=== PATIENT | male | born 1960 | race Caucasian/White ===

== ENCOUNTER 2016-06-20 13:00 | Emergency (ER) | payer MEDICARE, OTHER ==
[2016-06-20 13:21] VITALS: RESP 18; TEMP 97.9
[2016-06-20] MEDS ORDERED: IBUPROFEN 800 MG TAB PO STA (13:22)
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
--- NOTE | 2016-06-20 14:23 | XR ---
Left knee HISTORY: Pain 3 views of the left knee correlate to left leg same date Bone mineralization, joint spaces and alignment are maintained. Some minimal spurring is present lonnie inally. There is a knee joint effusion. IMPRESSION: Osteoarthritis. Joint effusion.
--- NOTE | 2016-06-20 14:24 | XR ---
Left leg HISTORY: Pain 2 views of the left leg correlated to left knee same date Bone mineralization, joint spaces and alignment are maintained. IMPRESSION: No significant osseous abnormality evident within the left leg. Osteoarthritis in the kne e.
[2016-06-20 14:31] VITALS: BP 171/100; PULSE 120
== END 2016-06-20 14:41 | disposition home or self-care (01) ==
LOC: EC 13:00
DX: M17.12 Unilateral primary osteoarthritis, left knee (principal); M25.462 Effusion, left knee; E11.9 Type 2 diabetes mellitus without complications; I10 Essential (primary) hypertension; Z79.899 Other long term (current) drug therapy; V13.4XXA Pedal cycle driver injured in collision with car, pick-up truck or van in traffic accident, initial encounter; Y93.55 Activity, bike riding; Z79.84 Long term (current) use of oral hypoglycemic drugs
CPT/HCPCS: 99284

== ENCOUNTER 2016-06-21 08:16 | Emergency (ER) | payer MEDICARE, OTHER ==
[2016-06-21] MEDS ORDERED: SODIUM CHLORIDE 0.9% 1,000 ML IV STA (09:18)
[2016-06-21] MEDS ORDERED: LABETALOL SYRINGE 5 MG/ML IVP STA ×2 (09:19→14:43)
--- NOTE | 2016-06-21 09:26 | ED ---
General Adult HPI <Sebastián Christie - Last Filed: 06/21/16 14:41> - General Source: patient, RN notes reviewed Mode of arrival: EMS Limitations: no limitations <Lisa Spencer - Last Filed: 06/21/16 20:30> - General Chief complaint: Extremity Injury, Lower Stated complaint: leg pain Time Seen by Provider: 06/21/16 08:40 - History of Present Illness Initial comments: Patient is a 56-year-old male presents to the emergency room for evaluation of multiple complaints. Patient states he was here yesterday because he had a left leg injury. Patient states that he received x-rays of his left leg with no findings noted. Patient states he was sent home and advised to take Tylenol and Motrin. Patient states having worsening pain today. Patient is having worsening pain on the anterior and posterior portion of his left knee that radiates down his calf. Patient states pain is worse when he walks. Patient states the pain is so bad that he falls because of the pain. Patient states he is having some numbness and tingling in his left lower leg and above his knee. Patient denies any history of blood clots. Patient denies smoking. Patient also states that his blood pressure is very high. Patient states he takes blood pressure medications but does not know the name. Patient states he takes 1 pill once a day. Patient states Dr. Padron prescribes for him. Patient also states that his sugars are running high. Patient states that he takes a medication for it once a day but again does not know the name of it. Patient denies chest pain or shortness of breath. Patient denies headache or dizziness. Patient denies nausea or vomiting. Patient denies fevers or chills. (Lisa Spencer) - Related Data Home Medications Medication Instructions Recorded Confirmed Lisinopril-Hctz 20-12.5 mg 1 tab PO DAILY 06/11/14 06/21/16 [Zestoretic 20-12.5] Linaclotide [Linzess] 290 mcg PO DAILY PRN 03/07/16 06/21/16 sitaGLIPtin [Januvia] 100 mg PO DAILY 03/07/16 06/21/16 Previous Rx's Medication Instructions Recorded HYDROcodone/APAP 5-325MG [[place] 1 tab PO Q6HR PRN #12 tab 06/21/16 5-325] Allergies Allergy/AdvReac Type Severity Reaction Status Date / Time No Known Allergies Allergy Verified 06/21/16 09:07 Review of Systems ROS Other: All systems not noted in ROS Statement are negative. <Sebastián Christie - Last Filed: 06/21/16 14:41> ROS Other: All systems not noted in ROS Statement are negative. <Lisa Spencer - Last Filed: 06/21/16 20:30> ROS Statement: Those systems with pertinent positive or pertinent negative responses have been documented in the HPI. Past Medical History Past Medical History: Diabetes Mellitus, Hypertension Additional Past Medical History / Comment(s): diverticulitis History of Any Multi-Drug Resistant Organisms: None Reported Past Surgical History: Hernia Repair Past Psychological History: No Psychological Hx Reported Smoking Status: Never smoker Past Alcohol Use History: None Reported Past Drug Use History: None Reported <Lisa Spencer - Last Filed: 06/21/16 20:30> General Exam <Sebastián Christie - Last Filed: 06/21/16 14:41> Limitations: no limitations General appearance: alert, in no apparent distress Head exam: Present: atraumatic, normocephalic, normal inspection Eye exam: Present: normal appearance ENT exam: Present: normal exam Neck exam: Present: normal inspection Respiratory exam: Present: normal lung sounds bilaterally. Absent: respiratory distress Cardiovascular Exam: Present: normal rhythm, tachycardia, normal heart sounds GI/Abdominal exam: Present: soft, normal bowel sounds. Absent: distended, tenderness, guarding, rebound, rigid Left Lower Leg exam: Present: full ROM, tenderness (Palpating over her posterior knee joint and calf), swelling Ankle exam: Present: normal inspection, full ROM. Absent: tenderness Foot/Toe exam: Present: normal inspection, full ROM. Absent: tenderness Neurovascular tendon exam: Absent: pulse deficit (2+ dorsal pedal and posterior tibial pulses), abnormal cap refill (capillary refill less than 2 seconds) Back exam: Present: normal inspection Neurological exam: Present: alert, oriented X3, CN II-XII intact Psychiatric exam: Present: normal affect, normal mood Skin exam: Present: warm, dry, intact, normal color. Absent: rash <Lisa Spencer - Last Filed: 06/21/16 20:30> - General Exam Comments Initial Comments: Pain exam room, no acute distress. (Lisa Spencer) EKG Findings - EKG Comments: EKG Findings:: Sinus tachycardia, ventricular rate 123 bpm, MT interval 140 ms, QRS duration 88 ms, QT/QTc 326/446 ms <Lisa Spencer - Last Filed: 06/21/16 20:30> Medical Decision Making - Lab Data Result diagrams: 06/21/16 08:55 06/21/16 08:55 <Sebastián Christie - Last Filed: 06/21/16 14:41> - Lab Data Result diagrams: 06/21/16 08:55 06/21/16 08:55 - Radiology Data Radiology results: report reviewed, image reviewed <Lisa Spencer - Last Filed: 06/21/16 20:30> - Medical Decision Making The patient was seen and examined. All diagnostics were reviewed. The case is discussed with orthopedics and consult is obtained for their opinion regarding the possibility of a compartment syndrome. I have discussed the case with the PA and agree with the findings as documented. (Sebastián Christie) Patient is a 56-year-old male presents emergency room for evaluation of left leg pain and swelling. Patient also noted to be tachycardic on examination, d- dimer was elevated. CT chest shows no signs of PE. Case discussed with Dr. Christie. Dr. Christie also evaluated patient. Patient was then evaluated by orthopedic PAAiden and Dr. Truong. MRI was ordered. Hematoma noted of the lower leg along with a right sided meniscal tear. Patient will be sent home with pain medications and crutches. Advised patient to not put any weight on his leg until reevaluated by Dr. Truong in the next 1-2 days. Also advised patient to follow-up with his primary care provider regarding blood pressure. Patient states he understands everything that was discussed with him. Return parameters discussed. (Lisa Spencer) - Lab Data Lab Results 06/21/16 06/21/16 06/21/16 Range/Units 08:55 08:55 08:55 WBC 12.0 H (3.8-10.6) k/uL RBC 5.87 (4.30-5.90) m/uL Hgb 17.1 (13.0-17.5) gm/dL Hct 50.3 (39.0-53.0) % MCV 85.7 (80.0-100.0) fL MCH 29.1 (25.0-35.0) pg MCHC 34.0 (31.0-37.0) g/dL RDW 12.6 (11.5-15.5) % Plt Count 259 (150-450) k/uL Neutrophils % 81 % Lymphocytes % 11 % Monocytes % 6 % Eosinophils % 0 % Basophils % 1 % Neutrophils # 9.6 H (1.3-7.7) k/uL Lymphocytes # 1.4 (1.0-4.8) k/uL Monocytes # 0.8 (0-1.0) k/uL Eosinophils # 0.0 (0-0.7) k/uL Basophils # 0.1 (0-0.2) k/uL PT (9.0-12.0) sec INR (<1.1) APTT (22.0-30.0) sec D-Dimer (<0.60) mg/L FEU Sodium 138 (137-145) mmol/L Potassium 5.2 H (3.5-5.1) mmol/L Chloride 101 (98-107) mmol/L Carbon Dioxide 22 (22-30) mmol/L Anion Gap 15 mmol/L BUN 16 (9-20) mg/dL Creatinine 0.83 (0.66-1.25) mg/dL Est GFR (MDRD) Af Amer >60 (>60 ml/min/1.73 sqM) Est GFR (MDRD) Non-Af >60 (>60 ml/min/1.73 sqM) Glucose 352 H (74-99) mg/dL POC Glucose (mg/dL) (75-99) mg/dL POC Glu Veterinary Technician ID Calcium 10.1 (8.4-10.2) mg/dL Magnesium 1.5 L (1.6-2.3) mg/dL Total Bilirubin 2.2 H (0.2-1.3) mg/dL AST 28 (17-59) U/L ALT 42 (21-72) U/L Alkaline Phosphatase 87 (38-126) U/L Total Creatine Kinase 376 H (55-170) U/L CK-MB (CK-2) 1.1 (0.0-2.4) ng/mL CK-MB (CK-2) Rel Index 0.3 Troponin I <0.012 (0.000-0.034) ng/mL Total Protein 7.4 (6.3-8.2) g/dL Albumin 4.4 (3.5-5.0) g/dL 06/21/16 06/21/16 Range/Units 08:55 12:29 WBC (3.8-10.6) k/uL RBC (4.30-5.90) m/uL Hgb (13.0-17.5) gm/dL Hct (39.0-53.0) % MCV (80.0-100.0) fL MCH (25.0-35.0) pg MCHC (31.0-37.0) g/dL RDW (11.5-15.5) % Plt Count (150-450) k/uL Neutrophils % % Lymphocytes % % Monocytes % % Eosinophils % % Basophils % % Neutrophils # (1.3-7.7) k/uL Lymphocytes # (1.0-4.8) k/uL Monocytes # (0-1.0) k/uL Eosinophils # (0-0.7) k/uL Basophils # (0-0.2) k/uL PT 10.2 (9.0-12.0) sec INR 1.0 (<1.1) APTT 22.8 (22.0-30.0) sec D-Dimer 1.01 H (<0.60) mg/L FEU Sodium (137-145) mmol/L Potassium (3.5-5.1) mmol/L Chloride (98-107) mmol/L Carbon Dioxide (22-30) mmol/L Anion Gap mmol/L BUN (9-20) mg/dL Creatinine (0.66-1.25) mg/dL Est GFR (MDRD) Af Amer (>60 ml/min/1.73 sqM) Est GFR (MDRD) Non-Af (>60 ml/min/1.73 sqM) Glucose (74-99) mg/dL POC Glucose (mg/dL) 280 H (75-99) mg/dL POC Glu Veterinary Technician ID Adin Saldivar Calcium (8.4-10.2) mg/dL Magnesium (1.6-2.3) mg/dL Total Bilirubin (0.2-1.3) mg/dL AST (17-59) U/L ALT (21-72) U/L Alkaline Phosphatase (38-126) U/L Total Creatine Kinase (55-170) U/L CK-MB (CK-2) (0.0-2.4) ng/mL CK-MB (CK-2) Rel Index Troponin I (0.000-0.034) ng/mL Total Protein (6.3-8.2) g/dL Albumin (3.5-5.0) g/dL Disposition <JonahSebastián mayfield - Last Filed: 06/21/16 14:41> Time of Disposition: 17:41 <Lisa Spencer - Last Filed: 06/21/16 20:30> Clinical Impression: Acute meniscal tear of left knee, Hematoma of muscle, Hypertension Disposition: HOME SELF-CARE Condition: Good Instructions: Swollen Joint (ED), Hematoma (ED) Additional Instructions: Rest, elevate and ice on and off for 10-15 minutes for the next 24-48 hours. Please use crutches, do not put any weight on left leg until reevaluated by Dr. Truong. Take Tylenol or Motrin as needed for pain. Take [place] for severe pain. Please follow-up with Dr. Truong in 1-2 days. If new symptoms develop or symptoms worsen, please return to the ER. Please follow up with primary care provider regarding blood pressure recheck. Prescriptions: HYDROcodone/APAP 5-325MG [[place] 5-325] 1 tab PO Q6HR PRN #12 tab PRN Reason: Pain Referrals: Carlos Padron MD [Primary Care Provider] - 1-2 days Jasvir Truong MD [STAFF PHYSICIAN] - 1-2 days
[2016-06-21 09:34] LABS: Basophils # (A) 0.1 k/uL (0-0.2); Basophils % (A) 1 %; CH 30.3; CHCM 35.5; Eosinophils % (A) 0 %; HCT 50.3 % (39.0-53.0); HDW 2.68; HGB 17.1 gm/dL (13.0-17.5); Luc # (Auto) 0.12; Luc % (Auto) 1; Lymphocytes # (A) 1.4 k/uL (1.0-4.8); Lymphocytes % (A) 11 %; MCH 29.1 pg (25.0-35.0); MCV 85.7 fL (80.0-100.0); Mean Platelet Volume 9.2; Monocytes # (A) 0.8 k/uL (0-1.0); Monocytes % (A) 6 %; Neutrophils # (A) 9.6 k/uL (1.3-7.7); Neutrophils % (A) 81 %; RBC 5.87 m/uL (4.30-5.90); RDW 12.6 % (11.5-15.5); WBC (Perox) 11.67
[2016-06-21 09:42] LABS: ALT 42 U/L (21-72); AST 28 U/L (17-59); Alkaline Phosphatase 87 U/L (38-126); Anion Gap 15 mmol/L; Blood Urea Nitrogen 16 mg/dL (9-20); Calcium 10.1 mg/dL (8.4-10.2); Carbon Dioxide 22 mmol/L (22-30); Chloride 101 mmol/L (98-107); Glucose 352 mg/dL (74-99); Magnesium 1.5 mg/dL (1.6-2.3); Non-African American GFR(MDRD) >60 (>60 ml/min/1.73 sqM); Potassium 5.2 mmol/L (3.5-5.1); Sodium 138 mmol/L (137-145); Total Bilirubin 2.2 mg/dL (0.2-1.3); Total Protein 7.4 g/dL (6.3-8.2)
[2016-06-21 09:52] LABS: Partial Thromboplastin Time 22.8 sec (22.0-30.0); Prothrombin Time 10.2 sec (9.0-12.0)
[2016-06-21 10:07] LABS: Creatine Kinase 376 U/L (55-170)
[2016-06-21 10:19] LABS: Creatine Kinase MB 1.1 ng/mL (0.0-2.4); Troponin I <0.012 ng/mL (0.000-0.034)
--- NOTE | 2016-06-21 10:37 | XR ---
EXAMINATION TYPE: XR chest 2V DATE OF EXAM: 06/21/2016 10:28 AM COMPARISON: 07/21/2015 HISTORY: Chest pain FINDINGS: The lungs are clear and there is no pneumothorax, pleural effusion, or focal pneumonia. Mediastinum is somewhat prominent. IMPRESSION: 1. No acute process. Upper mediastinum is somewhat prominent. May be vascular.
[2016-06-21] MEDS ORDERED: RX INFO: IV CONTRAST WAS GIVEN 1 EACH MISC MISCELLANE PRN (11:39)
--- NOTE | 2016-06-21 12:06 | CT ---
EXAMINATION TYPE: CT angio chest DATE OF EXAM: 06/21/2016 12:01 PM COMPARISON: NONE HISTORY: Patient complains of left knee pain post injury, high blood pressure, and high blood sugar. Patient has a history of diabetes. Patient denies chest pain or difficulty breathing. CT DLP: 306.2 mGycm CONTRAST: CT chest with contrast and 3D reconstruction with MIP imaging is performed with IV Contrast, patient injected with 100 mL of Omnipaque 350. Contrast-enhanced CT of the chest was performed through the course of the pulmonary arteries with emily g and mediastinal window settings submitted. 3D reconstruction with MIP imaging was also performed. PULMONARY ARTERIES: The pulmonary arteries and their major tributaries are patent. I do not see mauro dence for sizable filling defect to suggest pulmonary embolic process. LUNGS: The lungs are clear and free of infiltrate. No evidence for atelectasis. No pulmonary nodule or mass is detected. No pleural effusion. MEDIASTINUM: Thoracic aorta is of normal caliber . The heart is not enlarged. No evidence for media stinal mass. No mediastinal lymph nodes greater than 1cm. HILAR STRUCTURES: No evidence for mass. No hilar lymph nodes greater than 1 cm. UPPER ABDOMEN: No significant abnormality is seen. IMPRESSION: 1. No evidence for Pulmonary embolism at this time.
--- NOTE | 2016-06-21 12:17 | US ---
EXAMINATION TYPE: US venous doppler duplex LE LT DATE OF EXAM: 06/21/2016 11:12 AM COMPARISON: NONE CLINICAL HISTORY: Pain. Left knee pain and swelling x 2 days SIDE PERFORMED: Left VESSELS IMAGED: ) Common Femoral Vein Deep Femoral Vein Greater Saphenous Vein * Femoral Vein Popliteal Vein Small Saphenous Vein * Proximal Calf Veins (* superficial vessels) Findings: Anterior Fluid Collection noted at medial, mid, and lateral left knee at swelling and pain. Complex fluid collection = 6.1 x 4.8 x 1.8cm Left Leg: Negative for DVT IMPRESSION: 1. No evidence of DVT 2. Large fluid collection which is somewhat complex measuring 6.1 cm within the anterior soft tissues . Correlate clinically if necessary with MRI. Differential would include seroma, hematoma or simple f luid. Abscess not entirely excluded correlate clinically.
[2016-06-21 12:32] LABS: Glucose,Whole Blood 280 mg/dL (75-99)
[2016-06-21] MEDS ORDERED: MORPHINE SULFATE 4 MG/ML SYRINGE IVP STA (13:43)
[2016-06-21] MEDS ORDERED: SODIUM CHLORIDE 0.9% 1,000 ML IV ONE (14:43)
[2016-06-21 17:12] VITALS: BP 164/99; PULSE 100; RESP 16; TEMP 97.8
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
== END 2016-06-21 18:04 | disposition home or self-care (01) ==
LOC: EC 08:16
DX: S83.242A Other tear of medial meniscus, current injury, left knee, initial encounter (principal); S80.02XA Contusion of left knee, initial encounter; X58.XXXA Exposure to other specified factors, initial encounter; E11.9 Type 2 diabetes mellitus without complications; I10 Essential (primary) hypertension; Z79.84 Long term (current) use of oral hypoglycemic drugs; Z79.899 Other long term (current) drug therapy
CPT/HCPCS: 36415; 93005; 85379; 80053; 82550; 82553; 83735; 84484; 85025; 85610; 85730; 71020; 93971; 71275; 73718; 99284; 96374; 96375; 96376; 96361 ×3; J2270; Q9967

== ENCOUNTER 2016-12-13 19:52 | Emergency (ER) | payer MEDICARE, OTHER ==
[2016-12-13] MEDS ORDERED: RX INFO: IV CONTRAST WAS GIVEN 1 EACH MISC MISCELLANE PRN (20:24)
[2016-12-13 21:05] LABS: Basophils # (A) 0.1 k/uL (0-0.2); Basophils % (A) 1 %; CHCM 35.5; Eosinophils # (A) 0.3 k/uL (0-0.7); Eosinophils % (A) 3 %; HCT 45.5 % (39.0-53.0); HDW 2.76; HGB 16.2 gm/dL (13.0-17.5); Luc # (Auto) 0.22; Luc % (Auto) 2; Lymphocytes # (A) 2.5 k/uL (1.0-4.8); Lymphocytes % (A) 25 %; MCH 30.2 pg (25.0-35.0); MCHC 35.5 g/dL (31.0-37.0); Mean Platelet Volume 8.5; Monocytes # (A) 0.6 k/uL (0-1.0); Monocytes % (A) 6 %; Neutrophils # (A) 6.2 k/uL (1.3-7.7); Neutrophils % (A) 63 %; RBC 5.35 m/uL (4.30-5.90); WBC 9.8 k/uL (3.8-10.6); WBC (Perox) 9.64
[2016-12-13 21:11] LABS: Appearance,Urine Clear (Clear); Bilirubin,Urine Negative (Negative); Glucose,Urine (UA) 4+ (Negative); Ketones,Urine Trace (Negative); Leukocyte Esterase,Urine Negative (Negative); Mucus,Urine Rare /hpf; Nitrite,Urine Negative (Negative); Particle Count 308; Protein,Urine 1+ (Negative); Specific Gravity,Urine 1.017 (1.001-1.035); UA Billing (MACRO vs. MICRO) MICRO; Urobilinogen,Urine <2.0 mg/dL (<2.0); WBC,Urine <1 /hpf (0-5)
[2016-12-13 21:13] LABS: ALT 52 U/L (21-72); AST 32 U/L (17-59); Alkaline Phosphatase 94 U/L (38-126); Amylase <30 U/L (30-110); Anion Gap 9 mmol/L; Blood Urea Nitrogen 16 mg/dL (9-20); Calcium 10.6 mg/dL (8.4-10.2); Carbon Dioxide 22 mmol/L (22-30); Chloride 104 mmol/L (98-107); Glucose 275 mg/dL (74-99); Non-African American GFR(MDRD) >60 (>60 ml/min/1.73 sqM); Potassium 4.7 mmol/L (3.5-5.1); Sodium 135 mmol/L (137-145); Total Bilirubin 0.6 mg/dL (0.2-1.3); Total Protein 6.2 g/dL (6.3-8.2)
--- NOTE | 2016-12-13 21:51 | CT ---
EXAMINATION TYPE: CT abdomen pelvis w con DATE OF EXAM: 12/13/2016 COMPARISON: 03/30/2015 HISTORY: Patient complains of llq pain. CT DLP: 1701 mGycm Automated exposure control for dose reduction was used. TECHNIQUE: Helical acquisition of images was performed from the lung bases through the pelvis. CONTRAST: Performed without Oral Contrast and with IV Contrast, patient injected with 100 mL of Omnipaque 300. FINDINGS: Lung bases are clear. There is no pleural effusion. There is fatty infiltration of the liver. Pancreas and gallbladder appear normal. Spleen appears norm al. Bile ducts are not dilated. There is no adrenal mass. Kidneys show satisfactory contrast opacific ation. There is no hydronephrosis. There is no retroperitoneal adenopathy. Appendix appears normal. I see no intestinal wall thickening. There are no dilated loops. There are few sigmoid diverticula. Bl adder distends smoothly. There is no pelvic mass. There are mild spondylotic changes in the lumbar spine. IMPRESSION: FATTY INFILTRATION OF THE LIVER. NORMAL APPENDIX. NO SIGN OF ACUTE ABDOMEN AND PELVIS. MILD SIGMOID D IVERTICULOSIS. NO ADVERSE CHANGE COMPARED TO OLD EXAM.
--- NOTE | 2016-12-13 22:21 | ED ---
General Adult HPI - General Chief complaint: Neuro Symptoms/Deficit Stated complaint: L arm numbness Time Seen by Provider: 12/13/16 20:05 Source: patient, RN notes reviewed Mode of arrival: ambulatory Limitations: no limitations - History of Present Illness Initial comments: 56-year-old male with history of hypertension diabetes presents with chief complaint of abdominal pain. Patient denies nausea vomiting states he's had 2 episodes of diarrhea, no blood in the diarrhea. No history of fever. No chest pain or shortness of breath. Patient states the abdominal pain is sharp and comes and goes to his left lower side. He does have a history of diverticulitis area pains. Positive for 12 days. Patient also reports some tingling in his left hand which she has had on and off for some time. Patient denies any focal weakness. Denies headache. Tingling is resolving. There is no numbness. - Related Data Home Medications Medication Instructions Recorded Confirmed Lisinopril-Hctz 20-12.5 mg 1 tab PO DAILY 06/11/14 12/13/16 [Zestoretic 20-12.5] Linaclotide [Linzess] 290 mcg PO DAILY PRN 03/07/16 12/13/16 Ciprofloxacin HCl [Cipro] 500 mg PO Q12H 12/13/16 12/13/16 Glimepiride [Amaryl] 1 mg PO DAILY 12/13/16 12/13/16 metroNIDAZOLE [Flagyl] 500 mg PO BID 12/13/16 12/13/16 Allergies Allergy/AdvReac Type Severity Reaction Status Date / Time No Known Allergies Allergy Verified 12/13/16 20:07 Review of Systems ROS Statement: Those systems with pertinent positive or pertinent negative responses have been documented in the HPI. ROS Other: All systems not noted in ROS Statement are negative. Past Medical History Past Medical History: Diabetes Mellitus, Hypertension Additional Past Medical History / Comment(s): diverticulitis History of Any Multi-Drug Resistant Organisms: None Reported Past Surgical History: Hernia Repair Past Psychological History: No Psychological Hx Reported Smoking Status: Never smoker Past Alcohol Use History: None Reported Past Drug Use History: None Reported General Exam Limitations: no limitations General appearance: alert, in no apparent distress Head exam: Present: atraumatic, normocephalic Eye exam: Present: normal appearance, PERRL ENT exam: Present: normal exam Neck exam: Present: normal inspection Respiratory exam: Present: normal lung sounds bilaterally. Absent: respiratory distress Cardiovascular Exam: Present: regular rate, normal rhythm GI/Abdominal exam: Present: soft, tenderness. Absent: distended, guarding, rebound (There is mild tenderness to deep palpation in the left lower quadrant) Extremities exam: Present: normal inspection, full ROM. Absent: normal capillary refill Neurological exam: Present: alert, oriented X3, CN II-XII intact, motor sensory deficit Psychiatric exam: Present: normal affect, normal mood Skin exam: Present: warm, dry Course Vital Signs 12/13/16 12/13/16 12/13/16 19:55 20:26 20:38 Temperature 98.4 F 99.7 F H Pulse Rate 99 96 Respiratory 20 Rate Blood Pressure 209/114 159/76 O2 Sat by Pulse 99 97 Oximetry 12/13/16 22:14 Temperature Pulse Rate 94 Respiratory 18 Rate Blood Pressure 193/100 O2 Sat by Pulse 97 Oximetry Medical Decision Making - Medical Decision Making 56-year-old male with history of diverticulitis presenting with four-day history of left lower quadrant abdominal pain. Patient does have some mild tenderness to palpation. No rebound no guarding. Denies fever, states he's had 2 episodes of diarrhea. Denies nausea or vomiting. Patient is initial blood pressure is 200 systolic, repeat 159 systolic with no treatment. Patient states he did take his blood pressure medication today. Laboratory studies reveal normal white count, serum glucose is elevated and serum calcium is mildly elevated at 10.6. Laboratory studies are otherwise unremarkable. CT abdomen is obtained to evaluate for diverticulitis. There is no acute finding, there is diverticulosis on computed tomography scan. Patient is given his results. He will follow-up with his primary care. He is encouraged to take his blood pressure medication as scheduled. He will also take his diabetes medicine at home. - Lab Data Result diagrams: 12/13/16 20:47 12/13/16 20:47 Lab Results 12/13/16 12/13/16 12/13/16 Range/Units 20:47 20:47 20:47 WBC 9.8 (3.8-10.6) k/uL RBC 5.35 (4.30-5.90) m/uL Hgb 16.2 (13.0-17.5) gm/dL Hct 45.5 (39.0-53.0) % MCV 85.0 (80.0-100.0) fL MCH 30.2 (25.0-35.0) pg MCHC 35.5 (31.0-37.0) g/dL RDW 13.0 (11.5-15.5) % Plt Count 260 (150-450) k/uL Neutrophils % 63 % Lymphocytes % 25 % Monocytes % 6 % Eosinophils % 3 % Basophils % 1 % Neutrophils # 6.2 (1.3-7.7) k/uL Lymphocytes # 2.5 (1.0-4.8) k/uL Monocytes # 0.6 (0-1.0) k/uL Eosinophils # 0.3 (0-0.7) k/uL Basophils # 0.1 (0-0.2) k/uL Sodium 135 L (137-145) mmol/L Potassium 4.7 (3.5-5.1) mmol/L Chloride 104 (98-107) mmol/L Carbon Dioxide 22 (22-30) mmol/L Anion Gap 9 mmol/L BUN 16 (9-20) mg/dL Creatinine 0.92 (0.66-1.25) mg/dL Est GFR (MDRD) Af Amer >60 (>60 ml/min/1.73 sqM) Est GFR (MDRD) Non-Af >60 (>60 ml/min/1.73 sqM) Glucose 275 H (74-99) mg/dL Calcium 10.6 H (8.4-10.2) mg/dL Total Bilirubin 0.6 (0.2-1.3) mg/dL AST 32 (17-59) U/L ALT 52 (21-72) U/L Alkaline Phosphatase 94 (38-126) U/L Total Protein 6.2 L (6.3-8.2) g/dL Albumin 3.8 (3.5-5.0) g/dL Amylase <30 L (30-110) U/L Lipase 73 (23-300) U/L Urine Color Light Yellow Urine Appearance Clear (Clear) Urine pH 5.0 (5.0-8.0) Ur Specific [place] 1.017 (1.001-1.035) Urine Protein 1+ H (Negative) Urine Glucose (UA) 4+ H (Negative) Urine Ketones Trace H (Negative) Urine Blood Negative (Negative) Urine Nitrite Negative (Negative) Urine Bilirubin Negative (Negative) Urine Urobilinogen <2.0 (<2.0) mg/dL Ur Leukocyte Esterase Negative (Negative) Urine WBC <1 (0-5) /hpf Urine Mucus Rare H (None) /hpf Disposition Clinical Impression: Abdominal pain Disposition: HOME SELF-CARE Instructions: Abdominal Pain (ED) Referrals: Carlos Padron MD [Primary Care Provider] - 1-2 days Time of Disposition: 22:21
[2016-12-13 22:32] VITALS: BP 196/98; PULSE 88; RESP 16; TEMP 98.9
== END 2016-12-13 22:33 | disposition home or self-care (01) ==
LOC: EC 19:52
DX: K57.30 Diverticulosis of large intestine without perforation or abscess without bleeding (principal); E11.65 Type 2 diabetes mellitus with hyperglycemia; R79.89 Other specified abnormal findings of blood chemistry; R20.2 Paresthesia of skin; R19.7 Diarrhea, unspecified; I10 Essential (primary) hypertension; Z79.84 Long term (current) use of oral hypoglycemic drugs; Z79.899 Other long term (current) drug therapy
CPT/HCPCS: 36415; 80053; 83690; 82150; 85025; 81001; 74177; 99284; Q9967

== ENCOUNTER 2016-12-31 18:37 | Emergency (ER) | payer MEDICARE, OTHER ==
[2016-12-31 18:49] LABS: Glucose,Whole Blood 201 mg/dL (75-99)
[2016-12-31 19:40] LABS: Basophils # (A) 0.1 k/uL (0-0.2); Basophils % (A) 1 %; CH 30.8; CHCM 35.3; Eosinophils # (A) 0.2 k/uL (0-0.7); Eosinophils % (A) 3 %; HCT 49.2 % (39.0-53.0); HDW 2.66; HGB 16.6 gm/dL (13.0-17.5); Luc # (Auto) 0.13; Luc % (Auto) 1; Lymphocytes # (A) 1.5 k/uL (1.0-4.8); Lymphocytes % (A) 17 %; MCH 29.5 pg (25.0-35.0); MCHC 33.7 g/dL (31.0-37.0); MCV 87.6 fL (80.0-100.0); Monocytes # (A) 0.4 k/uL (0-1.0); Monocytes % (A) 4 %; Neutrophils # (A) 6.9 k/uL (1.3-7.7); Neutrophils % (A) 75 %; RBC 5.62 m/uL (4.30-5.90); RDW 14.1 % (11.5-15.5); WBC 9.2 k/uL (3.8-10.6); WBC (Perox) 9.16
[2016-12-31 19:53] LABS: Anion Gap 11 mmol/L; Blood Urea Nitrogen 15 mg/dL (9-20); Carbon Dioxide 21 mmol/L (22-30); Chloride 104 mmol/L (98-107); Glucose 210 mg/dL (74-99); Non-African American GFR(MDRD) >60 (>60 ml/min/1.73 sqM); Potassium 4.3 mmol/L (3.5-5.1); Sodium 136 mmol/L (137-145)
[2016-12-31] MEDS ORDERED: ASPIRIN 325 MG TAB PO STA (20:02)
[2016-12-31] MEDS ORDERED: SODIUM CHLORIDE 0.9% 1,000 ML IV ONE (20:09)
[2016-12-31] MEDS: METOPROLOL TARTRATE 5 MG/5 ML VIAL IVP SCH ×2 (20:22→21:48)
--- NOTE | 2016-12-31 20:45 | XR ---
EXAMINATION TYPE: XR chest 2V DATE OF EXAM: 12/31/2016 COMPARISON: NONE HISTORY: Dizziness TECHNIQUE: Frontal and lateral views of the chest are obtained. FINDINGS: There is no heart failure nor confluent pneumonic infiltrate. Costophrenic angles are manuela r. Bony thorax is intact. Thoracic aorta is atheromatous. There is no pleural effusion. IMPRESSION: No active cardiopulmonary disease. Normal heart.
[2016-12-31 20:49] LABS: Appearance,Urine Clear (Clear); Bilirubin,Urine Negative (Negative); Glucose,Urine (UA) 4+ (Negative); Ketones,Urine Trace (Negative); Leukocyte Esterase,Urine Negative (Negative); Mucus,Urine Rare /hpf; Nitrite,Urine Negative (Negative); PH, Urine 5.5 (5.0-8.0); Particle Count 1963; Protein,Urine 2+ (Negative); RBC,Urine <1 /hpf (0-5); Specific Gravity,Urine 1.021 (1.001-1.035); UA Billing (MACRO vs. MICRO) MICRO; Urobilinogen,Urine <2.0 mg/dL (<2.0); WBC,Urine 1 /hpf (0-5)
[2016-12-31] MEDS ORDERED: METOPROLOL TARTRATE 5 MG/5 ML VIAL IVP SCH (21:45)
[2016-12-31 21:51] VITALS: RESP 16
[2016-12-31 22:13] VITALS: PULSE 84
[2016-12-31] MEDS ORDERED: LISINOPRIL 10 MG TAB PO STA (22:17)
--- NOTE | 2016-12-31 22:17 | ED ---
Recheck HPI - General Chief Complaint: Recheck/Abnormal Lab/Rx Stated Complaint: POSS HYPERGLYCEMIA, HYPERTENSION Source: patient Mode of arrival: wheelchair Limitations: no limitations - History of Present Illness Initial Comments: 56-year-old male presented for evaluation of lightheadedness and dizziness. He states the last time he had these symptoms he was hypertensive and came to the ED for further treatment and evaluation. Upon arrival to this ED today he was found to be markedly hypertensive with systolic blood pressures greater than 200. Although he states he has a history of hypertension he states he has not been prescribed blood pressure medications. He denies any associated chest pain, shortness of breath, fevers, chills, abdominal pain, dysuria or decreased urinary output, cuts patient, diarrhea. There is no change in vision and no ataxia. - Related Data Home Medications Medication Instructions Recorded Confirmed Linaclotide [Linzess] 290 mcg PO DAILY 03/07/16 12/31/16 Glimepiride [Amaryl] 1 mg PO DAILY 12/13/16 12/31/16 sitaGLIPtin [Januvia] 100 mg PO DAILY 12/31/16 12/31/16 Previous Rx's Medication Instructions Recorded Lisinopril [Zestril] 10 mg PO DAILY #10 tab 12/31/16 Allergies Allergy/AdvReac Type Severity Reaction Status Date / Time No Known Allergies Allergy Verified 12/31/16 19:48 Review of Systems ROS Statement: Those systems with pertinent positive or pertinent negative responses have been documented in the HPI. ROS Other: All systems not noted in ROS Statement are negative. Constitutional: Denies: fever, chills Eyes: Denies: eye pain, eye discharge ENT: Denies: ear pain, throat pain Respiratory: Denies: cough, dyspnea Cardiovascular: Denies: chest pain, palpitations, dyspnea on exertion, orthopnea , syncope Endocrine: Denies: fatigue, polydipsia, polyuria Gastrointestinal: Denies: abdominal pain, nausea, vomiting Genitourinary: Denies: urgency, dysuria Musculoskeletal: Denies: back pain, arthralgia, myalgia Skin: Denies: rash, lesions Neurological: Reports: other (lightheaded/dizzy). Denies: headache, weakness, numbness Psychiatric: Denies: anxiety, depression Hematological/Lymphatic: Denies: easy bleeding, easy bruising Past Medical History Past Medical History: Diabetes Mellitus, Hypertension Additional Past Medical History / Comment(s): diverticulitis History of Any Multi-Drug Resistant Organisms: None Reported Past Surgical History: Hernia Repair Past Psychological History: No Psychological Hx Reported Smoking Status: Never smoker Past Alcohol Use History: None Reported Past Drug Use History: None Reported General Exam Limitations: no limitations General appearance: alert, in no apparent distress Head exam: Present: atraumatic, normocephalic, normal inspection Eye exam: Present: normal appearance, PERRL, EOMI. Absent: scleral icterus, conjunctival injection, periorbital swelling ENT exam: Present: normal exam, mucous membranes moist Neck exam: Present: normal inspection. Absent: tenderness, meningismus, lymphadenopathy Respiratory exam: Present: normal lung sounds bilaterally. Absent: respiratory distress, wheezes, rales, rhonchi, stridor Cardiovascular Exam: Present: regular rate, normal rhythm, normal heart sounds. Absent: systolic murmur, diastolic murmur, rubs, gallop, clicks GI/Abdominal exam: Present: soft, normal bowel sounds. Absent: distended, tenderness, guarding, rebound, rigid Rectal exam: Present: deferred Extremities exam: Present: normal inspection, full ROM, normal capillary refill. Absent: tenderness, pedal edema, joint swelling, calf tenderness Back exam: Present: normal inspection Neurological exam: Present: alert, oriented X3, CN II-XII intact Psychiatric exam: Present: normal affect, normal mood Skin exam: Present: warm, dry, intact, normal color. Absent: rash Course Vital Signs 12/31/16 12/31/16 12/31/16 18:40 19:30 20:14 Temperature 97.1 F L Pulse Rate 99 92 96 Respiratory 20 18 18 Rate Blood Pressure 220/118 189/106 211/103 O2 Sat by Pulse 98 96 98 Oximetry 12/31/16 12/31/16 12/31/16 21:29 21:50 22:12 Temperature Pulse Rate 87 89 84 Respiratory 18 16 16 Rate Blood Pressure 196/110 212/114 180/96 O2 Sat by Pulse 96 97 99 Oximetry 12/31/16 22:31 Temperature 98.0 F Pulse Rate 84 Respiratory 16 Rate Blood Pressure 182/98 O2 Sat by Pulse 97 Oximetry Medical Decision Making - Medical Decision Making 56-year-old male with past medical history of diabetes and hypertension presented for evaluation of lightheadedness and dizziness. He states the last time he felt this way his blood pressure was very high which popped at his visit to the ED today. Upon presentation to this ED he was in a hypertension urgency and was brought back for further treatment and evaluation. He showed the medications that he's been taking which did not include an antihypertensive. He was asked about whether he has been prescribed in the past and he is not sure. He is provided with a dose of Lopressor and labs are obtained which showed no significant abnormalities. His PCP Dr. Padron was informed of his presentation and stated that the pt is supposed to be taking Lisinopril and requested that if the patient should have successful decrease in BP and resolution of symptom that he be discharged with instructions to follow up in his office tomorrow morning. The patient was reevaluated and was back at his baseline with a preceding decrease in his BP after lopressor. He was informed of recommendations by his PCP and given a prescription for lisinopril. He was further advised to return to this facility if his symptoms should worsen or persist. The patient acknowledged an understanding of this information and agreed with this plan of care. - Lab Data Result diagrams: 12/31/16 19:25 12/31/16 19:25 Lab Results 12/31/16 12/31/16 12/31/16 Range/Units 18:46 19:25 19:25 WBC 9.2 (3.8-10.6) k/uL RBC 5.62 (4.30-5.90) m/uL Hgb 16.6 (13.0-17.5) gm/dL Hct 49.2 (39.0-53.0) % MCV 87.6 (80.0-100.0) fL MCH 29.5 (25.0-35.0) pg MCHC 33.7 (31.0-37.0) g/dL RDW 14.1 (11.5-15.5) % Plt Count 237 (150-450) k/uL Neutrophils % 75 % Lymphocytes % 17 % Monocytes % 4 % Eosinophils % 3 % Basophils % 1 % Neutrophils # 6.9 (1.3-7.7) k/uL Lymphocytes # 1.5 (1.0-4.8) k/uL Monocytes # 0.4 (0-1.0) k/uL Eosinophils # 0.2 (0-0.7) k/uL Basophils # 0.1 (0-0.2) k/uL Sodium 136 L (137-145) mmol/L Potassium 4.3 (3.5-5.1) mmol/L Chloride 104 (98-107) mmol/L Carbon Dioxide 21 L (22-30) mmol/L Anion Gap 11 mmol/L BUN 15 (9-20) mg/dL Creatinine 0.83 (0.66-1.25) mg/dL Est GFR (MDRD) Af Amer >60 (>60 ml/min/1.73 sqM) Est GFR (MDRD) Non-Af >60 (>60 ml/min/1.73 sqM) Glucose 210 H (74-99) mg/dL POC Glucose (mg/dL) 201 H (75-99) mg/dL POC Glu Progress Worker ID Tete Pérez Calcium 10.0 (8.4-10.2) mg/dL Troponin I (0.000-0.034) ng/mL NT-Pro-B Natriuret Pep pg/mL Urine Color Urine Appearance (Clear) Urine pH (5.0-8.0) Ur Specific [place] (1.001-1.035) Urine Protein (Negative) Urine Glucose (UA) (Negative) Urine Ketones (Negative) Urine Blood (Negative) Urine Nitrite (Negative) Urine Bilirubin (Negative) Urine Urobilinogen (<2.0) mg/dL Ur Leukocyte Esterase (Negative) Urine RBC (0-5) /hpf Urine WBC (0-5) /hpf Urine Mucus (None) /hpf 12/31/16 12/31/16 12/31/16 Range/Units 19:25 19:25 20:25 WBC (3.8-10.6) k/uL RBC (4.30-5.90) m/uL Hgb (13.0-17.5) gm/dL Hct (39.0-53.0) % MCV (80.0-100.0) fL MCH (25.0-35.0) pg MCHC (31.0-37.0) g/dL RDW (11.5-15.5) % Plt Count (150-450) k/uL Neutrophils % % Lymphocytes % % Monocytes % % Eosinophils % % Basophils % % Neutrophils # (1.3-7.7) k/uL Lymphocytes # (1.0-4.8) k/uL Monocytes # (0-1.0) k/uL Eosinophils # (0-0.7) k/uL Basophils # (0-0.2) k/uL Sodium (137-145) mmol/L Potassium (3.5-5.1) mmol/L Chloride (98-107) mmol/L Carbon Dioxide (22-30) mmol/L Anion Gap mmol/L BUN (9-20) mg/dL Creatinine (0.66-1.25) mg/dL Est GFR (MDRD) Af Amer (>60 ml/min/1.73 sqM) Est GFR (MDRD) Non-Af (>60 ml/min/1.73 sqM) Glucose (74-99) mg/dL POC Glucose (mg/dL) (75-99) mg/dL POC Glu Progress Worker ID Calcium (8.4-10.2) mg/dL Troponin I <0.012 (0.000-0.034) ng/mL NT-Pro-B Natriuret Pep 98 pg/mL Urine Color Yellow Urine Appearance Clear (Clear) Urine pH 5.5 (5.0-8.0) Ur Specific [place] 1.021 (1.001-1.035) Urine Protein 2+ H (Negative) Urine Glucose (UA) 4+ H (Negative) Urine Ketones Trace H (Negative) Urine Blood Negative (Negative) Urine Nitrite Negative (Negative) Urine Bilirubin Negative (Negative) Urine Urobilinogen <2.0 (<2.0) mg/dL Ur Leukocyte Esterase Negative (Negative) Urine RBC <1 (0-5) /hpf Urine WBC 1 (0-5) /hpf Urine Mucus Rare H (None) /hpf 12/31/16 22:00 Normal sinus rhythm without ectopy Disposition Clinical Impression: Hypertensive urgency, Lightheadedness Disposition: HOME SELF-CARE Condition: Stable Instructions: Lisinopril (By mouth), Chronic Hypertension (ED), Hypertensive Crisis (ED), Hypertension (ED) Additional Instructions: Please use medication as discussed. Please follow up with family doctor if symptoms have not improved over the next two days. Please return to the emergency room if your symptoms increase or worsen or for any other concerns. Prescriptions: Lisinopril [Zestril] 10 mg PO DAILY #10 tab Referrals: Carlos Padron MD [Primary Care Provider] - 1-2 days Time of Disposition: 22:23
[2016-12-31 22:32] VITALS: BP 182/98; TEMP 98
== END 2016-12-31 22:36 | disposition home or self-care (01) ==
LOC: EC 18:37
DX: I16.0 Hypertensive urgency (principal); R42 Dizziness and giddiness; E11.9 Type 2 diabetes mellitus without complications; Z79.84 Long term (current) use of oral hypoglycemic drugs; Z79.899 Other long term (current) drug therapy
CPT/HCPCS: 36415; 71020; 80048; 81001; 83880; 84484; 85025; 93005; 96361; 96374; 99284

== ENCOUNTER 2017-07-10 11:38 | Emergency (ER) | payer MEDICARE, OTHER ==
[2017-07-10 12:16] VITALS: BP 151/89; PULSE 100; RESP 20; TEMP 98.4
[2017-07-10 12:31] LABS: Glucose,Whole Blood 269 mg/dL (75-99)
== END 2017-07-10 12:37 | disposition left against medical advice (07) ==
LOC: EC 11:38
DX: E11.65 Type 2 diabetes mellitus with hyperglycemia (principal); Z53.21 Procedure and treatment not carried out due to patient leaving prior to being seen by health care provider
CPT/HCPCS: 36415; 99499

== ENCOUNTER 2017-10-17 23:56 | Emergency (ER) | payer MEDICARE, OTHER ==
[2017-10-18 00:01] VITALS: TEMP 97
[2017-10-18] MEDS ORDERED: LABETALOL 5 MG/ML VIAL MDV IVP STA (00:23)
[2017-10-18] MEDS ORDERED: SODIUM CHLORIDE 0.9% 500 ML IV STA (00:23)
[2017-10-18 00:56] LABS: Basophils % (A) 0 %; Eosinophils # (A) 0.3 k/uL (0-0.7); Eosinophils % (A) 3 %; HCT 44.2 % (39.0-53.0); HGB 15.3 gm/dL (13.0-17.5); Lymphocytes # (A) 2.5 k/uL (1.0-4.8); Lymphocytes % (A) 27 %; MCH 29.3 pg (25.0-35.0); MCHC 34.7 g/dL (31.0-37.0); MCV 84.3 fL (80.0-100.0); Mean Platelet Volume 8.4; Monocytes # (A) 0.6 k/uL (0-1.0); Monocytes % (A) 6 %; Neutrophils # (A) 5.4 k/uL (1.3-7.7); Neutrophils % (A) 61 %; Platelet Count 250 k/uL (150-450); RBC 5.24 m/uL (4.30-5.90); RDW 12.7 % (11.5-15.5)
[2017-10-18 01:04] LABS: ALT 36 U/L (21-72); AST 19 U/L (17-59); Albumin 3.7 g/dL (3.5-5.0); Alkaline Phosphatase 118 U/L (38-126); Anion Gap 11 mmol/L; Blood Urea Nitrogen 15 mg/dL (9-20); Calcium 10.9 mg/dL (8.4-10.2); Carbon Dioxide 23 mmol/L (22-30); Chloride 101 mmol/L (98-107); Glucose 258 mg/dL (74-99); Potassium 4.7 mmol/L (3.5-5.1); Sodium 135 mmol/L (137-145); Total Bilirubin 0.5 mg/dL (0.2-1.3)
--- NOTE | 2017-10-18 01:07 | CT ---
EXAMINATION TYPE: CT brain wo con DATE OF EXAM: 10/18/2017 COMPARISON: NONE HISTORY: Prior on 2011. dizziness and giddiness, off-balance, anxiety CT DLP: 1047.10 mGycm Automated exposure control for dose reduction was used. FINDINGS: There is mild cerebral cortical atrophy. There is no mass effect nor midline shift. There is no sign of intracranial hemorrhage. There is mild mucosal thickening in the ethmoid air cells. IMPRESSION: CEREBRAL ATROPHY. NO ACUTE INTRACRANIAL ABNORMALITY.
[2017-10-18 01:29] LABS: Prothrombin Time 9.7 sec (9.0-12.0)
[2017-10-18 01:41] LABS: Appearance,Urine Clear (Clear); Bacteria,Urine Rare /hpf; Bilirubin,Urine Negative (Negative); Blood,Urine Negative (Negative); Color,Urine Light Yellow; Glucose,Urine (UA) 4+ (Negative); Hyaline Casts,Urine 4 /lpf (0-2); Ketones,Urine Negative (Negative); Leukocyte Esterase,Urine Negative (Negative); Mucus,Urine Rare /hpf; Nitrite,Urine Negative (Negative); PH, Urine 5.5 (5.0-8.0); Protein,Urine 2+ (Negative); Specific Gravity,Urine 1.018 (1.001-1.035); Urobilinogen,Urine <2.0 mg/dL (<2.0); WBC,Urine <1 /hpf (0-5)
[2017-10-18 01:43] LABS: Creatine Kinase 61 U/L (55-170)
[2017-10-18 01:50] LABS: Creatine Kinase MB 0.6 ng/mL (0.0-2.4); Troponin I <0.012 ng/mL (0.000-0.034)
[2017-10-18] MEDS ORDERED: cloNIDine HCL 0.1 MG TAB PO STA (02:12)
[2017-10-18 02:46] VITALS: PULSE 77
--- NOTE | 2017-10-18 02:58 | ED ---
Dizziness HPI - General Chief Complaint: Dizziness Stated Complaint: anxiety Time Seen by Provider: 10/18/17 00:04 Source: patient Mode of arrival: ambulatory Limitations: no limitations - History of Present Illness Initial Comments: 57-year-old male patient presents to the emergency department today for evaluation of dizziness. Patient states this is been going on for approximately one week. He states that the room is not spinning he just feels unsteady when he stands up. States he has had this in the past. Patient states that he did see his primary care physician today and was found to have elevated blood pressure. Patient states his doctor added and a blood pressure medication but he did not take it yet. Patient denies any headache, blurred vision, double vision, weakness, numbness, or tingling. He denies any chest pain, shortness of breath, nausea, or vomiting. Patient denies any recent rash , fever, chills, diarrhea, constipation, back pain, numbness, tingling, dizziness, weakness, hematuria, dysuria, urinary urgency, urinary frequency, or any other complaints. - Related Data Home Medications Medication Instructions Recorded Confirmed Linaclotide [Linzess] 290 mcg PO DAILY 03/07/16 05/05/17 Linagliptin [Tradjenta] 5 mg PO DAILY 05/05/17 05/05/17 Previous Rx's Medication Instructions Recorded Glimepiride [Amaryl] 4 mg PO AC-BRKFST #30 05/05/17 Lisinopril [Zestril] 20 mg PO DAILY #30 tab 05/05/17 Allergies Allergy/AdvReac Type Severity Reaction Status Date / Time No Known Allergies Allergy Verified 10/18/17 00:01 Review of Systems ROS Statement: Those systems with pertinent positive or pertinent negative responses have been documented in the HPI. ROS Other: All systems not noted in ROS Statement are negative. Past Medical History Past Medical History: Diabetes Mellitus Additional Past Medical History / Comment(s): NIDDM type II, hemorrhoids, diverticulitis, chronic sinus problems, L knee "gives out" on occasion. History of Any Multi-Drug Resistant Organisms: None Reported Past Surgical History: Hernia Repair Additional Past Surgical History / Comment(s): R inguinal hernia repair, multiple myringotomies/tubes, colonoscopy, circumcism. Past Anesthesia/Blood Transfusion Reactions: No Reported Reaction Past Psychological History: No Psychological Hx Reported Smoking Status: Never smoker Past Alcohol Use History: None Reported Past Drug Use History: None Reported - Past Family History Mother Family Medical History: Cancer Additional Family Medical History / Comment(s): colon cancer. Father Family Medical History: Cancer Additional Family Medical History / Comment(s): colon cancer. General Exam Limitations: no limitations General appearance: alert, in no apparent distress, other (This is a well- developed, well-nourished adult male patient in no acute distress. Vital signs upon presentation are temperature 97.0F, pulse 93, respirations 20, blood pressure 213/113, pulse ox 98% on room air.) Eye exam: Present: normal appearance, PERRL, EOMI. Absent: scleral icterus, conjunctival injection, nystagmus, periorbital swelling ENT exam: Present: normal exam, normal oropharynx, mucous membranes moist Respiratory exam: Present: normal lung sounds bilaterally. Absent: respiratory distress, wheezes, rales, rhonchi, stridor Cardiovascular Exam: Present: regular rate, normal rhythm, normal heart sounds. Absent: systolic murmur, diastolic murmur, rubs, gallop, clicks GI/Abdominal exam: Present: soft, normal bowel sounds. Absent: distended, tenderness, guarding, rebound, rigid Neurological exam: Present: alert, oriented X3, CN II-XII intact, other ( strength in all 4 extremities is 5/5.) Psychiatric exam: Present: normal affect, normal mood Skin exam: Present: warm, dry, intact, normal color. Absent: rash Course Vital Signs 10/17/17 10/18/17 10/18/17 23:58 00:39 02:00 Temperature 97 F L Pulse Rate 93 83 74 Respiratory 20 18 16 Rate Blood Pressure 213/113 205/105 198/97 O2 Sat by Pulse 98 97 96 Oximetry 10/18/17 10/18/17 02:44 03:07 Temperature Pulse Rate 77 77 Respiratory 16 19 Rate Blood Pressure 189/95 182/99 O2 Sat by Pulse 97 97 Oximetry EKG Findings - EKG Comments: EKG Findings:: EKG obtained at 06 27 shows normal sinus rhythm triggered a 78, GA interval 154, QR orthodox 94, QTC 390, QTC 444. No evidence of ST elevation or depression. Medical Decision Making - Medical Decision Making 57-year-old male patient presented to the emergency department today for evaluation of dizziness. Physical examination is unremarkable. Patient is neurologically intact. Labs reviewed and are unremarkable. EKG showed normal sinus rhythm. CT of the brain was unremarkable. Patient did have elevated blood pressure upon arrival. This did improve with the IV dose of labetalol and a by mouth dose of Catapres. Patient was started on a new medication for blood pressure by his physician today he had not taken it. Did discuss findings and results with the patient. He is instructed to take his medications as directed. He is instructed to follow-up with his primary care physician for recheck as soon as possible. Return parameters discussed in detail. He verbalizes understanding and agrees with this plan. - Lab Data Result diagrams: 10/18/17 00:44 10/18/17 00:44 Lab Results 10/18/17 10/18/17 10/18/17 Range/Units 00:44 00:44 00:44 WBC 9.0 (3.8-10.6) k/uL RBC 5.24 (4.30-5.90) m/uL Hgb 15.3 (13.0-17.5) gm/dL Hct 44.2 (39.0-53.0) % MCV 84.3 (80.0-100.0) fL MCH 29.3 (25.0-35.0) pg MCHC 34.7 (31.0-37.0) g/dL RDW 12.7 (11.5-15.5) % Plt Count 250 (150-450) k/uL Neutrophils % 61 % Lymphocytes % 27 % Monocytes % 6 % Eosinophils % 3 % Basophils % 0 % Neutrophils # 5.4 (1.3-7.7) k/uL Lymphocytes # 2.5 (1.0-4.8) k/uL Monocytes # 0.6 (0-1.0) k/uL Eosinophils # 0.3 (0-0.7) k/uL Basophils # 0.0 (0-0.2) k/uL PT (9.0-12.0) sec INR (<1.2) Sodium 135 L (137-145) mmol/L Potassium 4.7 (3.5-5.1) mmol/L Chloride 101 (98-107) mmol/L Carbon Dioxide 23 (22-30) mmol/L Anion Gap 11 mmol/L BUN 15 (9-20) mg/dL Creatinine 0.80 (0.66-1.25) mg/dL Est GFR (CKD-EPI)AfAm >90 (>60 ml/min/1.73 sqM) Est GFR (CKD-EPI)NonAf >90 (>60 ml/min/1.73 sqM) Glucose 258 H (74-99) mg/dL Calcium 10.9 H (8.4-10.2) mg/dL Total Bilirubin 0.5 (0.2-1.3) mg/dL AST 19 (17-59) U/L ALT 36 (21-72) U/L Alkaline Phosphatase 118 (38-126) U/L Total Creatine Kinase 61 (55-170) U/L CK-MB (CK-2) 0.6 (0.0-2.4) ng/mL CK-MB (CK-2) Rel Index 1.0 Troponin I <0.012 (0.000-0.034) ng/mL Total Protein 6.0 L (6.3-8.2) g/dL Albumin 3.7 (3.5-5.0) g/dL Urine Color Urine Appearance (Clear) Urine pH (5.0-8.0) Ur Specific [place] (1.001-1.035) Urine Protein (Negative) Urine Glucose (UA) (Negative) Urine Ketones (Negative) Urine Blood (Negative) Urine Nitrite (Negative) Urine Bilirubin (Negative) Urine Urobilinogen (<2.0) mg/dL Ur Leukocyte Esterase (Negative) Urine WBC (0-5) /hpf Urine Bacteria (None) /hpf Hyaline Casts (0-2) /lpf Urine Mucus (None) /hpf 10/18/17 10/18/17 Range/Units 00:44 01:18 WBC (3.8-10.6) k/uL RBC (4.30-5.90) m/uL Hgb (13.0-17.5) gm/dL Hct (39.0-53.0) % MCV (80.0-100.0) fL MCH (25.0-35.0) pg MCHC (31.0-37.0) g/dL RDW (11.5-15.5) % Plt Count (150-450) k/uL Neutrophils % % Lymphocytes % % Monocytes % % Eosinophils % % Basophils % % Neutrophils # (1.3-7.7) k/uL Lymphocytes # (1.0-4.8) k/uL Monocytes # (0-1.0) k/uL Eosinophils # (0-0.7) k/uL Basophils # (0-0.2) k/uL PT 9.7 (9.0-12.0) sec INR 1.0 (<1.2) Sodium (137-145) mmol/L Potassium (3.5-5.1) mmol/L Chloride (98-107) mmol/L Carbon Dioxide (22-30) mmol/L Anion Gap mmol/L BUN (9-20) mg/dL Creatinine (0.66-1.25) mg/dL Est GFR (CKD-EPI)AfAm (>60 ml/min/1.73 sqM) Est GFR (CKD-EPI)NonAf (>60 ml/min/1.73 sqM) Glucose (74-99) mg/dL Calcium (8.4-10.2) mg/dL Total Bilirubin (0.2-1.3) mg/dL AST (17-59) U/L ALT (21-72) U/L Alkaline Phosphatase (38-126) U/L Total Creatine Kinase (55-170) U/L CK-MB (CK-2) (0.0-2.4) ng/mL CK-MB (CK-2) Rel Index Troponin I (0.000-0.034) ng/mL Total Protein (6.3-8.2) g/dL Albumin (3.5-5.0) g/dL Urine Color Light Yellow Urine Appearance Clear (Clear) Urine pH 5.5 (5.0-8.0) Ur Specific [place] 1.018 (1.001-1.035) Urine Protein 2+ H (Negative) Urine Glucose (UA) 4+ H (Negative) Urine Ketones Negative (Negative) Urine Blood Negative (Negative) Urine Nitrite Negative (Negative) Urine Bilirubin Negative (Negative) Urine Urobilinogen <2.0 (<2.0) mg/dL Ur Leukocyte Esterase Negative (Negative) Urine WBC <1 (0-5) /hpf Urine Bacteria Rare H (None) /hpf Hyaline Casts 4 H (0-2) /lpf Urine Mucus Rare H (None) /hpf - Radiology Data Radiology results: report reviewed, image reviewed CT of the brain without contrast was performed. There is mild cervical cortical atrophy. There is no mass effect or midline shift. There is no sign of intracranial hemorrhage. There is mild mucosal thickening of the ethmoid air cells. Impression by Dr. Fernandez shows cerebral atrophy. No acute intracranial abnormality. Disposition Clinical Impression: Dizziness, Hypertension Disposition: HOME SELF-CARE Condition: Good Instructions: Hypertension (ED), Dizziness (ED) Additional Instructions: Obtain blood pressure cuff and monitor blood pressures. Follow up with your primary care physician for a recheck as soon as possible. Return here immediately for any new, worsening, or concerning symptoms. Is patient prescribed a controlled substance at d/c from ED?: No Referrals: Carlos Padron MD [Primary Care Provider] - 1-2 days Time of Disposition: 02:58
[2017-10-18 03:09] VITALS: BP 182/99; RESP 19
== END 2017-10-18 03:26 | disposition home or self-care (01) ==
LOC: EC 23:56
DX: R42 Dizziness and giddiness (principal); I10 Essential (primary) hypertension; E11.9 Type 2 diabetes mellitus without complications; Z79.84 Long term (current) use of oral hypoglycemic drugs; Z79.899 Other long term (current) drug therapy
CPT/HCPCS: 36415; 70450; 80053; 81001; 82550; 82553; 84484; 85025; 85610; 93005; 96361; 96374; 99284

== ENCOUNTER 2018-05-01 07:15 | Emergency (ER) | payer MEDICARE, OTHER ==
[2018-05-01 07:30] VITALS: RESP 18
[2018-05-01 07:35] LABS: Glucose,Whole Blood 262 mg/dL (75-99)
[2018-05-01] MEDS ORDERED: SODIUM CHLORIDE 0.9% 1,000 ML IV STA (07:35)
[2018-05-01] MEDS ORDERED: ONDANSETRON 4 MG/2 ML VIAL IVP STA (07:35)
[2018-05-01] MEDS ORDERED: LABETALOL 5 MG/ML VIAL MDV IVP STA ×2 (07:41→08:55)
--- NOTE | 2018-05-01 07:49 | ED ---
General Adult HPI - General Chief complaint: Recheck/Abnormal Lab/Rx Stated complaint: vomiting, dizzy Time Seen by Provider: 05/01/18 07:34 Source: patient, RN notes reviewed Mode of arrival: ambulatory Limitations: no limitations - History of Present Illness Initial comments: 58-year-old male presents emergency Department with multiple complaints. Patient states that his blood pressure is elevated secondary to losing his medication. He is unsure when he normally takes. Patient also states that he believes his blood sugar is elevated. Patient states that he has not checked her recently he states that he is borderline diabetic but has had blood sugars in between 2 and 400 in the past. Patient denies any polyuria or polydipsia. Patient does admit to nausea and vomiting with no abdominal pain no diarrhea no constipation. Patient denies any dizziness at this time but does complain of mild headache. Patient denies neck pain neck stiffness - Related Data Home Medications Medication Instructions Recorded Confirmed Linaclotide [Linzess] 290 mcg PO DAILY 03/07/16 05/01/18 Linagliptin [Tradjenta] 5 mg PO DAILY 05/05/17 05/01/18 Labetalol HCl 100 mg PO BID 05/01/18 05/01/18 amLODIPine [Norvasc] 5 mg PO BID 05/01/18 05/01/18 Previous Rx's Medication Instructions Recorded Lisinopril [Zestril] 20 mg PO DAILY #30 tab 05/05/17 Glimepiride [Amaryl] 4 mg PO AC-BRKFST #30 tab 05/01/18 Lisinopril-Hctz 10-12.5 mg 1 tab PO DAILY #30 tab 05/01/18 [Zestoretic 10-12.5] Allergies Allergy/AdvReac Type Severity Reaction Status Date / Time No Known Allergies Allergy Verified 05/01/18 07:30 Review of Systems ROS Statement: Those systems with pertinent positive or pertinent negative responses have been documented in the HPI. ROS Other: All systems not noted in ROS Statement are negative. Past Medical History Past Medical History: Diabetes Mellitus, Hypertension Additional Past Medical History / Comment(s): NIDDM type II, hemorrhoids, diverticulitis, chronic sinus problems, L knee "gives out" on occasion. History of Any Multi-Drug Resistant Organisms: None Reported Past Surgical History: Hernia Repair Additional Past Surgical History / Comment(s): R inguinal hernia repair, multiple myringotomies/tubes, colonoscopy, circumcism. Past Anesthesia/Blood Transfusion Reactions: No Reported Reaction Past Psychological History: No Psychological Hx Reported Smoking Status: Never smoker Past Alcohol Use History: None Reported Past Drug Use History: None Reported - Past Family History Mother Family Medical History: Cancer Additional Family Medical History / Comment(s): colon cancer. Father Family Medical History: Cancer Additional Family Medical History / Comment(s): colon cancer. General Exam Limitations: no limitations General appearance: alert, in no apparent distress Head exam: Present: atraumatic, normocephalic, normal inspection Eye exam: Present: normal appearance, PERRL, EOMI. Absent: scleral icterus, conjunctival injection, periorbital swelling ENT exam: Present: normal exam, normal oropharynx, mucous membranes moist Neck exam: Present: normal inspection, full ROM. Absent: tenderness, meningismus, lymphadenopathy Respiratory exam: Present: normal lung sounds bilaterally. Absent: respiratory distress, wheezes, rales, rhonchi, stridor Cardiovascular Exam: Present: regular rate, normal rhythm, normal heart sounds. Absent: systolic murmur, diastolic murmur, rubs, gallop, clicks GI/Abdominal exam: Present: soft, normal bowel sounds. Absent: distended, tenderness, guarding, rebound, rigid Neurological exam: Present: alert, oriented X3 Skin exam: Present: warm, dry, intact, normal color. Absent: rash Course Vital Signs 05/01/18 07:28 Temperature 97.5 F L Pulse Rate 96 Respiratory 18 Rate Blood Pressure 171/104 O2 Sat by Pulse 98 Oximetry - Reevaluation(s) Reevaluation #1: 05/01/18 07:48 Vitals review patient is hypertensive will be given medication emergency department. Patient does have a history and will be referred back to his PCP for recheck after being started on his medication. EKG Findings - EKG Comments: EKG Findings:: EKG performed at 17:40 normal sinus rhythm with a rate of 90 MN 166 QRS 96 QT/QTC 364/445 Medical Decision Making - Medical Decision Making 58-year-old male presents emergency Department for multiple complaints. Patient did have hypertension which she was given medications for. Patient is requesting refill on his medications. Patient also has mild hyperglycemia. Patient was given his glipizide. Patient will be discharged with follow-up with his PCP and return for any worsening symptoms. - Lab Data Result diagrams: 05/01/18 07:46 05/01/18 07:46 Lab Results 05/01/18 05/01/18 05/01/18 Range/Units 07:33 07:46 07:46 WBC 13.6 H (3.8-10.6) k/uL RBC 5.46 (4.30-5.90) m/uL Hgb 16.2 (13.0-17.5) gm/dL Hct 46.8 (39.0-53.0) % MCV 85.7 (80.0-100.0) fL MCH 29.7 (25.0-35.0) pg MCHC 34.6 (31.0-37.0) g/dL RDW 12.8 (11.5-15.5) % Plt Count 270 (150-450) k/uL Neutrophils % 85 % Lymphocytes % 10 % Monocytes % 3 % Eosinophils % 1 % Basophils % 0 % Neutrophils # 11.5 H (1.3-7.7) k/uL Lymphocytes # 1.4 (1.0-4.8) k/uL Monocytes # 0.4 (0-1.0) k/uL Eosinophils # 0.2 (0-0.7) k/uL Basophils # 0.0 (0-0.2) k/uL Sodium 137 (137-145) mmol/L Potassium 4.9 (3.5-5.1) mmol/L Chloride 102 (98-107) mmol/L Carbon Dioxide 25 (22-30) mmol/L Anion Gap 10 mmol/L BUN 16 (9-20) mg/dL Creatinine 0.84 (0.66-1.25) mg/dL Est GFR (CKD-EPI)AfAm >90 (>60 ml/min/1.73 sqM) Est GFR (CKD-EPI)NonAf >90 (>60 ml/min/1.73 sqM) Glucose 282 H (74-99) mg/dL POC Glucose (mg/dL) 262 H (75-99) mg/dL POC Glu Pediatric Radiologist ID Patel, Nimisha Calcium 11.4 H (8.4-10.2) mg/dL Magnesium 1.3 L (1.6-2.3) mg/dL Total Bilirubin 1.1 (0.2-1.3) mg/dL AST 19 (17-59) U/L ALT 38 (21-72) U/L Alkaline Phosphatase 94 (38-126) U/L Total Protein 6.8 (6.3-8.2) g/dL Albumin 4.0 (3.5-5.0) g/dL Lipase 69 (23-300) U/L Acetone, Qual Negative (Negative) Disposition Clinical Impression: Hypomagnesemia, Hyperglycemia, Nausea & vomiting, Hypertension, Medication refill Disposition: HOME SELF-CARE Condition: Stable Instructions: Hypertension (ED), Diabetic Hyperglycemia (ED) Additional Instructions: Please return to the Emergency Department if symptoms worsen or any other concerns. Prescriptions: Glimepiride [Amaryl] 4 mg PO AC-BRKFST #30 tab Lisinopril-Hctz 10-12.5 mg [Zestoretic 10-12.5] 1 tab PO DAILY #30 tab Is patient prescribed a controlled substance at d/c from ED?: No Referrals: Carlos Padron MD [Primary Care Provider] - 1-2 days Time of Disposition: 08:38
[2018-05-01 08:01] LABS: Basophils % (A) 0 %; Eosinophils # (A) 0.2 k/uL (0-0.7); Eosinophils % (A) 1 %; HCT 46.8 % (39.0-53.0); HGB 16.2 gm/dL (13.0-17.5); Lymphocytes # (A) 1.4 k/uL (1.0-4.8); Lymphocytes % (A) 10 %; MCH 29.7 pg (25.0-35.0); MCHC 34.6 g/dL (31.0-37.0); MCV 85.7 fL (80.0-100.0); Monocytes # (A) 0.4 k/uL (0-1.0); Monocytes % (A) 3 %; Neutrophils # (A) 11.5 k/uL (1.3-7.7); Neutrophils % (A) 85 %; Platelet Count 270 k/uL (150-450); RBC 5.46 m/uL (4.30-5.90); RDW 12.8 % (11.5-15.5); WBC 13.6 k/uL (3.8-10.6)
[2018-05-01 08:24] LABS: ALT 38 U/L (21-72); AST 19 U/L (17-59); Alkaline Phosphatase 94 U/L (38-126); Anion Gap 10 mmol/L; Blood Urea Nitrogen 16 mg/dL (9-20); Calcium 11.4 mg/dL (8.4-10.2); Carbon Dioxide 25 mmol/L (22-30); Chloride 102 mmol/L (98-107); Glucose 282 mg/dL (74-99); Lipase 69 U/L (23-300); Magnesium 1.3 mg/dL (1.6-2.3); Potassium 4.9 mmol/L (3.5-5.1); Sodium 137 mmol/L (137-145); Total Bilirubin 1.1 mg/dL (0.2-1.3); Total Protein 6.8 g/dL (6.3-8.2)
[2018-05-01] MEDS ORDERED: glipiZIDE 5 MG TAB PO STA (08:29)
[2018-05-01] MEDS ORDERED: MAGNESIUM OXIDE 400 MG TAB PO STA (08:30)
[2018-05-01 08:40] LABS: Appearance,Urine Clear (Clear); Bilirubin,Urine Negative (Negative); Blood,Urine Negative (Negative); Color,Urine Light Yellow; Glucose,Urine (UA) 4+ (Negative); Ketones,Urine Trace (Negative); Leukocyte Esterase,Urine Negative (Negative); Mucus,Urine Rare /hpf; Nitrite,Urine Negative (Negative); PH, Urine 5.5 (5.0-8.0); Protein,Urine 1+ (Negative); RBC,Urine <1 /hpf (0-5); Specific Gravity,Urine 1.014 (1.001-1.035); Urobilinogen,Urine <2.0 mg/dL (<2.0); WBC,Urine 1 /hpf (0-5)
[2018-05-01 08:55] VITALS: PULSE 91
[2018-05-01 09:07] VITALS: BP 168/97; TEMP 97.3
== END 2018-05-01 09:03 | disposition home or self-care (01) ==
LOC: EC 07:15
DX: E11.65 Type 2 diabetes mellitus with hyperglycemia (principal); E83.42 Hypomagnesemia; R11.2 Nausea with vomiting, unspecified; I10 Essential (primary) hypertension; R51 Headache; Z76.0 Encounter for issue of repeat prescription; Z79.84 Long term (current) use of oral hypoglycemic drugs; Z79.899 Other long term (current) drug therapy; Z53.8 Procedure and treatment not carried out for other reasons
CPT/HCPCS: 36415; 93005; 80053; 82009; 83690; 83735; 84484; 85025; 81001; 99284; 96374; 96375; 96361; J2405

== ENCOUNTER 2018-07-03 07:10 | Emergency (ER) | payer MEDICARE, OTHER ==
[2018-07-03 07:18] VITALS: RESP 18; TEMP 98
[2018-07-03] MEDS ORDERED: SODIUM CHLORIDE 0.9% 1,000 ML IV STA (07:36)
--- NOTE | 2018-07-03 07:36 | ED ---
General Adult HPI - General Chief complaint: Dizziness Stated complaint: Headache, dizzy Source: patient Mode of arrival: ambulatory Limitations: no limitations - History of Present Illness Initial comments: Dictation was produced using [employer] dictation software. please excuse any grammatical, word or spelling errors. Chief Complaint: 58-year-old male with past medical history of diabetes, hypertension presents with elevated blood pressure and elevated blood sugar. History of Present Illness: 58-year-old male presents with elevated blood pressure and elevated blood sugar. Patient has a past medical history of diabetes of hypertension. Patient states he was not able to be seen by his primary care physician. Patient states he felt dizzy this morning prompting him to come to the emergency department. Patient states he can feel his blood pressure and his blood sugar is higher than usual. Patient states he's been complying with his nonmedication diabetic regimen. Patient also complaining of mild nasal congestion and productive cough. Patient has no other complaints at this time. No nausea vomiting. No constitutional symptoms. The ROS documented in this emergency department record has been reviewed and confirmed by me. Those systems with pertinent positive or negative responses have been documented in the HPI. All other systems are other negative and/or noncontributory. PHYSICAL EXAM: General Impression: Alert and oriented x3, not in acute distress HEENT: Normocephalic atraumatic, extra-ocular movements intact, pupils equal and reactive to light bilaterally, mucous membranes moist. Cardiovascular: Heart regular rate and rhythm, S1&S2 audible, no murmurs, rubs or gallops Chest: Lungs clear to auscultation bilaterally, no rhonchi, no wheeze, no rales Abdomen: Bowel sounds present, abdomen soft, non-tender, non-distended, no organomegaly Musculoskeletal: Pulses present and equal in all extremities, no peripheral edema Motor: Power 5/5 bilaterally, no focal deficits noted Neurological: CN II-XII grossly intact, no focal motor or sensory deficits noted Skin: Intact with no visualized rashes Psych: Normal affect and mood ED course: 58-year-old male with elevated blood pressure and elevated blood sugar. Vital signs upon arrival shows heart rate of 112, blood pressure 196 100 cumbersome vital signs within acceptable limits. Physical examination is benign. Laboratory evaluation obtained. CBC, metabolic panel, influenza tests are negative. Chest x-ray is unremarkable. Patient given intravenous fluids. He is reevaluated with improvement of symptoms. Patient blood pressure still high. Patient told to increase his Norvasc to 10 mg daily from 5 mg daily. Patient told to follow up with primary care physician regarding outpatient management of diabetes and hypertension. Patient ambulatory without complications. Tolerated by mouth. Patient agreeable to plan. EKG interpretation: Ventricular rate 107, sinus tachycardia, [place] interval 154, care is 94, QTc 448. No [place] prolongation, no QTC prolongation, no ST or T-wave changes noted. . Overall, this EKG is unremarkable - Related Data Home Medications Medication Instructions Recorded Confirmed Lisinopril-Hctz 10-12.5 mg 1 tab PO DAILY 05/01/18 07/03/18 [Zestoretic 10-12.5] amLODIPine [Norvasc] 5 mg PO DAILY 05/01/18 07/03/18 Glimepiride [Amaryl] 4 mg PO AC-BRKFST 07/03/18 07/03/18 Labetalol [Trandate] 100 mg PO BID 07/03/18 07/03/18 Previous Rx's Medication Instructions Recorded amLODIPine [Norvasc] 10 mg PO DAILY #12 tablet 07/03/18 Allergies Allergy/AdvReac Type Severity Reaction Status Date / Time No Known Allergies Allergy Verified 07/03/18 07:25 Review of Systems ROS Statement: Those systems with pertinent positive or pertinent negative responses have been documented in the HPI. ROS Other: All systems not noted in ROS Statement are negative. Past Medical History Past Medical History: Diabetes Mellitus, Hypertension Additional Past Medical History / Comment(s): NIDDM type II, hemorrhoids, diverticulitis, chronic sinus problems, L knee "gives out" on occasion. History of Any Multi-Drug Resistant Organisms: None Reported Past Surgical History: Hernia Repair Additional Past Surgical History / Comment(s): R inguinal hernia repair, multiple myringotomies/tubes, colonoscopy, circumcism. Past Anesthesia/Blood Transfusion Reactions: No Reported Reaction Past Psychological History: No Psychological Hx Reported Smoking Status: Never smoker Past Alcohol Use History: None Reported Past Drug Use History: None Reported - Past Family History Mother Family Medical History: Cancer Additional Family Medical History / Comment(s): colon cancer. Father Family Medical History: Cancer Additional Family Medical History / Comment(s): colon cancer. General Exam Limitations: no limitations Course Vital Signs 07/03/18 07/03/18 07:12 09:28 Temperature 98.0 F Pulse Rate 112 H 98 Respiratory 18 18 Rate Blood Pressure 196/100 187/110 O2 Sat by Pulse 96 100 Oximetry Medical Decision Making - Lab Data Result diagrams: 07/03/18 07:46 07/03/18 07:46 Lab Results 07/03/18 07/03/18 07/03/18 Range/Units 07:46 07:46 07:46 WBC 10.5 (3.8-10.6) k/uL RBC 5.32 (4.30-5.90) m/uL Hgb 15.2 (13.0-17.5) gm/dL Hct 45.4 (39.0-53.0) % MCV 85.4 (80.0-100.0) fL MCH 28.6 (25.0-35.0) pg MCHC 33.5 (31.0-37.0) g/dL RDW 13.1 (11.5-15.5) % Plt Count 265 (150-450) k/uL Neutrophils % 82 % Lymphocytes % 8 % Monocytes % 6 % Eosinophils % 3 % Basophils % 1 % Neutrophils # 8.6 H (1.3-7.7) k/uL Lymphocytes # 0.8 L (1.0-4.8) k/uL Monocytes # 0.6 (0-1.0) k/uL Eosinophils # 0.3 (0-0.7) k/uL Basophils # 0.1 (0-0.2) k/uL Sodium 136 L (137-145) mmol/L Potassium 4.6 (3.5-5.1) mmol/L Chloride 107 (98-107) mmol/L Carbon Dioxide 22 (22-30) mmol/L Anion Gap 7 mmol/L BUN 15 (9-20) mg/dL Creatinine 0.76 (0.66-1.25) mg/dL Est GFR (CKD-EPI)AfAm >90 (>60 ml/min/1.73 sqM) Est GFR (CKD-EPI)NonAf >90 (>60 ml/min/1.73 sqM) Glucose 223 H (74-99) mg/dL Calcium 11.5 H (8.4-10.2) mg/dL Influenza Type A RNA Not Detected (Not Detectd) Influenza Type B (PCR) Not Detected (Not Detectd) Disposition Clinical Impression: Hypertension Disposition: HOME SELF-CARE Condition: Good Instructions (If sedation given, give patient instructions): Dizziness (ED) Prescriptions: amLODIPine [Norvasc] 10 mg PO DAILY #12 tablet Is patient prescribed a controlled substance at d/c from ED?: No Referrals: None,Stated [Primary Care Provider] - 1-2 days Time of Disposition: 10:05
[2018-07-03 08:05] LABS: Basophils # (A) 0.1 k/uL (0-0.2); Basophils % (A) 1 %; Eosinophils # (A) 0.3 k/uL (0-0.7); Eosinophils % (A) 3 %; HCT 45.4 % (39.0-53.0); HGB 15.2 gm/dL (13.0-17.5); Lymphocytes # (A) 0.8 k/uL (1.0-4.8); Lymphocytes % (A) 8 %; MCH 28.6 pg (25.0-35.0); MCHC 33.5 g/dL (31.0-37.0); MCV 85.4 fL (80.0-100.0); Mean Platelet Volume 8.1; Monocytes # (A) 0.6 k/uL (0-1.0); Monocytes % (A) 6 %; Neutrophils # (A) 8.6 k/uL (1.3-7.7); Neutrophils % (A) 82 %; Platelet Count 265 k/uL (150-450); RBC 5.32 m/uL (4.30-5.90); RDW 13.1 % (11.5-15.5); WBC 10.5 k/uL (3.8-10.6)
[2018-07-03 08:15] LABS: Anion Gap 7 mmol/L; Blood Urea Nitrogen 15 mg/dL (9-20); Calcium 11.5 mg/dL (8.4-10.2); Carbon Dioxide 22 mmol/L (22-30); Chloride 107 mmol/L (98-107); Glucose 223 mg/dL (74-99); Potassium 4.6 mmol/L (3.5-5.1); Sodium 136 mmol/L (137-145)
--- NOTE | 2018-07-03 09:03 | XR ---
EXAMINATION TYPE: XR chest 2V DATE OF EXAM: 07/03/2018 COMPARISON: Chest x-ray May 05, 2017. HISTORY: History of hypertension and hyperglycemia with dizziness and chest pain today. TECHNIQUE: Frontal and lateral views of the chest are obtained. FINDINGS: Somewhat low lung volumes are redemonstrated. There is no focal air space opacity, pleural effusion, or pneumothorax seen. The cardiac silhouette size is within normal limits. The osseous structures are intact. IMPRESSION: No acute cardiopulmonary process.
[2018-07-03 09:29] VITALS: BP 187/110; PULSE 98
== END 2018-07-03 10:52 | disposition home or self-care (01) ==
LOC: EC 07:10
DX: I10 Essential (primary) hypertension (principal); R09.81 Nasal congestion; R05 Cough; E11.9 Type 2 diabetes mellitus without complications; Z79.84 Long term (current) use of oral hypoglycemic drugs; Z79.899 Other long term (current) drug therapy
CPT/HCPCS: 36415; 71046; 80048; 85025; 87502; 93005; 96360; 96361; 99284

== ENCOUNTER 2018-11-03 12:36 | Emergency (ER) | payer MEDICARE, OTHER ==
[2018-11-03] MEDS ORDERED: SODIUM CHLORIDE 0.9% 500 ML 500 ML IV STA (12:55)
[2018-11-03] MEDS ORDERED: SODIUM CHLORIDE 0.9% 1,000 ML IV STA (12:55)
--- NOTE | 2018-11-03 13:17 | ED ---
Abdominal Pain HPI - General Chief Complaint: Abdominal Pain Stated Complaint: diverticulitis Time Seen by Provider: 11/03/18 12:55 Source: patient, RN notes reviewed Mode of arrival: ambulatory Limitations: no limitations - History of Present Illness Initial Comments: 58-year-old male presents emergency Department with chief complaint of left lower quadrant abdominal pain. Patient is started on Tuesday did see his PCP to be week who placed on Cipro Flagyl. Patient has a history of diverticulitis. Patient states symptoms seem to be getting worse. He states he has loose watery diarrhea denies any melena or hematochezia. No fevers chills at this time. Patient states pain rates across his abdomen. He's had prior hernia repair no other abdominal surgeries. Denies chest pain, shortness breath, flank pain, dysuria or noted hematuria - Related Data Home Medications Medication Instructions Recorded Confirmed amLODIPine [Norvasc] 5 mg PO DAILY 05/01/18 11/03/18 Glimepiride [Amaryl] 4 mg PO AC-BID 07/03/18 11/03/18 Labetalol [Trandate] 100 mg PO BID 07/03/18 11/03/18 Ciprofloxacin HCl [Cipro] 500 mg PO BID 11/03/18 11/03/18 Linaclotide [Linzess] 290 mcg PO DAILY 11/03/18 11/03/18 Linagliptin [Tradjenta] 5 mg PO DAILY 11/03/18 11/03/18 metroNIDAZOLE [Flagyl] 500 mg PO BID 11/03/18 11/03/18 Previous Rx's Medication Instructions Recorded Dicyclomine [Bentyl] 20 mg PO TID #30 tablet 11/03/18 Allergies Allergy/AdvReac Type Severity Reaction Status Date / Time No Known Allergies Allergy Verified 11/03/18 13:26 Review of Systems ROS Statement: Those systems with pertinent positive or pertinent negative responses have been documented in the HPI. ROS Other: All systems not noted in ROS Statement are negative. Past Medical History Past Medical History: Diabetes Mellitus, Hypertension Additional Past Medical History / Comment(s): NIDDM type II, hemorrhoids, diverticulitis, chronic sinus problems, L knee "gives out" on occasion. History of Any Multi-Drug Resistant Organisms: None Reported Past Surgical History: Hernia Repair Additional Past Surgical History / Comment(s): R inguinal hernia repair, multip le myringotomies/tubes, colonoscopy, circumcism. Past Anesthesia/Blood Transfusion Reactions: No Reported Reaction Past Psychological History: No Psychological Hx Reported Smoking Status: Never smoker Past Alcohol Use History: None Reported Past Drug Use History: None Reported - Past Family History Mother Family Medical History: Cancer Additional Family Medical History / Comment(s): colon cancer. Father Family Medical History: Cancer Additional Family Medical History / Comment(s): colon cancer. General Exam Limitations: no limitations General appearance: alert, in no apparent distress Head exam: Present: atraumatic, normocephalic, normal inspection Neck exam: Present: normal inspection. Absent: tenderness, meningismus, lymphadenopathy Respiratory exam: Present: normal lung sounds bilaterally. Absent: respiratory distress, wheezes, rales, rhonchi, stridor Cardiovascular Exam: Present: normal rhythm, tachycardia, normal heart sounds. Absent: systolic murmur, diastolic murmur, rubs, gallop, clicks GI/Abdominal exam: Present: soft, tenderness (Mild left lower quadrant tenderness), normal bowel sounds. Absent: distended, guarding, rebound, rigid Back exam: Absent: CVA tenderness (R), CVA tenderness (L) Skin exam: Present: warm, dry, intact, normal color. Absent: rash Course Vital Signs 11/03/18 12:38 Temperature 98.7 F Pulse Rate 124 H Respiratory 18 Rate Blood Pressure 167/69 O2 Sat by Pulse 98 Oximetry Medical Decision Making - Medical Decision Making 58-year-old male presented for lower abdominal pain. Patient was told by PCP that he had diverticulitis. CT does not show any evidence of diverticulitis, does show evidence of enteritis. Patient will be discharged return parameters were discussed. - Lab Data Result diagrams: 11/03/18 13:00 11/03/18 13:00 Lab Results 11/03/18 11/03/18 11/03/18 Range/Units 13:00 13:00 13:00 WBC 10.7 H (3.8-10.6) k/uL RBC 5.63 (4.30-5.90) m/uL Hgb 16.3 (13.0-17.5) gm/dL Hct 48.4 (39.0-53.0) % MCV 86.0 (80.0-100.0) fL MCH 29.0 (25.0-35.0) pg MCHC 33.7 (31.0-37.0) g/dL RDW 12.9 (11.5-15.5) % Plt Count 268 (150-450) k/uL Neutrophils % 72 % Lymphocytes % 19 % Monocytes % 4 % Eosinophils % 3 % Basophils % 1 % Neutrophils # 7.7 (1.3-7.7) k/uL Lymphocytes # 2.0 (1.0-4.8) k/uL Monocytes # 0.5 (0-1.0) k/uL Eosinophils # 0.3 (0-0.7) k/uL Basophils # 0.1 (0-0.2) k/uL Sodium 139 (137-145) mmol/L Potassium 4.6 (3.5-5.1) mmol/L Chloride 106 (98-107) mmol/L Carbon Dioxide 22 (22-30) mmol/L Anion Gap 11 mmol/L BUN 17 (9-20) mg/dL Creatinine 1.27 H (0.66-1.25) mg/dL Est GFR (CKD-EPI)AfAm 73 (>60 ml/min/1.73 sqM) Est GFR (CKD-EPI)NonAf 63 (>60 ml/min/1.73 sqM) Glucose 273 H (74-99) mg/dL Plasma Lactic Acid Wes 1.8 (0.7-2.0) mmol/L Calcium 11.8 H (8.4-10.2) mg/dL Total Bilirubin 1.0 (0.2-1.3) mg/dL AST 43 (17-59) U/L ALT 47 (21-72) U/L Alkaline Phosphatase 90 (38-126) U/L Total Protein 7.1 (6.3-8.2) g/dL Albumin 4.4 (3.5-5.0) g/dL Amylase 36 (30-110) U/L Lipase 64 (23-300) U/L Urine Color Urine Appearance (Clear) Urine pH (5.0-8.0) Ur Specific [place] (1.001-1.035) Urine Protein (Negative) Urine Glucose (UA) (Negative) Urine Ketones (Negative) Urine Blood (Negative) Urine Nitrite (Negative) Urine Bilirubin (Negative) Urine Urobilinogen (<2.0) mg/dL Ur Leukocyte Esterase (Negative) Urine RBC (0-5) /hpf Urine WBC (0-5) /hpf Ur Squamous Epith Cells (0-4) /hpf Hyaline Casts (0-2) /lpf Urine Mucus (None) /hpf 11/03/18 Range/Units 13:00 WBC (3.8-10.6) k/uL RBC (4.30-5.90) m/uL Hgb (13.0-17.5) gm/dL Hct (39.0-53.0) % MCV (80.0-100.0) fL MCH (25.0-35.0) pg MCHC (31.0-37.0) g/dL RDW (11.5-15.5) % Plt Count (150-450) k/uL Neutrophils % % Lymphocytes % % Monocytes % % Eosinophils % % Basophils % % Neutrophils # (1.3-7.7) k/uL Lymphocytes # (1.0-4.8) k/uL Monocytes # (0-1.0) k/uL Eosinophils # (0-0.7) k/uL Basophils # (0-0.2) k/uL Sodium (137-145) mmol/L Potassium (3.5-5.1) mmol/L Chloride (98-107) mmol/L Carbon Dioxide (22-30) mmol/L Anion Gap mmol/L BUN (9-20) mg/dL Creatinine (0.66-1.25) mg/dL Est GFR (CKD-EPI)AfAm (>60 ml/min/1.73 sqM) Est GFR (CKD-EPI)NonAf (>60 ml/min/1.73 sqM) Glucose (74-99) mg/dL Plasma Lactic Acid Wes (0.7-2.0) mmol/L Calcium (8.4-10.2) mg/dL Total Bilirubin (0.2-1.3) mg/dL AST (17-59) U/L ALT (21-72) U/L Alkaline Phosphatase (38-126) U/L Total Protein (6.3-8.2) g/dL Albumin (3.5-5.0) g/dL Amylase (30-110) U/L Lipase (23-300) U/L Urine Color Yellow Urine Appearance Clear (Clear) Urine pH 5.5 (5.0-8.0) Ur Specific [place] 1.029 (1.001-1.035) Urine Protein 3+ H (Negative) Urine Glucose (UA) 4+ H (Negative) Urine Ketones Trace H (Negative) Urine Blood Trace H (Negative) Urine Nitrite Negative (Negative) Urine Bilirubin Negative (Negative) Urine Urobilinogen <2.0 (<2.0) mg/dL Ur Leukocyte Esterase Negative (Negative) Urine RBC <1 (0-5) /hpf Urine WBC 2 (0-5) /hpf Ur Squamous Epith Cells 1 (0-4) /hpf Hyaline Casts 17 H (0-2) /lpf Urine Mucus Occasional H (None) /hpf Disposition Clinical Impression: Abdominal pain, Enteritis Disposition: HOME SELF-CARE Condition: Stable Instructions (If sedation given, give patient instructions): Abdominal Pain (ED) Additional Instructions: Please return to the Emergency Department if symptoms worsen or any other concerns. Prescriptions: Dicyclomine [Bentyl] 20 mg PO TID #30 tablet Is patient prescribed a controlled substance at d/c from ED?: No Referrals: Carlos Padron MD [Primary Care Provider] - 1-2 days Time of Disposition: 14:36
[2018-11-03 13:25] LABS: Appearance,Urine Clear (Clear); Basophils # (A) 0.1 k/uL (0-0.2); Basophils % (A) 1 %; Bilirubin,Urine Negative (Negative); Blood,Urine Trace (Negative); Color,Urine Yellow; Eosinophils # (A) 0.3 k/uL (0-0.7); Eosinophils % (A) 3 %; Glucose,Urine (UA) 4+ (Negative); HCT 48.4 % (39.0-53.0); HGB 16.3 gm/dL (13.0-17.5); Hyaline Casts,Urine 17 /lpf (0-2); Ketones,Urine Trace (Negative); Leukocyte Esterase,Urine Negative (Negative); Lymphocytes % (A) 19 %; MCHC 33.7 g/dL (31.0-37.0); Mean Platelet Volume 8.2; Monocytes # (A) 0.5 k/uL (0-1.0); Monocytes % (A) 4 %; Mucus,Urine Occasional /hpf; Neutrophils # (A) 7.7 k/uL (1.3-7.7); Neutrophils % (A) 72 %; Nitrite,Urine Negative (Negative); PH, Urine 5.5 (5.0-8.0); Platelet Count 268 k/uL (150-450); Protein,Urine 3+ (Negative); RBC 5.63 m/uL (4.30-5.90); RBC,Urine <1 /hpf (0-5); RDW 12.9 % (11.5-15.5); Specific Gravity,Urine 1.029 (1.001-1.035); Squamous Epithelial Cell,Urine 1 /hpf (0-4); Urobilinogen,Urine <2.0 mg/dL (<2.0); WBC 10.7 k/uL (3.8-10.6); WBC,Urine 2 /hpf (0-5)
[2018-11-03 13:28] LABS: Albumin 4.4 g/dL (3.5-5.0); Calcium 11.8 mg/dL (8.4-10.2); Potassium 4.6 mmol/L (3.5-5.1); Total Protein 7.1 g/dL (6.3-8.2)
--- NOTE | 2018-11-03 14:13 | CT ---
EXAMINATION TYPE: CT abdomen pelvis w con DATE OF EXAM: 11/03/2018 COMPARISON: Prior CT 12/13/2016 HISTORY: "stomach pain" CT DLP: 1070.2 mGycm Automated exposure control for dose reduction was used. TECHNIQUE: Helical acquisition of images from the lung bases through the pelvis have been completed. CONTRAST: Performed without Oral Contrast and with IV Contrast, patient injected with 80 mL of Isovue 300. FINDINGS: LUNG BASES: No significant abnormality is appreciated. AORTA: No significant abnormality is appreciated. LIVER/GB: Liver shows low attenuation and is enlarged compatible with hepatic steatosis. Gallbladder is normal. PANCREAS: No significant abnormality is seen. SPLEEN: No significant abnormality is seen. ADRENALS: No significant abnormality is seen. KIDNEYS: No significant abnormality is seen. REPRODUCTIVE ORGANS: No significant abnormality is seen BOWEL: Small bowel loops in the left upper quadrant shows some questionable wall thickening. Fluid-f illed loops of sigmoid colon extending to the rectum. The appendix is normal. FREE AIR: No Free Air visible. ASCITES: None visible. PELVIC ADENOPATHY: None visualized. RETROPERITONEAL ADENOPATHY: No Retroperitoneal Adenopathy visible. URINARY BLADDER: No significant abnormality is seen. OSSEOUS STRUCTURES: No significant abnormality is seen. IMPRESSION: CORRELATE FOR ENTERITIS. HEPATIC STEATOSIS, HEPATOMEGALY.
[2018-11-03 14:34] VITALS: BP 174/106; PULSE 96; RESP 20; TEMP 98.2
== END 2018-11-03 15:02 | disposition home or self-care (01) ==
LOC: EC 12:36
DX: K52.9 Noninfective gastroenteritis and colitis, unspecified (principal); R00.0 Tachycardia, unspecified; E11.9 Type 2 diabetes mellitus without complications; I10 Essential (primary) hypertension; Z80.0 Family history of malignant neoplasm of digestive organs; Z79.84 Long term (current) use of oral hypoglycemic drugs; Z79.899 Other long term (current) drug therapy; Z87.19 Personal history of other diseases of the digestive system; Z98.890 Other specified postprocedural states
CPT/HCPCS: 36415; 80053; 82150; 83605; 83690; 85025; 81001; 87040; 74177; 99284; 96360; Q9967

== ENCOUNTER 2019-02-06 20:03 | Inpatient (IN) | payer MEDICARE, OTHER ==
[2019-02-06] MEDS ORDERED: ONDANSETRON 4 MG/2 ML VIAL IVP STA (20:48)
[2019-02-06] MEDS ORDERED: MORPHINE SULFATE 4 MG/ML SYRINGE IV STA (20:48)
[2019-02-06 21:12] LABS: ALT 39 U/L (21-72); AST 26 U/L (17-59); African American GFR (CKD) >90 (>60 ml/min/1.73 sqM); Albumin 4.3 g/dL (3.5-5.0); Alkaline Phosphatase 88 U/L (38-126); Anion Gap 11 mmol/L; Blood Urea Nitrogen 19 mg/dL (9-20); Calcium 10.8 mg/dL (8.4-10.2); Carbon Dioxide 25 mmol/L (22-30); Chloride 101 mmol/L (98-107); Glucose 248 mg/dL (74-99); Potassium 4.7 mmol/L (3.5-5.1); Sodium 137 mmol/L (137-145); Total Bilirubin 1.1 mg/dL (0.2-1.3)
[2019-02-06 21:12] LABS: INR 0.9 (<1.2); Partial Thromboplastin Time 23.5 sec (22.0-30.0); Prothrombin Time 9.7 sec (9.0-12.0)
[2019-02-06 21:15] LABS: Basophils # (A) 0.1 k/uL (0-0.2); Basophils % (A) 1 %; Eosinophils # (A) 0.1 k/uL (0-0.7); Eosinophils % (A) 1 %; HCT 46.5 % (39.0-53.0); Lymphocytes % (A) 9 %; MCH 29.9 pg (25.0-35.0); MCHC 34.3 g/dL (31.0-37.0); MCV 87.2 fL (80.0-100.0); Mean Platelet Volume 8.8; Monocytes # (A) 0.3 k/uL (0-1.0); Monocytes % (A) 2 %; Neutrophils # (A) 10.5 k/uL (1.3-7.7); Neutrophils % (A) 87 %; Platelet Count 259 k/uL (150-450); RBC 5.34 m/uL (4.30-5.90); RDW 15.5 % (11.5-15.5)
[2019-02-06 21:22] LABS: Appearance,Urine Clear (Clear); Bilirubin,Urine Negative (Negative); Blood,Urine Trace (Negative); Color,Urine Yellow; Glucose,Urine (UA) 4+ (Negative); Leukocyte Esterase,Urine Negative (Negative); Mucus,Urine Occasional /hpf; Nitrite,Urine Negative (Negative); PH, Urine 6.5 (5.0-8.0); Protein,Urine 3+ (Negative); RBC,Urine <1 /hpf (0-5); Specific Gravity,Urine 1.022 (1.001-1.035); Urobilinogen,Urine <2.0 mg/dL (<2.0); WBC,Urine 1 /hpf (0-5)
[2019-02-06 21:32] LABS: Ketones,Urine 2+ (Negative)
--- NOTE | 2019-02-06 22:18 | CT ---
EXAMINATION: CT brain wo con DATE AND TIME: 02/06/2019 9:56 PM CLINICAL INDICATION: [facility]; fall TECHNIQUE: Standard departmental protocol.; 1099.4; COMPARISON: 218 FINDINGS: The calvarium is intact. There is no intracranial hemorrhage. There is no intracranial mass or mass effect. No definite new intra-axial or extra-axial attenuation defect. The orbits are unremarkable. The paranasal sinuses and middle ear cavities are clear. The right mastoid sinus air cells are clear. 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 T hese CT changes were seen on the prior study IMPRESSION: NO ACUTE PROCESS.
--- NOTE | 2019-02-06 22:21 | ED ---
Abdominal Pain HPI - General Chief Complaint: Abdominal Pain Stated Complaint: Vomiting, headaches, constipation Source: patient Mode of arrival: ambulatory Limitations: no limitations - History of Present Illness Initial Comments: Patient is a 58 her old male presents to the emergency room with reported nausea, vomiting and abdominal pain. The patient states the pain has been present for the past days. It is located in his left lower quadrant. It is tender upon palpation. He admits to associated nausea with nonbilious, nonbloody vomiting. States that today he has not been able to hold down any food because of the vomiting. He does admit to a history of diverticulitis. Denies any fevers or chills. He denies any melanotic stools or hematochezia. Does report to constipation. States that he hasn't had a good bowel movement in the past 4 days. He normally goes daily. He has had some small passage of stool. He continues to have flatus. He admits to decrease in urination. Denies any dysuria or hematuria. Denies ripping or tearing sensation to his back. Denies any chest pain or shortness of breath. There are no other alleviating, precipitating or modifying factors - Related Data Home Medications Medication Instructions Recorded Confirmed amLODIPine [Norvasc] 5 mg PO DAILY 05/01/18 02/06/19 Glimepiride [Amaryl] 4 mg PO AC-BID 07/03/18 02/06/19 Labetalol [Trandate] 100 mg PO BID 07/03/18 02/06/19 Linaclotide [Linzess] 290 mcg PO DAILY 11/03/18 02/06/19 Linagliptin [Tradjenta] 5 mg PO DAILY 11/03/18 02/06/19 Allergies Allergy/AdvReac Type Severity Reaction Status Date / Time No Known Allergies Allergy Verified 02/06/19 20:29 Review of Systems ROS Statement: Those systems with pertinent positive or pertinent negative responses have been documented in the HPI. ROS Other: All systems not noted in ROS Statement are negative. Past Medical History Past Medical History: Diabetes Mellitus, Hypertension Additional Past Medical History / Comment(s): NIDDM type II, hemorrhoids, diverticulitis, chronic sinus problems, L knee "gives out" on occasion. History of Any Multi-Drug Resistant Organisms: None Reported Past Surgical History: Hernia Repair Additional Past Surgical History / Comment(s): R inguinal hernia repair, multiple myringotomies/tubes, colonoscopy, circumcism. Past Anesthesia/Blood Transfusion Reactions: No Reported Reaction Past Psychological History: No Psychological Hx Reported Smoking Status: Never smoker Past Alcohol Use History: None Reported Past Drug Use History: None Reported - Past Family History Mother Family Medical History: Cancer Additional Family Medical History / Comment(s): colon cancer. Father Family Medical History: Cancer Additional Family Medical History / Comment(s): colon cancer. General Exam Limitations: no limitations Course Vital Signs 02/06/19 02/06/19 02/06/19 20:12 20:45 21:00 Temperature 98.9 F Pulse Rate 108 H 82 78 Respiratory 18 Rate Blood Pressure 217/122 205/118 205/118 O2 Sat by Pulse 98 97 98 Oximetry 02/06/19 02/06/19 02/06/19 21:30 22:00 22:30 Temperature Pulse Rate 80 77 Respiratory Rate Blood Pressure 195/121 184/106 187/107 O2 Sat by Pulse 97 98 95 Oximetry 02/06/19 02/06/19 02/07/19 23:00 23:30 00:25 Temperature 98.8 F Pulse Rate 83 Respiratory 18 Rate Blood Pressure 183/110 178/101 162/101 O2 Sat by Pulse 95 98 98 Oximetry Medical Decision Making - Medical Decision Making Upon arrival the patient is placed into room 22. He is hooked up to continuous pulse ox and cardiac monitoring. A 12-lead EKG was performed on the patient's. Peripheral IV is established. The patient is given normal saline at 100 mL per hour. Vitals are obtained. The patient is markedly hypertensive. He states he has been unable to hold down his blood pressure medications. I did provide him with 4 mg of morphine and 4 mg of Zofran. Laboratory studies were conducted. The patient was sent for a CT of his abdomen and pelvis. Upon return results I did discuss with the patient. He does have an elevated white blood cell count of 12. His glucose levels to 48 and his lactic acid is 2.4. The patient's abdomen and pelvis demonstrates a dilated segment of jejunum with associated twisting of the mesentery. Because of this I did call discuss case with Dr. Mast. Dr. Mast did accept the admission. He recommended NG tube placement, antibiotics, pain medications and antiemetics. I did inform the patient of this. He did accept the treatment plan. When the nurse attempted to pass the NG tube the patient refused. We did discuss with the patient the necessity of the NG tube placement and the patient continued to refuse. I did place bridging orders. I started the patient on Zosyn. He was then transported to the floor in stable condition - Lab Data Result diagrams: 02/06/19 21:00 02/06/19 20:51 Lab Results 02/06/19 02/06/19 02/06/19 Range/Units 20:51 20:51 21:00 WBC 12.0 H (3.8-10.6) k/uL RBC 5.34 (4.30-5.90) m/uL Hgb 16.0 (13.0-17.5) gm/dL Hct 46.5 (39.0-53.0) % MCV 87.2 (80.0-100.0) fL MCH 29.9 (25.0-35.0) pg MCHC 34.3 (31.0-37.0) g/dL RDW 15.5 (11.5-15.5) % Plt Count 259 (150-450) k/uL Neutrophils % 87 % Lymphocytes % 9 % Monocytes % 2 % Eosinophils % 1 % Basophils % 1 % Neutrophils # 10.5 H (1.3-7.7) k/uL Lymphocytes # 1.0 (1.0-4.8) k/uL Monocytes # 0.3 (0-1.0) k/uL Eosinophils # 0.1 (0-0.7) k/uL Basophils # 0.1 (0-0.2) k/uL PT (9.0-12.0) sec INR (<1.2) APTT (22.0-30.0) sec Sodium 137 (137-145) mmol/L Potassium 4.7 (3.5-5.1) mmol/L Chloride 101 (98-107) mmol/L Carbon Dioxide 25 (22-30) mmol/L Anion Gap 11 mmol/L BUN 19 (9-20) mg/dL Creatinine 0.89 (0.66-1.25) mg/dL Est GFR (CKD-EPI)AfAm >90 (>60 ml/min/1.73 sqM) Est GFR (CKD-EPI)NonAf >90 (>60 ml/min/1.73 sqM) Glucose 248 H (74-99) mg/dL Lactic Ac Sepsis Rflx Plasma Lactic Acid Wes 2.4 H* (0.7-2.0) mmol/L Calcium 10.8 H (8.4-10.2) mg/dL Total Bilirubin 1.1 (0.2-1.3) mg/dL AST 26 (17-59) U/L ALT 39 (21-72) U/L Alkaline Phosphatase 88 (38-126) U/L Total Protein 7.0 (6.3-8.2) g/dL Albumin 4.3 (3.5-5.0) g/dL Lipase 51 (23-300) U/L Urine Color Urine Appearance (Clear) Urine pH (5.0-8.0) Ur Specific [place] (1.001-1.035) Urine Protein (Negative) Urine Glucose (UA) (Negative) Urine Ketones (Negative) Urine Blood (Negative) Urine Nitrite (Negative) Urine Bilirubin (Negative) Urine Urobilinogen (<2.0) mg/dL Ur Leukocyte Esterase (Negative) Urine RBC (0-5) /hpf Urine WBC (0-5) /hpf Urine Mucus (None) /hpf 02/06/19 02/06/19 02/06/19 Range/Units 21:00 21:00 21:14 WBC (3.8-10.6) k/uL RBC (4.30-5.90) m/uL Hgb (13.0-17.5) gm/dL Hct (39.0-53.0) % MCV (80.0-100.0) fL MCH (25.0-35.0) pg MCHC (31.0-37.0) g/dL RDW (11.5-15.5) % Plt Count (150-450) k/uL Neutrophils % % Lymphocytes % % Monocytes % % Eosinophils % % Basophils % % Neutrophils # (1.3-7.7) k/uL Lymphocytes # (1.0-4.8) k/uL Monocytes # (0-1.0) k/uL Eosinophils # (0-0.7) k/uL Basophils # (0-0.2) k/uL PT 9.7 (9.0-12.0) sec INR 0.9 (<1.2) APTT 23.5 (22.0-30.0) sec Sodium (137-145) mmol/L Potassium (3.5-5.1) mmol/L Chloride (98-107) mmol/L Carbon Dioxide (22-30) mmol/L Anion Gap mmol/L BUN (9-20) mg/dL Creatinine (0.66-1.25) mg/dL Est GFR (CKD-EPI)AfAm (>60 ml/min/1.73 sqM) Est GFR (CKD-EPI)NonAf (>60 ml/min/1.73 sqM) Glucose (74-99) mg/dL Lactic Ac Sepsis Rflx Y Plasma Lactic Acid Wes (0.7-2.0) mmol/L Calcium (8.4-10.2) mg/dL Total Bilirubin (0.2-1.3) mg/dL AST (17-59) U/L ALT (21-72) U/L Alkaline Phosphatase (38-126) U/L Total Protein (6.3-8.2) g/dL Albumin (3.5-5.0) g/dL Lipase (23-300) U/L Urine Color Yellow Urine Appearance Clear (Clear) Urine pH 6.5 (5.0-8.0) Ur Specific [place] 1.022 (1.001-1.035) Urine Protein 3+ H (Negative) Urine Glucose (UA) 4+ H (Negative) Urine Ketones 2+ H (Negative) Urine Blood Trace H (Negative) Urine Nitrite Negative (Negative) Urine Bilirubin Negative (Negative) Urine Urobilinogen <2.0 (<2.0) mg/dL Ur Leukocyte Esterase Negative (Negative) Urine RBC <1 (0-5) /hpf Urine WBC 1 (0-5) /hpf Urine Mucus Occasional H (None) /hpf - EKG Data EKG Comments: EKG demonstrates a normal sinus rhythm with a ventricular rate of 98. LA interval 166. QRS 94. QTC of 454. There are no acute ST segment elevations or depressions concerning for ischemia or infarction Disposition Clinical Impression: Nausea and vomiting, Partial small bowel obstruction, Lactic acidosis, Hyperglycemia, Dehydration Disposition: ADMITTED IP TO THIS HOSP Condition: Stable Is patient prescribed a controlled substance at d/c from ED?: No Decision to Admit Reason: Admit from EC Decision Date: 02/06/19 Decision Time: 23:25
--- NOTE | 2019-02-06 22:42 | CT ---
EXAMINATION TYPE: CT abdomen pelvis w con DATE OF EXAM: 02/06/2019 COMPARISON: 11/03/2018 HISTORY: Abdominal pain and vomiting CT DLP: 1340.1 mGycm Automated exposure control for dose reduction was used. TECHNIQUE: Helical acquisition of images was performed from the lung bases through the pelvis. CONTRAST: Performed without Oral Contrast and with IV Contrast, patient injected with 100 mL of Isovu e 300. FINDINGS: LUNG BASES: No acute findings. LIVER/GB: No significant abnormality is appreciated. PANCREAS: No significant abnormality is seen. SPLEEN: No significant abnormality is seen. ADRENALS: No significant abnormality is seen. KIDNEYS: No significant abnormality is seen. FREE AIR: No pneumatosis. No peritoneal fluid. RETROPERITONEAL ADENOPATHY: None visualized REPRODUCTIVE ORGANS: No significant abnormality is seen URINARY BLADDER: No significant abnormality is seen. PELVIC ADENOPATHY: None visualized. OSSEOUS STRUCTURES: No significant abnormality is seen. OTHER: No acute vascular findings. BOWEL: The stomach is unremarkable, as is the duodenum. However, the proximal jejunum demonstrates a mildly dilated loop, located anterior to the left kidney , reaching 4.3 cm caliber. This mildly dilated loop is associated with turning of the supporting mese ntery in the left upper quadrant. This mesenteric vasculature returning is most conspicuous on the sa gittal sequence, but can be seen on the axial and coronal sequences. In and of itself, this mesenteri c finding is relatively nonspecific - particularly since there is no edematous change within the mese ntery and there is no associated small bowel wall thickening. However, in the correct clinical settin g this dilated loop and mesentery could correlate with symptoms. Distally, there is no dilation of the remainder of the jejunum or the ileum. The appendix has normal appearance. The colon shows descending and sigmoid diverticula, but no definite diverticulitis. IMPRESSION: MILDLY DILATED LOOP OF JEJUNUM, DISCUSSED.
[2019-02-06] MEDS ORDERED: NALOXONE 0.4 MG/ML 1 ML VIAL IV PRN (23:25)
[2019-02-06] MEDS ORDERED: SODIUM CHLORIDE 0.9% 1,000 ML IV STA (23:25)
[2019-02-07] MEDS: LABETALOL 100 MG TAB PO SCH ×3 (00:04→20:08)
[2019-02-07] MEDS: MORPHINE SULFATE 4 MG/ML SYRINGE IVP SCH ×3 (00:17→08:00)
[2019-02-07] MEDS: PIPERACILLIN-TAZOBACTAM 3.375 GM in SODIUM CHLORIDE 0.9% 100 ML IVPB SCH ×2 (00:18→07:59)
[2019-02-07 00:58] VITALS: BMI 31.3
[2019-02-07] MEDS: ONDANSETRON 4 MG/2 ML VIAL IVP SCH ×5 (01:03→23:27)
[2019-02-07 05:38] LABS: Basophils # (A) 0.1 k/uL (0-0.2); Basophils % (A) 1 %; Eosinophils # (A) 0.3 k/uL (0-0.7); Eosinophils % (A) 2 %; HCT 43.3 % (39.0-53.0); HGB 14.8 gm/dL (13.0-17.5); Lymphocytes # (A) 2.7 k/uL (1.0-4.8); Lymphocytes % (A) 23 %; MCH 29.9 pg (25.0-35.0); MCHC 34.1 g/dL (31.0-37.0); MCV 87.7 fL (80.0-100.0); Mean Platelet Volume 8.7; Monocytes # (A) 0.6 k/uL (0-1.0); Monocytes % (A) 5 %; Neutrophils # (A) 7.8 k/uL (1.3-7.7); Neutrophils % (A) 67 %; Platelet Count 274 k/uL (150-450); RBC 4.93 m/uL (4.30-5.90); RDW 14.4 % (11.5-15.5); WBC 11.7 k/uL (3.8-10.6)
[2019-02-07 05:46] LABS: African American GFR (CKD) >90 (>60 ml/min/1.73 sqM); Anion Gap 8 mmol/L; Blood Urea Nitrogen 16 mg/dL (9-20); Calcium 10.3 mg/dL (8.4-10.2); Carbon Dioxide 26 mmol/L (22-30); Chloride 104 mmol/L (98-107); Glucose 117 mg/dL (74-99); Potassium 4.2 mmol/L (3.5-5.1); Sodium 138 mmol/L (137-145)
[2019-02-07 07:06] LABS: Glucose,Whole Blood 119 mg/dL (75-99)
[2019-02-07] MEDS: INSULIN ASPART (NovoLOG) 100 UNIT/ML VIAL SQ SCH ×3 (07:34→17:08)
[2019-02-07] MEDS: amLODIPine 5 MG TAB PO SCH (07:59)
[2019-02-07] MEDS: SODIUM CHLORIDE 0.9% 1,000 ML IV SCH ×2 (10:29→10:30)
[2019-02-07] MEDS ORDERED: IOPAMIDOL-300 CONTRAST 30 ML VIAL (ORAL USE) PO PRN (11:10)
--- NOTE | 2019-02-07 11:24 | P.GSHP ---
History of Present Illness H&P Date: 02/07/19 Chief Complaint: abdominal pain CHIEF COMPLAINT: abdominal pain HISTORY OF PRESENT ILLNESS: 58 year old male who presented to emergency room with a chief complaint of abdominal pain. Patient reports he began feeling nauseous with nonbilious nonbloody emesis yesterday. He reports feeling constipated and has not had a bowel movement in 4 days. He usually has a bowel movement daily and is described as soft. He is passing flatus this morning. He is prescribed Linzess outpatient. Patient reports slight nausea this morning but denies further episodes of emesis since coming to the hospital. NG tube was ordered in the emergency room which patient has refused. He is reporting some mild left lower quadrant abdominal pain this morning. He is currently NPO. Lactic acid 2.4 on admission. Repeat 3.0, 2.5, and 2.9. Patient is receiving IV fluids. He is diabetic but blood sugars have been controlled during hospitalization. PAST MEDICAL HISTORY: See list. PAST SURGICAL HISTORY: See list. SOCIAL HISTORY: No illicit drug use. REVIEW OF SYSTEMS: CONSTITUTIONAL: Denies fever or chills. HEENT: Denies blurred vision, vision changes, or eye pain. Denies hemoptysis CARDIOVASCULAR: Denies chest pain or pressure. RESPIRATORY: No shortness of breath. GASTROINTESTINAL: Refer to HPI for pertinent findings HEMATOLOGIC: Denies bleeding disorders. GENITOURINARY: Denies any blood in urine. SKIN: Denies pruitis. Denies rash. PHYSICAL EXAM: VITAL SIGNS: Reviewed. GENERAL: Well-developed in no acute distress. HEENT: No sclera icterus. Extraocular movements grossly intact. Moist buccal mucosa. Head is atraumatic, normocephalic. ABDOMEN: Soft. Nondistended. Mild tenderness with palpation to left lower quadrant. NEUROLOGIC: Alert and oriented. Cranial nerves II through XII grossly intact. LABORATORY DATA: Laboratory data this morning reveals white count 11.7. Hemoglobin 14.8. Potassium 4.2. Lactic acid 2.5. IMAGING: CT abdomen and pelvis: Stomach is unremarkable. As is the duodenum. However the proximal jejunum demonstrates a mildly dilated loop, located anterior to the left kidney reaching 4.3 cm in caliber. This mildly dilated loop is associated with turning of the supporting mesentery in the left upper quadrant. Mesenteric finding is relatively nonspecific particularly since there is no edematous changes within the mesentery and no associated small bowel wall thickening. Distally there is no dilation of the remainder of the jejunum or thallium. The appendix is normal appearance.: Shows descending and sigmoid diverticula but no definite diverticulitis. ASSESSMENT: 1. Left lower quadrant abdominal pain with nausea and vomiting x 1 day, CT scan reveals proximal jejunum dilated to 4.3cm in caliber, otherwise remarkable 2. History of diverticulosis, no evidence of diverticulitis per computed tomography scan 3. Constipation without BM x 4 days 4. History of right inguinal hernia repair 5. Elevated lactic acid and leukocytosis, no clinical evidence for sepsis PLAN: 1. Continue NPO. Patient refusing NG. Reasonable to leave out at this time as patient clinically looks well without active emesis. 2. 2L NS bolus. Continue maintenance IV fluids 3. Repeat CT scan with oral contrast 4. Continue antibiotics 5. Further recommendations pending repeat CT scan results Nurse practitioner note has been reviewed by physician. Signing provider agrees with the documented findings, assessment, and plan of care. Past Medical History Past Medical History: Diabetes Mellitus, Hypertension Additional Past Medical History / Comment(s): NIDDM type II, hemorrhoids, diverticulitis, chronic sinus problems, L knee "gives out" on occasion. History of Any Multi-Drug Resistant Organisms: None Reported Past Surgical History: Hernia Repair Additional Past Surgical History / Comment(s): R inguinal hernia repair, multiple myringotomies/tubes, colonoscopy, circumcism. Past Anesthesia/Blood Transfusion Reactions: No Reported Reaction Past Psychological History: No Psychological Hx Reported Smoking Status: Never smoker Past Alcohol Use History: None Reported Past Drug Use History: None Reported - Past Family History Mother Family Medical History: Cancer Additional Family Medical History / Comment(s): colon cancer. Father Family Medical History: Cancer Additional Family Medical History / Comment(s): colon cancer. Medications and Allergies Home Medications Medication Instructions Recorded Confirmed Type amLODIPine [Norvasc] 5 mg PO DAILY 05/01/18 02/06/19 History Glimepiride [Amaryl] 4 mg PO AC-BID 07/03/18 02/06/19 History Labetalol [Trandate] 100 mg PO BID 07/03/18 02/06/19 History Linaclotide [Linzess] 290 mcg PO DAILY 11/03/18 02/06/19 History Linagliptin [Tradjenta] 5 mg PO DAILY 11/03/18 02/06/19 History Allergies Allergy/AdvReac Type Severity Reaction Status Date / Time No Known Allergies Allergy Verified 02/06/19 20:29 Surgical - Exam Vital Signs Temp Pulse Resp BP Pulse Ox 98.9 F 108 H 18 217/122 98 02/06/19 20:12 02/06/19 20:12 02/06/19 20:12 02/06/19 20:12 02/06/19 20:12 Results - Labs 02/07/19 05:06 02/07/19 05:06 Abnormal Lab Results - Last 24 Hours (Table) 02/06/19 02/06/19 02/06/19 Range/Units 20:51 20:51 21:00 WBC 12.0 H (3.8-10.6) k/uL Neutrophils # 10.5 H (1.3-7.7) k/uL Glucose 248 H (74-99) mg/dL POC Glucose (mg/dL) (75-99) mg/dL Plasma Lactic Acid Wes 2.4 H* (0.7-2.0) mmol/L Calcium 10.8 H (8.4-10.2) mg/dL Urine Protein (Negative) Urine Glucose (UA) (Negative) Urine Ketones (Negative) Urine Blood (Negative) Urine Mucus (None) /hpf 02/06/19 02/07/19 02/07/19 Range/Units 21:00 01:04 05:06 WBC 11.7 H (3.8-10.6) k/uL Neutrophils # 7.8 H (1.3-7.7) k/uL Glucose (74-99) mg/dL POC Glucose (mg/dL) (75-99) mg/dL Plasma Lactic Acid Wes 3.0 H* (0.7-2.0) mmol/L Calcium (8.4-10.2) mg/dL Urine Protein 3+ H (Negative) Urine Glucose (UA) 4+ H (Negative) Urine Ketones 2+ H (Negative) Urine Blood Trace H (Negative) Urine Mucus Occasional H (None) /hpf 02/07/19 02/07/19 02/07/19 Range/Units 05:06 05:06 06:54 WBC (3.8-10.6) k/uL Neutrophils # (1.3-7.7) k/uL Glucose 117 H (74-99) mg/dL POC Glucose (mg/dL) 119 H (75-99) mg/dL Plasma Lactic Acid Wes 2.5 H* (0.7-2.0) mmol/L Calcium 10.3 H (8.4-10.2) mg/dL Urine Protein (Negative) Urine Glucose (UA) (Negative) Urine Ketones (Negative) Urine Blood (Negative) Urine Mucus (None) /hpf 02/07/19 Range/Units 09:02 WBC (3.8-10.6) k/uL Neutrophils # (1.3-7.7) k/uL Glucose (74-99) mg/dL POC Glucose (mg/dL) (75-99) mg/dL Plasma Lactic Acid Wes 2.9 H* (0.7-2.0) mmol/L Calcium (8.4-10.2) mg/dL Urine Protein (Negative) Urine Glucose (UA) (Negative) Urine Ketones (Negative) Urine Blood (Negative) Urine Mucus (None) /hpf Diabetes panel 02/06/19 02/07/19 Range/Units 20:51 05:06 Sodium 137 138 (137-145) mmol/L Potassium 4.7 4.2 (3.5-5.1) mmol/L Chloride 101 104 (98-107) mmol/L Carbon Dioxide 25 26 (22-30) mmol/L BUN 19 16 (9-20) mg/dL Creatinine 0.89 0.90 (0.66-1.25) mg/dL Glucose 248 H 117 H (74-99) mg/dL Calcium 10.8 H 10.3 H (8.4-10.2) mg/dL AST 26 (17-59) U/L ALT 39 (21-72) U/L Alkaline Phosphatase 88 (38-126) U/L Total Protein 7.0 (6.3-8.2) g/dL Albumin 4.3 (3.5-5.0) g/dL Calcium panel 02/06/19 02/07/19 Range/Units 20:51 05:06 Calcium 10.8 H 10.3 H (8.4-10.2) mg/dL Albumin 4.3 (3.5-5.0) g/dL Pituitary panel 02/06/19 02/07/19 Range/Units 20:51 05:06 Sodium 137 138 (137-145) mmol/L Potassium 4.7 4.2 (3.5-5.1) mmol/L Chloride 101 104 (98-107) mmol/L Carbon Dioxide 25 26 (22-30) mmol/L BUN 19 16 (9-20) mg/dL Creatinine 0.89 0.90 (0.66-1.25) mg/dL Glucose 248 H 117 H (74-99) mg/dL Calcium 10.8 H 10.3 H (8.4-10.2) mg/dL Adrenal panel 02/06/19 02/07/19 Range/Units 20:51 05:06 Sodium 137 138 (137-145) mmol/L Potassium 4.7 4.2 (3.5-5.1) mmol/L Chloride 101 104 (98-107) mmol/L Carbon Dioxide 25 26 (22-30) mmol/L BUN 19 16 (9-20) mg/dL Creatinine 0.89 0.90 (0.66-1.25) mg/dL Glucose 248 H 117 H (74-99) mg/dL Calcium 10.8 H 10.3 H (8.4-10.2) mg/dL Total Bilirubin 1.1 (0.2-1.3) mg/dL AST 26 (17-59) U/L ALT 39 (21-72) U/L Alkaline Phosphatase 88 (38-126) U/L Total Protein 7.0 (6.3-8.2) g/dL Albumin 4.3 (3.5-5.0) g/dL
[2019-02-07] MEDS: IOPAMIDOL-300 CONTRAST 30 ML VIAL (ORAL USE) PO PRN ×2 (11:29→12:26)
[2019-02-07] MEDS ORDERED: MORPHINE SULFATE 4 MG/ML SYRINGE IVP PRN (11:46)
[2019-02-07 12:14] LABS: Glucose,Whole Blood 165 mg/dL (75-99)
[2019-02-07] MEDS ORDERED: ACETAMINOPHEN TAB 500 MG TAB PO PRN (12:27)
--- NOTE | 2019-02-07 12:33 | P.HPIM ---
History of Present Illness 58-year-old male came in with complaints of her diffuse dull aching moderate amount of abdominal pain. Patient had a CAT scan of the abdomen because of bowel gas pattern and it was believed patient has bowel obstruction was subseque ntly admitted. Although patient does have good bowel sounds patient had nausea vomiting yesterday nonbloody emesis. Patient is a poor historian was complaining of constipation but appears to have had bowel movements yesterday. Does have good bowel sounds. Patient appears to have while gastroenteritis. Patient although denied any body aches was comparing of chills no fever here. Patient had elevated lactic acid of 2.4 on admission which is being treated with IV fluids. There is no evidence of bacterial infection IV and Plavix will be discussed in patient is on Zosyn here. Patient was prescribed lenses as an outpatient for constipation Review of Systems REVIEW OF SYSTEMS: CONSTITUTIONAL: No fever, no malaise, no fatigue. HEENT: No recent visual problems or hearing problems. Denied any sore throat. CARDIOVASCULAR: No chest pain, orthopnea, PND, no palpitations, no syncope. PULMONARY: No shortness of breath, no cough, no hemoptysis. GASTROINTESTINAL: As mentioned in HPI NEUROLOGICAL: No headaches, no weakness, no numbness. HEMATOLOGICAL: Denies any bleeding or petechiae. GENITOURINARY: Denies any burning micturition, frequency, or urgency. MUSCULOSKELETAL/RHEUMATOLOGICAL: Denies any joint pain, swelling, or any muscle pain. ENDOCRINE: Denies any polyuria or polydipsia. The rest of the 14-point review of systems is negative. Past Medical History Past Medical History: Diabetes Mellitus, Hypertension Additional Past Medical History / Comment(s): NIDDM type II, hemorrhoids, diverticulitis, chronic sinus problems, L knee "gives out" on occasion. History of Any Multi-Drug Resistant Organisms: None Reported Past Surgical History: Hernia Repair Additional Past Surgical History / Comment(s): R inguinal hernia repair, multiple myringotomies/tubes, colonoscopy, circumcism. Past Anesthesia/Blood Transfusion Reactions: No Reported Reaction Past Psychological History: No Psychological Hx Reported Smoking Status: Never smoker Past Alcohol Use History: None Reported Past Drug Use History: None Reported - Past Family History Mother Family Medical History: Cancer Additional Family Medical History / Comment(s): colon cancer. Father Family Medical History: Cancer Additional Family Medical History / Comment(s): colon cancer. Medications and Allergies Home Medications Medication Instructions Recorded Confirmed Type amLODIPine [Norvasc] 5 mg PO DAILY 05/01/18 02/06/19 History Glimepiride [Amaryl] 4 mg PO AC-BID 07/03/18 02/06/19 History Labetalol [Trandate] 100 mg PO BID 07/03/18 02/06/19 History Linaclotide [Linzess] 290 mcg PO DAILY 11/03/18 02/06/19 History Linagliptin [Tradjenta] 5 mg PO DAILY 11/03/18 02/06/19 History Allergies Allergy/AdvReac Type Severity Reaction Status Date / Time No Known Allergies Allergy Verified 02/06/19 20:29 Physical Exam Vitals: Vital Signs Temp Pulse Pulse Resp BP BP Pulse Ox 02/07/19 08:00 91 16 02/07/19 07:00 98.5 F 91 16 162/88 97 02/07/19 01:10 96 179/94 02/07/19 00:48 98.1 F 100 18 209/96 97 02/07/19 00:38 82 18 170/94 98 02/07/19 00:25 98.8 F 83 18 162/101 98 02/06/19 23:30 178/101 98 02/06/19 23:00 183/110 95 02/06/19 22:30 187/107 95 02/06/19 22:00 77 184/106 98 02/06/19 21:30 80 195/121 97 02/06/19 21:00 78 205/118 98 02/06/19 20:45 82 205/118 97 02/06/19 20:12 98.9 F 108 H 18 217/122 98 Intake and Output 02/06/19 02/07/19 02/07/19 22:59 06:59 14:59 Other: Voiding Method Toilet Toilet Weight 90.718 kg PHYSICAL EXAMINATION: GENERAL: The patient is alert and oriented x3, not in any acute distress. Well developed, well nourished. HEENT: Pupils are round and equally reacting to light. EOMI. No scleral icterus. No conjunctival pallor. Normocephalic, atraumatic. No pharyngeal erythema. No thyromegaly. CARDIOVASCULAR: S1 and S2 present. No murmurs, rubs, or gallops. PULMONARY: Chest is clear to auscultation, no wheezing or crackles. ABDOMEN: Soft, nontender, nondistended, normoactive bowel sounds. No palpable organomegaly. MUSCULOSKELETAL: No joint swelling or deformity. EXTREMITIES: No cyanosis, clubbing, or pedal edema. NEUROLOGICAL: Gross neurological examination did not reveal any focal deficits. SKIN: No rashes. Results CBC & Chem 7: 02/07/19 05:06 02/07/19 05:06 Labs: Abnormal Lab Results - Last 24 Hours (Table) 02/06/19 02/06/19 02/06/19 Range/Units 20:51 20:51 21:00 WBC 12.0 H (3.8-10.6) k/uL Neutrophils # 10.5 H (1.3-7.7) k/uL Glucose 248 H (74-99) mg/dL POC Glucose (mg/dL) (75-99) mg/dL Plasma Lactic Acid Wes 2.4 H* (0.7-2.0) mmol/L Calcium 10.8 H (8.4-10.2) mg/dL Urine Protein (Negative) Urine Glucose (UA) (Negative) Urine Ketones (Negative) Urine Blood (Negative) Urine Mucus (None) /hpf 02/06/19 02/07/19 02/07/19 Range/Units 21:00 01:04 05:06 WBC 11.7 H (3.8-10.6) k/uL Neutrophils # 7.8 H (1.3-7.7) k/uL Glucose (74-99) mg/dL POC Glucose (mg/dL) (75-99) mg/dL Plasma Lactic Acid Wes 3.0 H* (0.7-2.0) mmol/L Calcium (8.4-10.2) mg/dL Urine Protein 3+ H (Negative) Urine Glucose (UA) 4+ H (Negative) Urine Ketones 2+ H (Negative) Urine Blood Trace H (Negative) Urine Mucus Occasional H (None) /hpf 02/07/19 02/07/19 02/07/19 Range/Units 05:06 05:06 06:54 WBC (3.8-10.6) k/uL Neutrophils # (1.3-7.7) k/uL Glucose 117 H (74-99) mg/dL POC Glucose (mg/dL) 119 H (75-99) mg/dL Plasma Lactic Acid Wes 2.5 H* (0.7-2.0) mmol/L Calcium 10.3 H (8.4-10.2) mg/dL Urine Protein (Negative) Urine Glucose (UA) (Negative) Urine Ketones (Negative) Urine Blood (Negative) Urine Mucus (None) /hpf 02/07/19 02/07/19 Range/Units 09:02 12:01 WBC (3.8-10.6) k/uL Neutrophils # (1.3-7.7) k/uL Glucose (74-99) mg/dL POC Glucose (mg/dL) 165 H (75-99) mg/dL Plasma Lactic Acid Wes 2.9 H* (0.7-2.0) mmol/L Calcium (8.4-10.2) mg/dL Urine Protein (Negative) Urine Glucose (UA) (Negative) Urine Ketones (Negative) Urine Blood (Negative) Urine Mucus (None) /hpf Thrombosis Risk Factor Assmnt - Choose All That Apply Any of the Below Risk Factors Present?: Yes Each Factor Represents 1 point: Age 41-60 years, Obesity (BMI >25) Other Risk Factors: No Other congenital or acquired thrombophilia - If yes, enter type in comment: No Thrombosis Risk Factor Assessment Total Risk Factor Score: 2 Thrombosis Risk Factor Assessment Level: Low Risk Assessment and Plan Plan: -Nausea vomiting abdominal pain probably due to gastroenteritis continue with the Protonix can you with IV fluids repeat lactic acid. -Lactic acidosis secondary to viral gastroenteritis no evidence of bacterial infection antibiotics will be discontinued, lactic acidosis secondary to intravascular depletion as well -Leukocytosis reactive -Mild hypercalcemia secondary to intravascular depletion Type 2 diabetes mellitus: Oral hypoglycemic agents will be held and patient will be on sliding scale insulin for now -Hypertension resume his home regimen.
--- NOTE | 2019-02-07 13:30 | CT ---
EXAMINATION TYPE: CT abdomen pelvis wo con DATE OF EXAM: 02/07/2019 COMPARISON: Prior CT 02/06/2019 HISTORY: Continued abdominal pain. CT DLP: 781.5 mGycm Automated exposure control for dose reduction was used. TECHNIQUE: Helical acquisition of images from the lung bases through the pelvis. Patient received or al contrast only. FINDINGS: Lack of intravenous contrast could compromise sensitivity. LUNG BASES: No significant abnormality is appreciated. Some minimal basilar atelectatic changes are a gain seen. AORTA: No significant abnormality is appreciated. LIVER/GB: No significant abnormality is appreciated. Increased density within the gallbladder likely due to vicarious excretion of contrast. Liver shows low attenuation and is enlarged, some focal fatty sparing suspected adjacent to the gallbladder. PANCREAS: No significant abnormality is seen. SPLEEN: No significant abnormality is seen. ADRENALS: No significant abnormality is seen. KIDNEYS: No significant abnormality is seen. REPRODUCTIVE ORGANS: There is some calcification associated with the prostate. URINARY BLADDER: Some high density within the bladder likely due to prior intravenous contrast admin istration and excretion. BOWEL: No significant normality is seen. There is no evident bowel obstruction. Distended jejunal lo op is no longer evident. There is no appendicitis. FREE AIR: No Free Air is visible. ASCITES: None visible. PELVIC ADENOPATHY: None visualized. RETROPERITONEAL ADENOPATHY: No Retroperitoneal Adenopathy visible. OSSEOUS STRUCTURES: No significant abnormality is seen. IMPRESSION: CORRELATE FOR POSSIBLE HEPATIC STEATOSIS OR HEPATOCELLULAR DISEASE, THERE IS HEPATOMEGALY. Diverticul osis. Noncontrast exam. No evident bowel obstruction. Additional findings above.
[2019-02-07] MEDS ORDERED: BISACODYL 10 MG SUPP RECTAL STA (14:01)
[2019-02-07 16:34] LABS: Glucose,Whole Blood 162 mg/dL (75-99)
[2019-02-07] MEDS: HEPARIN SODIUM,PORCINE 5,000 UNIT/ML 1 ML VIAL SQ SCH ×2 (17:07→23:25)
[2019-02-07] MEDS: DOCUSATE 100 MG CAP PO SCH (19:56)
[2019-02-07 20:34] LABS: Glucose,Whole Blood 183 mg/dL (75-99)
[2019-02-08] MEDS: ONDANSETRON 4 MG/2 ML VIAL IVP SCH ×2 (05:44→12:19)
[2019-02-08 07:13] LABS: Glucose,Whole Blood 142 mg/dL (75-99)
[2019-02-08] MEDS: INSULIN ASPART (NovoLOG) 100 UNIT/ML VIAL SQ SCH ×2 (08:23→12:50)
[2019-02-08] MEDS: amLODIPine 5 MG TAB PO SCH (08:47)
[2019-02-08] MEDS: DOCUSATE 100 MG CAP PO SCH (08:47)
[2019-02-08] MEDS: LABETALOL 100 MG TAB PO SCH (08:47)
[2019-02-08] MEDS: HEPARIN SODIUM,PORCINE 5,000 UNIT/ML 1 ML VIAL SQ SCH (08:48)
[2019-02-08] MEDS ORDERED: PANTOPRAZOLE 40 MG/10 ML VIAL IVP SCH (09:00)
[2019-02-08 09:17] VITALS: BP 161/91; PULSE 75; RESP 16; TEMP 98.7
--- NOTE | 2019-02-08 11:52 | P.DS ---
Providers Date of admission: 02/06/19 23:28 Expected date of discharge: 02/08/19 Attending physician: Meño Mast Consults: 02/07/19 11:10 Consult Physician Routine Consulting Provider: Morteza Rodriguez Consult Reason/Comments: medical management Do you want consulting provider notified?: Yes Primary care physician: Vito Mcgowan [facility] Course: 58 year old male who presented to emergency room with a chief complaint of abdominal pain. Patient reports he began feeling nauseous with nonbilious nonbloody emesis. He reports feeling constipated and has not had a bowel movement in 4 days. He usually has a bowel movement daily and is described as soft. He is prescribed Linzess outpatient. He reports passing flatus. CT abdomen and pelvis: Stomach is unremarkable. As is the duodenum. However the proximal jejunum demonstrates a mildly dilated loop, located anterior to the left kidney reaching 4.3 cm in caliber. This mildly dilated loop is associated with turning of the supporting mesentery in the left upper quadrant. Mesenteric finding is relatively nonspecific particularly since there is no edematous changes within the mesentery and no associated small bowel wall thickening. Distally there is no dilation of the remainder of the jejunum or thallium. The appendix is normal appearance.: Shows descending and sigmoid diverticula but no definite diverticulitis. NG tube was ordered in the emergency room which patient has refused. Lactic acid 2.4 on admission. Repeat 3.0, 2.5, and 2.9. Patient is receiving IV fluids. He is diabetic but blood sugars have been controlled during hospitalization. Repeat CT was performed with oral contrast which was negative. Patient was started on clear liquid diet and advanced as tolerated. His abdominal pain and nausea has resolved. He is stable for discharge home today. Please see EMR for further hospital course details. Discharge Diagnosis: 1. Left lower quadrant abdominal pain with nausea and vomiting x 1 day, CT scan reveals proximal jejunum dilated to 4.3cm in caliber, otherwise remarkable 2. History of diverticulosis, no evidence of diverticulitis per computed tomography scan 3. Constipation without BM x 4 days 4. History of right inguinal hernia repair 5. Elevated lactic acid and leukocytosis, no clinical evidence for sepsis Nurse practitioner note has been reviewed by physician. Signing provider agrees with the documented findings, assessment, and plan of care. Patient Condition at Discharge: Stable Plan - Discharge Summary Discharge Rx Participant: Yes New Discharge Prescriptions: No Action amLODIPine [Norvasc] 5 mg PO DAILY Labetalol [Trandate] 100 mg PO BID Glimepiride [Amaryl] 4 mg PO AC-BID Linaclotide [Linzess] 290 mcg PO DAILY Linagliptin [Tradjenta] 5 mg PO DAILY Discharge Medication List amLODIPine [Norvasc] 5 mg PO DAILY 05/01/18 [History] Glimepiride [Amaryl] 4 mg PO AC-BID 07/03/18 [History] Labetalol [Trandate] 100 mg PO BID 07/03/18 [History] Linaclotide [Linzess] 290 mcg PO DAILY 11/03/18 [History] Linagliptin [Tradjenta] 5 mg PO DAILY 11/03/18 [History] Follow up Appointment(s)/Referral(s): Carlos Padron MD [Primary Care Provider] - 1-2 days
[2019-02-08 12:34] LABS: Glucose,Whole Blood 154 mg/dL (75-99)
--- NOTE | 2019-02-08 14:49 | P.PN ---
Subjective Progress Note Date: 02/08/19 Principal diagnosis: This is a 58-year-old male who was recently admitted for abdominal pain and was being closely monitored. There was a concern for possible bowel obstruction on the computed tomography scan the patient was having positive bowel sounds and also having bowel movements. Patient was having nausea and vomiting upon admission yesterday and was being closely monitored. Today patient is sitting up in bed in no acute distress and tolerating clear liquid diet. Per surgery the patient will be advanced in diet today and if tolerated may go home. Today patient denies any nausea or vomiting or abdominal discomfort at this time. Patient is afebrile. Patient states that he did have another bowel movement this morning with no difficulties. Patient would like to go home today. Guarded prognosis. Objective - Vital Signs Vital signs: Vital Signs Temp 98.7 F 02/08/19 07:00 Pulse 75 02/08/19 07:00 Resp 16 02/08/19 07:00 BP 161/91 02/08/19 07:00 Pulse Ox 96 02/08/19 07:00 Intake & Output 02/07/19 02/08/19 02/08/19 18:59 06:59 18:59 Intake Total 1480 Balance 1480 Intake: Intake, IV Titration 1000 Amount Sodium Chloride 0.9% 1, 1000 000 ml @ 100 mls/hr IV . Q10H STA Rx#:[id number] Oral 480 Other: Voiding Method Toilet Toilet # Voids 2 - Exam GENERAL: The patient is alert and oriented x3, not in any acute distress. Well developed, well nourished. Vital signs are stable. HEENT: Pupils are round and equally reacting to light. EOMI. No scleral icterus. No conjunctival pallor. Normocephalic, atraumatic. No pharyngeal erythema. No thyromegaly. CARDIOVASCULAR: S1 and S2 present. No murmurs, rubs, or gallops. PULMONARY: Chest is clear to auscultation, no wheezing or crackles. ABDOMEN: Soft, nontender, nondistended, normoactive bowel sounds. No palpable organomegaly. MUSCULOSKELETAL: No joint swelling or deformity. EXTREMITIES: No cyanosis, clubbing, or pedal edema. NEUROLOGICAL: Gross neurological examination did not reveal any focal deficits. SKIN: No rashes. - Labs CBC & Chem 7: 02/07/19 05:06 02/07/19 05:06 Labs: Abnormal Lab Results - Last 24 Hours (Table) 02/07/19 02/07/19 02/07/19 Range/Units 16:17 17:02 20:23 POC Glucose (mg/dL) 162 H 183 H (75-99) mg/dL Plasma Lactic Acid Wes 2.2 H* (0.7-2.0) mmol/L 02/08/19 02/08/19 Range/Units 07:02 12:22 POC Glucose (mg/dL) 142 H 154 H (75-99) mg/dL Plasma Lactic Acid Wes (0.7-2.0) mmol/L Assessment and Plan Assessment: -Nausea and vomiting with abdominal pain probably due to gastroenteritis. continue with the Protonix can you with IV fluids repeat lactic acid. Repeat lactic this morning is 1.5, IV fluids have been discontinued. -Lactic acidosis secondary to viral gastroenteritis no evidence of bacterial infection antibiotics will be discontinued, lactic acidosis secondary to intravascular depletion as well, improved -Leukocytosis reactive -Mild hypercalcemia secondary to intravascular depletion Type 2 diabetes mellitus: Oral hypoglycemic agents will be held and patient will be on sliding scale insulin for now -Hypertension resume his home regimen. Recommendations and discussion: Recommend continue current medications, management, and symptomatic treatment. Patient is tolerating clear liquids and denies any nausea or vomiting. 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 Will continue to monitor. Guarded prognosis. Further instruction to follow. Probable discharge today.
== END 2019-02-08 14:29 | disposition home or self-care (01) | DRG 392 ==
LOC: EC 20:03 → 4SSUR 23:28
PROVIDERS: ADMIT Surgery; ATTEND Surgery
DX: A08.4 Viral intestinal infection, unspecified (principal); E87.2 Acidosis; E11.65 Type 2 diabetes mellitus with hyperglycemia; E83.52 Hypercalcemia; K57.30 Diverticulosis of large intestine without perforation or abscess without bleeding; K59.00 Constipation, unspecified; E86.0 Dehydration; I10 Essential (primary) hypertension; Z79.84 Long term (current) use of oral hypoglycemic drugs; Z79.899 Other long term (current) drug therapy; Z80.0 Family history of malignant neoplasm of digestive organs
CPT/HCPCS: 36415; 70450; 74176; 74177; 80048; 80053; 81001; 83605; 83690; 85025; 85610; 85730; 93005; 96365; 96375; 96376; 99285

== ENCOUNTER 2019-12-15 19:11 | Emergency (ER) | payer MEDICARE, OTHER ==
[2019-12-15 19:34] VITALS: TEMP 98.7
[2019-12-15] MEDS ORDERED: MORPHINE SULFATE 2 MG/ML SYRINGE IVP STA (19:51)
--- NOTE | 2019-12-15 19:57 | ED ---
General Adult HPI - General Chief complaint: Abdominal Pain Stated complaint: possible COVID exposure Time Seen by Provider: 12/15/19 19:39 Source: patient Mode of arrival: ambulatory Limitations: no limitations - History of Present Illness Initial comments: Dictation was produced using [employer] dictation software. please excuse any grammatical, word or spelling errors. This patient was cared for during a federal and state declared state of emerg ency secondary to Covid 19 Chief Complaint: 59-year-old male presents with generalized malaise and right upper quadrant abdominal pain. History of Present Illness: 59-year-old male presents with chief complaint of right upper quadrant abdominal pain. Patient states that he's been having symptoms for the last 24-48 hours. Patient denies any nausea or vomiting. He was exposed recently to an individual questionable coronavirus. She has history of diabetes. He takes antidiabetic oral pills and blood pressure medicines. Patient denies any nausea vomiting. Patient has been diagnosed with diverticulitis in the past. He states he's never had pain in the right upper quadrant with his diverticulitis episodes. The ROS documented in this emergency department record has been reviewed and confirmed by me. Those systems with pertinent positive or negative responses have been documented in the HPI. All other systems are other negative and/or noncontributory. PHYSICAL EXAM: General Impression: Alert and oriented x3, not in acute distress HEENT: Normocephalic atraumatic, extra-ocular movements intact, pupils equal and reactive to light bilaterally, mucous membranes moist. Cardiovascular: Heart regular rate and rhythm Chest: Able to complete full sentences, no retractions, no tachypnea Abdomen: abdomen soft, mild tenderness to the right upper quadrant, negative Truong sign, negative fluid wave, non-distended, no organomegaly Musculoskeletal: Pulses present and equal in all extremities, no peripheral edema Motor: no focal deficits noted Neurological: CN II-XII grossly intact, no focal motor or sensory deficits noted Skin: Intact with no visualized rashes Psych: Normal affect and mood ED course: 58-year-old male presents with chief complaint of generalized malaise and right upper quadrant abdominal pain. Patient appears to be well-appearing at bedside. Signs upon arrival shows heart rate of 113, respiratory rate of 26, blood pressure 197/111, worse vital signs within acceptable limits. Patient does have history of hypertension. Laboratory evaluation obtained. CBC unremarkable. Metabolic panel is mostly unremarkable except for glucose 263, lactic acidosis 3.9, and calcium of 11.2. Rest of labs unremarkable. Urinalysis shows 3+ protein, 4+ glucose and trace ketones. Patient has history of elevated lactic acidosis however is not usually this high. Chest x-ray shows asymmetric hazy airspace opacification of the left lung base. Patient does not have any symptoms in that area. KUB x-ray shows no acute processes. Laboratory results and imaging findings were discussed patient. Given that patient has elevated lactic acid level recommends patient that he be admitted considering he also has some abdominal pain. So that perhaps his symptoms could be secondary to abdominal ischemia. Patient reports that he Does Not Want to Be Admitted to the Hospital. Discussed patient that his symptoms get worse causing significant morbidity and mortality including worsening abdominal pain, bowel ischemia. Patient understands and wants to sign out AGAINST MEDICAL ADVICE. EKG interpretation: Ventricular rate 107, sinus tachycardia,. 154, QRS 90, QTc 443. No AL prolongation, no QTC prolongation, no ST or T-wave changes noted. EKG compared to [id number] showing no changes. Overall, this EKG is unremarkable - Related Data Home Medications Medication Instructions Recorded Confirmed amLODIPine [Norvasc] 5 mg PO DAILY 05/01/18 02/06/19 Glimepiride [Amaryl] 4 mg PO AC-BID 07/03/18 02/06/19 Labetalol [Trandate] 100 mg PO BID 07/03/18 02/06/19 Linaclotide [Linzess] 290 mcg PO DAILY 11/03/18 02/06/19 Linagliptin [Tradjenta] 5 mg PO DAILY 11/03/18 02/06/19 Allergies Allergy/AdvReac Type Severity Reaction Status Date / Time No Known Allergies Allergy Verified 12/15/19 19:34 Review of Systems ROS Statement: Those systems with pertinent positive or pertinent negative responses have been documented in the HPI. ROS Other: All systems not noted in ROS Statement are negative. Past Medical History Past Medical History: Diabetes Mellitus, Hypertension Additional Past Medical History / Comment(s): NIDDM type II, hemorrhoids, diverticulitis, chronic sinus problems, L knee "gives out" on occasion. History of Any Multi-Drug Resistant Organisms: None Reported Past Surgical History: Hernia Repair Additional Past Surgical History / Comment(s): R inguinal hernia repair, multiple myringotomies/tubes, colonoscopy, circumcism. Past Anesthesia/Blood Transfusion Reactions: No Reported Reaction Past Psychological History: No Psychological Hx Reported Smoking Status: Never smoker Past Alcohol Use History: None Reported Past Drug Use History: None Reported - Past Family History Mother Family Medical History: Cancer Additional Family Medical History / Comment(s): colon cancer. Father Family Medical History: Cancer Additional Family Medical History / Comment(s): colon cancer. General Exam Limitations: no limitations Course Vital Signs 12/15/19 19:30 Temperature 98.7 F Pulse Rate 113 H Respiratory 26 H Rate Blood Pressure 197/111 O2 Sat by Pulse 99 Oximetry Medical Decision Making - Lab Data Result diagrams: 12/15/19 20:10 12/15/19 20:10 Lab Results 12/15/19 12/15/19 12/15/19 Range/Units 20:10 20:10 20:10 WBC 10.2 (3.8-10.6) k/uL RBC 5.46 (4.30-5.90) m/uL Hgb 15.8 (13.0-17.5) gm/dL Hct 47.0 (39.0-53.0) % MCV 86.0 (80.0-100.0) fL MCH 29.0 (25.0-35.0) pg MCHC 33.7 (31.0-37.0) g/dL RDW 13.0 (11.5-15.5) % Plt Count 283 (150-450) k/uL Neutrophils % 66 % Lymphocytes % 22 % Monocytes % 5 % Eosinophils % 3 % Basophils % 1 % Neutrophils # 6.8 (1.3-7.7) k/uL Lymphocytes # 2.2 (1.0-4.8) k/uL Monocytes # 0.6 (0-1.0) k/uL Eosinophils # 0.3 (0-0.7) k/uL Basophils # 0.1 (0-0.2) k/uL Sodium 136 L (137-145) mmol/L Potassium 4.5 (3.5-5.1) mmol/L Chloride 102 (98-107) mmol/L Carbon Dioxide 24 (22-30) mmol/L Anion Gap 10 mmol/L BUN 18 (9-20) mg/dL Creatinine 1.10 (0.66-1.25) mg/dL Est GFR (CKD-EPI)AfAm 86 (>60 ml/min/1.73 sqM) Est GFR (CKD-EPI)NonAf 74 (>60 ml/min/1.73 sqM) Glucose 263 H (74-99) mg/dL Plasma Lactic Acid Wes 3.9 H* (0.7-2.0) mmol/L Calcium 11.2 H (8.4-10.2) mg/dL Total Bilirubin 0.5 (0.2-1.3) mg/dL AST 30 (17-59) U/L ALT 34 (4-49) U/L Alkaline Phosphatase 102 (38-126) U/L Troponin I (0.000-0.034) ng/mL Total Protein 6.7 (6.3-8.2) g/dL Albumin 4.2 (3.5-5.0) g/dL Lipase 71 (23-300) U/L Urine Color Urine Appearance (Clear) Urine pH (5.0-8.0) Ur Specific [place] (1.001-1.035) Urine Protein (Negative) Urine Glucose (UA) (Negative) Urine Ketones (Negative) Urine Blood (Negative) Urine Nitrite (Negative) Urine Bilirubin (Negative) Urine Urobilinogen (<2.0) mg/dL Ur Leukocyte Esterase (Negative) Urine RBC (0-5) /hpf Urine WBC (0-5) /hpf Hyaline Casts (0-2) /lpf Urine Mucus (None) /hpf 12/15/19 12/15/19 Range/Units 20:10 20:28 WBC (3.8-10.6) k/uL RBC (4.30-5.90) m/uL Hgb (13.0-17.5) gm/dL Hct (39.0-53.0) % MCV (80.0-100.0) fL MCH (25.0-35.0) pg MCHC (31.0-37.0) g/dL RDW (11.5-15.5) % Plt Count (150-450) k/uL Neutrophils % % Lymphocytes % % Monocytes % % Eosinophils % % Basophils % % Neutrophils # (1.3-7.7) k/uL Lymphocytes # (1.0-4.8) k/uL Monocytes # (0-1.0) k/uL Eosinophils # (0-0.7) k/uL Basophils # (0-0.2) k/uL Sodium (137-145) mmol/L Potassium (3.5-5.1) mmol/L Chloride (98-107) mmol/L Carbon Dioxide (22-30) mmol/L Anion Gap mmol/L BUN (9-20) mg/dL Creatinine (0.66-1.25) mg/dL Est GFR (CKD-EPI)AfAm (>60 ml/min/1.73 sqM) Est GFR (CKD-EPI)NonAf (>60 ml/min/1.73 sqM) Glucose (74-99) mg/dL Plasma Lactic Acid Wes (0.7-2.0) mmol/L Calcium (8.4-10.2) mg/dL Total Bilirubin (0.2-1.3) mg/dL AST (17-59) U/L ALT (4-49) U/L Alkaline Phosphatase (38-126) U/L Troponin I <0.012 (0.000-0.034) ng/mL Total Protein (6.3-8.2) g/dL Albumin (3.5-5.0) g/dL Lipase (23-300) U/L Urine Color Yellow Urine Appearance Clear (Clear) Urine pH 6.0 (5.0-8.0) Ur Specific [place] 1.027 (1.001-1.035) Urine Protein 3+ H (Negative) Urine Glucose (UA) 4+ H (Negative) Urine Ketones Trace H (Negative) Urine Blood Trace H (Negative) Urine Nitrite Negative (Negative) Urine Bilirubin Negative (Negative) Urine Urobilinogen <2.0 (<2.0) mg/dL Ur Leukocyte Esterase Negative (Negative) Urine RBC 1 (0-5) /hpf Urine WBC 1 (0-5) /hpf Hyaline Casts 3 H (0-2) /lpf Urine Mucus Occasional H (None) /hpf Disposition Clinical Impression: Lactic acid acidosis, Abdominal pain Disposition: Left Against Medical Advice Condition: Fair Instructions (If sedation given, give patient instructions): Abdominal Pain (ED) Referrals: Carlos Padron MD [Primary Care Provider] - 1-2 days Time of Disposition: 22:08
[2019-12-15 20:44] LABS: Basophils # (A) 0.1 k/uL (0-0.2); Basophils % (A) 1 %; Eosinophils # (A) 0.3 k/uL (0-0.7); Eosinophils % (A) 3 %; HGB 15.8 gm/dL (13.0-17.5); Lymphocytes # (A) 2.2 k/uL (1.0-4.8); Lymphocytes % (A) 22 %; MCHC 33.7 g/dL (31.0-37.0); Mean Platelet Volume 9.3; Monocytes # (A) 0.6 k/uL (0-1.0); Monocytes % (A) 5 %; Neutrophils # (A) 6.8 k/uL (1.3-7.7); Neutrophils % (A) 66 %; Platelet Count 283 k/uL (150-450); RBC 5.46 m/uL (4.30-5.90); WBC 10.2 k/uL (3.8-10.6)
[2019-12-15 21:11] LABS: Albumin 4.2 g/dL (3.5-5.0); Calcium 11.2 mg/dL (8.4-10.2); Potassium 4.5 mmol/L (3.5-5.1); Total Bilirubin 0.5 mg/dL (0.2-1.3); Total Protein 6.7 g/dL (6.3-8.2)
[2019-12-15 21:30] LABS: Appearance,Urine Clear (Clear); Bilirubin,Urine Negative (Negative); Blood,Urine Trace (Negative); Color,Urine Yellow; Glucose,Urine (UA) 4+ (Negative); Hyaline Casts,Urine 3 /lpf (0-2); Ketones,Urine Trace (Negative); Leukocyte Esterase,Urine Negative (Negative); Mucus,Urine Occasional /hpf; Nitrite,Urine Negative (Negative); Protein,Urine 3+ (Negative); RBC,Urine 1 /hpf (0-5); Specific Gravity,Urine 1.027 (1.001-1.035); Urobilinogen,Urine <2.0 mg/dL (<2.0); WBC,Urine 1 /hpf (0-5)
--- NOTE | 2019-12-15 21:44 | XR ---
EXAMINATION TYPE: XR chest 1V portable DATE OF EXAM: 12/15/2019 COMPARISON: Chest radiograph 07/03/2018 HISTORY: Abdominal pain. Possible exposure to [place]. TECHNIQUE: Single frontal view of the chest is obtained. FINDINGS: There is asymmetric subtle haziness of the left lung base, not demonstrated on prior andi rison. No pneumothorax or pleural effusion. The cardiac silhouette size is within normal limits. T he osseous structures are intact. IMPRESSION: Asymmetric hazy airspace opacification of the left lung base.
--- NOTE | 2019-12-15 21:46 | XR ---
EXAMINATION TYPE: XR KUB DATE OF EXAM: 12/15/2019 8:13 PM CLINICAL HISTORY: Right upper quadrant pain. History of hernia surgery. TECHNIQUE: Supine images of the abdomen and pelvis were obtained. COMPARISON: Abdominal KUB 03/07/2016.. FINDINGS: There is a paucity of small bowel gas. The limited visualized small bowel loops are nondila aguila. Gas and fecal material is seen in non-distended colon. There is no visceromegaly or abnormal albert cification appreciated. The osseous structures are intact. IMPRESSION: Overall nonobstructive bowel gas pattern.
[2019-12-15] MEDS ORDERED: SODIUM CHLORIDE 0.9% 1,000 ML IV STA (21:48)
[2019-12-15 22:18] VITALS: BP 180/98; PULSE 89; RESP 18
== END 2019-12-15 22:15 | disposition left against medical advice (07) ==
LOC: EC 19:11
DX: E87.2 Acidosis (principal); R10.11 Right upper quadrant pain; E11.9 Type 2 diabetes mellitus without complications; I10 Essential (primary) hypertension; R00.0 Tachycardia, unspecified; R19.8 Other specified symptoms and signs involving the digestive system and abdomen; Z79.84 Long term (current) use of oral hypoglycemic drugs; Z79.899 Other long term (current) drug therapy; Z87.19 Personal history of other diseases of the digestive system; Z98.890 Other specified postprocedural states; Z20.828 Contact with and (suspected) exposure to other viral communicable diseases
CPT/HCPCS: 36415; 93005; 80053; 83605; 83690; 84484; 85025; 81001; 71045; 74018; 99284; 96374; U0003; J2270

== ENCOUNTER → 2020-07-29 | Outpatient (CLI) | payer MEDICARE, OTHER ==
[2020-07-29 13:27] LABS: African American GFR (CKD) 76.8 (60.0-200.0); Albumin 3.8 g/dL (3.80-4.90); Albumin/Globulin Ratio 1.31 (1.60-3.17); Anion Gap 11.7 mmol/L (4.00-12.00); BUN/Creat Ratio 18.33 Ratio (12.00-20.00); Calcium 9.4 mg/dL (8.7-10.3); Carbon Dioxide 23.3 mmol/L (21.6-31.8); Globulin 2.9 g/dL (1.6-3.3); Non-African American GFR(CKD) 66.3 (60.0-200.0); Potassium 4.1 mmol/L (3.5-5.5); Total Bilirubin 0.6 mg/dL (0.3-1.2); Total Protein 6.7 g/dL (6.2-8.2)
== END | disposition home or self-care (01) ==
LOC: LABWHC1 07:32
PROVIDERS: ATTEND Internal Medicine
DX: E11.9 Type 2 diabetes mellitus without complications (principal); I10 Essential (primary) hypertension
CPT/HCPCS: 36415; 80053; 83036

== ENCOUNTER 2020-08-02 17:53 | Emergency (ER) | payer MEDICARE, OTHER ==
[2020-08-02 17:58] VITALS: RESP 18; TEMP 98.3
[2020-08-02] MEDS ORDERED: SODIUM CHLORIDE 0.9% 1,000 ML IV STA (18:02)
--- NOTE | 2020-08-02 18:09 | ED ---
Recheck HPI - General Chief Complaint: Recheck/Abnormal Lab/Rx Stated Complaint: abn labs Time Seen by Provider: 08/02/20 17:59 Source: patient Mode of arrival: ambulatory Limitations: no limitations - History of Present Illness Initial Comments: 60-year-old male with history of type 2 diabetes presents to emergency Department with a chief complaint of high blister. Patient reports his blood glucoses usually controlled well with oral medication. However, states he checked it at home and it was over 300. States this is never the situation. Patient does report occasional polyuria but denies increased urgency or dysuria. Denies hematuria, hematochezia or melena. Denies any nausea vomiting diarrhea. Denies any abdominal pain. - Related Data Home Medications Medication Instructions Recorded Confirmed amLODIPine [Norvasc] 5 mg PO DAILY 05/01/18 02/06/19 Glimepiride [Amaryl] 4 mg PO AC-BID 07/03/18 02/06/19 Labetalol [Trandate] 100 mg PO BID 07/03/18 02/06/19 Linaclotide [Linzess] 290 mcg PO DAILY 11/03/18 02/06/19 Linagliptin [Tradjenta] 5 mg PO DAILY 11/03/18 02/06/19 Allergies Allergy/AdvReac Type Severity Reaction Status Date / Time No Known Allergies Allergy Verified 08/02/20 17:58 Review of Systems ROS Statement: Those systems with pertinent positive or pertinent negative responses have been documented in the HPI. ROS Other: All systems not noted in ROS Statement are negative. Past Medical History Past Medical History: Diabetes Mellitus, Hypertension Additional Past Medical History / Comment(s): NIDDM type II, hemorrhoids, diverticulitis, chronic sinus problems, L knee "gives out" on occasion. History of Any Multi-Drug Resistant Organisms: None Reported Past Surgical History: Hernia Repair Additional Past Surgical History / Comment(s): R inguinal hernia repair, multiple myringotomies/tubes, circumcism, Past Anesthesia/Blood Transfusion Reactions: No Reported Reaction Past Psychological History: No Psychological Hx Reported Smoking Status: Never smoker Past Alcohol Use History: None Reported Past Drug Use History: None Reported - Past Family History Mother Family Medical History: Cancer Additional Family Medical History / Comment(s): colon cancer. Father Family Medical History: Cancer Additional Family Medical History / Comment(s): colon cancer. General Exam Limitations: no limitations General appearance: alert, in no apparent distress Head exam: Present: atraumatic, normocephalic, normal inspection Eye exam: Present: normal appearance, PERRL, EOMI Pupils: Present: normal accommodation ENT exam: Present: normal exam, normal oropharynx, mucous membranes moist, TM's normal bilaterally, normal external ear exam. Absent: mucous membranes dry Neck exam: Present: normal inspection, full ROM. Absent: tenderness Respiratory exam: Present: normal lung sounds bilaterally. Absent: respiratory distress Cardiovascular Exam: Present: regular rate, normal rhythm, normal heart sounds GI/Abdominal exam: Present: soft. Absent: distended, tenderness, guarding, rebound Extremities exam: Present: normal inspection, full ROM, normal capillary refill. Absent: tenderness, pedal edema, joint swelling Back exam: Present: normal inspection, full ROM. Absent: tenderness Neurological exam: Present: alert, oriented X3 Psychiatric exam: Present: normal affect, normal mood Skin exam: Present: warm, dry, intact, normal color Course Vital Signs 08/02/20 17:54 Temperature 98.3 F Pulse Rate 119 H Respiratory 18 Rate Blood Pressure 185/107 O2 Sat by Pulse 96 Oximetry Medical Decision Making - Medical Decision Making 60-year-old male with history of type 2 diabetes presents to emergency Department with chief complaint of high blood sugar. Physical examination is unremarkable. No signs of clinical dehydration. CBC reveals mild leukocytosis. CMP shows a glucose of 356. 8 anion gap. Urine positive for glucose but no ketones. Acetone negative. Patient was given 6 units of regular insulin and 1 L of IV bolus fluids. Patient will be discharged with outpatient follow-up. Return parameters discussed with patient was understanding and agreeable. Case discussed with - Lab Data Result diagrams: 08/02/20 18:20 08/02/20 18:20 Lab Results 08/02/20 08/02/20 08/02/20 Range/Units 18:17 18:20 18:20 WBC 10.8 H (3.8-10.6) k/uL RBC 5.27 (4.30-5.90) m/uL Hgb 15.8 (13.0-17.5) gm/dL Hct 45.6 (39.0-53.0) % MCV 86.5 (80.0-100.0) fL MCH 29.9 (25.0-35.0) pg MCHC 34.6 (31.0-37.0) g/dL RDW 12.8 (11.5-15.5) % Plt Count 248 (150-450) k/uL MPV 8.8 Neutrophils % 68 % Lymphocytes % 21 % Monocytes % 5 % Eosinophils % 4 % Basophils % 1 % Neutrophils # 7.3 (1.3-7.7) k/uL Lymphocytes # 2.3 (1.0-4.8) k/uL Monocytes # 0.6 (0-1.0) k/uL Eosinophils # 0.5 (0-0.7) k/uL Basophils # 0.1 (0-0.2) k/uL Sodium 134 L (137-145) mmol/L Potassium 4.5 (3.5-5.1) mmol/L Chloride 104 (98-107) mmol/L Carbon Dioxide 22 (22-30) mmol/L Anion Gap 8 mmol/L BUN 24 H (9-20) mg/dL Creatinine 1.18 (0.66-1.25) mg/dL Est GFR (CKD-EPI)AfAm 78 (>60 ml/min/1.73 sqM) Est GFR (CKD-EPI)NonAf 68 (>60 ml/min/1.73 sqM) Glucose 357 H (74-99) mg/dL POC Glucose (mg/dL) 422 H (75-99) mg/dL POC Glu Collection Officer ID [place], II, Vaughn Calcium 9.7 (8.4-10.2) mg/dL Total Bilirubin 0.5 (0.2-1.3) mg/dL AST 27 (17-59) U/L ALT 25 (4-49) U/L Alkaline Phosphatase 114 (38-126) U/L Total Protein 6.7 (6.3-8.2) g/dL Albumin 3.9 (3.5-5.0) g/dL Urine Color Urine Appearance (Clear) Urine pH (5.0-8.0) Ur Specific [place] (1.001-1.035) Urine Protein (Negative) Urine Glucose (UA) (Negative) Urine Ketones (Negative) Urine Blood (Negative) Urine Nitrite (Negative) Urine Bilirubin (Negative) Urine Urobilinogen (<2.0) mg/dL Ur Leukocyte Esterase (Negative) Urine RBC (0-5) /hpf Urine WBC (0-5) /hpf Urine Mucus (None) /hpf Acetone, Qual Negative (Negative) 08/02/20 Range/Units 18:29 WBC (3.8-10.6) k/uL RBC (4.30-5.90) m/uL Hgb (13.0-17.5) gm/dL Hct (39.0-53.0) % MCV (80.0-100.0) fL MCH (25.0-35.0) pg MCHC (31.0-37.0) g/dL RDW (11.5-15.5) % Plt Count (150-450) k/uL MPV Neutrophils % % Lymphocytes % % Monocytes % % Eosinophils % % Basophils % % Neutrophils # (1.3-7.7) k/uL Lymphocytes # (1.0-4.8) k/uL Monocytes # (0-1.0) k/uL Eosinophils # (0-0.7) k/uL Basophils # (0-0.2) k/uL Sodium (137-145) mmol/L Potassium (3.5-5.1) mmol/L Chloride (98-107) mmol/L Carbon Dioxide (22-30) mmol/L Anion Gap mmol/L BUN (9-20) mg/dL Creatinine (0.66-1.25) mg/dL Est GFR (CKD-EPI)AfAm (>60 ml/min/1.73 sqM) Est GFR (CKD-EPI)NonAf (>60 ml/min/1.73 sqM) Glucose (74-99) mg/dL POC Glucose (mg/dL) (75-99) mg/dL POC Glu Collection Officer ID Calcium (8.4-10.2) mg/dL Total Bilirubin (0.2-1.3) mg/dL AST (17-59) U/L ALT (4-49) U/L Alkaline Phosphatase (38-126) U/L Total Protein (6.3-8.2) g/dL Albumin (3.5-5.0) g/dL Urine Color Light Yellow Urine Appearance Clear (Clear) Urine pH 5.5 (5.0-8.0) Ur Specific [place] 1.023 (1.001-1.035) Urine Protein 2+ H (Negative) Urine Glucose (UA) 4+ H (Negative) Urine Ketones Negative (Negative) Urine Blood Trace H (Negative) Urine Nitrite Negative (Negative) Urine Bilirubin Negative (Negative) Urine Urobilinogen <2.0 (<2.0) mg/dL Ur Leukocyte Esterase Negative (Negative) Urine RBC <1 (0-5) /hpf Urine WBC <1 (0-5) /hpf Urine Mucus Rare H (None) /hpf Acetone, Qual (Negative) Disposition Clinical Impression: Hyperglycemia Disposition: HOME SELF-CARE Condition: Stable Instructions (If sedation given, give patient instructions): Diabetes and Exercise (ED) Additional Instructions: Please return to the Emergency Department if symptoms worsen or any other concerns. Is patient prescribed a controlled substance at d/c from ED?: No Referrals: Carlos Padron MD [Primary Care Provider] - 1-2 days Time of Disposition: 19:07
[2020-08-02 18:22] LABS: Glucose,Whole Blood 422 mg/dL (75-99)
[2020-08-02 18:24] LABS: Basophils # (A) 0.1 k/uL (0-0.2); Basophils % (A) 1 %; Eosinophils # (A) 0.5 k/uL (0-0.7); Eosinophils % (A) 4 %; HCT 45.6 % (39.0-53.0); HGB 15.8 gm/dL (13.0-17.5); Lymphocytes # (A) 2.3 k/uL (1.0-4.8); Lymphocytes % (A) 21 %; MCH 29.9 pg (25.0-35.0); MCHC 34.6 g/dL (31.0-37.0); MCV 86.5 fL (80.0-100.0); Mean Platelet Volume 8.8; Monocytes # (A) 0.6 k/uL (0-1.0); Monocytes % (A) 5 %; Neutrophils # (A) 7.3 k/uL (1.3-7.7); Neutrophils % (A) 68 %; Platelet Count 248 k/uL (150-450); RBC 5.27 m/uL (4.30-5.90); RDW 12.8 % (11.5-15.5); WBC 10.8 k/uL (3.8-10.6)
[2020-08-02 18:39] LABS: ALT 25 U/L (4-49); AST 27 U/L (17-59); African American GFR (CKD) 78 (>60 ml/min/1.73 sqM); Albumin 3.9 g/dL (3.5-5.0); Alkaline Phosphatase 114 U/L (38-126); Anion Gap 8 mmol/L; Blood Urea Nitrogen 24 mg/dL (9-20); Calcium 9.7 mg/dL (8.4-10.2); Carbon Dioxide 22 mmol/L (22-30); Chloride 104 mmol/L (98-107); Glucose 357 mg/dL (74-99); Non-African American GFR(CKD) 68 (>60 ml/min/1.73 sqM); Potassium 4.5 mmol/L (3.5-5.1); Sodium 134 mmol/L (137-145); Total Bilirubin 0.5 mg/dL (0.2-1.3); Total Protein 6.7 g/dL (6.3-8.2)
[2020-08-02] MEDS ORDERED: INSULIN REGULAR 100 UNIT/ML VIAL (IV) IV ONE (18:53)
[2020-08-02 18:57] LABS: Appearance,Urine Clear (Clear); Bilirubin,Urine Negative (Negative); Blood,Urine Trace (Negative); Color,Urine Light Yellow; Glucose,Urine (UA) 4+ (Negative); Ketones,Urine Negative (Negative); Leukocyte Esterase,Urine Negative (Negative); Mucus,Urine Rare /hpf; Nitrite,Urine Negative (Negative); PH, Urine 5.5 (5.0-8.0); Protein,Urine 2+ (Negative); RBC,Urine <1 /hpf (0-5); Specific Gravity,Urine 1.023 (1.001-1.035); Urobilinogen,Urine <2.0 mg/dL (<2.0); WBC,Urine <1 /hpf (0-5)
[2020-08-02 19:19] VITALS: BP 186/98; PULSE 98
== END 2020-08-02 19:19 | disposition home or self-care (01) ==
LOC: EC 17:53
DX: E11.65 Type 2 diabetes mellitus with hyperglycemia (principal); D72.829 Elevated white blood cell count, unspecified; I10 Essential (primary) hypertension; Z79.899 Other long term (current) drug therapy; Z79.84 Long term (current) use of oral hypoglycemic drugs
CPT/HCPCS: 36415; 80053; 81001; 82009; 85025; 96361; 96374; 99284

== ENCOUNTER 2021-09-30 03:44 | Inpatient (IN) | payer MEDICARE, OTHER ==
--- NOTE | 2021-09-30 04:59 | XR ---
EXAMINATION TYPE: XR chest 1V portable DATE OF EXAM: 09/30/2021 COMPARISON: 12/15/2019 HISTORY: Chest pain TECHNIQUE: Single view FINDINGS: There is no heart failure nor confluent pneumonic infiltrate. Costophrenic angles are clear . Heart size is normal. There are chest leads. IMPRESSION: No active cardiopulmonary disease. No significant change.
[2021-09-30 05:04] LABS: Basophils # (A) 0.1 k/uL (0-0.2); Basophils % (A) 1 %; Eosinophils % (A) 0 %; HCT 47.4 % (39.0-53.0); HGB 16.1 gm/dL (13.0-17.5); Lymphocytes # (A) 0.4 k/uL (1.0-4.8); Lymphocytes % (A) 3 %; MCH 30.1 pg (25.0-35.0); MCV 88.6 fL (80.0-100.0); Mean Platelet Volume 11.9; Monocytes # (A) 0.4 k/uL (0-1.0); Monocytes % (A) 3 %; Neutrophils # (A) 11.9 k/uL (1.3-7.7); Neutrophils % (A) 93 %; Platelet Count 222 k/uL (150-450); RBC 5.35 m/uL (4.30-5.90); RDW 13.8 % (11.5-15.5); WBC 12.9 k/uL (3.8-10.6)
[2021-09-30 06:21] LABS: INR 0.9 (<1.2); Partial Thromboplastin Time 21.8 sec (22.0-30.0); Prothrombin Time 9.9 sec (9.0-12.0)
[2021-09-30 06:25] LABS: Albumin 3.5 g/dL (3.5-5.0); Calcium 9.5 mg/dL (8.4-10.2); Magnesium 1.3 mg/dL (1.6-2.3); Potassium 4.7 mmol/L (3.5-5.1); Total Bilirubin 1.6 mg/dL (0.2-1.3); Total Protein 6.7 g/dL (6.3-8.2)
[2021-09-30] MEDS ORDERED: SODIUM CHLORIDE 0.9% 1,000 ML IV ONE (06:32)
[2021-09-30] MEDS ORDERED: SODIUM CHLORIDE 0.9% 500 ML 500 ML IV STA (06:32)
[2021-09-30] MEDS ORDERED: SODIUM CHLORIDE 0.9% 1,000 ML IV STA (06:32)
[2021-09-30] MEDS ORDERED: INSULIN REGULAR 100 UNIT/ML VIAL (IV) SQ STA (06:33)
[2021-09-30] MEDS ORDERED: LABETALOL 100 MG TAB PO STA (06:35)
[2021-09-30] MEDS ORDERED: MAGNESIUM SULFATE-D5W PMX 1 GM in DEXTROSE/WATER 1 100ML.BAG IVPB ONE (06:36)
[2021-09-30 07:00] LABS: Troponin I 0.057 ng/mL (0.000-0.034)
--- NOTE | 2021-09-30 07:25 | ED ---
Fall HPI - General Chief Complaint: Fall Stated Complaint: Fall Time Seen by Provider: 09/30/21 03:51 Source: patient, EMS Mode of arrival: EMS - History of Present Illness Initial Comments: This patient is 61-year-old man brought by ambulance to have evaluation after he had reportedly fallen. Patient states he was trying to get to the bathroom and then fell. He may have been on the ground for a couple of hours he states before he was able to crawl to the phone. Patient is denying any specific injury. Denies head and neck pain. No chest, back, abdomen or extremity pain. 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: no Place Fall Occurred: home Loss of Consciousness: unsure Prolonged Down Time?: hour(s) (3) Symptoms Prior to Fall: none Associated Symptoms: denies - Related Data Home Medications Medication Instructions Recorded Confirmed Loratadine 10 mg PO DAILY 09/30/21 09/30/21 amLODIPine [Norvasc] 10 mg PO DAILY 09/30/21 09/30/21 hydroCHLOROthiazide [Hydrodiuril] 12.5 mg PO DAILY 09/30/21 09/30/21 Allergies Allergy/AdvReac Type Severity Reaction Status Date / Time No Known Allergies Allergy Verified 09/30/21 08:30 Review of Systems ROS Statement: Those systems with pertinent positive or pertinent negative responses have been documented in the HPI. ROS Other: All systems not noted in ROS Statement are negative. Constitutional: Reports: weakness. Denies: fever Respiratory: Denies: cough, dyspnea Cardiovascular: Denies: chest pain, palpitations, edema, syncope Gastrointestinal: Denies: abdominal pain, vomiting, diarrhea Genitourinary: Denies: dysuria, hematuria Musculoskeletal: Denies: back pain Skin: Denies: rash Neurological: Denies: headache, weakness, numbness Past Medical History Past Medical History: Diabetes Mellitus, Hypertension Additional Past Medical History / Comment(s): NIDDM type II, hemorrhoids, diverticulitis, chronic sinus problems, L knee "gives out" on occasion. History of Any Multi-Drug Resistant Organisms: None Reported Past Surgical History: Hernia Repair Additional Past Surgical History / Comment(s): R inguinal hernia repair, multiple myringotomies/tubes, circumcism, Past Anesthesia/Blood Transfusion Reactions: No Reported Reaction Past Psychological History: No Psychological Hx Reported Smoking Status: Never smoker Past Alcohol Use History: None Reported Past Drug Use History: None Reported - Past Family History Mother Family Medical History: Cancer Additional Family Medical History / Comment(s): colon cancer. Father Family Medical History: Cancer Additional Family Medical History / Comment(s): colon cancer. General Exam Limitations: no limitations General appearance: alert, in no apparent distress Head exam: Present: atraumatic, normocephalic Eye exam: Present: normal appearance, PERRL, EOMI. Absent: scleral icterus, conjunctival injection ENT exam: Present: mucous membranes dry Neck exam: Present: normal inspection, full ROM. Absent: tenderness, meningismus Respiratory exam: Present: normal lung sounds bilaterally. Absent: respiratory distress, wheezes, rales, rhonchi, stridor Cardiovascular Exam: Present: tachycardia, normal heart sounds. Absent: systolic murmur, diastolic murmur, rubs, gallop GI/Abdominal exam: Present: soft. Absent: distended, tenderness, guarding, rebound, rigid, mass, pulsatile mass, hernia Extremities exam: Present: normal inspection, normal capillary refill. Absent: pedal edema, calf tenderness Back exam: Present: normal inspection. Absent: CVA tenderness (R), CVA tenderness (L) Neurological exam: Present: alert, CN II-XII intact. Absent: oriented X3, motor sensory deficit Skin exam: Present: warm, dry, intact, normal color. Absent: rash Course Vital Signs 09/30/21 09/30/21 09/30/21 04:05 04:30 05:00 Temperature 99.3 F Pulse Rate 133 H 130 H 125 H Respiratory 18 18 16 Rate Blood Pressure 223/126 224/124 208/131 O2 Sat by Pulse 95 96 Oximetry 09/30/21 09/30/21 09/30/21 05:46 06:30 07:00 Temperature 100.0 F H Pulse Rate 122 H 129 H 121 H Respiratory 16 16 Rate Blood Pressure 219/131 225/130 224/130 O2 Sat by Pulse 95 94 L Oximetry 09/30/21 09/30/21 09/30/21 08:00 08:42 09:41 Temperature 99.4 F Pulse Rate 120 H 109 H 111 H Respiratory 20 20 18 Rate Blood Pressure 232/125 200/118 193/112 O2 Sat by Pulse 95 95 97 Oximetry 09/30/21 09/30/21 09/30/21 11:41 12:48 12:55 Temperature 98.7 F Pulse Rate 106 H 108 H 108 H Respiratory 16 16 16 Rate Blood Pressure 178/98 155/100 155/100 O2 Sat by Pulse 97 95 95 Oximetry 09/30/21 09/30/21 14:00 18:02 Temperature Pulse Rate 109 H 116 H Respiratory 18 14 Rate Blood Pressure 169/96 153/83 O2 Sat by Pulse 99 Oximetry Procedures - Sepsis Sepsis Focused Exam #1 Sepsis Focused Exam Date: 09/30/21 Sepsis Focused Exam Time: 07:00 Sepsis Focused Exam Complete: Yes Vital Signs & RN Notes Reviewed: Yes Capillary Refill: < 2 Seconds: Fingers Peripheral Pulses: Strong: Radial (R) Skin Color: Normal for Patient Respiratory Exam: normal lung sounds Cardiovascular Exam: normal rhythm, tachycardia Medical Decision Making - Medical Decision Making This 61-year-old man brought by ambulance to ER after he had low level fall then was not able to get up. Exam shows generalized weakness with no focal finding. Patient found to have poorly controlled diabetes. Concern for possible sepsis, though no definite infection at this point. Patient be admitted. Cultures are pending. Has received empiric biotics. - Lab Data Result diagrams: 09/30/21 04:45 09/30/21 06:00 Lab Results 09/30/21 09/30/21 09/30/21 Range/Units 04:45 04:45 05:24 WBC 12.9 H (3.8-10.6) k/uL RBC 5.35 (4.30-5.90) m/uL Hgb 16.1 (13.0-17.5) gm/dL Hct 47.4 (39.0-53.0) % MCV 88.6 (80.0-100.0) fL MCH 30.1 (25.0-35.0) pg MCHC 34.0 (31.0-37.0) g/dL RDW 13.8 (11.5-15.5) % Plt Count 222 (150-450) k/uL MPV 11.9 Neutrophils % 93 % Lymphocytes % 3 % Monocytes % 3 % Eosinophils % 0 % Basophils % 1 % Neutrophils # 11.9 H (1.3-7.7) k/uL Lymphocytes # 0.4 L (1.0-4.8) k/uL Monocytes # 0.4 (0-1.0) k/uL Eosinophils # 0.0 (0-0.7) k/uL Basophils # 0.1 (0-0.2) k/uL Manual Slide Review Performed PT (9.0-12.0) sec INR (<1.2) APTT (22.0-30.0) sec Sodium (137-145) mmol/L Potassium (3.5-5.1) mmol/L Chloride (98-107) mmol/L Carbon Dioxide (22-30) mmol/L Anion Gap mmol/L BUN (9-20) mg/dL Creatinine (0.66-1.25) mg/dL Est GFR (CKD-EPI)AfAm (>60 ml/min/1.73 sqM) Est GFR (CKD-EPI)NonAf (>60 ml/min/1.73 sqM) Glucose (74-99) mg/dL Lactic Ac Sepsis Rflx Y Plasma Lactic Acid Wes 4.1 H* (0.7-2.0) mmol/L Calcium (8.4-10.2) mg/dL Magnesium (1.6-2.3) mg/dL Total Bilirubin (0.2-1.3) mg/dL AST (17-59) U/L ALT (4-49) U/L Alkaline Phosphatase (38-126) U/L Total Creatine Kinase (55-170) U/L CK-MB (CK-2) (0.0-2.4) ng/mL CK-MB (CK-2) Rel Index Troponin I (0.000-0.034) ng/mL Total Protein (6.3-8.2) g/dL Albumin (3.5-5.0) g/dL Acetone, Qual (Negative) 09/30/21 09/30/21 09/30/21 Range/Units 06:00 06:00 06:00 WBC (3.8-10.6) k/uL RBC (4.30-5.90) m/uL Hgb (13.0-17.5) gm/dL Hct (39.0-53.0) % MCV (80.0-100.0) fL MCH (25.0-35.0) pg MCHC (31.0-37.0) g/dL RDW (11.5-15.5) % Plt Count (150-450) k/uL MPV Neutrophils % % Lymphocytes % % Monocytes % % Eosinophils % % Basophils % % Neutrophils # (1.3-7.7) k/uL Lymphocytes # (1.0-4.8) k/uL Monocytes # (0-1.0) k/uL Eosinophils # (0-0.7) k/uL Basophils # (0-0.2) k/uL Manual Slide Review PT 9.9 (9.0-12.0) sec INR 0.9 (<1.2) APTT 21.8 L (22.0-30.0) sec Sodium 133 L (137-145) mmol/L Potassium 4.7 (3.5-5.1) mmol/L Chloride 103 (98-107) mmol/L Carbon Dioxide 20 L (22-30) mmol/L Anion Gap 10 mmol/L BUN 22 H (9-20) mg/dL Creatinine 1.25 (0.66-1.25) mg/dL Est GFR (CKD-EPI)AfAm 73 (>60 ml/min/1.73 sqM) Est GFR (CKD-EPI)NonAf 63 (>60 ml/min/1.73 sqM) Glucose 409 H (74-99) mg/dL Lactic Ac Sepsis Rflx Plasma Lactic Acid Wes (0.7-2.0) mmol/L Calcium 9.5 (8.4-10.2) mg/dL Magnesium 1.3 L (1.6-2.3) mg/dL Total Bilirubin 1.6 H (0.2-1.3) mg/dL AST 30 (17-59) U/L ALT 24 (4-49) U/L Alkaline Phosphatase 81 (38-126) U/L Total Creatine Kinase 209 H (55-170) U/L CK-MB (CK-2) 1.0 (0.0-2.4) ng/mL CK-MB (CK-2) Rel Index 0.5 Troponin I 0.057 H* (0.000-0.034) ng/mL Total Protein 6.7 (6.3-8.2) g/dL Albumin 3.5 (3.5-5.0) g/dL Acetone, Qual (Negative) 09/30/21 09/30/21 Range/Units 06:00 07:45 WBC (3.8-10.6) k/uL RBC (4.30-5.90) m/uL Hgb (13.0-17.5) gm/dL Hct (39.0-53.0) % MCV (80.0-100.0) fL MCH (25.0-35.0) pg MCHC (31.0-37.0) g/dL RDW (11.5-15.5) % Plt Count (150-450) k/uL MPV Neutrophils % % Lymphocytes % % Monocytes % % Eosinophils % % Basophils % % Neutrophils # (1.3-7.7) k/uL Lymphocytes # (1.0-4.8) k/uL Monocytes # (0-1.0) k/uL Eosinophils # (0-0.7) k/uL Basophils # (0-0.2) k/uL Manual Slide Review PT (9.0-12.0) sec INR (<1.2) APTT (22.0-30.0) sec Sodium (137-145) mmol/L Potassium (3.5-5.1) mmol/L Chloride (98-107) mmol/L Carbon Dioxide (22-30) mmol/L Anion Gap mmol/L BUN (9-20) mg/dL Creatinine (0.66-1.25) mg/dL Est GFR (CKD-EPI)AfAm (>60 ml/min/1.73 sqM) Est GFR (CKD-EPI)NonAf (>60 ml/min/1.73 sqM) Glucose (74-99) mg/dL Lactic Ac Sepsis Rflx Plasma Lactic Acid Wes 2.8 H* (0.7-2.0) mmol/L Calcium (8.4-10.2) mg/dL Magnesium (1.6-2.3) mg/dL Total Bilirubin (0.2-1.3) mg/dL AST (17-59) U/L ALT (4-49) U/L Alkaline Phosphatase (38-126) U/L Total Creatine Kinase (55-170) U/L CK-MB (CK-2) (0.0-2.4) ng/mL CK-MB (CK-2) Rel Index Troponin I (0.000-0.034) ng/mL Total Protein (6.3-8.2) g/dL Albumin (3.5-5.0) g/dL Acetone, Qual Negative (Negative) - EKG Data -: EKG Interpreted by Me EKG shows normal: sinus rhythm, axis (Left axis), intervals (Normal), QRS comp lexes (Pulmonary disease pattern) Rate: tachycardia (Rate 129 bpm) Disposition Clinical Impression: Fall, Hyperglycemia, Dehydration, Lactic acidosis Disposition: ADMITTED IP TO THIS HOSP Condition: Poor Is patient prescribed a controlled substance at d/c from ED?: No
[2021-09-30] MEDS ORDERED: lisinopriL 10 MG TAB PO STA (08:50)
[2021-09-30] MEDS ORDERED: NALOXONE 0.4 MG/ML 1 ML VIAL IV PRN (09:21)
[2021-09-30 10:20] LABS: Alcohol <10 mg/dL; Creatine Kinase 222 U/L (55-170)
[2021-09-30 11:38] LABS: Glucose,Whole Blood 426 mg/dL (75-99)
[2021-09-30] MEDS: amLODIPine 10 MG TAB PO SCH (11:56)
--- NOTE | 2021-09-30 12:03 | CT ---
EXAMINATION TYPE: CT brain wo con DATE OF EXAM: 09/30/2021 COMPARISON: 02/06/2019 HISTORY: Shakiness and hypertension. CT DLP: 1170.[address] of the brain was performed. The ventricles, basal cisterns and sulci overlying the cerebral convexities demonstrate mild enlargem ent. There is no evidence for intracranial hemorrhage or sulcal effacement. There is decreased attenuation about the periventricular white matter and deep white matter of both c erebral hemispheres, compatible with chronic small vessel ischemia. Differential diagnosis does inclu de demyelination. No mass effects are seen.No midline shift. Osseous calvarium is intact. If symptoms persist consider MRI. IMPRESSION: 1. Age related atrophic and chronic small vessel ischemic change without acute intracranial process s een at this time.
--- NOTE | 2021-09-30 12:42 | HP ---
HISTORY AND PHYSICAL DATE OF SERVICE: 09/30/2021 CHIEF COMPLAINT: Fall. HISTORY OF PRESENT ILLNESS: This 61-year-old gentleman with a past medical history of diabetes mellitus, hypertension, hernia repair, being followed by Dr. Padron in the outpatient setting, apparently had a fall. The patient has some hypertension and tachycardia as well. The patient was apparently able to crawl towards the phone to seek some help. There is no history of any fever, rigor or chills at this time. The white count is elevated and lactic acid is also elevated. Creatine kinase is 222. Troponin is also elevated mildly. PAST MEDICAL HISTORY: Hypertension, diabetes mellitus. HOME MEDICATIONS: HydroDIURIL, Norvasc, loratadine. Doses are reviewed. ALLERGIES: NONE. FAMILY HISTORY: History of cancer, colon cancer. SOCIAL HISTORY: No history of smoking or alcohol. REVIEW OF SYSTEMS: Fourteen-point review of systems negative except as mentioned earlier. PHYSICAL EXAMINATION: Pulse is 120 blood pressure 230/124, respiration 20. HEENT: Conjunctivae normal. Oral mucosa moist. Conjunctivae: Mild injection present. NECK: No jugular venous distention. CARDIOVASCULAR: S1, S2 muffled. RESPIRATION: A few scattered rhonchi. ABDOMEN: Soft, nontender. NERVOUS SYSTEM: Mild diffuse weakness. No signs of cerebellar dysfunction. SKIN: No ulcer, rash, bleeding. JOINTS: No active deforming arthropathy. LABS: WBC 12.9, sodium 133. ASSESSMENT: 1. Fall for evaluation. 2. Accelerated hypertension and hypertensive urgency. 3. Rule out stroke. 4. Hyponatremia. 5. Elevated lactic acid. 6. Acute rhabdomyolysis, mild. 7. Elevated troponin. 8. Hypertension. 9. Diabetes mellitus, type 2. RECOMMENDATIONS AND DISCUSSION: I recommend to continue current medications, continue with the monitoring, symptomatic treatment. Full stroke workup, including CT scan, carotid Doppler, neurology evaluation. Other than that, PT/OT evaluation. Resume the home medication. Monitor blood pressure closely. MMODL / IJN: [id number] /
[2021-09-30] MEDS: INSULIN DETEMIR (LEVEMIR) 100 UNIT/ML SYR SQ SCH (13:02)
[2021-09-30 13:03] LABS: Glucose,Whole Blood 314 mg/dL (75-99)
[2021-09-30 13:03] LABS: Appearance,Urine Clear (Clear); Bacteria,Urine Occasional /hpf; Bilirubin,Urine Negative (Negative); Blood,Urine Moderate (Negative); Color,Urine Yellow; Glucose,Urine (UA) 4+ (Negative); Hyaline Casts,Urine 1 /lpf (0-2); Ketones,Urine Negative (Negative); Leukocyte Esterase,Urine Negative (Negative); Mucus,Urine Rare /hpf; Nitrite,Urine Negative (Negative); Protein,Urine 3+ (Negative); RBC,Urine 1 /hpf (0-5); Specific Gravity,Urine 1.026 (1.001-1.035); Urobilinogen,Urine <2.0 mg/dL (<2.0); WBC,Urine <1 /hpf (0-5)
[2021-09-30] MEDS: INSULIN ASPART (NovoLOG) 100 UNIT/ML VIAL SQ SCH ×3 (13:20→20:57)
[2021-09-30] MEDS ORDERED: ASPIRIN 81 MG PO STA (15:08)
--- NOTE | 2021-09-30 15:08 | P.CNNES ---
History of Present Illness Consult date: 09/30/21 Requesting physician: Morteza Rodriguez Reason for Consult: FALL ? TIA?? History of Present Illness: Patient is a 61-year-old male came to the hospital by ambulance early this morning at 3:44 AM. As per EMS flow sheet, when they arrived, found patient sitting in a chair with [facility] present. Patient was alert, but unable to answer some questions appropriately. Patient mentioned that he was getting up to use bathroom when he became weak and sat on the floor. Patient states he sat on the floor approximately 3-4 hours. Patient denied any injuries. He had no complaints at that point. Patient was surrounded with urine and feces. Patient's home is poorly kept. Patient mentioned that he lives by himself and is unable to take care of himself appropriately. Patient's blood pressure at the scene was 227/137 pulse rate 138 respiration 18 saturation 96% and blood sugar 445. Repeat blood pressure was 251/119. Blood pressure on arrival was 223/126 pulse rate 133 and temperature 99.3. Blood test shows WBC 12.9 hemoglobin 16.1 platelets 222. PT/PTT was normal. Sodium 133 potassium 4.7, normal creatinine 1.25 BUN borderline 22. Lactate was 4.1. Hepatic panel normal. Troponin borderline 0.057. Blood alcohol level negative. Acetone negative. CK mildly elevated to 22. UA shows no signs of infection. CT head showed age-related atrophic and chronic small vessel ischemic change without acute intracranial process. I personally reviewed computed tomography scan of the head and agree with the findings. Chest x-ray showed no acute cardiopulmonary disease. EKG shows sinus tachycardia, left axis deviation. Patient's home medications include loratadine, HCTZ and amlodipine 10 mg. He does not take any antiplatelet medication at home. Patient at present tells me that last night at 10:30 PM he fell on his buttocks, could not get up. He could not go to the bathroom, could not make it to the front room. He just said they're thinking it will pass. As he could not get up for 2-3 hours, he called the ambulance. He denies any loss of consciousness. He denies any focal weakness, complained of just generalized weakness. No focal symptoms. No slurred speech droopy face or problem with the vision. No chest pain or shortness of breath or abdominal pain. At present he feels slightly "sluggish", but better, is slightly more stronger. Patient states he has history of hypertension for 10+ years, which is "somewhat controlled". He has borderline diabetes for 10-15 years. Never smoked. Does not drink alcohol. Lives by himself. He has no children. No previous history of strokes or TIA. He is not on any blood thinners. Review of Systems Or 14 points of review of systems reviewed and remarkable except as mentioned in HPI. He states he has history of diverticulitis in the past. Patient says that his left knee sometimes gives out. He has arthritis. He was involved in an accident in the past affected his left knee. Past Medical History Past Medical History: Diabetes Mellitus, Hypertension Additional Past Medical History / Comment(s): NIDDM type II, hemorrhoids, d iverticulitis, chronic sinus problems, L knee "gives out" on occasion. History of Any Multi-Drug Resistant Organisms: None Reported Past Surgical History: Hernia Repair Additional Past Surgical History / Comment(s): R inguinal hernia repair, multiple myringotomies/tubes, circumcism, Past Anesthesia/Blood Transfusion Reactions: No Reported Reaction Past Psychological History: No Psychological Hx Reported Smoking Status: Never smoker Past Alcohol Use History: None Reported Past Drug Use History: None Reported - Past Family History Mother Family Medical History: Cancer Additional Family Medical History / Comment(s): colon cancer. Father Family Medical History: Cancer Additional Family Medical History / Comment(s): colon cancer. Medications and Allergies Home Medications Medication Instructions Recorded Confirmed Type Loratadine 10 mg PO DAILY 09/30/21 09/30/21 History amLODIPine [Norvasc] 10 mg PO DAILY 09/30/21 09/30/21 History hydroCHLOROthiazide [Hydrodiuril] 12.5 mg PO DAILY 09/30/21 09/30/21 History Allergies Allergy/AdvReac Type Severity Reaction Status Date / Time No Known Allergies Allergy Verified 09/30/21 08:30 Physical Examination - Vital Signs Vital Signs: Vital Signs Temp Pulse Resp BP Pulse Ox 09/30/21 12:55 108 H 16 155/100 95 09/30/21 12:48 108 H 16 155/100 95 09/30/21 11:41 98.7 F 106 H 16 178/98 97 05/04/22 09:41 111 H 18 193/112 97 09/30/21 08:42 109 H 20 200/118 95 09/30/21 08:00 99.4 F 120 H 20 232/125 95 09/30/21 07:00 100.0 F H 121 H 224/130 09/30/21 06:30 129 H 16 225/130 94 L 09/30/21 05:46 122 H 16 219/131 95 09/30/21 05:00 125 H 16 208/131 09/30/21 04:30 130 H 18 224/124 96 09/30/21 04:05 99.3 F 133 H 18 223/126 95 Intake and Output 09/29/21 09/30/21 09/30/21 22:59 06:59 14:59 Other: Weight 90.718 kg Patient is a middle aged male, in no acute distress. Patient is alert awake, slightly inattentive, easily distractible, oriented to time place and person. He states the year is 2001, 2002 and the month is September. He knows that he is in [facility] in [facility] [place] [facility] and name of the current president. He can name and repeat. Patient states "ear laps" for "earlobe". Speech and language functions are normal. Attention, concentration is slightly impaired and fund of knowledge is limited. Uncertain if patient has underlying developmental delays. On cranial nerve examination, pupils are equal, round and reacting to light, visual oseguera are full on confrontation, extraocular muscles are intact with no nystagmus. Face is symmetric, tongue protrudes to the midline. Palatal elevation and sensation normal, hearing and shoulder shrug normal, facial sensation normal. Shoulder shrug normal. On muscle strength testing, there is no pronator drift and the strength is no rmal in arms and legs distally and proximally. Deep tendon reflexes are trace in the upper limbs, 1 at the knees, 1+ ankles and plantars downgoing bilaterally. Sensory to touch is equal with no neglect on double simultaneous stimulation. Cerebellar function showed no ataxia for [id number] testing. Tone and bulk of muscles normal. Gait not checked. On general examination, there is no carotid bruit or murmur, S1-S2 audible. Abdomen is soft nontender. No organomegaly, bowel sounds present. Chest is clear. Peripheral pulses are present. No edema. Results - Laboratory Findings CBC and BMP: 09/30/21 04:45 09/30/21 06:00 Abnormal Lab Findings: Abnormal Labs 09/30/21 09/30/21 09/30/21 04:45 04:45 06:00 WBC 12.9 H Neutrophils # 11.9 H Lymphocytes # 0.4 L APTT Sodium 133 L Carbon Dioxide 20 L BUN 22 H Glucose 409 H POC Glucose (mg/dL) Plasma Lactic Acid Wes 4.1 H* Magnesium 1.3 L Total Bilirubin 1.6 H Creatine Kinase Total Creatine Kinase Troponin I Urine Protein Urine Glucose (UA) Urine Blood Urine Bacteria Urine Mucus 09/30/21 09/30/21 09/30/21 06:00 06:00 07:45 WBC Neutrophils # Lymphocytes # APTT 21.8 L Sodium Carbon Dioxide BUN Glucose POC Glucose (mg/dL) Plasma Lactic Acid Wes 2.8 H* Magnesium Total Bilirubin Creatine Kinase Total Creatine Kinase 209 H Troponin I 0.057 H* Urine Protein Urine Glucose (UA) Urine Blood Urine Bacteria Urine Mucus 09/30/21 09/30/21 09/30/21 09:39 11:37 12:39 WBC Neutrophils # Lymphocytes # APTT Sodium Carbon Dioxide BUN Glucose POC Glucose (mg/dL) 426 H Plasma Lactic Acid Wes 4.0 H* Magnesium Total Bilirubin Creatine Kinase 222 H Total Creatine Kinase Troponin I Urine Protein Urine Glucose (UA) Urine Blood Urine Bacteria Urine Mucus 09/30/21 09/30/21 12:50 13:01 WBC Neutrophils # Lymphocytes # APTT Sodium Carbon Dioxide BUN Glucose POC Glucose (mg/dL) 314 H Plasma Lactic Acid Wes Magnesium Total Bilirubin Creatine Kinase Total Creatine Kinase Troponin I Urine Protein 3+ H Urine Glucose (UA) 4+ H Urine Blood Moderate H Urine Bacteria Occasional H Urine Mucus Rare H Assessment and Plan Assessment: * Probable hypertensive encephalopathy. Patient has no focal symptoms reported, and his examination is nonfocal therefore TIA appears less likely. * Accelerated hypertension * Diabetes Plan: * Optimize control of blood pressure to target blood pressure <130/80 * Start aspirin 81 mg daily for stroke prevention. Patient will be loaded with aspirin 324 mg now. * Patient will be worked for possible TIA. * Patient's last hemoglobin A1c was 11.0 on 07/29/2020. We will recheck hemoglobin A1c. * Fasting a.m. lipid panel * Carotid Doppler * 2-D echo. * PT OT evaluate gait. * Telemetry monitoring. * Neurology will follow. Thank you for the consult.
[2021-09-30 17:20] LABS: Glucose,Whole Blood 263 mg/dL (75-99)
--- NOTE | 2021-09-30 18:25 | US ---
EXAMINATION TYPE: US carotid duplex BILAT DATE OF EXAM: 09/30/2021 COMPARISON: NONE CLINICAL HISTORY: stroke. EXAM MEASUREMENTS: RIGHT: Peak Systolic Velocity (PSV) cm/sec ----- Right CCA: 97.4 ----- Right ICA: 76.7 ----- Right ECA: 170 ICA/CCA ratio: 0.78 RIGHT: End Diastole cm/sec ----- Right CCA: 13.0 ----- Right ICA: 15.6 ----- Right ECA: 34.4 LEFT: Peak Systolic Velocity (PSV) cm/sec ----- Left CCA: 97.7 ----- Left ICA: 97.0 ----- Left ECA: 142.0 ICA/CCA ratio: 1.0 LEFT: End Diastole cm/sec ----- Left CCA: 10.3 ----- Left ICA: 24.7 ----- Left ECA: 13.2 VERTEBRALS (direction of flow): Right Vertebral: Antegrade Left Vertebral: Antegrade Rhythm: Normal Mild atherosclerotic changes with no significant velocity elevations in bilateral ICA's. IMPRESSION: 1. Atheromatous plaquing without significant flow-limiting stenosis within the internal carotid arter ies. 2. Note is made of some mild elevation of the left external carotid artery velocity. Criteria for Assigning % of Stenosis / Diameter reduction (Estimation based on the indirect measurements of the internal carotid artery velocities (ICA PSV). 1. Normal (no stenosis)=ICA PSV < 125 cm/s: ratio < 2.0: ICA EDV<40 cm/s. 2. Less than 50% stenosis=ICA PSV < 125 cm/s: ratio < 2.0: ICA EDV<40 cm/s. 3. 50 to 69% stenosis=ICA PSV of 125 to 230 cm/s: ration 2.0 ? 4.0: ICA EDV 40-100 cm/s. 4. Greater than 70% stenosis to near occlusion= ICA PSV > 230 cm/s: ratio > 4.0: ICA EDV > 100 cm/s. 5. Near occlusion= ICA PSV velocities may be low or undetectable: variable ratio and ICA EDV. 6. Total occlusion=unable to detect flow.
[2021-09-30 20:35] LABS: Glucose,Whole Blood 368 mg/dL (75-99)
[2021-10-01 04:07] LABS: Basophils % (A) 1 %; Eosinophils # (A) 0.1 k/uL (0-0.7); Eosinophils % (A) 1 %; HCT 42.9 % (39.0-53.0); HGB 14.1 gm/dL (13.0-17.5); Lymphocytes # (A) 0.6 k/uL (1.0-4.8); Lymphocytes % (A) 8 %; MCHC 32.8 g/dL (31.0-37.0); MCV 88.2 fL (80.0-100.0); Mean Platelet Volume 9.1; Monocytes # (A) 0.5 k/uL (0-1.0); Monocytes % (A) 6 %; Neutrophils # (A) 6.9 k/uL (1.3-7.7); Neutrophils % (A) 84 %; Platelet Count 173 k/uL (150-450); RBC 4.87 m/uL (4.30-5.90); RDW 12.9 % (11.5-15.5); WBC 8.2 k/uL (3.8-10.6)
[2021-10-01 04:26] LABS: Calcium 8.2 mg/dL (8.4-10.2)
[2021-10-01 06:08] LABS: Glucose,Whole Blood 268 mg/dL (75-99)
[2021-10-01] MEDS: INSULIN DETEMIR (LEVEMIR) 100 UNIT/ML SYR SQ SCH (06:46)
[2021-10-01] MEDS: INSULIN ASPART (NovoLOG) 100 UNIT/ML VIAL SQ SCH ×4 (06:47→21:08)
[2021-10-01] MEDS: ASPIRIN 81 MG PO SCH (09:48)
[2021-10-01] MEDS: amLODIPine 10 MG TAB PO SCH (09:48)
--- NOTE | 2021-10-01 10:16 | CA ---
Transthoracic Echo Report Name: Kyle Tirado Age: 61 Gender: M : 1960 Exam Date: 09/30/2021 13:57 Exam Location: [facility] Ht (in): 67 Wt (lb): 200 Ordering Physician: Morteza Rodriguez MD Attending/Referring Phys: [employer] HARINI Procedure CPT: Indications: stroke Cardiac Hx: Technical Quality: Technically difficult study Contrast 1: Lumason Total Dose (mL): 4 Contrast 2: Total Dose (mL): MEASUREMENTS (Male / Female) Normal Values 2D ECHO LV Diastolic Diameter PLAX 3.8 cm 4.2 - 5.9 / 3.9 - 5.3 cm LV Systolic Diameter PLAX 2.8 cm IVS Diastolic Thickness 1.4 cm 0.6 - 1.0 / 0.6 - 0.9 cm LVPW Diastolic Thickness 1.7 cm 0.6 - 1.0 / 0.6 - 0.9 cm LV Relative Wall Thickness 0.8 RV Internal Dim ED PLAX 3.6 cm LA Volume 37.0 cm??? 18 - 58 / 22 - 52 cm??? M-MODE Aortic Root Diameter MM 3.9 cm LA Systolic Diameter MM 3.6 cm LA Ao Ratio MM 0.9 AV Cusp Separation MM 1.9 cm DOPPLER AV Peak Velocity 122.6 cm/s AV Peak Gradient 6.0 mmHg AI Peak Velocity 397.3 cm/s AI Peak Gradient 63.1 mmHg AI Pressure Half Time 425.8 ms LVOT Peak Velocity 105.7 cm/s LVOT Peak Gradient 4.5 mmHg MV Area PHT 4.5 cm??? Mitral E Point Velocity 76.5 cm/s Mitral A Point Velocity 107.1 cm/s Mitral E to A Ratio 0.7 MV Deceleration Time 169.9 ms FINDINGS Left Ventricle No obvious regional wall motion abnormalities. Moderately increased left ventricular wall thickness. Normal left ventricular diastolic filling pattern. Normal systolic function. Left ventricular ejection fraction is estimated at 55- 60%. Right Ventricle Mild right ventricular dilatation. Right ventricular systolic pressure within normal limits. Right Atrium Normal right atrial size. Left Atrium Normal left atrial size. No evidence for an atrial septal defect. Mitral Valve Trace mitral regurgitation. Aortic Valve Trileaflet aortic valve. No aortic stenosis. No aortic regurgitation. Trace to mild aortic regurgitation. Tricuspid Valve Trace tricuspid regurgitation. Pulmonic Valve Trace pulmonic regurgitation. Pericardium No pericardial effusion. Aorta Normal size aortic root and proximal ascending aorta. CONCLUSIONS Preserved LV systolic function without segmental wall motion abnormalities Mildly dilated RV Previewed by: Dr. Jesus Puente MD (Electronically Signed) Final Date: 01 Oct 2021 10:16
[2021-10-01 11:47] VITALS: BMI 31.3
[2021-10-01 12:10] LABS: Glucose,Whole Blood 322 mg/dL (75-99)
[2021-10-01] MEDS: hydrALAZINE HCL 20 MG/ML 1 ML VIAL IVP PRN (12:46)
--- NOTE | 2021-10-01 13:36 | PN ---
PROGRESS NOTE DATE OF SERVICE: 10/01/2021 This 61-year-old gentleman who was admitted with accelerated hypertension is being closely monitored at this time. The patient is undergoing a full neurological workup. The blood pressure is still elevated. No chest pain. No palpitations. No fever. PHYSICAL EXAMINATION: Alert and oriented x3. Pulse 107, blood pressure 188/92, respiration 17. HEENT: Conjunctivae normal. CARDIOVASCULAR: S1, S2 muffled. RESPIRATION: Breath sounds diminished at the bases. A few scattered rhonchi. ABDOMEN: Soft. NERVOUS SYSTEM: No focal deficit. LABS: Accu-Cheks noted. ASSESSMENT: 1. Accelerated hypertension and hypertensive urgency. 2. Fall. 3. Hyponatremia. 4. Elevated lactic acid. 5. Acute rhabdomyolysis, mild. RECOMMENDATIONS AND DISCUSSION: I recommend to continue current medications, continue with the monitoring, symptomatic treatment. Closely follow with Neurology and Cardiology. Guarded prognosis. Further recommendations to follow. MMLOLITAL / KRISTINN: [id number] /
[2021-10-01] MEDS: METOPROLOL TARTRATE 50 MG TAB PO SCH ×2 (14:32→21:11)
[2021-10-01] MEDS: lisinopriL 10 MG TAB PO SCH ×2 (14:32→21:11)
[2021-10-01 15:29] LABS: HDL Cholesterol 36.7 mg/dL (40.00-60.00)
[2021-10-01 15:41] LABS: Chol/HDL Ratio 4.9 Ratio; LDL Cholesterol,Direct Reflex 74.6 mg/dL (0.00-129.00)
[2021-10-01 16:51] LABS: Glucose,Whole Blood 242 mg/dL (75-99)
[2021-10-01 20:53] LABS: Glucose,Whole Blood 247 mg/dL (75-99)
[2021-10-02 06:18] LABS: Glucose,Whole Blood 223 mg/dL (75-99)
[2021-10-02] MEDS: INSULIN ASPART (NovoLOG) 100 UNIT/ML VIAL SQ SCH ×4 (06:40→20:57)
[2021-10-02] MEDS: INSULIN DETEMIR (LEVEMIR) 100 UNIT/ML SYR SQ SCH (06:40)
--- NOTE | 2021-10-02 09:40 | P.PN ---
Subjective Progress Note Date: 10/01/21 Patient was seen for a follow-up. Patient is doing much better. No new focal symptoms. Telemetry monitoring showing sinus tachycardia when maximally 120s. Objective - Vital Signs Vital signs: Vital Signs Temp 98.6 F 10/01/21 08:00 Pulse 107 H 10/01/21 08:00 Resp 17 10/01/21 08:00 BP 184/92 10/01/21 08:00 Pulse Ox 95 10/01/21 08:00 Intake & Output 09/30/21 10/01/21 10/01/21 18:59 06:59 18:59 Intake Total 120 720 Balance 120 720 Weight 90.718 kg 90.718 kg Intake: Oral 120 720 Other: Voiding Method Diaper Diaper # Voids 1 4 # Bowel Movements 2 - Exam Patient is more alert and awake, less delirious, less hyperalert especially for visual oseguera. Speech and language functions appears normal. Pupils are equal round and reacting, visual oseguera are full, face is symmetric and tongue protrudes the midline. Muscle strength is normal. No pronator drift. Sensory to touch is equal. No ataxia. - Labs CBC & Chem 7: 10/01/21 03:35 10/01/21 03:35 Labs: Abnormal Lab Results - Last 24 Hours (Table) 09/30/21 09/30/21 09/30/21 Range/Units 12:39 17:17 18:17 Lymphocytes # (1.0-4.8) k/uL Sodium (137-145) mmol/L Glucose (74-99) mg/dL POC Glucose (mg/dL) 263 H (75-99) mg/dL Hemoglobin A1c 11.2 H (0.0-6.0) % Plasma Lactic Acid Wes 4.9 H* (0.7-2.0) mmol/L Calcium (8.4-10.2) mg/dL Troponin I (0.000-0.034) ng/mL Triglycerides (0.00-149.00) mg/dL HDL Cholesterol (40.00-60.00) mg/dL 09/30/21 09/30/21 09/30/21 Range/Units 19:38 20:34 21:06 Lymphocytes # (1.0-4.8) k/uL Sodium (137-145) mmol/L Glucose (74-99) mg/dL POC Glucose (mg/dL) 368 H (75-99) mg/dL Hemoglobin A1c (0.0-6.0) % Plasma Lactic Acid Wes 4.2 H* (0.7-2.0) mmol/L Calcium (8.4-10.2) mg/dL Troponin I 0.073 H* (0.000-0.034) ng/mL Triglycerides (0.00-149.00) mg/dL HDL Cholesterol (40.00-60.00) mg/dL 10/01/21 10/01/21 10/01/21 Range/Units 00:37 03:35 03:35 Lymphocytes # 0.6 L (1.0-4.8) k/uL Sodium 131 L (137-145) mmol/L Glucose 255 H (74-99) mg/dL POC Glucose (mg/dL) (75-99) mg/dL Hemoglobin A1c (0.0-6.0) % Plasma Lactic Acid Wes 2.4 H* (0.7-2.0) mmol/L Calcium 8.2 L (8.4-10.2) mg/dL Troponin I (0.000-0.034) ng/mL Triglycerides 458.00 H (0.00-149.00) mg/dL HDL Cholesterol 36.70 L (40.00-60.00) mg/dL 10/01/21 10/01/21 10/01/21 Range/Units 06:06 12:06 16:49 Lymphocytes # (1.0-4.8) k/uL Sodium (137-145) mmol/L Glucose (74-99) mg/dL POC Glucose (mg/dL) 268 H 322 H 242 H (75-99) mg/dL Hemoglobin A1c (0.0-6.0) % Plasma Lactic Acid Wes (0.7-2.0) mmol/L Calcium (8.4-10.2) mg/dL Troponin I (0.000-0.034) ng/mL Triglycerides (0.00-149.00) mg/dL HDL Cholesterol (40.00-60.00) mg/dL Microbiology - Last 24 Hours (Table) 09/30/21 07:00 Blood Culture - Preliminary Blood No Growth after 24 hours 09/30/21 06:55 Blood Culture - Preliminary Blood No Growth after 24 hours Assessment and Plan Assessment: * Probable hypertensive encephalopathy. Patient has no focal symptoms reported, and his examination is nonfocal therefore TIA appears less likely. * Accelerated hypertension * Diabetes Plan: * Optimize control of blood pressure to target blood pressure <130/80. Current blood pressure 156/81. * Patient was loaded with aspirin 324 mg, now maintained on aspirin 81 mg daily. * Patient's current hemoglobin A1c 11.2 (last hemoglobin A1c was 11.0 on 07/29/2020). This is indicative of poorly controlled diabetes. Recommend optimize control of diabetes to target A1c < 7.0. * Fasting a.m. lipid panel with cholesterol 180, LDL 74, HDL 36 and triglycerides 458. Patient may need treatment for hypertriglyceridemia. Continue Lipitor 40 mg. * Carotid Doppler revealed atheromatous plaquing without significant flow- limiting stenosis within the internal carotid arteries. Antegrade flow in both vertebral arteries. * 2-D echo revealed preserved LV systolic function 55-60%, without segmental wal l motion abnormalities. Mildly dilated right ventricle. Left atrium is normal.. * PT OT evaluate gait. * Telemetry monitoring showing sinus tachycardia, with no other arrhythmia. * Neurologically clear for discharge with the above recommendations.
[2021-10-02] MEDS: CHLORTHALIDONE 25 MG TAB PO SCH (10:01)
[2021-10-02] MEDS: METOPROLOL TARTRATE 50 MG TAB PO SCH ×2 (10:01→20:57)
[2021-10-02] MEDS: FENOFIBRATE 54 MG TAB PO SCH (10:01)
[2021-10-02] MEDS: amLODIPine 10 MG TAB PO SCH (10:01)
[2021-10-02] MEDS: ATORVASTATIN 40 MG TAB PO SCH (10:01)
[2021-10-02] MEDS: ASPIRIN 81 MG PO SCH (10:01)
[2021-10-02] MEDS: lisinopriL 10 MG TAB PO SCH ×2 (10:01→20:57)
--- NOTE | 2021-10-02 10:03 | P.EN ---
Patient was seen and evaluated for unsteady gait I physical therapy recommending a 4 wheeled rolling walker on discharge to be able to complete ADLs. Patient also found to have an hemoglobin A1c of 11.2 with poorly controlled diabetes mellitus type 2 and will need to test Accu-Cheks before meals and at bedtime and will need a glucometer along with testing supplies. Patient may likely require insulin on discharge for his poorly controlled diabetes and will also refer to endocrine in the outpatient setting.
--- NOTE | 2021-10-02 10:29 | P.CRDCN ---
History of Present Illness History of present illness: HISTORY OF PRESENTING ILLNESS This is a pleasant 61-year-old male past medical history significant for hypertension, type 2 diabetes, dyslpidemia. 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 Follows with Dr. Padron. We have been asked to see in consultation for elevated troponin. Patient is seen and examined at bedside. Patient presented emergency department with generalized weakness. He states at home he had multiple episodes of feeling weak, he he states he walked for 1015 ft and would fall, he could not get up off the floor. EMS was called and he was transported to the ER. He denies any chest pain, lightheadedness, dizziness, palpitations, shortness of breath, syncope, loss of consciousness. He denies any history of CAD, LA, stroke. He denies tobacco use. He does endorse he was told 3-5 years ago his "heart stopped". Does not recall any workup for this. On admission to ER, patient extremely hypertensive with BP 200s/100s, HR 130s. DIAGNOSTICS EKG reveals sinus tachycardia, left axis deviation, HR 129, LVH, poor R wave progression, No acute ST-T wave abnormalities Echocardiogram revealed EF 5560 percent, mild right ventricular dilatation, trace tricuspid regurgitation, Telemetry tracings indicate sinus mechanism with heart rate [id number] Chest xray no acute cardiopulmonary process. Brain CT revealed age-related atrophic and chronic small vessel ischemic change. No acute intracranial abnormality Carotid Doppler revealed no significant stenosis within the internal carotid arteries Laboratory reviewed, WBC 8.2, hemoglobin 14.1, platelets 173, sodium 131, potass ium 4.0, BUN 18, serum creatinine 1.24, K4.2, repeat 1.5, magnesium 1.3, CK 222, troponin 0.05, 0.07 Lipid panel revealed triglycerides 450, cholesterol 180, LDL 74, HDL 36 Current home medications include hydrochlorothiazide 12.5 mg daily, amlodipine 10 mg daily, loratadine 10 mg daily REVIEW OF SYSTEMS At the time of my exam: CONSTITUTIONAL: Denies fever or chills. CARDIOVASCULAR: Denies chest pain, shortness of breath, orthopnea, PND or palpitations. RESPIRATORY: Denies cough. GASTROINTESTINAL: Denies abdominal pain, diarrhea, constipation, nausea or vomiting. MUSCULOSKELETAL: Denies myalgias. NEUROLOGIC: Denies numbness, tingling, headacbe or weakness. ENDOCRINE: Denies fatigue, weight change, polydipsia or polyurina. GENITOURINARY: Denies burning, hematuria or urgency with micturation. HEMATOLOGIC: Denies history of anemia or bleeding. PHYSICAL EXAMINATION Blood pressure 158/87, heart rate 85, afebrile, oxygen saturation 98% on room air CONSTITUTIONAL: No apparent distress. HEENT: Head is normocephalic. Pupils are equal, round. Sclerae anicteric. Mucous membranes of the mouth are moist. No JVD. No carotid bruit. CHEST EXAMINATION: Lungs are clear to auscultation. No chest wall tenderness is noted on palpation or with deep breathing. HEART EXAMINATION: Regular rate and rhythm. S1, S2 heard. No murmurs, gallops or rub. ABDOMEN: Soft, nontender. Positive bowel sounds. EXTREMITIES: 2+ peripheral pulses, no lower extremity edema and no calf tenderness. NEUROLOGIC EXAMINATION: Patient is awake, alert and oriented x3. ASSESSMENT Hypertensive emergency Fall at home, endorses generalized lower extremity weakness, likely mechanical fall Elevated troponin, likely due to hypertension Tachycardia, sinus Hyperglycemia Lactic acidosis Hyperlipidemia History of hypertension Type 2 Diabetes, Hgb A1C 11.2 Hypomagnesemia PLAN Echocardiogram reviewed Rule out PE, obtain D-dimer Start statin, Chlorthalidone, Lofibra Continue Lisinopril, amlodipine, metoprolol Further recommendations based on clinical course Nurse practitioner note has been reviewed by physician. Signing provider agrees with the documented findings, assessment, and plan of care. Past Medical History Past Medical History: Diabetes Mellitus, Hypertension Additional Past Medical History / Comment(s): NIDDM type II, hemorrhoids, diverticulitis, chronic sinus problems, L knee "gives out" on occasion. History of Any Multi-Drug Resistant Organisms: None Reported Past Surgical History: Hernia Repair Additional Past Surgical History / Comment(s): R inguinal hernia repair, multiple myringotomies/tubes, circumcism, Past Anesthesia/Blood Transfusion Reactions: No Reported Reaction Past Psychological History: No Psychological Hx Reported Smoking Status: Never smoker Past Alcohol Use History: None Reported Past Drug Use History: None Reported - Past Family History Mother Family Medical History: Cancer Additional Family Medical History / Comment(s): colon cancer. Father Family Medical History: Cancer Additional Family Medical History / Comment(s): colon cancer. Medications and Allergies Home Medications Medication Instructions Recorded Confirmed Type Loratadine 10 mg PO DAILY 09/30/21 09/30/21 History amLODIPine [Norvasc] 10 mg PO DAILY 09/30/21 09/30/21 History hydroCHLOROthiazide [Hydrodiuril] 12.5 mg PO DAILY 09/30/21 09/30/21 History Allergies Allergy/AdvReac Type Severity Reaction Status Date / Time No Known Allergies Allergy Verified 09/30/21 08:30 Physical Exam Vitals: Vital Signs Temp Pulse Resp BP Pulse Ox 10/02/21 04:00 98.4 F 85 18 158/87 98 10/02/21 00:00 98.3 F 83 18 161/88 97 10/01/21 20:00 98.9 F 97 18 158/94 97 10/01/21 16:00 98.8 F 93 17 156/81 97 10/01/21 14:00 102 H 17 10/01/21 12:00 98.7 F 102 H 17 182/97 97 Intake and Output 10/01/21 10/02/21 10/02/21 22:59 06:59 14:59 Intake Total 120 480 Output Total 100 Balance 20 480 Intake: Oral 120 480 Output: Urine 100 Uretheral (Villavicencio) 100 Other: # Voids 2 2 Results 10/01/21 03:35 10/01/21 03:35 Lipids 10/01/21 Range/Units 03:35 Triglycerides 458.00 H (0.00-149.00) mg/dL Cholesterol 180.00 (0.00-200.00) mg/dL HDL Cholesterol 36.70 L (40.00-60.00) mg/dL Cholesterol/HDL Ratio 4.90 Ratio Comprehensive Metabolic Panel 10/01/21 Range/Units 03:35 Sodium 131 L (137-145) mmol/L Potassium 4.0 (3.5-5.1) mmol/L Chloride 103 (98-107) mmol/L Carbon Dioxide 22 (22-30) mmol/L BUN 18 (9-20) mg/dL Creatinine 1.24 (0.66-1.25) mg/dL Glucose 255 H (74-99) mg/dL Calcium 8.2 L (8.4-10.2) mg/dL Current Medications Generic Name Dose Route Start Last Admin Trade Name Freq PRN Reason Stop Dose Admin Amlodipine Besylate 10 mg 09/30/21 11:30 10/01/21 09:48 Amlodipine 10 Mg Tab PO 10 mg DAILY ESMER Administration Aspirin 81 mg 10/01/21 09:00 10/01/21 09:48 Aspirin 81 Mg PO 81 mg DAILY ESMER Administration Hydralazine HCl 10 mg 09/30/21 11:21 10/01/21 12:46 Hydralazine Hcl 20 Mg/Ml 1 Ml Vial IVP 10 mg Q4HR PRN Administration Blood Pressure - High Insulin Aspart 0 unit 09/30/21 12:30 10/02/21 06:40 Insulin Aspart (Novolog) 100 Unit/Ml Vial SQ 3 unit ACHS ESMER Administration Protocol Insulin Detemir 10 unit 09/30/21 12:31 10/02/21 06:40 Insulin Detemir (Levemir) 100 Unit/Ml Syr SQ 10 unit DAILY@0700 ESMER Administration Lisinopril 10 mg 10/01/21 13:30 10/01/21 21:11 Lisinopril 10 Mg Tab PO 10 mg BID ESMER Administration Metoprolol Tartrate 50 mg 10/01/21 13:30 10/01/21 21:11 Metoprolol Tartrate 50 Mg Tab PO 50 mg BID ESMER Administration Naloxone HCl 0.2 mg 09/30/21 09:21 Naloxone 0.4 Mg/Ml 1 Ml Vial IV Q2M PRN Opioid Reversal Intake and Output 10/01/21 10/02/21 10/02/21 22:59 06:59 14:59 Intake Total 120 480 Output Total 100 Balance 20 480 Intake: Oral 120 480 Output: Urine 100 Uretheral (Villavicencio) 100 Other: # Voids 2 2 10/01/21 03:35 10/01/21 03:35
[2021-10-02 11:49] LABS: Glucose,Whole Blood 212 mg/dL (75-99)
--- NOTE | 2021-10-02 13:30 | P.CN ---
Psychiatric Consult - . Consult date: 10/02/21 Consult:: 10/02/21 12:52 IDENTIFYING DATA: This patient is a 61-year-old male currently lives alone in an apartment and is single has no kids. He collects SSD. REASON FOR REFERRAL: Psychiatry was consulted for "noncompliance with medic ations and treatment, assess for capacity" HISTORY OF PRESENT ILLNESS: The patient presented to the hospital on 09/30 after a fall at home. Patient was brought in by EMS. Patient apparently was trying to get into the bathroom however phone floor and had to crawl to the phone. Patient was likely on the floor for several hours. Patient apparently has poorly controlled diabetes with a hemoglobin A1c of 11.2 and blood glucose greater than 400 on admission. Patient's troponins were elevated. Patient was seen in the room today as he was watching television and agreeable. The rfp writer. He claims that he was "founded my apartment". He states that he felt "off all of a sudden" and relates it back to his diabetes. He states that it runs heavily in his family. He claims that he was not taking care of himself and not taking insulin. He states that "they may be putting on insulin now". He agrees that his diabetes management and blood pressure was not very good. He states that he does need the medications including insulin if he is put on it and also states that "I'll be right back in the hospital if I don't take it". He appeared to have somewhat superficial insight however was fairly appropriate. Was denying any depression or anxiety. He denied any manic symptoms. Patient claims that his sleep and appetite are fair.. At this time patient denies any suicidal or homical ideations, intent or plan. Patient denies any auditory, visual hallucinations and denies any paranoia or delusions. Patients admits to using no recreational drugs or cigarettes. PAST PSYCHIATRIC HISTORY: Patient has a no significant psychiatric history. Patient denies being on any psychiatric medications. Patient denies any previous psychiatric hospitalizations. Patient denies any psychiatric outpatient follow- up. Patient denies any history of suicide attempts in the past. Past Medical History: Diabetes Mellitus, Hypertension Additional Past Medical History / Comment(s): NIDDM type II, hemorrhoids, diverticulitis, chronic sinus problems, L knee "gives out" on occasion. ALLERGIES: as per EMR. CHEMICAL DEPENDENCY HISTORY: as per HPI. FAMILY PSYCHIATRIC/SUBSTANCE USE HISTORY: denies SOCIAL HISTORY: Patient was born and raised in [facility]. He states that he completed high school. 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 He states that he has never gone to fci or alf. He is single has no kids, lives in an apartment. MENTAL STATUS EXAM: General Appearance: Patient appears to be overweight, laying in bed, stated age is alert, pleasant, and superficially cooperative. Patient appears to have fair hygiene and grooming wearing hospital gown with fair eye contact. Behavior: Patient is calmly lying in bed without any agitated behavior. Superfi cially cooperative. Speech: Patient's speech is fluent and nonpressured. Mood/Affect: Patient reports their mood is "fine", affect is congruent Suicidality/Homicidality: Patient denies having any suicidal or homicidal ideation intent or plan. Perceptions: Patient denies any visual hallucinations and denies any auditory hallucinations Though content/process: There is no evidence of any delusional thought content and thought process is linear and goal-directed. Memory and concentration: AOX3, grossly intact for the purposes of this session. Can spell "WORLD" backwards Judgment and insight: fair IMPRESSIONS: Nonadherence to medication regimen Adjustment disorder PLAN: -At this time patient DOES NOT meet criteria for inpatient psychiatric admission. -Patient DOES have decision making capacity at this time and is able to reason through and communicate/appreciate the risks, benefits and alternatives to treatment and taking meds. -Would recommend the following medication changes/additions: No recommendations for medications at this time. -continue to encourage medication compliance and follow up -Psychiatry will sign off at this time -Please contact with any questions. 10/02/21 13:25
--- NOTE | 2021-10-02 14:51 | NM ---
EXAMINATION TYPE: NM pul vent and perfuse DATE OF EXAM: 10/02/2021 COMPARISON: Limited chest x-ray 2 days prior, 09/30/2021 HISTORY: Elevated d-dimer, pain TECHNIQUE: Utilizing inhalation of 36.4 mCi Tc 99m DTPA aerosol and intravenous injection of 4.98 mC i of Tc 99m MAA, ventilation and perfusion images are acquired post injection in multiple projections . FINDINGS: Normal radiotracer distribution is noted in the lungs perfusion imaging, perfusion overall is better than ventilation, there is some central clumping of radiopharmaceutical on ventilation images. There is no evidence of mismatched defects. IMPRESSION: Low probability for pulmonary embolus
--- NOTE | 2021-10-02 15:18 | P.PN ---
Subjective Progress Note Date: 10/02/21 This is a pleasant 61-year-old male who was recently admitted with accelerated hypertension and falls with hypertensive urgency and is being closely monitored. Patient was also found to have an elevated lactic acid and acute rhabdomyolysis on admission. Patient undergoing neurological workup with neurology following along with cardiology. Patient is extremely noncompliant with medications and has diabetes which has been poorly controlled and has a hemoglobin A1c of 11.2 and will require insulin on discharge. Cardiology following and has ordered a d-dimer, which was mildly elevated at 0.73 and ordered a VQ scan which is pending. We'll have psychiatry evaluate the patient as patient is noncompliant with medications and high risk for readmissions and currently lives alone. PT/OT following. Patient is tolerating diet with no reports of nausea or vomiting. Patient is afebrile and blood pressure mildly elevated, although better controlled. Multiple medications have been resumed and cardiology, making adjustments to medications. Review of systems: Constitutional: No reports of fatigue, fever, or chills Cardiovascular: No reports of chest pain or palpitations Respiratory: No reports of shortness of breath or cough GI: No reports of nausea, no reports of of vomiting : No reports of dysuria or retention Neurovascular: No reports of generalized weakness All medications have been reviewed Active Medications Amlodipine Besylate (Amlodipine 10 Mg Tab) 10 mg PO DAILY [facility] Last Admin: 10/02/21 10:01 Dose: 10 mg Documented by: Aspirin (Aspirin 81 Mg) 81 mg PO DAILY [facility] Last Admin: 10/02/21 10:01 Dose: 81 mg Documented by: Atorvastatin Calcium (Atorvastatin 40 Mg Tab) 40 mg PO DAILY [facility] Last Admin: 10/02/21 10:01 Dose: 40 mg Documented by: Chlorthalidone (Chlorthalidone 25 Mg Tab) 25 mg PO DAILY [facility] Last Admin: 10/02/21 10:01 Dose: 25 mg Documented by: Fenofibrate (Fenofibrate 54 Mg Tab) 54 mg PO DAILY [facility] Last Admin: 10/02/21 10:01 Dose: 54 mg Documented by: Hydralazine HCl (Hydralazine Hcl 20 Mg/Ml 1 Ml Vial) 10 mg IVP Q4HR PRN PRN Reason: Blood Pressure - High Last Admin: 10/01/21 12:46 Dose: 10 mg Documented by: Insulin Aspart (Insulin Aspart (Novolog) 100 Unit/Ml Vial) 0 unit SQ ACHS [facility]; Protocol Last Admin: 10/02/21 12:30 Dose: 3 unit Documented by: Insulin Detemir (Insulin Detemir (Levemir) 100 Unit/Ml Syr) 10 unit SQ DAILY@0700 [facility] Last Admin: 10/02/21 06:40 Dose: 10 unit Documented by: Lisinopril (Lisinopril 10 Mg Tab) 10 mg PO BID [facility] Last Admin: 10/02/21 10:01 Dose: 10 mg Documented by: Metoprolol Tartrate (Metoprolol Tartrate 50 Mg Tab) 50 mg PO BID [facility] Last Admin: 10/02/21 10:01 Dose: 50 mg Documented by: Naloxone HCl (Naloxone 0.4 Mg/Ml 1 Ml Vial) 0.2 mg IV Q2M PRN PRN Reason: Opioid Reversal PHYSICAL EXAMINATION: GENERAL: The patient is alert and oriented x3, Well developed, well nourished. HEENT: Pupils are round and equally reacting to light. EOMI. no scleral icterus. No conjunctival pallor. Normocephalic, atraumatic. No pharyngeal erythema. No thyromegaly. CARDIOVASCULAR: S1 and S2 muffled PULMONARY: diminished breath sounds bilaterally with no wheezing or rhonchi noted. ABDOMEN: soft. Nontender on exam. non-distended, normoactive bowel sounds. No palpable organomegaly. MUSCULOSKELETAL: No joint swelling or deformity. EXTREMITIES: No cyanosis, clubbing, or pedal edema. NEUROLOGICAL: Gross neurological examination did not reveal any focal deficits. Diffuse weakness SKIN: No rashes. Assessment: Accelerated hypertension and hypertensive urgency. Falls Hyponatremia Elevated lactic acid Acute rhabdomyolysis, mild. Elevated d-dimer and VQ scan was negative for PE. Poorly controlled diabetes mellitus2 with hyperglycemia and hemoglobin A1c is 11.2 currently GI prophylaxis DVT prophylaxis Full code Plan: Recommend to continue with current medications and management. Patient has been seen and evaluated by PT/OT therapy and doing well with a rolling walker and will not qualify for ECF. Patient is extremely noncompliant with medications and treatment plans and also continues to be hyperglycemic and will require insulins on discharge. Recommend continued. Accu-Cheks before meals and at bedtime and consistent carb, heart healthy diet. D-dimer was obtained today which was mildly elevated at VQ scan was ordered which showed a low probability for PE. Discussed with social work along with nursing staff as they feel patie nt is unsafe to return home alone and psychiatric consult placed. Patient is requesting when he can go home. Patient will need testing supplies lung with a glucometer and insulin and also is receiving a rolling walker. Patient continues to be somewhat hypertensive and medications are being adjusted. Patient is being started on a statin along with chlorthalidone and low fibra and will continue on lisinopril, amlodipine and metoprolol. Neurology following as well and workup is in progress. Patient is requesting to go home. Patient refusing Homecare as well. Due to multiple complex medical issues and high risk for readmission, prognosis is guarded. Further recommendations to follow based on the clinical course of the patient. The impression and plan of care has been dictated by Sara Fleming, nurse practitioner as directed. MD Miranda I have performed a history and examination and MDM of this patient, discussed the same with the dictator, and agree with the dictator's assessment and plan as written ,documented as a scribe. Based on total visit time, I have performed more than 50% of the visit. Any additional findings or plans will be noted. Objective - Vital Signs Vital signs: Vital Signs Temp 97.6 F 10/02/21 08:00 Pulse 82 10/02/21 12:00 Resp 18 10/02/21 08:00 BP 160/87 10/02/21 12:00 Pulse Ox 96 10/02/21 12:00 Intake & Output 10/01/21 10/02/21 10/02/21 18:59 06:59 18:59 Intake Total 840 480 Output Total 100 Balance 840 380 Weight 90.718 kg Intake: Oral 840 480 Output: Urine 100 Uretheral (Villavicencio) 100 Other: Voiding Method Diaper Diaper # Voids 4 2 # Bowel Movements 2 - Labs CBC & Chem 7: 10/01/21 03:35 10/01/21 03:35 Labs: Abnormal Lab Results - Last 24 Hours (Table) 10/01/21 10/01/21 10/01/21 Range/Units 03:35 16:49 20:41 D-Dimer (<0.60) mg/L FEU Sodium 131 L (137-145) mmol/L Glucose 255 H (74-99) mg/dL POC Glucose (mg/dL) 242 H 247 H (75-99) mg/dL Calcium 8.2 L (8.4-10.2) mg/dL Triglycerides 458.00 H (0.00-149.00) mg/dL HDL Cholesterol 36.70 L (40.00-60.00) mg/dL 10/02/21 10/02/21 10/02/21 Range/Units 06:09 08:11 11:44 D-Dimer 0.73 H (<0.60) mg/L FEU Sodium (137-145) mmol/L Glucose (74-99) mg/dL POC Glucose (mg/dL) 223 H 212 H (75-99) mg/dL Calcium (8.4-10.2) mg/dL Triglycerides (0.00-149.00) mg/dL HDL Cholesterol (40.00-60.00) mg/dL Microbiology - Last 24 Hours (Table) 09/30/21 07:00 Blood Culture - Preliminary Blood No Growth after 48 hours 09/30/21 06:55 Blood Culture - Preliminary Blood No Growth after 48 hours
[2021-10-02 16:41] LABS: Glucose,Whole Blood 312 mg/dL (75-99)
[2021-10-02 20:55] LABS: Glucose,Whole Blood 270 mg/dL (75-99)
[2021-10-03] MEDS: hydrALAZINE HCL 20 MG/ML 1 ML VIAL IVP PRN ×2 (04:23→20:56)
[2021-10-03 06:24] LABS: Glucose,Whole Blood 223 mg/dL (75-99)
[2021-10-03] MEDS: INSULIN DETEMIR (LEVEMIR) 100 UNIT/ML SYR SQ SCH (07:05)
[2021-10-03] MEDS: INSULIN ASPART (NovoLOG) 100 UNIT/ML VIAL SQ SCH ×4 (07:05→20:56)
--- NOTE | 2021-10-03 08:21 | P.PN ---
Subjective Progress Note Date: 10/02/21 Patient was seen for a follow-up. Patient is doing much better. No new focal symptoms. Telemetry monitoring showing sinus tachycardia when maximally 120s. Objective - Vital Signs Vital signs: Vital Signs Temp 97.6 F 10/02/21 08:00 Pulse 82 10/02/21 14:00 Resp 18 10/02/21 14:00 BP 160/87 10/02/21 12:00 Pulse Ox 96 10/02/21 12:00 Intake & Output 10/01/21 10/02/21 10/02/21 18:59 06:59 18:59 Intake Total 840 480 240 Output Total 100 Balance 840 380 240 Weight 90.718 kg Intake: Oral 840 480 240 Output: Urine 100 Uretheral (Villavicencio) 100 Other: Voiding Method Diaper Diaper # Voids 4 2 # Bowel Movements 2 - Exam Patient is more alert and awake. Speech and language functions appears normal. Pupils are equal round and reacting, visual oseguera are full, face is symmetric and tongue protrudes the midline. Muscle strength is normal. No pronator drift. Sensory to touch is equal. No ataxia. - Labs CBC & Chem 7: 10/01/21 03:35 10/01/21 03:35 Labs: Abnormal Lab Results - Last 24 Hours (Table) 10/01/21 10/02/21 10/02/21 Range/Units 20:41 06:09 08:11 D-Dimer 0.73 H (<0.60) mg/L FEU POC Glucose (mg/dL) 247 H 223 H (75-99) mg/dL 10/02/21 10/02/21 Range/Units 11:44 16:39 D-Dimer (<0.60) mg/L FEU POC Glucose (mg/dL) 212 H 312 H (75-99) mg/dL Microbiology - Last 24 Hours (Table) 09/30/21 07:00 Blood Culture - Preliminary Blood No Growth after 48 hours 09/30/21 06:55 Blood Culture - Preliminary Blood No Growth after 48 hours Assessment and Plan Assessment: * Probable hypertensive encephalopathy. Patient has no focal symptoms reported, and his examination is nonfocal therefore TIA appears less likely. * Accelerated hypertension * Diabetes Plan: * Optimize control of blood pressure to target blood pressure <130/80. Current blood pressure 139/76. * Patient was loaded with aspirin 324 mg, now maintained on aspirin 81 mg daily. * Patient's current hemoglobin A1c 11.2 (last hemoglobin A1c was 11.0 on 07/29/2020). This is indicative of poorly controlled diabetes. Recommend optimize control of diabetes to target A1c < 7.0. * Fasting a.m. lipid panel with cholesterol 180, LDL 74, HDL 36 and triglycerides 458. Patient may need treatment for hypertriglyceridemia. Continue Lipitor 40 mg. * Carotid Doppler revealed atheromatous plaquing without significant flow- limiting stenosis within the internal carotid arteries. Antegrade flow in both vertebral arteries. * 2-D echo revealed preserved LV systolic function 55-60%, without segmental wall motion abnormalities. Mildly dilated right ventricle. Left atrium is normal.. * PT OT evaluate gait. * Telemetry monitoring showing sinus tachycardia, with no other arrhythmia. * Psychiatry note reviewed. Patient does have mental capacity. We will check B12, folate. * Patient recommended to follow up with an security incident handler as an outpatient because of his uncontrolled diabetes and hypertension. * Neurologically clear for discharge with the above recommendations.
--- NOTE | 2021-10-03 08:31 | P.PN ---
Subjective Progress Note Date: 10/03/21 Principal diagnosis: Hypertension emergency The patient is a pleasant 61-year-old gentleman with a past medical history significant for hypertension and hyperlipidemia as well as diabetes who was admitted to the hospital with hypertension emergency. He was seen this morning if he remains asymptomatic from a cardiac standpoint overview. His pressure has definitely improved but continues to be elevated. I'm going to increase the dose of lisinopril to 40 mg by mouth daily. He reports no pain in the chest and no shortness of breath and no dizziness or lightheadedness or presyncope or syncope. He underwent an echo which revealed normal LV function with no wall motion abdominal disc stomach for ischemia. From the cardiac vascular standpoint of view, the patient can potentially be discharged in the next 12-24 hours. He was advised to stick with his medication and being compliant with the medications as well as the diet. Objective - Vital Signs Vital signs: Vital Signs Temp 98.6 F 10/03/21 04:00 Pulse 83 10/03/21 04:00 Resp 18 10/03/21 04:00 BP 173/91 10/03/21 04:00 Pulse Ox 98 10/03/21 04:00 Intake & Output 10/02/21 10/03/21 10/03/21 18:59 06:59 18:59 Intake Total 240 720 480 Balance 240 720 480 Intake: Oral 240 720 480 Other: Voiding Method Diaper # Voids 2 - Constitutional General appearance: Present: no acute distress - Respiratory Respiratory: bilateral: diminished - Cardiovascular Rhythm: regular Heart sounds: normal: S1, S2 - Labs CBC & Chem 7: 10/01/21 03:35 10/01/21 03:35 Labs: Abnormal Lab Results - Last 24 Hours (Table) 10/02/21 10/02/21 10/02/21 Range/Units 08:11 11:44 16:39 D-Dimer 0.73 H (<0.60) mg/L FEU POC Glucose (mg/dL) 212 H 312 H (75-99) mg/dL 10/02/21 10/03/21 Range/Units 20:51 06:18 D-Dimer (<0.60) mg/L FEU POC Glucose (mg/dL) 270 H 223 H (75-99) mg/dL Microbiology - Last 24 Hours (Table) 09/30/21 07:00 Blood Culture - Preliminary Blood No Growth after 48 hours 09/30/21 06:55 Blood Culture - Preliminary Blood No Growth after 48 hours Assessment and Plan Assessment: Assessment #1 hypertension emergency which has improved #2 history of noncompliance Plan #1 increase the dose of lisinopril #2 the patient can be discharged in the next 12-24 hours
[2021-10-03] MEDS: ATORVASTATIN 40 MG TAB PO SCH (10:50)
[2021-10-03] MEDS: ASPIRIN 81 MG PO SCH (10:50)
[2021-10-03] MEDS: lisinopriL 20 MG TAB PO SCH ×2 (10:50→20:56)
[2021-10-03] MEDS: CHLORTHALIDONE 25 MG TAB PO SCH (10:51)
[2021-10-03] MEDS: FENOFIBRATE 54 MG TAB PO SCH (10:51)
[2021-10-03] MEDS: amLODIPine 10 MG TAB PO SCH (10:51)
[2021-10-03] MEDS: METOPROLOL TARTRATE 50 MG TAB PO SCH ×2 (10:51→20:56)
[2021-10-03 11:54] LABS: Glucose,Whole Blood 307 mg/dL (75-99)
[2021-10-03 13:08] VITALS: RESP 18
[2021-10-03 16:49] LABS: Glucose,Whole Blood 268 mg/dL (75-99)
--- NOTE | 2021-10-03 18:57 | PN ---
PROGRESS NOTE DATE OF SERVICE: 10/03/2021 This 61-year-old gentleman with multiple medical problems has got a history of noncompliance also. The patient is tachycardic today. No chest pain. No palpitations. No fever. 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 PHYSICAL EXAMINATION: Pulse is 113, blood pressure 167/83, respiration 28. HEENT: Conjunctivae normal. NECK: No jugular venous distention. CARDIOVASCULAR: S1, S2 muffled. RESPIRATION: Breath sounds diminished at the bases. A few scattered rhonchi. ABDOMEN: Soft. NERVOUS SYSTEM: No focal deficit. LABS: Accu-Cheks 227 and 307. Sodium is 131. Other labs are noted. Platelets are 458. ASSESSMENT: 1. Accelerated hypertension, hypertensive urgency. 2. Tachycardia. 3. Falls. 4. Hyponatremia. 5. Elevated lactic acid. 6. Acute rhabdomyolysis. 7. Poorly controlled diabetes mellitus, type 2. 8. History of noncompliance. 9. Poor social support. RECOMMENDATIONS AND DISCUSSION: I recommend to continue current medications, continue with the monitoring, symptomatic treatment. I recommend monitoring the blood pressure and blood sugar closely. Repeat labs will be ordered for tomorrow. Guarded prognosis. Further recommendations to follow. Evaluate the patient for possible PT/OT and possible ECF rehab. MMODL / IJN: [id number] /
[2021-10-03 20:40] LABS: Glucose,Whole Blood 249 mg/dL (75-99)
[2021-10-04 06:07] LABS: Glucose,Whole Blood 234 mg/dL (75-99)
[2021-10-04] MEDS: INSULIN DETEMIR (LEVEMIR) 100 UNIT/ML SYR SQ SCH (06:59)
[2021-10-04] MEDS: INSULIN ASPART (NovoLOG) 100 UNIT/ML VIAL SQ SCH ×4 (06:59→20:38)
[2021-10-04 07:59] LABS: Calcium 8.5 mg/dL (8.4-10.2); Potassium 4.4 mmol/L (3.5-5.1)
[2021-10-04 08:32] LABS: HCT 43.7 % (39.0-53.0); HGB 14.8 gm/dL (13.0-17.5); MCH 29.6 pg (25.0-35.0); MCHC 33.8 g/dL (31.0-37.0); MCV 87.5 fL (80.0-100.0); Mean Platelet Volume 9.1; Platelet Count 247 k/uL (150-450); RBC 4.99 m/uL (4.30-5.90); RDW 13.3 % (11.5-15.5)
[2021-10-04] MEDS: ATORVASTATIN 40 MG TAB PO SCH (09:21)
[2021-10-04] MEDS: METOPROLOL TARTRATE 50 MG TAB PO SCH ×2 (09:21→20:39)
[2021-10-04] MEDS: lisinopriL 20 MG TAB PO SCH ×2 (09:21→20:39)
[2021-10-04] MEDS: ASPIRIN 81 MG PO SCH (09:21)
[2021-10-04] MEDS: FENOFIBRATE 54 MG TAB PO SCH (09:21)
[2021-10-04] MEDS: amLODIPine 10 MG TAB PO SCH (09:21)
[2021-10-04] MEDS: CHLORTHALIDONE 25 MG TAB PO SCH (09:21)
[2021-10-04 10:13] LABS: Band Neutrophils % 1 %; Neutrophils % (M) 74 %; Nucleated Red Blood Cells 0 /100 WBC (0-0); Total Cells Counted 200
[2021-10-04 10:16] LABS: RBC Morphology Normal
[2021-10-04 11:33] LABS: Glucose,Whole Blood 284 mg/dL (75-99)
[2021-10-04] MEDS: FOLIC ACID 1 MG TAB PO SCH (11:34)
[2021-10-04] MEDS ORDERED: CYANOCOBALAMIN 1,000 MCG/ML 1 ML VIAL IM ONE (12:00)
[2021-10-04 16:14] LABS: Glucose,Whole Blood 263 mg/dL (75-99)
--- NOTE | 2021-10-04 18:02 | PN ---
PROGRESS NOTE DATE OF SERVICE: 10/04/2021 This 61-year-old gentleman admitted with multiple symptoms had hypertension and also tachycardia. Heart rate is fluctuating. Patient also has a significant history of diabetes mellitus with noncompliance. PHYSICAL EXAMINATION: Pulse is 68, blood pressure 116/69, respiration 18. CHEST: Clear to auscultation. CARDIOVASCULAR: S1, S2 muffled. ABDOMEN: Soft. NERVOUS SYSTEM: No focal deficit. LABS: Accu-Cheks are noted. ASSESSMENT: 1. Accelerated hypertension and hypertensive urgency, present on admission. 2. Tachycardia. 3. Falls. 4. Hyponatremia. 5. Elevated lactic acid, present on admission. 6. Acute rhabdomyolysis. 7. Poorly controlled diabetes mellitus, type 2. 8. History of noncompliance. RECOMMENDATIONS AND DISCUSSION: I recommend to continue current medications, continue with the monitoring, symptomatic treatment. Social Work and Case Management to work with the patient. The patient has some social support. Apparently the patient is willing to go home at this time; however, possibly evaluate for ECF rehab also. Prognosis is guarded. Further recommendations to follow. MMODL / IJN: [id number] /
[2021-10-04 19:23] LABS: Glucose,Whole Blood 279 mg/dL (75-99)
--- NOTE | 2021-10-04 19:39 | P.PN ---
Subjective Progress Note Date: 10/04/21 Patient was seen for a follow-up. Patient is doing much better. No new focal symptoms. Objective - Vital Signs Vital signs: Vital Signs Temp 97.6 F 10/04/21 10:53 Pulse 81 10/04/21 10:53 Resp 18 10/04/21 09:14 BP 128/76 10/04/21 10:53 Pulse Ox 98 10/04/21 10:53 Intake & Output 10/03/21 10/04/21 10/04/21 18:59 06:59 18:59 Intake Total 1440 480 128 Balance 1440 480 128 Intake: IV 10 Invasive Line 2 10 Oral 1440 480 118 Other: Voiding Method Diaper Diaper # Voids 2 - Exam Patient is more alert and awake. Speech and language functions appears normal. Pupils are equal round and reacting, visual oseguera are full, face is symmetric and tongue protrudes the midline. Muscle strength is normal. No pronator drift. Sensory to touch is equal. No ataxia. - Labs CBC & Chem 7: 10/04/21 07:03 10/04/21 07:03 Labs: Abnormal Lab Results - Last 24 Hours (Table) 10/03/21 10/03/21 10/03/21 Range/Units 11:46 16:48 20:27 Sodium (137-145) mmol/L BUN (9-20) mg/dL Creatinine (0.66-1.25) mg/dL Glucose (74-99) mg/dL POC Glucose (mg/dL) 307 H 268 H 249 H (75-99) mg/dL 10/04/21 10/04/21 Range/Units 05:34 07:03 Sodium 131 L (137-145) mmol/L BUN 28 H (9-20) mg/dL Creatinine 1.39 H (0.66-1.25) mg/dL Glucose 232 H (74-99) mg/dL POC Glucose (mg/dL) 234 H (75-99) mg/dL Microbiology - Last 24 Hours (Table) 09/30/21 07:00 Blood Culture - Preliminary Blood No Growth after 96 hours 09/30/21 06:55 Blood Culture - Preliminary Blood No Growth after 96 hours Assessment and Plan Assessment: * Probable hypertensive encephalopathy. Patient has no focal symptoms reported, and his examination is nonfocal therefore TIA appears less likely. * Accelerated hypertension * Diabetes Plan: * Optimize control of blood pressure to target blood pressure <130/80. Current blood pressure 128/76. * Patient was loaded with aspirin 324 mg, now maintained on aspirin 81 mg daily. * Patient's current hemoglobin A1c 11.2 (last hemoglobin A1c was 11.0 on 07/29/2020). This is indicative of poorly controlled diabetes. Recommend optimize control of diabetes to target A1c < 7.0. * Fasting a.m. lipid panel with cholesterol 180, LDL 74, HDL 36 and triglycerides 458. Patient may need treatment for hypertriglyceridemia. Continue Lipitor 40 mg. * Carotid Doppler revealed atheromatous plaquing without significant flow- limiting stenosis within the internal carotid arteries. Antegrade flow in both vertebral arteries. * 2-D echo revealed preserved LV systolic function 55-60%, without segmental wall motion abnormalities. Mildly dilated right ventricle. Left atrium is normal.. * PT OT evaluate gait. * Telemetry monitoring showing sinus tachycardia, with no other arrhythmia. * Psychiatry note reviewed. Patient does have mental capacity. * B12 430, folate 7.9. Patient will be started on B12, folate replacement. * Patient recommended to follow up with an foil wrapper as an outpatient because of his uncontrolled diabetes and hypertension. * Neurologically clear for discharge with the above recommendations. Neurology will sign off. Please reconsult if any other concerns. Dr. Todd Casanova will be available from the morning, for any neurological concerns.
[2021-10-05 05:48] LABS: Glucose,Whole Blood 277 mg/dL (75-99)
[2021-10-05] MEDS: INSULIN ASPART (NovoLOG) 100 UNIT/ML VIAL SQ SCH ×2 (06:22→11:56)
[2021-10-05] MEDS: INSULIN DETEMIR (LEVEMIR) 100 UNIT/ML SYR SQ SCH (06:22)
[2021-10-05] MEDS: ATORVASTATIN 40 MG TAB PO SCH (07:30)
[2021-10-05] MEDS: ASPIRIN 81 MG PO SCH (07:30)
[2021-10-05] MEDS: lisinopriL 20 MG TAB PO SCH (07:30)
[2021-10-05] MEDS: METOPROLOL TARTRATE 50 MG TAB PO SCH (07:30)
[2021-10-05] MEDS: amLODIPine 10 MG TAB PO SCH (07:30)
[2021-10-05] MEDS: FOLIC ACID 1 MG TAB PO SCH (07:30)
[2021-10-05] MEDS: FENOFIBRATE 54 MG TAB PO SCH (07:32)
[2021-10-05] MEDS: CHLORTHALIDONE 25 MG TAB PO SCH (07:32)
[2021-10-05] MEDS ORDERED: CYANOCOBALAMIN 500 MCG TAB PO SCH (09:00)
[2021-10-05 11:40] LABS: Glucose,Whole Blood 275 mg/dL (75-99)
--- NOTE | 2021-10-05 11:47 | CDI ---
Documentation Clarification Form Date: 10/05/2021 11:33:04 AM From: Maritza Gutierrez CCS, CCDS Admit Date: 09/30/2021 09:21:00 AM Patient Name: Kyle Tirado Visit Number: [id number] Discharge Date: ATTENTION: The Clinical Documentation Specialists (CDI) and [facility] Coding Staff appreciate your assistance in clarifying documentation. Please respond to the clarification below the line at the bottom and electronically sign. The CDI & [facility] Coding staff will review the response and follow-up if needed. Please note: Queries are made part of the Legal Health Record. If you have any questions, please contact the author of this message via ITS. Dr. Morteza Rodriguez: Conflicting documentation has been found in the medical record. Per the 10/02 Cardiology Consult and subsequent Progress Note on 10/03: Hypertensive Emergency is documented. Per the 09/30 History & Physical and subsequent Attending Physician Progress Notes: Hypertensive Urgency is documented. As the Attending Physician, please provide clarification. History/Risk Factors per the 09/30 H/P: Hypertension, NIDDM II, Chronic Sinus Problems. Clinical Indicators: Presented to the ED on 09/30 via EMS after a fall and home. May have been on the ground for several hours. Concern for possible Sepsis though no definite infection. Admit with Fall, Hyperglycemia, Dehydration and Lactic Acidosis 09/30 History & Physical Assessment: Fall for evaluation. Accelerated Hypertension and Hypertensive Urgency, Rule out Stroke, Hyponatremia, Elevated Lactic Acid and Mild Acute Rhabdomyolysis. 09/30 VS: T 99.3, P 133, R 18, BP 223/126, PO 95 RA, BMI: 31.3 09/30 LAB: WBC 12.9, Neutrophils 11.9, Lymphocytes 0.4; APTT 21.8; Na 133, CO2 20, BUN 22, Glucose 409, Lactic Acid 2.8, Magnesium 1.3, Total Bilirubin 1.6, Creatine Kinase 222, Troponin 0.057, 0.073. 09/30 UA: clear, 3+ protein, 4+ glucose, Moderate blood. Treatment 09/30: Telemetry, Insulin sliding scale, Blood cultures x1, IV Rocephin 50 mls @ 100 mls/hr x1, IV Na Cl 500 mls @ 1000 mls/hr q30M, IV Na Cl 1,000 mls @ 999 mls/hr q1H, IV Na 1,000 mls @ 130 mls/hr q7H, Insulin sq x1, po Trandate 100 mg x1, IV Magnesium Sulfate/Dextrose 1 gm 100 mls @ 100 mls/hr x1, IV Apresoline 10 mg q4H, po Norvasc 10 mg Daily. Please clarify which diagnosis is most appropriate: [ ] Hypertensive Urgency [ ] Hypertensive Emergency [ ] Other (please specify) [ ] Unable to determine (Template Last Revised: July 2020) Hypertensive Urgency MTDD
--- NOTE | 2021-10-05 11:51 | CDI ---
Documentation Clarification Form Date: 10/05/2021 11:48:00 AM From: Maritza Gutierrez CCS, CCDS Admit Date: 09/30/2021 09:21:00 AM Patient Name: Kyle Tirado Visit Number: [id number] Discharge Date: ATTENTION: The Clinical Documentation Specialists (CDI) and [facility] Coding Staff appreciate your assistance in clarifying documentation. Please respond to the clarification below the line at the bottom and electronically sign. The CDI & [facility] Coding staff will review the response and follow-up if needed. Please note: Queries are made part of the Legal Health Record. If you have any questions, please contact the author of this message via ITS. Dr. Morteza Rodriguez: The patient presented with the following clinical indicators: Per the 09/30 ED Note Medical Decision Making: Concern for possible Sepsis, though no definite infection at this point. Additional clarification regarding the etiology/cause of the clinical indicators is requested. History/Risk Factors per the 09/30 H/P: Hypertension, NIDDM II, Chronic Sinus Problems. Clinical Indicators: Presented to the ED on 09/30 via EMS after a fall and home. May have been on the ground for several hours. Concern for possible Sepsis though no definite infection. Admit with Fall, Hyperglycemia, Dehydration and Lactic Acidosis 09/30 History & Physical Assessment: Fall for evaluation. Accelerated Hypertension and Hypertensive Urgency, Rule out Stroke, Hyponatremia, Elevated Lactic Acid and Mild Acute Rhabdomyolysis. 09/30 VS: T 99.3, P 133, R 18, BP 223/126, PO 95 RA, BMI: 31.3 09/30 LAB: WBC 12.9, Neutrophils 11.9, Lymphocytes 0.4; APTT 21.8; Na 133, CO2 20, BUN 22, Glucose 409, Lactic Acid 2.8, Magnesium 1.3, Total Bilirubin 1.6, Creatine Kinase 222, Total Creatine Kinase 209, Troponin 0.057, 0.073. 09/30 UA: clear, 3+ protein, 4+ glucose, Moderate blood. Treatment 09/30: Telemetry, Insulin sliding scale, Blood cultures x1, IV Rocephin 50 mls @ 100 mls/hr x1, IV Na Cl 500 mls @ 1000 mls/hr q30M, IV Na Cl 1,000 mls @ 999 mls/hr q1H, IV Na 1,000 mls @ 130 mls/hr q7H, Insulin sq x1, po Trandate 100 mg x1, IV Magnesium Sulfate/Dextrose 1 gm 100 mls @ 100 mls/hr x1, IV Apresoline 10 mg q4H, po Norvasc 10 mg Daily. In your professional opinion, please clarify if these findings signify one of the following conditions: [ ] Sepsis POA, please specify cause if known: [ ] Sepsis, Not POA, please specify cause if known: [ ] Sepsis ruled out [ ] SIRS, without underlying infectious process [ ] Other, please specify [ ] Unable to determine (Template Last Reviewed: June 2020) Sepsis ruled out MTDD
[2021-10-05 12:12] VITALS: BP 154/77; PULSE 76; TEMP 98
--- NOTE | 2021-10-06 10:33 | P.DS ---
Providers Date of admission: 09/30/21 09:21 Expected date of discharge: 10/05/21 Attending physician: Morteza Rodriguez Consults: 09/30/21 11:29 Consult Physician Routine Consulting Provider: Chris Queen Consult Reason/Comments: FALL ? TIA?? Do you want consulting provider notified?: Yes 10/01/21 13:08 Consult Physician Routine Consulting Provider: Keagan Ramirez Consult Reason/Comments: high trops Do you want consulting provider notified?: Yes 10/02/21 11:48 Consult Physician Urgent Consulting Provider: Rolly Walters Consult Reason/Comments: noncompliance with medications and txs, assess medical decision lucy Do you want consulting provider notified?: Yes Primary care physician: Vito Gonzalez Hospital Course: Final diagnosis Hypertensive urgency, present on admission Sepsis ruled out Falls Hyponatremia Elevated lactic acid Acute rhabdomyolysis, mild. Elevated d-dimer and VQ scan was negative for PE. Poorly controlled diabetes mellitus2 with hyperglycemia and hemoglobin A1c is 11.2 currently GI prophylaxis DVT prophylaxis Full code Discharge disposition Patient is being discharged in a stable condition with guarded prognosis to home. Patient will follow-up with Dr. Padron in the outpatient setting upon discharge. Patient is to follow-up with cardiology as well as endocrine in the outpatient setting in 1 week patient will also have home care arranged. Patient is being sent home on insulins and recommend close monitoring and diabetes education. Commend outpatient follow-up with Dr. De Paz. Recommend repeat labs in 2-3 days. Total time taken is greater than 35 minutes. Hospital course This is a 61-year-old male who was recently admitted with hypertensive urgency with falls and accelerated hypertension and was being closely monitored. Patient also found to have an elevated lactic acid and acute rhabdo on admission which improved after IV hydration. Patient also underwent neurological workup which was negative. Hemoglobin A1c was found to be 11.2 with poorly controlled diabetes and will be started on insulins and recommend close outpatient follow up with endocrine along with primary care provider and Homecare in the outpatient setting. Patient was evaluated by physical therapy and significantly improved and would not qualify for subacute rehab. Patient will need close d iabetes management and recommend outpatient referral to dietitian and software educator. Blood pressures elevated and adjustments have been made and patient will follow-up closely with cardiology in the outpatient setting. Patient continues to request to go home. Currently no reports of chest pain, shortness of breath, or palpitations. Patient is afebrile. No reports of nausea or vomiting and patient is tolerating diet. Patient will be discharged home today. Guarded prognosis as patient is high risk for readmissions due to noncompliance with medications. On exam vital signs are stable. Cardio S1, S2 are muffled. Respiratory system shows diminished breath sounds at the bases with no wheezing or rhonchi noted. Abdomen is soft and nontender. Nervous system shows no focal deficits. Please refer to medication reconciliation sheet for a list of medications. The impression and plan of care has been dictated by Sara Fleming, Nurse Practitioner as directed. Dr. Michael MD I have performed a history and examination and MDM of this patient, discussed the same with the dictator, and agree with the dictator's assessment and plan as written ,documented as a scribe. Based on total visit time, I have performed more than 50% of the visit. Patient Condition at Discharge: Fair Plan - Discharge Summary Discharge Rx Participant: No New Discharge Prescriptions: New Aspirin 81 mg PO DAILY 30 Days #30 tab Chlorthalidone [Hygroton] 25 mg PO DAILY #30 tab Insulin Detemir (Levemir) [Levemir] 10 unit SQ DAILY@0700 30 Days #3 each Fenofibrate [Lofibra] 54 mg PO DAILY #30 tab Cyanocobalamin [Vitamin B-12] 1,000 mcg PO DAILY #60 tab Folic Acid 1 mg PO DAILY #30 tab Atorvastatin [Lipitor] 40 mg PO DAILY #30 tab Metoprolol Tartrate [Lopressor] 50 mg PO BID #60 tab INSULIN ASPART (NovoLOG) [NovoLOG (formulary)] 5 unit SQ ACHS 30 Days #5 each lisinopriL [Zestril] 20 mg PO BID #60 tab Continue amLODIPine [Norvasc] 10 mg PO DAILY Loratadine 10 mg PO DAILY Discontinued hydroCHLOROthiazide [Hydrodiuril] 12.5 mg PO DAILY Discharge Medication List Loratadine 10 mg PO DAILY 09/30/21 [History] amLODIPine [Norvasc] 10 mg PO DAILY 09/30/21 [History] Aspirin 81 mg PO DAILY 30 Days #30 tab 10/05/21 [Rx] Atorvastatin [Lipitor] 40 mg PO DAILY #30 tab 10/05/21 [Rx] Chlorthalidone [Hygroton] 25 mg PO DAILY #30 tab 10/05/21 [Rx] Cyanocobalamin [Vitamin B-12] 1,000 mcg PO DAILY #60 tab 10/05/21 [Rx] Fenofibrate [Lofibra] 54 mg PO DAILY #30 tab 10/05/21 [Rx] Folic Acid 1 mg PO DAILY #30 tab 10/05/21 [Rx] INSULIN ASPART (NovoLOG) [NovoLOG (formulary)] 5 unit SQ ACHS 30 Days #5 each 10/05/21 [Rx] Insulin Detemir (Levemir) [Levemir] 10 unit SQ DAILY@0700 30 Days #3 each 10/05/21 [Rx] Metoprolol Tartrate [Lopressor] 50 mg PO BID #60 tab 10/05/21 [Rx] lisinopriL [Zestril] 20 mg PO BID #60 tab 10/05/21 [Rx] Follow up Appointment(s)/Referral(s): Carlos Padron MD [Primary Care Provider] - 10/08/21 1:30 pm (TUESDAY) Dioni Flores MD [STAFF PHYSICIAN] - 2 Weeks (Offices will call with an appointment date and time.) Billy De Paz MD [REFERRING] - 1 Week (Get a referral from your Primary Care Provider) Ambulatory/Diagnostic Orders: Basic Metabolic Panel [LAB.AMB] Time Frame: 3 Days, Location: None Selected Patient Instructions/Handouts: Hypertensive Crisis (DC), Hypertension and D iabetes (DC) Activity/Diet/Wound Care/Special Instructions: [place] [address] [facility] [place] [address] Activity Limited until follow-up Follow-up with cardiology outpatient Follow-up with endocrine Follow-up with primary care provider on discharge Follow heart healthy consistent carb diet Continue closely monitoring Accu-Cheks before meals and at bedtime and keep a diary for primary care follow-up NovoLog sliding scale 0-150 equals 0 units 151-200 equals 2 units 201-250 equals 4 units 251-300 equals 6 units 301-350 equals 8 units 351-400 equals 10 units Please notify provider if blood sugar is 400 or above Repeat labs in 2-3 days Continue with home care Discharge Disposition: HOME WITH HOME HEALTH SERVICES
== END 2021-10-05 15:44 | disposition home health service (06) | DRG 305 ==
LOC: EC 03:44 → 3SCARD 09:21
PROVIDERS: ADMIT Hospitalist; ATTEND Hospitalist
DX: I16.0 Hypertensive urgency (principal); E87.1 Hypo-osmolality and hyponatremia; E87.2 Acidosis; I67.4 Hypertensive encephalopathy; M62.82 Rhabdomyolysis; R77.8 Other specified abnormalities of plasma proteins; R79.1 Abnormal coagulation profile; E11.65 Type 2 diabetes mellitus with hyperglycemia; R00.0 Tachycardia, unspecified; E78.5 Hyperlipidemia, unspecified; F43.20 Adjustment disorder, unspecified; R50.9 Fever, unspecified; E83.42 Hypomagnesemia; E86.0 Dehydration; I11.9 Hypertensive heart disease without heart failure; W18.30XA Fall on same level, unspecified, initial encounter; Y92.009 Unspecified place in unspecified non-institutional (private) residence as the place of occurrence of the external cause; Z63.8 Other specified problems related to primary support group; Z79.899 Other long term (current) drug therapy; Z80.0 Family history of malignant neoplasm of digestive organs; Z91.14 Patient's other noncompliance with medication regimen; Z91.19 Patient's noncompliance with other medical treatment and regimen; Z28.311 Partially vaccinated for COVID-19; Z98.890 Other specified postprocedural states; Z60.2 Problems related to living alone
CPT/HCPCS: 36415; 70450; 71045; 78582; 80048; 80053; 80061; 80320; 81001; 82009; 82140; 82550; 82553; 82607; 82746; 83036; 83605; 83721; 83735; 84484; 85025; 85379; 85610; 85730; 87040; 93005; 93306; 93880; 96361; 96365; 96367; 99285

== ENCOUNTER 2022-02-14 14:11 | Emergency (ER) | payer MEDICARE, OTHER ==
[2022-02-14 14:39] VITALS: TEMP 97.6
[2022-02-14 14:52] LABS: Glucose,Whole Blood 180 mg/dL (70-110)
[2022-02-14 15:21] LABS: Basophils # (A) 0.1 k/uL (0-0.2); Basophils % (A) 1 %; Eosinophils # (A) 0.3 k/uL (0-0.7); Eosinophils % (A) 2 %; HCT 45.5 % (39.0-53.0); HGB 15.4 gm/dL (13.0-17.5); Lymphocytes # (A) 2.3 k/uL (1.0-4.8); Lymphocytes % (A) 17 %; MCH 29.5 pg (25.0-35.0); MCHC 33.8 g/dL (31.0-37.0); MCV 87.2 fL (80.0-100.0); Mean Platelet Volume 9.4; Monocytes # (A) 0.7 k/uL (0-1.0); Monocytes % (A) 5 %; Neutrophils # (A) 9.8 k/uL (1.3-7.7); Neutrophils % (A) 74 %; Platelet Count 294 k/uL (150-450); RBC 5.21 m/uL (4.30-5.90); RDW 13.1 % (11.5-15.5); WBC 13.3 k/uL (3.8-10.6)
[2022-02-14 15:38] LABS: INR 0.9 (<1.2); Prothrombin Time 9.8 sec (9.0-12.0)
[2022-02-14 15:44] LABS: Appearance,Urine Clear (Clear); Bilirubin,Urine Negative (Negative); Blood,Urine Small (Negative); Color,Urine Light Yellow; Glucose,Urine (UA) 3+ (Negative); Ketones,Urine Negative (Negative); Leukocyte Esterase,Urine Negative (Negative); Mucus,Urine Rare /hpf; Nitrite,Urine Negative (Negative); Protein,Urine 3+ (Negative); RBC,Urine 1 /hpf (0-5); Specific Gravity,Urine 1.012 (1.001-1.035); Urobilinogen,Urine <2.0 mg/dL (<2.0); WBC,Urine 1 /hpf (0-5)
[2022-02-14 15:48] LABS: Albumin 3.8 g/dL (3.5-5.0); Calcium 9.1 mg/dL (8.4-10.2); Potassium 4.7 mmol/L (3.5-5.1); Total Bilirubin 0.8 mg/dL (0.2-1.3); Total Protein 6.4 g/dL (6.3-8.2)
--- NOTE | 2022-02-14 15:49 | CT ---
EXAMINATION TYPE: CT brain wo con DATE OF EXAM: 02/14/2022 COMPARISON: 09/30/2021 HISTORY: weakness CT DLP: 1127.6 mGycm Automated exposure control for dose reduction was used. Images obtained of the brain with no contrast. There is cerebral cortical atrophy. There is no mass effect or midline shift. No sign of intracranial hemorrhage. Calvarium is intact. Skull base is intact. IMPRESSION: Mild atrophy. No acute intracranial abnormality. No change.
--- NOTE | 2022-02-14 15:54 | CT ---
EXAMINATION TYPE: CT lumbar spine wo con DATE OF EXAM: 02/14/2022 COMPARISON: 02/07/2019 HISTORY: weakness, leg numbness CT DLP: 1064.4 mGycm Automated exposure control for dose reduction was used. Images obtained from the level of T12-S2 vertebra with no contrast. The lumbar vertebra have normal alignment. There is no lumbar paraspinal mass. The posterior elements are intact. Facet joints are intact. There is no compression fracture. Disc spaces are fairly normal . There is some ligament thickening and lateral recess stenosis which is mild at L4-5. There is a mil d posterior disc bulging at L4-5 and L5-S1. The sacroiliac joints appear intact. IMPRESSION: Mild posterior disc bulging at L4-5 and L5-S1. No significant spinal stenosis. There is some mild lat eral recess stenosis at L4-5. There is some narrowing of the left side L4-5 neural foramen due to torie e mild facet arthropathy and ligament thickening.
[2022-02-14] MEDS ORDERED: methocarbamoL 750 MG TAB PO STA (17:06)
[2022-02-14] MEDS ORDERED: methylPREDNISolone SOD SUCCI 125 MG/2 ML VIAL IV STA (17:06)
[2022-02-14] MEDS ORDERED: LABETALOL 5 MG/ML VIAL MDV IVP STA (17:06)
--- NOTE | 2022-02-14 17:19 | ED ---
General Adult HPI - General Chief complaint: Neuro Symptoms/Deficit Stated complaint: left leg numb, possible stroke Time Seen by Provider: 02/14/22 14:35 Source: patient Mode of arrival: ambulatory Limitations: no limitations - History of Present Illness Initial comments: 61-year-old male with past medical history of hypertension and diabetes presents the emergency department with reported left leg pain. States her the past 2 days he has had left leg pain and numbness with ambulation. States the pain starts in his low back and radiates into the left leg. Pain is better with rest. Denies any trauma. No numbness, tingling or weakness in his upper extremity. No speech difficulties. Denies headaches. No history of CVA. He denies any chest pain or shortness of breath. Patient does arrive extremely hypertensive. States he has not taken his blood pressure medications today. He is not taking any pain medications for his leg pain. Denies any saddle anesthesia. No bowel or bladder incontinence. No other alleviating, precipitating or modifying factors - Related Data Home Medications Medication Instructions Recorded Confirmed Aspirin 81 mg PO HS 02/14/22 02/18/22 Atorvastatin [Lipitor] 40 mg PO HS 02/14/22 02/18/22 Dapagliflozin Propanediol [Farxiga] 10 mg PO DAILY 02/14/22 02/18/22 INSULIN ASPART (NovoLOG) [NovoLOG 10 unit SQ BID 02/14/22 02/18/22 (formulary)] lisinopriL [Zestril] 20 mg PO DAILY 02/14/22 02/18/22 Previous Rx's Medication Instructions Recorded Metoprolol Tartrate [Lopressor] 50 mg PO BID #60 tab 10/05/21 methocarbamoL [Robaxin-750] 750 mg PO QID #30 tab 02/14/22 predniSONE [Deltasone] 20 mg PO BID #10 tab 02/14/22 Allergies Allergy/AdvReac Type Severity Reaction Status Date / Time No Known Allergies Allergy Verified 02/18/22 07:21 Review of Systems ROS Statement: Those systems with pertinent positive or pertinent negative responses have been documented in the HPI. ROS Other: All systems not noted in ROS Statement are negative. Past Medical History Past Medical History: Diabetes Mellitus, Hypertension Additional Past Medical History / Comment(s): NIDDM type II, hemorrhoids, diverticulitis, chronic sinus problems, L knee "gives out" on occasion. History of Any Multi-Drug Resistant Organisms: None Reported Past Surgical History: Hernia Repair Additional Past Surgical History / Comment(s): R inguinal hernia repair, multiple myringotomies/tubes, circumcism, Past Anesthesia/Blood Transfusion Reactions: No Reported Reaction Past Psychological History: No Psychological Hx Reported Smoking Status: Never smoker Past Alcohol Use History: None Reported Past Drug Use History: None Reported - Past Family History Mother Family Medical History: Cancer Additional Family Medical History / Comment(s): colon cancer. Father Family Medical History: Cancer Additional Family Medical History / Comment(s): colon cancer. General Exam Limitations: no limitations General appearance: alert, in no apparent distress Head exam: Present: atraumatic, normocephalic, normal inspection Eye exam: Present: normal appearance, PERRL, EOMI. Absent: scleral icterus, conjunctival injection, periorbital swelling ENT exam: Present: normal exam, mucous membranes moist Neck exam: Present: normal inspection. Absent: tenderness, meningismus, lymphadenopathy Respiratory exam: Present: normal lung sounds bilaterally. Absent: respiratory distress, wheezes, rales, rhonchi, stridor Cardiovascular Exam: Present: regular rate, normal rhythm, normal heart sounds. Absent: systolic murmur, diastolic murmur, rubs, gallop, clicks GI/Abdominal exam: Present: soft, normal bowel sounds. Absent: distended, tenderness, guarding, rebound, rigid Extremities exam: Present: normal inspection, full ROM, normal capillary refill, other (5 out of 5 muscle strength bilateral lower extremities). Absent: tenderness, pedal edema, joint swelling, calf tenderness Back exam: Present: normal inspection, other (Tenderness left SI joint) Neurological exam: Present: alert, oriented X3, CN II-XII intact Psychiatric exam: Present: normal affect, normal mood Skin exam: Present: warm, dry, intact, normal color. Absent: rash Course Vital Signs 02/14/22 02/14/22 02/14/22 14:37 15:01 15:04 Temperature 97.6 F Pulse Rate 102 H 99 99 Respiratory 16 24 24 Rate Blood Pressure 216/106 205/102 O2 Sat by Pulse 97 98 98 Oximetry 02/14/22 02/14/22 02/14/22 15:30 16:00 16:30 Temperature Pulse Rate 90 89 Respiratory 15 24 Rate Blood Pressure 205/102 210/107 O2 Sat by Pulse 98 97 Oximetry 02/14/22 02/14/22 02/14/22 17:00 17:05 17:30 Temperature Pulse Rate 87 90 Respiratory 23 18 23 Rate Blood Pressure 211/104 232/118 232/118 O2 Sat by Pulse 97 99 Oximetry 02/14/22 02/14/22 18:00 18:30 Temperature Pulse Rate 98 94 Respiratory 21 23 Rate Blood Pressure 206/97 189/115 O2 Sat by Pulse Oximetry EKG Findings - EKG Comments: EKG Findings:: EKG demonstrates a sinus tachycardia with a rate of 104. CT interval 128. QRS 104. QTC of 401. No acute ST segment elevations or depressions Medical Decision Making - Medical Decision Making Upon arrival patient was placed in a trauma 4. Thorough history and physical exam is performed. IV access established laboratory studies were conducted and reviewed. Patient is taken for a CT of his head due to hypertension with left leg numbness. CT is also performed and lumbar spine. Brain CT demonstrates mild atrophy with no acute abnormality. Lumbar CT demonstrates mild posterior disc bulge at L4-5 and L5-L1. Some narrowing on the left side at L4-L5. Patient has no signs of cauda equina. He was given 125 of Solu-Medrol and 750 mg of Robaxin. Blood pressures treated with 20 mg of labetalol. Patient does have improvement in his blood pressure. At this time he will be discharged home and instructed to take his blood pressure medications as directed. Keep a bp log and follow up with his primary care doctor for further medication adjustments. He'll be discharged home on muscle relaxers and steroids. He is given follow-up information for the orthopedic spine surgeon. If he has any new or worsening symptoms he needs return to the emergency department. Patient was agreeable to treatment plan and was discharged home ambulatory in stable condition - Lab Data Result diagrams: 02/14/22 15:11 02/14/22 15:11 Lab Results 02/14/22 02/14/22 02/14/22 Range/Units 14:50 15:11 15:11 WBC 13.3 H (3.8-10.6) k/uL RBC 5.21 (4.30-5.90) m/uL Hgb 15.4 (13.0-17.5) gm/dL Hct 45.5 (39.0-53.0) % MCV 87.2 (80.0-100.0) fL MCH 29.5 (25.0-35.0) pg MCHC 33.8 (31.0-37.0) g/dL RDW 13.1 (11.5-15.5) % Plt Count 294 (150-450) k/uL MPV 9.4 Neutrophils % 74 % Lymphocytes % 17 % Monocytes % 5 % Eosinophils % 2 % Basophils % 1 % Neutrophils # 9.8 H (1.3-7.7) k/uL Lymphocytes # 2.3 (1.0-4.8) k/uL Monocytes # 0.7 (0-1.0) k/uL Eosinophils # 0.3 (0-0.7) k/uL Basophils # 0.1 (0-0.2) k/uL PT 9.8 (9.0-12.0) sec INR 0.9 (<1.2) APTT 24.0 (22.0-30.0) sec Sodium (137-145) mmol/L Potassium (3.5-5.1) mmol/L Chloride (98-107) mmol/L Carbon Dioxide (22-30) mmol/L Anion Gap mmol/L BUN (9-20) mg/dL Creatinine (0.66-1.25) mg/dL Est GFR (CKD-EPI)AfAm (>60 ml/min/1.73 sqM) Est GFR (CKD-EPI)NonAf (>60 ml/min/1.73 sqM) Glucose (74-99) mg/dL POC Glucose (mg/dL) 180 H (70-110) mg/dL POC Glu Concessions Manager ID [place] Calcium (8.4-10.2) mg/dL Total Bilirubin (0.2-1.3) mg/dL AST (17-59) U/L ALT (4-49) U/L Alkaline Phosphatase (38-126) U/L Troponin I (0.000-0.034) ng/mL Total Protein (6.3-8.2) g/dL Albumin (3.5-5.0) g/dL Urine Color Urine Appearance (Clear) Urine pH (5.0-8.0) Ur Specific [place] (1.001-1.035) Urine Protein (Negative) Urine Glucose (UA) (Negative) Urine Ketones (Negative) Urine Blood (Negative) Urine Nitrite (Negative) Urine Bilirubin (Negative) Urine Urobilinogen (<2.0) mg/dL Ur Leukocyte Esterase (Negative) Urine RBC (0-5) /hpf Urine WBC (0-5) /hpf Urine Mucus (None) /hpf 02/14/22 02/14/22 02/14/22 Range/Units 15:11 15:11 15:11 WBC (3.8-10.6) k/uL RBC (4.30-5.90) m/uL Hgb (13.0-17.5) gm/dL Hct (39.0-53.0) % MCV (80.0-100.0) fL MCH (25.0-35.0) pg MCHC (31.0-37.0) g/dL RDW (11.5-15.5) % Plt Count (150-450) k/uL MPV Neutrophils % % Lymphocytes % % Monocytes % % Eosinophils % % Basophils % % Neutrophils # (1.3-7.7) k/uL Lymphocytes # (1.0-4.8) k/uL Monocytes # (0-1.0) k/uL Eosinophils # (0-0.7) k/uL Basophils # (0-0.2) k/uL PT (9.0-12.0) sec INR (<1.2) APTT (22.0-30.0) sec Sodium 133 L (137-145) mmol/L Potassium 4.7 (3.5-5.1) mmol/L Chloride 101 (98-107) mmol/L Carbon Dioxide 19 L (22-30) mmol/L Anion Gap 13 mmol/L BUN 23 H (9-20) mg/dL Creatinine 1.32 H (0.66-1.25) mg/dL Est GFR (CKD-EPI)AfAm 68 (>60 ml/min/1.73 sqM) Est GFR (CKD-EPI)NonAf 59 (>60 ml/min/1.73 sqM) Glucose 198 H (74-99) mg/dL POC Glucose (mg/dL) (70-110) mg/dL POC Glu Concessions Manager ID Calcium 9.1 (8.4-10.2) mg/dL Total Bilirubin 0.8 (0.2-1.3) mg/dL AST 25 (17-59) U/L ALT 26 (4-49) U/L Alkaline Phosphatase 86 (38-126) U/L Troponin I <0.012 (0.000-0.034) ng/mL Total Protein 6.4 (6.3-8.2) g/dL Albumin 3.8 (3.5-5.0) g/dL Urine Color Light Yellow Urine Appearance Clear (Clear) Urine pH 6.0 (5.0-8.0) Ur Specific [place] 1.012 (1.001-1.035) Urine Protein 3+ H (Negative) Urine Glucose (UA) 3+ H (Negative) Urine Ketones Negative (Negative) Urine Blood Small H (Negative) Urine Nitrite Negative (Negative) Urine Bilirubin Negative (Negative) Urine Urobilinogen <2.0 (<2.0) mg/dL Ur Leukocyte Esterase Negative (Negative) Urine RBC 1 (0-5) /hpf Urine WBC 1 (0-5) /hpf Urine Mucus Rare H (None) /hpf Disposition Clinical Impression: Lumbar radiculopathy, Hypertension Disposition: HOME SELF-CARE Condition: Stable Instructions (If sedation given, give patient instructions): Lumbar Radiculopathy (ED) Additional Instructions: Please continue taking your blood pressure medications as directed. Follow up with your primary care doctor to ensure that your blood pressure is been adequately controlled on the medications that you are taking. Take the steroids and muscle relaxers for your back pain and follow up with the orthopedic doctor for further treatment. Return for any new or worsening symptoms Prescriptions: predniSONE [Deltasone] 20 mg PO BID #10 tab methocarbamoL [Robaxin-750] 750 mg PO QID #30 tab Is patient prescribed a controlled substance at d/c from ED?: No Referrals: Carlos Padron MD [Primary Care Provider] - 1-2 days Obi Tam DO [Doctor of Osteopathic Medicine] - 1-2 days Time of Disposition: 18:16
[2022-02-14 18:40] VITALS: BP 189/115; PULSE 94; RESP 23
== END 2022-02-14 18:42 | disposition home or self-care (01) ==
LOC: EC 14:11
DX: M54.16 Radiculopathy, lumbar region (principal); E11.9 Type 2 diabetes mellitus without complications; I10 Essential (primary) hypertension; Z79.4 Long term (current) use of insulin
CPT/HCPCS: 36415; 93005; 80053; 84484; 85025; 85610; 85730; 81001; 72131; 70450; 99284; 96374; 96375; J2930

== ENCOUNTER 2022-02-17 19:59 | Inpatient (IN) | payer MEDICARE, OTHER ==
[2022-02-17] MEDS ORDERED: hydrALAZINE HCL 20 MG/ML 1 ML VIAL IVP STA (20:16)
--- NOTE | 2022-02-17 20:36 | ED ---
General Adult HPI - General Chief complaint: Back Pain/Injury Stated complaint: lower back pain Time Seen by Provider: 02/17/22 20:00 Source: patient, EMS, RN notes reviewed Mode of arrival: EMS Limitations: no limitations - History of Present Illness Initial comments: This is a pleasant 61-year-old male with a history of diabetes mellitus which is insulin controlled and hypertension. Patient states that he is having problems with recurrent low back pain only walk about 50 feet. Patient states after about 25 feet is getting pain in the left leg which makes him stop. He states that then goes away. patient states it started about one month ago when he fell. Patient was seen here on Tuesday and had a computed tomography scan of his brain and of his lower back. additionally, patient is also complaining of urinary incontinence which starts at night. Some mild constipation. He denies any numbness or tingling in the saddle region. There is been no subsequent trauma since the initial fall over one month ago. Patient noted be hypertensive on arrival. He states he's been taking his blood pressure medication. Patient admits to not taking his insulin because he "I didn't think I needed it. " No headache, no fever or chills, no changes in vision or hearing, no sore throat or difficulty with speech, no neck pain, no chest pain or shortness of breath, no abdominal pain, no nausea or vomiting,no skin rashes or lesions. Past medical, surgical, social, and family history reviewed. Interestingly, patient is complaining of some intermittent pain to the left arm which has been going on for many days as well. - Related Data Home Medications Medication Instructions Recorded Confirmed Aspirin 81 mg PO HS 02/14/22 02/14/22 Atorvastatin [Lipitor] 40 mg PO HS 02/14/22 02/14/22 Dapagliflozin Propanediol [Farxiga] 10 mg PO DAILY 02/14/22 02/14/22 INSULIN ASPART (NovoLOG) [NovoLOG 10 unit SQ BID 02/14/22 02/14/22 (formulary)] lisinopriL [Zestril] 20 mg PO DAILY 02/14/22 02/14/22 Previous Rx's Medication Instructions Recorded Metoprolol Tartrate [Lopressor] 50 mg PO BID #60 tab 10/05/21 methocarbamoL [Robaxin-750] 750 mg PO QID #30 tab 02/14/22 predniSONE [Deltasone] 20 mg PO BID #10 tab 02/14/22 Allergies Allergy/AdvReac Type Severity Reaction Status Date / Time No Known Allergies Allergy Verified 02/14/22 18:23 Review of Systems ROS Statement: Those systems with pertinent positive or pertinent negative responses have been documented in the HPI. ROS Other: All systems not noted in ROS Statement are negative. Past Medical History Past Medical History: Diabetes Mellitus, Hypertension Additional Past Medical History / Comment(s): NIDDM type II, hemorrhoids, div erticulitis, chronic sinus problems, L knee "gives out" on occasion. History of Any Multi-Drug Resistant Organisms: None Reported Past Surgical History: Hernia Repair Additional Past Surgical History / Comment(s): R inguinal hernia repair, multiple myringotomies/tubes, circumcism, Past Anesthesia/Blood Transfusion Reactions: No Reported Reaction Past Psychological History: No Psychological Hx Reported Smoking Status: Never smoker Past Alcohol Use History: None Reported Past Drug Use History: None Reported - Past Family History Mother Family Medical History: Cancer Additional Family Medical History / Comment(s): colon cancer. Father Family Medical History: Cancer Additional Family Medical History / Comment(s): colon cancer. General Exam - General Exam Comments Initial Comments: Patient presents by EMS. Does not appear to be in any significant distress. Does not appear to be ill or toxic. Vital signs noted. Patient very hypertensive on arrival with blood pressures in excess of 220/110. Limitations: no limitations General appearance: alert, in no apparent distress Head exam: Present: atraumatic, normocephalic, normal inspection Eye exam: Present: normal appearance, PERRL, EOMI. Absent: scleral icterus, conjunctival injection, periorbital swelling ENT exam: Present: normal exam, mucous membranes moist Neck exam: Present: normal inspection, full ROM. Absent: tenderness, meningismus, lymphadenopathy Respiratory exam: Present: normal lung sounds bilaterally, chest wall tenderness. Absent: respiratory distress, wheezes, rales, rhonchi, stridor, accessory muscle use, decreased breath sounds, prolonged expiratory Cardiovascular Exam: Present: regular rate, normal rhythm, normal heart sounds. Absent: systolic murmur, diastolic murmur, rubs, gallop, clicks GI/Abdominal exam: Present: soft, normal bowel sounds. Absent: distended, tenderness, guarding, rebound, rigid Rectal exam: Present: normal inspection (Saddle region was assessed with light touch and pinprick. Sensation intact.), normal rectal tone, other (Note the patient has some overlying erythema with no break in skin integrity on the sacral area.). Absent: decreased rectal tone exam: Present: normal inspection. Absent: testicular tenderness, urethral discharge, scrotal swelling Extremities exam: Present: normal inspection, full ROM, normal capillary refill, other (Patient has good dorsalis pedis pulses and palpable posterior tibial pulses bilaterally. There is no evidence of infectious process. No erythema. No calf tenderness. No palpable cord.). Absent: tenderness, pedal edema, joint swelling, calf tenderness Back exam: Present: normal inspection. Absent: tenderness, CVA tenderness (R), CVA tenderness (L), paraspinal tenderness, vertebral tenderness, rash noted Neurological exam: Present: alert, oriented X3, CN II-XII intact, other (Straight leg raise is negative bilaterally.). Absent: motor sensory deficit Psychiatric exam: Present: normal affect, normal mood Skin exam: Present: warm, dry, intact, normal color. Absent: rash Course Vital Signs 02/17/22 02/17/22 02/17/22 20:03 22:50 23:27 Temperature 98.2 F Pulse Rate 98 91 Respiratory 18 18 18 Rate Blood Pressure 228/133 202/123 176/88 O2 Sat by Pulse 98 98 98 Oximetry - Reevaluation(s) Reevaluation #1: 02/17/22 22:15 Medical record is reviewed Symptoms are unchanged, patient has 269 mL of urine postvoid residual bladder scan. We will do a definitive Villavicencio catheter to check for retention as the patient is incontinent of urine. Patient in no distress Reevaluation #2: 02/17/22 22:53 Medical record is reviewed Symptoms are improved here in the emergency department Patient still hypertensive. In excess of 220/120. Labetalol ordered. - Consultations Consultation #1: Case discussed with Dr. Peacock from [facility]. Patient was given labetalol. Subsequent blood pressures were 176/88 and currently 196/102 at 11:30 PM. We'll monitor and intervene. Consultation #2: Case discussed with the on-call orthopedic physician and back specialist, Dr. Rodrigues who recommends an MRI in the morning plus an additional dose of corticosteroids even though the patient has been on and is on 40 per day. Under 125 mg of Solu-Medrol at his request. MRI of the lumbar spine in the morning. EKG Findings - EKG Comments: EKG Findings:: EKG done at 2050 and read by the ED attending physician reveals sinus rhythm with a rate of 87. Left axis deviation. Normal intervals. No acute ST or T-wave changes. Normal QRS morphology. Assessment pulmonary disease. Compared to previous study from 14 February there is no significant change. Medical Decision Making - Medical Decision Making patient presents again with low back pain radiating into the left leg. He states it is not really a problematic unless he gets up and walks for quite some time. Patient states he fell over one month ago. Was seen here on Tuesday and had a CT of the brain which did not show any acute findings. He also had a computed tomography scan of the lumbar spine which showed degenerative changes and disc bulging patient states they wanted to keep him in the hospital on Tuesday but he insisted on going home. Patient also very hypertensive on presentation today. Patient has had a blood sugar in excess of 400 per EMS. No chest pain or shortness of breath. Presentation does raise suspicion about multiple etiologies, to include vascular etiology. Will order an aortogram. Rostral bladder scan has patient has had urinary incontinence. However the patient had good rectal tone and no evidence of saddle anesthesia. The. Patient also states he felt like he had a fever yesterday. Infectious etiology possible. Case was discussed with Dr. shaikh from [facility] group. Awaiting call from the back specialist, Dr. Rodrigues. the patient is already on prednisone 40 mg daily from Tuesday. - Lab Data Result diagrams: 02/17/22 20:52 02/17/22 20:52 Lab Results 02/17/22 02/17/22 02/17/22 Range/Units 20:47 20:52 20:52 WBC 12.8 H (3.8-10.6) k/uL RBC 5.66 (4.30-5.90) m/uL Hgb 16.0 (13.0-17.5) gm/dL Hct 49.7 (39.0-53.0) % MCV 87.8 (80.0-100.0) fL MCH 28.3 (25.0-35.0) pg MCHC 32.2 (31.0-37.0) g/dL RDW 12.9 (11.5-15.5) % Plt Count 283 (150-450) k/uL MPV 9.2 Neutrophils % 86 % Lymphocytes % 8 % Monocytes % 4 % Eosinophils % 1 % Basophils % 0 % Neutrophils # 11.1 H (1.3-7.7) k/uL Lymphocytes # 1.1 (1.0-4.8) k/uL Monocytes # 0.5 (0-1.0) k/uL Eosinophils # 0.1 (0-0.7) k/uL Basophils # 0.0 (0-0.2) k/uL ESR 4 (0-15) mm/hr PT 10.5 (9.0-12.0) sec INR 1.0 (<1.2) VBG pH (7.31-7.41) VBG pCO2 (37-51) mmHg VBG HCO3 (24-28) mmol/L Sodium (137-145) mmol/L Potassium (3.5-5.1) mmol/L Chloride (98-107) mmol/L Carbon Dioxide (22-30) mmol/L Anion Gap mmol/L BUN (9-20) mg/dL Creatinine (0.66-1.25) mg/dL Est GFR (CKD-EPI)AfAm (>60 ml/min/1.73 sqM) Est GFR (CKD-EPI)NonAf (>60 ml/min/1.73 sqM) Glucose (74-99) mg/dL Plasma Lactic Acid Wes (0.7-2.0) mmol/L Calcium (8.4-10.2) mg/dL Magnesium (1.6-2.3) mg/dL Total Bilirubin (0.2-1.3) mg/dL AST (17-59) U/L ALT (4-49) U/L Alkaline Phosphatase (38-126) U/L Troponin I (0.000-0.034) ng/mL C-Reactive Protein (<1.0) mg/dL Total Protein (6.3-8.2) g/dL Albumin (3.5-5.0) g/dL Lipase (23-300) U/L Urine Color Urine Appearance (Clear) Urine pH (5.0-8.0) Ur Specific Bee (1.001-1.035) Urine Protein (Negative) Urine Glucose (UA) (Negative) Urine Ketones (Negative) Urine Blood (Negative) Urine Nitrite (Negative) Urine Bilirubin (Negative) Urine Urobilinogen (<2.0) mg/dL Ur Leukocyte Esterase (Negative) Urine RBC (0-5) /hpf Stool Occult Blood Negative (Negative) Acetone, Qual (Negative) 02/17/22 02/17/22 02/17/22 Range/Units 20:52 20:52 20:52 WBC (3.8-10.6) k/uL RBC (4.30-5.90) m/uL Hgb (13.0-17.5) gm/dL Hct (39.0-53.0) % MCV (80.0-100.0) fL MCH (25.0-35.0) pg MCHC (31.0-37.0) g/dL RDW (11.5-15.5) % Plt Count (150-450) k/uL MPV Neutrophils % % Lymphocytes % % Monocytes % % Eosinophils % % Basophils % % Neutrophils # (1.3-7.7) k/uL Lymphocytes # (1.0-4.8) k/uL Monocytes # (0-1.0) k/uL Eosinophils # (0-0.7) k/uL Basophils # (0-0.2) k/uL ESR (0-15) mm/hr PT (9.0-12.0) sec INR (<1.2) VBG pH 7.41 (7.31-7.41) VBG pCO2 32 L (37-51) mmHg VBG HCO3 20 L (24-28) mmol/L Sodium 132 L (137-145) mmol/L Potassium 5.0 (3.5-5.1) mmol/L Chloride 100 (98-107) mmol/L Carbon Dioxide 19 L (22-30) mmol/L Anion Gap 13 mmol/L BUN 54 H (9-20) mg/dL Creatinine 1.52 H (0.66-1.25) mg/dL Est GFR (CKD-EPI)AfAm 58 (>60 ml/min/1.73 sqM) Est GFR (CKD-EPI)NonAf 50 (>60 ml/min/1.73 sqM) Glucose 347 H (74-99) mg/dL Plasma Lactic Acid Wes 1.9 (0.7-2.0) mmol/L Calcium 9.5 (8.4-10.2) mg/dL Magnesium 2.0 (1.6-2.3) mg/dL Total Bilirubin 1.0 (0.2-1.3) mg/dL AST 25 (17-59) U/L ALT 25 (4-49) U/L Alkaline Phosphatase 116 (38-126) U/L Troponin I (0.000-0.034) ng/mL C-Reactive Protein <0.5 (<1.0) mg/dL Total Protein 6.4 (6.3-8.2) g/dL Albumin 3.9 (3.5-5.0) g/dL Lipase 99 (23-300) U/L Urine Color Urine Appearance (Clear) Urine pH (5.0-8.0) Ur Specific Bee (1.001-1.035) Urine Protein (Negative) Urine Glucose (UA) (Negative) Urine Ketones (Negative) Urine Blood (Negative) Urine Nitrite (Negative) Urine Bilirubin (Negative) Urine Urobilinogen (<2.0) mg/dL Ur Leukocyte Esterase (Negative) Urine RBC (0-5) /hpf Stool Occult Blood (Negative) Acetone, Qual Negative (Negative) 02/17/22 02/17/22 Range/Units 20:52 21:04 WBC (3.8-10.6) k/uL RBC (4.30-5.90) m/uL Hgb (13.0-17.5) gm/dL Hct (39.0-53.0) % MCV (80.0-100.0) fL MCH (25.0-35.0) pg MCHC (31.0-37.0) g/dL RDW (11.5-15.5) % Plt Count (150-450) k/uL MPV Neutrophils % % Lymphocytes % % Monocytes % % Eosinophils % % Basophils % % Neutrophils # (1.3-7.7) k/uL Lymphocytes # (1.0-4.8) k/uL Monocytes # (0-1.0) k/uL Eosinophils # (0-0.7) k/uL Basophils # (0-0.2) k/uL ESR (0-15) mm/hr PT (9.0-12.0) sec INR (<1.2) VBG pH (7.31-7.41) VBG pCO2 (37-51) mmHg VBG HCO3 (24-28) mmol/L Sodium (137-145) mmol/L Potassium (3.5-5.1) mmol/L Chloride (98-107) mmol/L Carbon Dioxide (22-30) mmol/L Anion Gap mmol/L BUN (9-20) mg/dL Creatinine (0.66-1.25) mg/dL Est GFR (CKD-EPI)AfAm (>60 ml/min/1.73 sqM) Est GFR (CKD-EPI)NonAf (>60 ml/min/1.73 sqM) Glucose (74-99) mg/dL Plasma Lactic Acid Wes (0.7-2.0) mmol/L Calcium (8.4-10.2) mg/dL Magnesium (1.6-2.3) mg/dL Total Bilirubin (0.2-1.3) mg/dL AST (17-59) U/L ALT (4-49) U/L Alkaline Phosphatase (38-126) U/L Troponin I <0.012 (0.000-0.034) ng/mL C-Reactive Protein (<1.0) mg/dL Total Protein (6.3-8.2) g/dL Albumin (3.5-5.0) g/dL Lipase (23-300) U/L Urine Color Colorless Urine Appearance Clear (Clear) Urine pH 5.5 (5.0-8.0) Ur Specific Bee 1.022 (1.001-1.035) Urine Protein 2+ H (Negative) Urine Glucose (UA) 4+ H (Negative) Urine Ketones Negative (Negative) Urine Blood Small H (Negative) Urine Nitrite Negative (Negative) Urine Bilirubin Negative (Negative) Urine Urobilinogen <2.0 (<2.0) mg/dL Ur Leukocyte Esterase Negative (Negative) Urine RBC 1 (0-5) /hpf Stool Occult Blood (Negative) Acetone, Qual (Negative) Disposition Clinical Impression: Hypertensive urgency, Low back pain, Acute urinary retention, Lumbar radiculopathy, acute, Uncontrolled type 2 diabetes mellitus Disposition: ADMITTED IP TO THIS HOSP Is patient prescribed a controlled substance at d/c from ED?: No Referrals: Carlos Padron MD [Primary Care Provider] - 1-2 days Decision to Admit Reason: Admit from EC Decision Time: 22:55
[2022-02-17] MEDS: SODIUM CHLORIDE 0.9% 1,000 ML IV SCH (20:59)
[2022-02-17 21:01] LABS: Basophils % (A) 0 %; Eosinophils # (A) 0.1 k/uL (0-0.7); Eosinophils % (A) 1 %; HCT 49.7 % (39.0-53.0); Lymphocytes # (A) 1.1 k/uL (1.0-4.8); Lymphocytes % (A) 8 %; MCH 28.3 pg (25.0-35.0); MCHC 32.2 g/dL (31.0-37.0); MCV 87.8 fL (80.0-100.0); Mean Platelet Volume 9.2; Monocytes # (A) 0.5 k/uL (0-1.0); Monocytes % (A) 4 %; Neutrophils # (A) 11.1 k/uL (1.3-7.7); Neutrophils % (A) 86 %; Platelet Count 283 k/uL (150-450); RBC 5.66 m/uL (4.30-5.90); RDW 12.9 % (11.5-15.5); WBC 12.8 k/uL (3.8-10.6)
[2022-02-17 21:06] LABS: VBG PH 7.41 (7.31-7.41)
[2022-02-17 21:12] LABS: ALT 25 U/L (4-49); AST 25 U/L (17-59); African American GFR (CKD) 58 (>60 ml/min/1.73 sqM); Albumin 3.9 g/dL (3.5-5.0); Alkaline Phosphatase 116 U/L (38-126); Anion Gap 13 mmol/L; Blood Urea Nitrogen 54 mg/dL (9-20); C Reactive Protein <0.5 mg/dL (<1.0); Calcium 9.5 mg/dL (8.4-10.2); Carbon Dioxide 19 mmol/L (22-30); Chloride 100 mmol/L (98-107); Glucose 347 mg/dL (74-99); Lipase 99 U/L (23-300); Non-African American GFR(CKD) 50 (>60 ml/min/1.73 sqM); Sodium 132 mmol/L (137-145); Total Protein 6.4 g/dL (6.3-8.2)
[2022-02-17 21:13] LABS: Prothrombin Time 10.5 sec (9.0-12.0)
[2022-02-17 21:15] LABS: Appearance,Urine Clear (Clear); Bilirubin,Urine Negative (Negative); Blood,Urine Small (Negative); Color,Urine Colorless; Glucose,Urine (UA) 4+ (Negative); Ketones,Urine Negative (Negative); Leukocyte Esterase,Urine Negative (Negative); Nitrite,Urine Negative (Negative); PH, Urine 5.5 (5.0-8.0); Protein,Urine 2+ (Negative); RBC,Urine 1 /hpf (0-5); Specific Gravity,Urine 1.022 (1.001-1.035); Urobilinogen,Urine <2.0 mg/dL (<2.0)
[2022-02-17] MEDS ORDERED: INSULIN ASPART (NovoLOG) 100 UNIT/ML VIAL SQ ONE (22:06)
--- NOTE | 2022-02-17 22:24 | CT ---
EXAMINATION TYPE: CT angio thor/abd pel aorta DATE OF EXAM: 02/17/2022 COMPARISON: HISTORY: Back pain and hypertension CT DLP: 1570.6 mGycm Automated exposure control for dose reduction was used. CONTRAST: Performed with IV Contrast, patient injected with 80 mL of Isovue 370. Images obtained without and subsequently with IV contrast from the thoracic inlet to the floor the pe lvis. The lungs are clear of infiltrate. No pleural effusion or pneumothorax. No mediastinal adenopathy. Th ere are no hilar masses. Heart size is fairly normal. No pericardial effusion. There is no evidence o f filling defect in the pulmonary arteries. Thoracic aorta is intact. No aneurysm or dissection. The ascending aorta measures 3.7 cm. Liver spleen gallbladder appear intact. No pancreatic mass. Stomach is intact. There is no adrenal mass. Kidneys show satisfactory contrast opacification. No hydronephrosis. Ureter s are not dilated. No retroperitoneal adenopathy. Appendix is posterior and appears normal. The bladd er distends smoothly. No inguinal hernia. There are some sigmoid diverticula. No diverticulitis. There is no mesenteric edema. No ascites or free air. No signs of bowel obstruction. There are some d istended small bowel loops that could be small bowel ileus that measure up to 3 cm. There is normal contrast opacification of the abdominal aorta. There is arterial flow in the celiac a rtery and superior mesenteric artery. No stenosis. There is arterial flow in the renal and iliac and femoral arteries. No evidence of arterial aneurysm or dissection. No evidence of hemodynamic stenosis . No significant plaque formation. The thoracic and lumbar spine are intact. No compression fracture. Sternum is intact. The bony pelvis is intact. Hip joints are intact. IMPRESSION: No significant angiographic abnormality. No evidence of pulmonary embolism. There is evidence for some mild small bowel ileus which is a change compared to 02/07/2019 CT scan. Mild sigmoid diverticulosis without diverticulitis.
[2022-02-17 22:31] LABS: Erythrocyte Sedimentation Rate 4 mm/hr (0-15)
--- NOTE | 2022-02-17 22:32 | XR ---
EXAMINATION TYPE: XR abdomen acute w cxr DATE OF EXAM: 02/17/2022 COMPARISON: 03/18/2015 HISTORY: Pain TECHNIQUE: 4 views FINDINGS: Heart and mediastinum are normal. Lungs are clear. Diaphragm is normal. Bony thorax is inta ct. Bowel gas pattern is normal. No sign of intestinal obstruction or pneumoperitoneum. Fecal pattern is normal. No pathologic calcifications. IMPRESSION: Nonacute abdomen. Normal chest.
[2022-02-17] MEDS ORDERED: LABETALOL 5 MG/ML VIAL MDV IVP STA ×2 (22:52→23:34)
[2022-02-17] MEDS ORDERED: ONDANSETRON 4 MG/2 ML VIAL IVP PRN (23:09)
[2022-02-17] MEDS ORDERED: NALOXONE 0.4 MG/ML 1 ML VIAL IV PRN (23:09)
[2022-02-17] MEDS ORDERED: MORPHINE SULFATE 4 MG/ML SYRINGE IV PRN (23:09)
[2022-02-17] MEDS ORDERED: DEXTROSE 50% SYRINGE 50 ML IVP PRN ×2 (23:14)
[2022-02-17] MEDS ORDERED: methylPREDNISolone SOD SUCCI 125 MG/2 ML VIAL IV STA (23:37)
[2022-02-17] MEDS: HEPARIN SODIUM,PORCINE/PF 5,000 UNIT/0.5 ML SYRINGE SQ SCH (23:54)
[2022-02-18 00:53] LABS: Glucose,Whole Blood 290 mg/dL (70-110)
[2022-02-18] MEDS: hydrALAZINE HCL 20 MG/ML 1 ML VIAL IVP PRN (01:37)
[2022-02-18] MEDS: SODIUM CHLORIDE 0.9% 1,000 ML IV SCH ×2 (05:30→21:26)
[2022-02-18] MEDS ORDERED: amLODIPine 5 MG TAB PO SCH (07:00)
[2022-02-18 07:10] LABS: Glucose,Whole Blood 287 mg/dL (70-110)
[2022-02-18 07:41] LABS: Basophils % (A) 0 %; Eosinophils % (A) 0 %; HCT 50.6 % (39.0-53.0); HGB 16.2 gm/dL (13.0-17.5); Lymphocytes # (A) 0.7 k/uL (1.0-4.8); Lymphocytes % (A) 4 %; MCH 28.2 pg (25.0-35.0); MCHC 32.1 g/dL (31.0-37.0); Mean Platelet Volume 9.2; Monocytes # (A) 0.3 k/uL (0-1.0); Monocytes % (A) 2 %; Neutrophils # (A) 15.1 k/uL (1.3-7.7); Neutrophils % (A) 94 %; Platelet Count 277 k/uL (150-450); RBC 5.76 m/uL (4.30-5.90); WBC 16.1 k/uL (3.8-10.6)
[2022-02-18 07:58] LABS: Albumin 3.7 g/dL (3.5-5.0); Calcium 9.3 mg/dL (8.4-10.2); Magnesium 1.9 mg/dL (1.6-2.3); Potassium 4.7 mmol/L (3.5-5.1); Total Bilirubin 1.1 mg/dL (0.2-1.3); Total Protein 6.1 g/dL (6.3-8.2)
[2022-02-18] MEDS: INSULIN ASPART (NovoLOG) 100 UNIT/ML VIAL SQ SCH ×4 (08:21→21:11)
[2022-02-18] MEDS: METOPROLOL TARTRATE 50 MG TAB PO SCH ×2 (08:21→21:11)
[2022-02-18] MEDS: hydrALAZINE HCL 50 MG TAB PO SCH ×2 (08:21→21:10)
[2022-02-18] MEDS: HEPARIN SODIUM,PORCINE/PF 5,000 UNIT/0.5 ML SYRINGE SQ SCH ×2 (08:21→16:30)
[2022-02-18] MEDS ORDERED: FAMOTIDINE 20 MG/2 ML VIAL IV SCH (09:00)
--- NOTE | 2022-02-18 10:09 | P.HPIM ---
History of Present Illness This is a pleasant 51 years old male with past medical history of hypertension, hyperlipidemia and diabetes mellitus presents of back pain and left arm and leg numbness Patient states that over the last 3-4 days he was having left lower extremity numbness on walking about 25-30 feet. Also patient has been complaining of from some dysuria and low stream of urine, on admission he has acute kidney injury with creatinine 1.5, as the bladder scan of about 200-300 mL, Villavicencio catheter was placed Patient however declines back pain, no weakness in his lower extremity and no numbness while he is lying in bed. He denies chest pain or dyspnea or coughing. His been having constipation for about a year. No abdominal pain or vomiting. No headache or dizziness, no numbness or slurred speech, no weakness or blurred vision He denies smoking, alcohol or illicit drugs. His been placed on a prednisone 20 mg twice daily for the last 3-[address] Moreno, unknown reason suspected because of his back pain. Also on admission patient was hypertensive and hypoglycemic. On admission her blood pressure 231/98, currently 189/93. Afebrile, rest of vitals are stable. He has mild leukocytosis of 12.8 but is on steroids. Creatinine elevated 1.5, it was 1.3 earlier this year and before that 0.9-1.2. Rest of liver enzymes and troponin are unremarkable. Lipase is normal. Urine analysis is no suspicious of infection Occult blood stool is negative acetone is negative. EKG showi thoracic aorta angiogram ng normal sinus rhythm at [address]-T changes Thoracic aorta angiogram: No significant angiographic abnormality. No evidence of pulmonary embolism. There is evidence of some mild small bowel ileus which is a change compared to computed tomography scan. Mild diverticulosis Acute abdominal series showed nonobstructive bowel pattern Pertinent ED team Jerome he contacted Dr. lam last night recommended clemente roids and MRI of the lumbar spine which is ordered stat and pending. As discussed with orthopedic team Review of Systems Review of systems CONSTITUTIONAL: No fever, no malaise, no fatigue. HEENT: No recent visual problems or hearing problems. Denied any sore throat. CARDIOVASCULAR: No orthopnea, PND, no palpitations, no syncope. PULMONARY: No shortness of breath, no cough, no hemoptysis. GASTROINTESTINAL: No diarrhea, no nausea, no vomiting, no abdominal pain. Normoactive bowel sounds. NEUROLOGICAL: No headaches, no weakness, no numbness. HEMATOLOGICAL: Denies any bleeding or petechiae. GENITOURINARY: Denies any burning micturition, frequency, or urgency. MUSCULOSKELETAL/RHEUMATOLOGICAL: Denies any joint pain, swelling, or any muscle pain. Except what is mentioned above ENDOCRINE: Denies any polyuria or polydipsia. Past Medical History Past Medical History: Diabetes Mellitus, Hypertension Additional Past Medical History / Comment(s): NIDDM type II, hemorrhoids, diverticulitis, chronic sinus problems, L knee "gives out" on occasion. History of Any Multi-Drug Resistant Organisms: None Reported Past Surgical History: Hernia Repair Additional Past Surgical History / Comment(s): R inguinal hernia repair, multiple myringotomies/tubes, circumcism, Past Anesthesia/Blood Transfusion Reactions: No Reported Reaction Past Psychological History: No Psychological Hx Reported Additional Psychological History / Comment(s): Pt resides alone. He does not drive. He gets places by bus or rides his bike. He does not have a glucometer but wants one. He is currently diet controlled diabetic. He has a payee, Dana Trujillo. Smoking Status: Never smoker Past Alcohol Use History: None Reported Past Drug Use History: None Reported - Past Family History Mother Family Medical History: Cancer Additional Family Medical History / Comment(s): colon cancer. Father Family Medical History: Cancer Additional Family Medical History / Comment(s): colon cancer. Medications and Allergies Home Medications Medication Instructions Recorded Confirmed Type Metoprolol Tartrate [Lopressor] 50 mg PO BID #60 tab 10/05/21 02/18/22 Rx Aspirin 81 mg PO HS 02/14/22 02/18/22 History Atorvastatin [Lipitor] 40 mg PO HS 02/14/22 02/18/22 History Dapagliflozin Propanediol [Farxiga] 10 mg PO DAILY 02/14/22 02/18/22 History INSULIN ASPART (NovoLOG) [NovoLOG 10 unit SQ BID 02/14/22 02/18/22 History (formulary)] lisinopriL [Zestril] 20 mg PO DAILY 02/14/22 02/18/22 History methocarbamoL [Robaxin-750] 750 mg PO QID #30 tab 02/14/22 02/18/22 Rx predniSONE [Deltasone] 20 mg PO BID #10 tab 02/14/22 02/18/22 Rx Allergies Allergy/AdvReac Type Severity Reaction Status Date / Time No Known Allergies Allergy Verified 02/18/22 07:21 Physical Exam Vitals: Vital Signs Temp Pulse Pulse Resp BP BP Pulse Ox 02/18/22 05:47 189/93 02/18/22 02:00 98.2 F 98 16 169/89 95 02/18/22 00:54 78 16 178/90 98 02/18/22 00:20 166/87 02/18/22 00:10 187/83 02/18/22 00:00 179/112 02/17/22 23:55 179/112 02/17/22 23:27 18 176/88 98 02/17/22 22:50 91 18 202/123 98 02/17/22 20:03 98.2 F 98 18 228/133 98 Intake and Output 02/17/22 02/18/22 02/18/22 22:59 06:59 14:59 Output Total 1250 Balance -1250 Output: Urine 1250 Other: Weight 82.554 kg 82.554 kg GENERAL: The patient is alert and oriented x3, not in any acute distress. Well developed, well nourished. HEENT: Pupils are round and equally reacting to light. EOMI. No scleral icterus. No conjunctival pallor. Normocephalic, atraumatic. No pharyngeal erythema. No thyromegaly. CARDIOVASCULAR: S1 and S2 present. No murmurs, rubs, or gallops. PULMONARY: Chest is clear to auscultation, no wheezing or crackles. ABDOMEN: Soft, nontender, nondistended, normoactive bowel sounds. No palpable organomegaly. MUSCULOSKELETAL: No joint swelling or deformity. EXTREMITIES: No cyanosis, clubbing, or pedal edema. NEUROLOGICAL: Gross neurological examination did not reveal any focal deficits. SKIN: No rashes. no petechiae. Results CBC & Chem 7: 02/18/22 07:04 02/18/22 07:04 Labs: Abnormal Lab Results - Last 24 Hours (Table) 02/17/22 02/17/22 02/17/22 Range/Units 20:52 20:52 20:52 WBC 12.8 H (3.8-10.6) k/uL Neutrophils # 11.1 H (1.3-7.7) k/uL VBG pCO2 32 L (37-51) mmHg VBG HCO3 20 L (24-28) mmol/L Sodium 132 L (137-145) mmol/L Carbon Dioxide 19 L (22-30) mmol/L BUN 54 H (9-20) mg/dL Creatinine 1.52 H (0.66-1.25) mg/dL Glucose 347 H (74-99) mg/dL POC Glucose (mg/dL) (70-110) mg/dL Urine Protein (Negative) Urine Glucose (UA) (Negative) Urine Blood (Negative) 02/17/22 02/18/22 Range/Units 21:04 00:51 WBC (3.8-10.6) k/uL Neutrophils # (1.3-7.7) k/uL VBG pCO2 (37-51) mmHg VBG HCO3 (24-28) mmol/L Sodium (137-145) mmol/L Carbon Dioxide (22-30) mmol/L BUN (9-20) mg/dL Creatinine (0.66-1.25) mg/dL Glucose (74-99) mg/dL POC Glucose (mg/dL) 290 H (70-110) mg/dL Urine Protein 2+ H (Negative) Urine Glucose (UA) 4+ H (Negative) Urine Blood Small H (Negative) Thrombosis Risk Factor Assmnt - Choose All That Apply Any of the Below Risk Factors Present?: Yes Each Factor Represents 1 point: Age 41-60 years Other Risk Factors: No Other congenital or acquired thrombophilia - If yes, enter type in comment: No Thrombosis Risk Factor Assessment Total Risk Factor Score: 1 Thrombosis Risk Factor Assessment Level: Low Risk Assessment and Plan Assessment: Acute left-sided numbness with exertion Acute kidney injury possible mild urinary retention status post Villavicencio catheter, which may contribute to kidney injury Diabetes mellitus Hypertension, with urgency Hyperlipidemia Plan: This is a pleasant 61 years old male with no significant back pain. Possible diabetic neuropathy. Rule out lumbar causes Continue with pain management and gentle hydration Orthopedic consult follow-up MRI of the lumbar spine Continue with steroids monitor creatinine hold lisinopril . ID had a pleasant 50 mg twice a day and close monitoring of blood pressure Continue with his blood pressure medication lisinopril and metoprolol, add hydralazine with close monitoring of blood pressure Labs and medication were reviewed.. Continue same treatment. Continue with symptomatic treatment. Resume home medication. Monitor lytes and vitals. DVT and GI prophylaxis. Further recommendations as per clinical course of the patient DVT prophylaxis: sc heparin GI Prophylaxis: Pepcid PT/OT: Pending Prognosis is guarded
--- NOTE | 2022-02-18 10:11 | P.CNOR ---
History of Present Illness - [facility] Consult date: 02/18/22 Consult reason: low back pain History of present illness: Patient is seen and examined at bedside. Pleasant 61-year-old male with some history of adjustment disorder. He isn't complaining of some low back pain w hich is worsening over the past several months. He says he fell 2 or 3 weeks ago and has some increased pain in his low back virtually down toward his left gluteus and buttocks. He says that over the past few days he has been having great difficulty walking more than 20-30 feet reveals like his leg will give way on the left side. He says the pain is in the front and the back of his leg. He denies problems with his leg like this in the past. He says over the past 2 days has been having worsening and difficulty with his urination. He denies problems with this the past. He denies problems his right lower extremity. He denies any fevers or chills. He admits to being somewhat noncompliant with his medications in terms of his insulin but says that he has been taking his blood pressure medications. When he was in the emergency room he was found have significantly high blood pressure with hypertensive crisis. Review of Systems The patient has been on long-term disability. 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 When he is in bed he is denying any weakness or problems. He says he is not having significant pain in his back. He denies any nausea or vomiting. Denies abdominal pain. He denies any chest pain shortness breath. Past Medical History Past Medical History: Diabetes Mellitus, Hypertension Additional Past Medical History / Comment(s): NIDDM type II, hemorrhoids, diverticulitis, chronic sinus problems, L knee "gives out" on occasion. History of Any Multi-Drug Resistant Organisms: None Reported Past Surgical History: Hernia Repair Additional Past Surgical History / Comment(s): R inguinal hernia repair, multiple myringotomies/tubes, circumcism, Past Anesthesia/Blood Transfusion Reactions: No Reported Reaction Past Psychological History: No Psychological Hx Reported Additional Psychological History / Comment(s): Pt resides alone. He does not drive. He gets places by bus or rides his bike. He does not have a glucometer but wants one. He is currently diet controlled diabetic. He has a payee, Dana Pretty. Smoking Status: Never smoker Past Alcohol Use History: None Reported Past Drug Use History: None Reported - Past Family History Mother Family Medical History: Cancer Additional Family Medical History / Comment(s): colon cancer. Father Family Medical History: Cancer Additional Family Medical History / Comment(s): colon cancer. Medications and Allergies Home Medications Medication Instructions Recorded Confirmed Type Metoprolol Tartrate [Lopressor] 50 mg PO BID #60 tab 10/05/21 02/18/22 Rx Aspirin 81 mg PO HS 02/14/22 02/18/22 History Atorvastatin [Lipitor] 40 mg PO HS 02/14/22 02/18/22 History Dapagliflozin Propanediol [Farxiga] 10 mg PO DAILY 02/14/22 02/18/22 History INSULIN ASPART (NovoLOG) [NovoLOG 10 unit SQ BID 02/14/22 02/18/22 History (formulary)] lisinopriL [Zestril] 20 mg PO DAILY 02/14/22 02/18/22 History methocarbamoL [Robaxin-750] 750 mg PO QID #30 tab 02/14/22 02/18/22 Rx predniSONE [Deltasone] 20 mg PO BID #10 tab 02/14/22 02/18/22 Rx Allergies Allergy/AdvReac Type Severity Reaction Status Date / Time No Known Allergies Allergy Verified 02/18/22 07:21 Physical Examination Osteopathic Statement: *. No significant issues noted on an osteopathic structural exam other than those noted in the History and Physical/Consult. - L Spine: dermatomal strength & reflexes bilateral Strength: hip flexion: 5/5 (His back is no open wounds lacerations or abrasions. He is nontender to palpation of the midline. He has some mild paravertebral spasm. There is no rash or discoloration.) Strength: hip extension: 5/5 (His lower extremity 7 out of 5 muscle strength he is able to lift his legs up off the bed independently with 5 out of 5 strength. His found fibrous flexion plantarflexion and EHL. There is no pain with in ternal extrication of his hips. His thighs and calves soft and nontender) Results - Labs Labs: Abnormal Lab Results - Last 24 Hours (Table) 02/17/22 02/17/22 02/17/22 Range/Units 20:52 20:52 20:52 WBC 12.8 H (3.8-10.6) k/uL Neutrophils # 11.1 H (1.3-7.7) k/uL Lymphocytes # (1.0-4.8) k/uL VBG pCO2 32 L (37-51) mmHg VBG HCO3 20 L (24-28) mmol/L Sodium 132 L (137-145) mmol/L Carbon Dioxide 19 L (22-30) mmol/L BUN 54 H (9-20) mg/dL Creatinine 1.52 H (0.66-1.25) mg/dL Glucose 347 H (74-99) mg/dL POC Glucose (mg/dL) (70-110) mg/dL Total Protein (6.3-8.2) g/dL Urine Protein (Negative) Urine Glucose (UA) (Negative) Urine Blood (Negative) 02/17/22 02/18/22 02/18/22 Range/Units 21:04 00:51 07:04 WBC 16.1 H (3.8-10.6) k/uL Neutrophils # 15.1 H (1.3-7.7) k/uL Lymphocytes # 0.7 L (1.0-4.8) k/uL VBG pCO2 (37-51) mmHg VBG HCO3 (24-28) mmol/L Sodium (137-145) mmol/L Carbon Dioxide (22-30) mmol/L BUN (9-20) mg/dL Creatinine (0.66-1.25) mg/dL Glucose (74-99) mg/dL POC Glucose (mg/dL) 290 H (70-110) mg/dL Total Protein (6.3-8.2) g/dL Urine Protein 2+ H (Negative) Urine Glucose (UA) 4+ H (Negative) Urine Blood Small H (Negative) 02/18/22 02/18/22 Range/Units 07:04 07:09 WBC (3.8-10.6) k/uL Neutrophils # (1.3-7.7) k/uL Lymphocytes # (1.0-4.8) k/uL VBG pCO2 (37-51) mmHg VBG HCO3 (24-28) mmol/L Sodium 135 L (137-145) mmol/L Carbon Dioxide 18 L (22-30) mmol/L BUN 42 H (9-20) mg/dL Creatinine (0.66-1.25) mg/dL Glucose 325 H (74-99) mg/dL POC Glucose (mg/dL) 287 H (70-110) mg/dL Total Protein 6.1 L (6.3-8.2) g/dL Urine Protein (Negative) Urine Glucose (UA) (Negative) Urine Blood (Negative) H & H 02/17/22 02/18/22 Range/Units 20:52 07:04 Hgb 16.0 16.2 (13.0-17.5) gm/dL Hct 49.7 50.6 (39.0-53.0) % Coagulation 02/17/22 Range/Units 20:52 INR 1.0 (<1.2) Result Diagrams: 02/18/22 07:04 02/18/22 07:04 - Diagnostic results CT Scan - lumbar: report reviewed, image reviewed (Computed tomography scan and x-rays of his low back are reviewed. He has good overall alignment to his lumbar spine. The disc heights are well maintained. There is some ligamentum thickening with some mild foraminal stenosis. I do not see any specific he rniation. There is no fractures or instab) Assessment and Plan Assessment: Left lower extremity symptoms with some radiculopathy and instability with ambulation Lumbar canal ligament thickening with mild stenosis on the computed tomography scan Urinary retention, new Diabetic neuropathy Hypertensive crisis Uncontrolled diabetes Poor medication compliance History of adjustment disorder Plan: Is somewhat difficult to determine the nature of his lower extremity issues. His symptoms not follow specific radicular pattern but he has been having his ambulation with his leg giving way. His computed tomography scan shows some ligamentum thickening with some stenosis and he may have some sciatica-type issues and an MRI would help to delineate the severity of possible neural entrapment and stenosis. I think the MRI is appropriate for him and he is scheduled to undergo this this morning. He has not been having any significant response with the steroid and this is also affecting his diabetic management. Nonetheless he could be a candidate for interventional pain management for an epidural steroid injection based on MRI findings and his left lower extremity symptoms. Some of his symptoms space and also from diabetic neuropathy and this could have some benefit with continued medical management. He's having appropriate treatment for his hypertensive issues and this seems to be improving with his treatment here in Hospital and will continue with medical management. He has a Villavicencio intact for his urinary retention. Again the MRI can help to determine if there is some compressive component for this at his lumbar spine and we will follow the results closely. He is also to start Flomax and this will be followed medical management as well. We will continue to follow him along with you.
--- NOTE | 2022-02-18 10:39 | US ---
EXAMINATION TYPE: US renals and bladder DATE OF EXAM: 02/18/2022 COMPARISON: CT CLINICAL HISTORY: [place]. EXAM MEASUREMENTS: Right Kidney: 13.0 x 5.9 x 5.2 cm Left Kidney: 12.1 x 5.0 x 5.3 cm Right Kidney: lobular contour, measures large Left Kidney: lobular contour, measures slightly large Bladder: not seen, Villavicencio IMPRESSION: No obstructive uropathy.
[2022-02-18] MEDS: DOCUSATE 100 MG CAP PO SCH ×2 (11:22→21:11)
[2022-02-18] MEDS: TAMSULOSIN 0.4 MG CAP.ER.24H PO SCH (11:22)
[2022-02-18] MEDS: methocarbamoL 750 MG TAB PO SCH ×4 (11:22→21:11)
--- NOTE | 2022-02-18 11:27 | MR ---
EXAMINATION TYPE: MR lumbar spine wo con DATE OF EXAM: 02/18/2022 COMPARISON: CT 02/14/2022 HISTORY: Low back pain with left lumbar radiculopathy, dysuria TECHNIQUE: Multiplanar, multisequence images of the lumbar spine were acquired without IV contrast. There is motion on the exam. L1-L2: Normal disc appearance without desiccation. No herniation, protrusion or disc bulging. No ca nal stenosis is present. Foramina are patent bilaterally. L2-L3: Normal disc appearance without desiccation. No herniation, protrusion or disc bulging. No ca nal stenosis is present. Foramina are patent bilaterally. L3-L4: Circumferential disc bulge extends to encroach minimally on the inferior aspect of the neural foramen, there is some facet arthropathy change present. L4-L5: Lateral disc herniation present, lateral extension endplate disc complex is noted as on patien t CT on the left, correlate for left L4 radiculopathy. There is circumferential posterior disc bulge present causing mild anterior mass effect on the thecal sac. Suspect some lateral recess stenosis on the left as noted on patient's CT. There is some facet arthropathy with hypertrophy ligamentum flavum causing some posterior lateral mass effect on the thecal sac. L5-S1: Posterior central disc herniation is present causing anterior mass effect on the thecal sac. T here is some facet arthropathy change present. Circumferential extension of endplate disc complex enc roaches minimally on the inferior aspect of the neural foramen Lumbar segments are intact. No paraspinal masses are identified. Conus medullaris has a normal appe arance. There is slight spinal curvature present. Multilevel spondylosis with endplate discogenic mar row signal change is noted. Schmorl's nodes present superior endplate of L4, inferior endplate L3 and L2, L1. Loss of disc height and signal is present at intervertebral levels consistent with disc mckinley ccation and degenerative disc disease. Lumbar vertebral body height, there is mild spinal curvature. IMPRESSION: Degenerative disc disease as described. Correlate for left L4 radiculopathy. Facet arthro durga change.
[2022-02-18 11:59] LABS: Glucose,Whole Blood 261 mg/dL (70-110)
--- NOTE | 2022-02-18 15:54 | P.PAINPG ---
Objective - Vital Signs Vital signs: Vital Signs Temp 98.2 F 02/18/22 08:00 Pulse 91 02/18/22 09:52 Resp 16 02/18/22 08:00 BP 186/98 02/18/22 09:52 Pulse Ox 96 02/18/22 08:00 FiO2 Intake & Output 02/17/22 02/18/22 02/18/22 18:59 06:59 18:59 Output Total 1250 1000 Balance -1250 -1000 Weight 82.554 kg Output: Urine 1250 1000 - Labs CBC & Chem 7: 02/18/22 07:04 02/18/22 07:04 Labs: Abnormal Lab Results - Last 24 Hours (Table) 02/17/22 02/17/22 02/17/22 Range/Units 20:52 20:52 20:52 WBC 12.8 H (3.8-10.6) k/uL Neutrophils # 11.1 H (1.3-7.7) k/uL Lymphocytes # (1.0-4.8) k/uL VBG pCO2 32 L (37-51) mmHg VBG HCO3 20 L (24-28) mmol/L Sodium 132 L (137-145) mmol/L Carbon Dioxide 19 L (22-30) mmol/L BUN 54 H (9-20) mg/dL Creatinine 1.52 H (0.66-1.25) mg/dL Glucose 347 H (74-99) mg/dL POC Glucose (mg/dL) (70-110) mg/dL Hemoglobin A1c (0.0-6.0) % Total Protein (6.3-8.2) g/dL Urine Protein (Negative) Urine Glucose (UA) (Negative) Urine Blood (Negative) 02/17/22 02/18/22 02/18/22 Range/Units 21:04 00:51 07:04 WBC 16.1 H (3.8-10.6) k/uL Neutrophils # 15.1 H (1.3-7.7) k/uL Lymphocytes # 0.7 L (1.0-4.8) k/uL VBG pCO2 (37-51) mmHg VBG HCO3 (24-28) mmol/L Sodium (137-145) mmol/L Carbon Dioxide (22-30) mmol/L BUN (9-20) mg/dL Creatinine (0.66-1.25) mg/dL Glucose (74-99) mg/dL POC Glucose (mg/dL) 290 H (70-110) mg/dL Hemoglobin A1c (0.0-6.0) % Total Protein (6.3-8.2) g/dL Urine Protein 2+ H (Negative) Urine Glucose (UA) 4+ H (Negative) Urine Blood Small H (Negative) 02/18/22 02/18/22 02/18/22 Range/Units 07:04 07:04 07:09 WBC (3.8-10.6) k/uL Neutrophils # (1.3-7.7) k/uL Lymphocytes # (1.0-4.8) k/uL VBG pCO2 (37-51) mmHg VBG HCO3 (24-28) mmol/L Sodium 135 L (137-145) mmol/L Carbon Dioxide 18 L (22-30) mmol/L BUN 42 H (9-20) mg/dL Creatinine (0.66-1.25) mg/dL Glucose 325 H (74-99) mg/dL POC Glucose (mg/dL) 287 H (70-110) mg/dL Hemoglobin A1c 9.3 H (0.0-6.0) % Total Protein 6.1 L (6.3-8.2) g/dL Urine Protein (Negative) Urine Glucose (UA) (Negative) Urine Blood (Negative) 02/18/22 Range/Units 11:57 WBC (3.8-10.6) k/uL Neutrophils # (1.3-7.7) k/uL Lymphocytes # (1.0-4.8) k/uL VBG pCO2 (37-51) mmHg VBG HCO3 (24-28) mmol/L Sodium (137-145) mmol/L Carbon Dioxide (22-30) mmol/L BUN (9-20) mg/dL Creatinine (0.66-1.25) mg/dL Glucose (74-99) mg/dL POC Glucose (mg/dL) 261 H (70-110) mg/dL Hemoglobin A1c (0.0-6.0) % Total Protein (6.3-8.2) g/dL Urine Protein (Negative) Urine Glucose (UA) (Negative) Urine Blood (Negative) PQRS Measure Charge Sheet Comment: HISTORY OF PRESENT ILLNESS: 61 yr old inpatient male as a referral from Dr. Rodrigues presents today w severe an d chronic LBP secondary to DDD, spondylosis and facet arthropathy without myelopathy for evaluation. Patient states he has been experiencing L lower back pain for the last several months, constant, waxing and waning in intensity based upon activity, left lower lumbar spine, 8 out of 10 in intensity currently, dull and achy in character with sharp radiating pain into the left buttock and left gluteal and occasionally down the left lower extremity to the heel. Patient was encountered today reclining on his right side on the bed for pain relief. He states pain is provoked once he starts standing and walking. He has not been bearing weight on his legs due to intractable lower back pain. Pain is relieved slightly with medications, injections in the past, repositioning and rest. PMH: NIDDM II, HTN PSH: R Inguinal Hernia Repair, Multiple Myringotomies/ Tubes, Circumcision SH: Negative x 3. Resides alone and does not drive. FH: Mo- Colon CA. Fa- Colon CA. All: NKDA Meds: See list REVIEW OF ORGAN SYSTEMS: CONSTITUTIONAL: No fevers or chills. No recent weight loss. NEUROLOGICAL: + numbness and tingling along the distal extremities. No seizure disorders or headaches. MUSCULOSKELETAL: + pain PSYCHIATRIC: Denies current depression or suicidal thoughts. Physical Examinations : Constitutional : Cooperative , not in acute distress . Neurologic : Cranial nerve II to XII intact. No focal neurological deficits. Psychiatric : alert & oriented x 3. Matching mood & appropriate affect. Judgment & insight intact. Musculoskeletal : Cervical Spine Motor strength in the deltoid and biceps: Normal right side. Normal Left side Motor strength biceps and the wrist extensors: Normal right side . Normal left side Motor strength in the triceps muscle: Normal right side. Normal left side Deep tendon reflexes: Normal at the biceps. Normal at Brachioradialis. Normal at triceps Vertebral body tenderness to deep palpation over Cervical facet loading test: positive bilaterally Spurling test: positive bilaterally Neck distraction test: positive bilaterally Dann sign: positive bilaterally Lumbar spine Motor strength lower extremities ,thigh and legs 5/5 Right side , 5/5 Left side Deep tendon reflexes : Normal Knee Jerk. Normal Ankle Jerk Vertebral body tenderness over L5 Lumbar facet Loading Test: positive Right / positive Left Range of motion of the lumbar spine Flexion 30 degrees, extension 10 degrees Straight Leg Raise test: Left/ Right positive at degree Cecil test: positive right / positive left. Severe tenderness over the Sacroiliac joint on the Right / Left sides Gaenslen test: positive bilaterally Seated flexion test: positive bilaterally. Sacral spine : Severe tenderness over the Sacroiliac joint: right side / left side Range of motion: Flexion of the lumbar spine <60 degrees Range of motion: Extension of the lumbar spine <20 degrees Gaenslen's Test positive Juan C's Test positive Cecil test: positive right side / left side Thigh Thrust Test Sacral Thrust Test Imaging: CT Scan of the lumbar spine reviewed Assessment/ Plan : Lumbar DDD, Lumbar spondylosis Recommendation of AURY L5-S1. Patient may need a series of injections, up to 3 within a 6 month timeframe, for optimal pain relief. Risks, benefits of procedure discussed and patient verbalized understanding. Admits to aspirin or anti- coagulant use or medical history of diabetes. Protocol for discontinuation/ continuation of medications maritza procedure discussed. NPO after midnight. All questions answered. I have spent greater than 30 minutes on patient care today. Dr Howard was available by phone for the evaluation of this patient. The time was used to review the medical records including relevant urine studies and Prescription history (MAPs), review of the available imaging, evaluation and examination of the patient, coordination of care with the medical staff and if applicable referring physicians, as well as creation of the medical record PQRS Narrative: Smoking Status Never smoker Do You Want the Pneumonia No Vaccine AT THIS TIME? Blood Pressure [Left Arm] 186/98 Blood Pressure 178/90 Scale Used Numeric (1 - 10) Home Medications: Ambulatory Orders Metoprolol Tartrate [Lopressor] 50 mg PO BID #60 tab 10/05/21 Aspirin 81 mg PO HS 02/14/22 Atorvastatin [Lipitor] 40 mg PO HS 02/14/22 Dapagliflozin Propanediol [Farxiga] 10 mg PO DAILY 02/14/22 INSULIN ASPART (NovoLOG) [NovoLOG (formulary)] 10 unit SQ BID 02/14/22 lisinopriL [Zestril] 20 mg PO DAILY 02/14/22 methocarbamoL [Robaxin-750] 750 mg PO QID #30 tab 02/14/22 predniSONE [Deltasone] 20 mg PO BID #10 tab 02/14/22 Controlled Substance Measures - Controlled Substance Measures Is patient prescribed a controlled substance at discharge?: No
[2022-02-18 17:10] LABS: Glucose,Whole Blood 230 mg/dL (70-110)
[2022-02-18 19:11] LABS: Glucose,Whole Blood 318 mg/dL (70-110)
[2022-02-18] MEDS: ATORVASTATIN 40 MG TAB PO SCH (21:11)
[2022-02-18] MEDS: FAMOTIDINE 20 MG TAB PO SCH (21:12)
[2022-02-19] MEDS: HEPARIN SODIUM,PORCINE/PF 5,000 UNIT/0.5 ML SYRINGE SQ SCH ×4 (01:20→23:19)
[2022-02-19] MEDS: hydrALAZINE HCL 20 MG/ML 1 ML VIAL IVP PRN (02:10)
[2022-02-19 06:54] LABS: Glucose,Whole Blood 197 mg/dL (70-110)
--- NOTE | 2022-02-19 09:17 | P.PN ---
Progress Note - Text Progress Note Date: 02/19/22 Orthopedic spine: History of present illness: Patient is very pleasant 61-year-old male who is seen in the bedside for follow up evaluation of his lumbar spine. He states his pain is better controlled today as compared to yesterday. He does continue to have some low back pain with pain radiating into his left gluteus/buttock. His pain is better controlled while lying in bed. He states he has not attempted to ambulate on his left lower extremity today. He has been seen by pain management who is planning for an epidural injection this morning at L5-S1. Paperwork has been signed by the patient and pain management. They're planning to come get him soon for his injection. Patient does state he would like to be discharged home with his pain is better controlled. Currently, he would like to avoid surgical intervention in his lumbosacral spine. He did have lumbar MRI imaging performed yesterday. He denies any right lower extremity radiculopathy or weakness. He is also having some urinary retention. Villavicencio catheter is currently intact. He is on Flomax. Nursing states they're planning to discontinue his Villavicencio catheter following his injection this morning to see if he is able to urinate independently. Patient is continuing to be seen by multiple other medical providers for his other medical diagnoses including adjustment disorder, diabetes mellitus, and hypertension. Patient was experiencing hypertensive crisis during his evaluation in the emergency department. He does continue with elevated blood pressure. Physical exam: Patient is awake, alert, and oriented 3 Vital signs stable Good chest excursion with deep inspiration and expiration Examination of lumbar spine reveals skin is intact with no abrasions, lacerations, or bruises; no erythema, purulence or signs of infection Dorsiflexion, plantarflexion, and extensor hallucis longus positive sustained bilaterally Lower extremity strength 5/5 bilaterally Patient is able to perform active range of motion of his bilateral lower extremities independently while lying in bed without significant difficulty No signs or symptoms of DVT; no calf pain No pain with internal and external rotation of the hips bilaterally Neurovascularly intact Pertinent studies: MRI lumbar spine taken on 02/18/2022: L3-4 disc bulge and facet arthropathy; L4- 5 left lateral disc herniation with disc osteophyte complex, facet arthropathy and ligamentum flavum hypertrophy resulting in left neural foraminal stenosis; L5-S1 posterior central disc herniation and facet arthropathy with some attention to the thecal sac without significant stenosis Assessment: Low back pain Left buttock/gluteal pain Increased left lower extremity leg pain with ambulation L4-5 left paracentral foraminal disc herniation resulting in left neural foraminal stenosis L5-S1 central disc protrusion and facet arthropathy without significant stenosis L3-4 disc bulge and facet arthropathy Diabetes mellitus not well controlled Hypertension with hypertensive crisis at evaluation the emergency department Adjustment disorder Urinary retention Plan: 1. Patient has continued to experience low back pain with pain radiating into his left buttocks class gluteus over the past several months which has been worsening. He is currently scheduled to undergo an L5-S1 epidural injection this morning with pain management. I have reviewed his lumbar MRI imaging. He has an L4-5 left paracentral foraminal disc herniation resulting in left neural foraminal stenosis. I do feel the patient would benefit from an injection at L4-5 rather than L5-S1. Dr. Howard in pain management was contacted this morning and we discussed the patient in detail. He states he will plan to do an epidural injection at L4-5. Patient has had some difficulty with urinary retention over the past couple days. Villavicencio catheter is currently intact. Villavicencio catheter is planning to be discontinued this morning following his injection to see if he is able to void independently. He is been started on Flomax. Reviewing of lumbar imaging does not show evidence of significant herniated nucleus pulposus resulting in cauda equina syndrome. I don't think his urinary retention is specifically in relation to his lumbar spine. He is not expressing any saddle anesthesia. He is not experiencing significant lower extremity weakness. He does have some difficulty ambulating on his left lower extremity due to increased left lower extremity leg pain when standing on his left lower extremity. I do feel his left lower extremity symptoms correlate well with his disc herniation at L4-5. Patient will like to try to control his pain with conservative treatment and try to avoid surgical intervention at this time in regards to his lumbosacral spine. He would be interested in evaluation outpatient setting. Patient may follow-up with Yony Pérez PA-C or Dr. Gonsalo Rodrigues at [facility] in 2-3 weeks following discharge. 2. Patient will continue be seen examined by other medical providers for his other medical diagnoses including diabetes mellitus, hypertension, adjustment disorder, and urinary retention
[2022-02-19] MEDS ORDERED: LACTATED RINGERS 1,000 ML IV ONE (09:18)
[2022-02-19 09:22] LABS: Glucose,Whole Blood 170 mg/dL (70-110)
--- NOTE | 2022-02-19 09:58 | P.PCN ---
Date of Procedure: 02/19/22 Procedure(s) Performed: PREOPERATIVE DIAGNOSIS: 1- Lumbar radiculopathy 2-Lumbar spondylosis with Facet arthropathy without myelopathy. 3-lumbar herniated disc POSTOPERATIVE DIAGNOSIS: Same as preop diagnosis. PROCEDURE 1. Lumbar epidural steroid injection under fluoroscopic guidance at the L4-5 level. (Left paramedian ) (Fluoroscopy imaging was available in radiology department) 2. Lumbar epidurogram. ANESTHESIA: Monitored anesthesia care as per anesthesia department EBL: Minimal PROCEDURE INDICATION: The patient with low back pain and radiculitis symptoms unresponsive to conservative treatment. Fluoroscopy was used to optimize visualization of the needle placement and to maximize safety. PROCEDURE DESCRIPTION / TECHNIQUE: The patient was seen and identified in the preoperative area. Risks, benefits, complications including but not limited to infections ,bleeding ,allergic reaction to the medications ,nerve damage and not complete pain releife , and alternatives were discussed with the patient. The patient agreed to proceed with the procedure and signed the consent. IV was started, and vital signs were stable. Patient was taken to the OR and time out was completed. The patient was placed in the prone position on procedure table and a pillow was placed under the abdomen to reduce lumbar lordosis. The lumbosacral area was prepped and draped in the usual sterile fashion.ere closely monitored during the procedure. Conscious sedation was used during the procedure to decrease patients anxiety. Vital signs was monitered during the entire procedure. Using anterior-posterior fluoroscopy, the L4-5 (left paramedian ) interlaminar space was identified and the skin over this site was marked and then infiltrated with 1% lidocaine subcutaneously. Subsequently, a 20-gauge Tuohy epidural needle was inserted and advanced toward the epidural space using the ``Loss of resistance technique and guided by AP and lateral fluoroscopy. The correct needle position in the epidural space was verified with the injection of 2 mL of the water soluble contrast dye Isovue 200 contrast and observing an excellent epidurogram with the epidural spread of the dye, after negative aspiration for blood and CSF and in the absence of paresthesias. Again after negative aspiration, a 6 ml mixture containing 40 mg of Depo-medrol ( Preservetive Free ), and 2 ml of preservative free Normal Saline, and 2 ml of preservative free lidocaine 1% solution was injected and a washout of epidurogram was seen. Needle was withdrawn intact, skin was cleansed, and bandages were applied. COMPLICATIONS: None DISPOSITION / PLANS: The patient was placed in a supine position and transferred to the recovery area in a stable condition for observation. There was no evidence of lower extremity motor or sensory deficit after the procedure. Patient was discharged from the recovery room after meeting discharge criteria. Home discharge instructions were given to the patient by the staff. The patient was reexamined prior to discharge. The patient will schedule a follow up in the clinic in 2-4 weeks.
[2022-02-19] MEDS ORDERED: IV FLUID CONTINUATION 1,000 ML IV ONE ×2 (10:01)
[2022-02-19] MEDS ORDERED: METOPROLOL TARTRATE 5 MG/5 ML VIAL IVP ONE (10:23)
--- NOTE | 2022-02-19 10:48 | FL ---
Fluoroscopy HISTORY: Pain 1 seconds fluoroscopy time supplied to the referring clinician. 1 intraoperative C-arm images docume nt the procedure. See dictated report from anesthesia.
[2022-02-19 10:50] LABS: Basophils # (A) 0.01 X 10*3/uL (0.00-0.10); Basophils % (A) 0.1 %; Eosinophils # (A) 0.13 X 10*3/uL (0.04-0.35); Eosinophils % (A) 0.9 %; HCT 47.8 % (39.6-50.0); HGB 16.7 g/dL (13.0-17.0); Immature Grans, Automated 0.5 %; Lymphocytes % (A) 24.8 %; MCHC 34.9 g/dL (32.0-37.0); Monocytes # (A) 1.23 X 10*3/uL (0.20-1.00); Monocytes % (A) 8.2 %; NRBC Per 100 WBC 0 /100 WBCS (0.0-0.0); Neutrophils # (A) 9.77 X 10*3/uL (1.80-7.70); Neutrophils % (A) 65.5 %; Platelet Count 304 X 10*3/uL (140-440); RBC 5.76 X 10*6/uL (4.40-5.60); RDW 13.4 % (11.5-14.5); WBC 14.92 X 10*3/uL (4.50-10.00)
[2022-02-19] MEDS: FAMOTIDINE 20 MG TAB PO SCH ×2 (11:02→20:43)
[2022-02-19] MEDS: hydrALAZINE HCL 50 MG TAB PO SCH (11:02)
[2022-02-19] MEDS: DOCUSATE 100 MG CAP PO SCH ×2 (11:02→20:43)
[2022-02-19] MEDS: amLODIPine 5 MG TAB PO SCH (11:02)
[2022-02-19] MEDS: TAMSULOSIN 0.4 MG CAP.ER.24H PO SCH (11:02)
[2022-02-19] MEDS: methocarbamoL 750 MG TAB PO SCH ×4 (11:02→20:43)
[2022-02-19] MEDS: METOPROLOL TARTRATE 50 MG TAB PO SCH ×2 (11:02→20:43)
[2022-02-19] MEDS: SODIUM CHLORIDE 0.9% 1,000 ML IV SCH ×2 (11:03→19:42)
[2022-02-19] MEDS: INSULIN ASPART (NovoLOG) 100 UNIT/ML VIAL SQ SCH ×4 (11:03→22:18)
[2022-02-19 11:18] LABS: African American GFR (CKD) 69.2 (60.0-200.0); Albumin 3.6 g/dL (3.8-4.9); Albumin/Globulin Ratio 1.57 (1.60-3.17); Anion Gap 12.3 mmol/L (10.00-18.00); BUN/Creat Ratio 27.92 Ratio (12.00-20.00); Bilirubin, Conjugated 0.25 mg/dL (0.20-0.40); Bilirubin,Unconjugated 0.85 mg/dL (0.20-1.00); Blood Urea Nitrogen 36.3 mg/dL (9.0-27.0); Calcium 9.3 mg/dL (8.7-10.3); Carbon Dioxide 19.7 mmol/L (20.0-27.5); Globulin 2.3 g/dL (1.6-3.3); Non-African American GFR(CKD) 59.7 (60.0-200.0); Potassium 4.7 mmol/L (3.5-5.5); Total Bilirubin 1.1 mg/dL (0.30-1.20); Total Protein 5.9 g/dL (6.2-8.2)
[2022-02-19 11:27] LABS: Glucose,Whole Blood 228 mg/dL (70-110)
[2022-02-19 14:38] VITALS: BMI 28.5
[2022-02-19 16:31] LABS: Glucose,Whole Blood 303 mg/dL (70-110)
--- NOTE | 2022-02-19 18:43 | P.PN ---
Subjective This is a pleasant 51 years old male with past medical history of hypertension, hyperlipidemia and diabetes mellitus presents of back pain and left arm and leg numbness Patient states that over the last 3-4 days he was having left lower extremity numbness on walking about 25-30 feet. Also patient has been complaining of from some dysuria and low stream of urine, on admission he has acute kidney injury with creatinine 1.5, as the bladder scan of about 200-300 mL, Villavicencio catheter was placed Patient however declines back pain, no weakness in his lower extremity and no numbness while he is lying in bed. He denies chest pain or dyspnea or coughing. His been having constipation for about a year. No abdominal pain or vomiting. No headache or dizziness, no numbness or slurred speech, no weakness or blurred vision He denies smoking, alcohol or illicit drugs. His been placed on a prednisone 20 mg twice daily for the last 3-[address] Moreno, unknown reason suspected because of his back pain. Also on admission patient was hypertensive and hypoglycemic. On admission her blood pressure 231/98, currently 189/93. Afebrile, rest of v itals are stable. He has mild leukocytosis of 12.8 but is on steroids. Creatinine elevated 1.5, it was 1.3 earlier this year and before that 0.9-1.2. Rest of liver enzymes and troponin are unremarkable. Lipase is normal. Urine analysis is no suspicious of infection Occult blood stool is negative acetone is negative. EKG showi thoracic aorta angiogram ng normal sinus rhythm at [address] with no signifi cant ST-T changes Thoracic aorta angiogram: No significant angiographic abnormality. No evidence of pulmonary embolism. There is evidence of some mild small bowel ileus which is a change compared to computed tomography scan. Mild diverticulosis Acute abdominal series showed nonobstructive bowel pattern Pertinent ED team Jerome he contacted Dr. lam last night recommended steroids and MRI of the lumbar spine which is ordered stat and pending. As discussed with orthopedic team 02/19/2022 patient today underwent epidural steroid injection at L4-L5 area, after the procedure patient was sitting in bed eating his medial with good appetite. He looks comfortable and he was very satisfied with the progress he achieved after the procedure, his back pain is significantly less severe. No other complaint of weakness or numbness in the lower extremity Prednisone was used Patient received steroids injection in his back and he does not have any back pain anymore. We'll keep monitoring glucose. Blood pressure improved with systolic ranging 1:30-150, therefore we stopped his scheduled hydralazine and placed him on when necessary hydralazine. We stopped his IV fluid. He was on normal saline 75 mL/h. currently on Norvasc 5 mg metoprolol 50 mg twice a day. We'll keep close monitoring of blood pressure and sugar. Upon patient request also Villavicencio catheter was discontinued and were going to monitor bladder scan. It was checked this afternoon and it was not elevated. Objective - Vital Signs Vital signs: Vital Signs Temp 98.1 F 02/19/22 08:56 Pulse 82 02/19/22 10:31 Resp 16 02/19/22 10:31 BP 152/84 02/19/22 10:31 Pulse Ox 93 L 02/19/22 10:31 FiO2 Intake & Output 02/18/22 02/19/22 02/19/22 18:59 06:59 18:59 Intake Total 1200 200 Output Total 3100 2350 Balance -1900 -2350 200 Intake: IV 200 Oral 1200 Output: Urine 3100 2350 Other: Voiding Method Indwelling Catheter Indwelling Catheter Indwelling Catheter - Exam GENERAL: The patient is alert and oriented x3, not in any acute distress. Well developed, well nourished. HEENT: Pupils are round and equally reacting to light. EOMI. No scleral icterus. No conjunctival pallor. Normocephalic, atraumatic. No pharyngeal erythema. No thyromegaly. CARDIOVASCULAR: S1 and S2 present. No murmurs, rubs, or gallops. PULMONARY: Chest is clear to auscultation, no wheezing or crackles. ABDOMEN: Soft, nontender, nondistended, normoactive bowel sounds. No palpable organomegaly. MUSCULOSKELETAL: No joint swelling or deformity. EXTREMITIES: No cyanosis, clubbing, or pedal edema. NEUROLOGICAL: Gross neurological examination did not reveal any focal deficits. SKIN: No rashes. no petechiae. - Labs CBC & Chem 7: 02/19/22 06:02 02/19/22 06:02 Labs: Abnormal Lab Results - Last 24 Hours (Table) 02/18/22 02/18/22 02/19/22 Range/Units 17:08 19:10 06:02 WBC 14.92 H (4.50-10.00) X 10*3/uL RBC 5.76 H (4.40-5.60) X 10*6/uL Immature Gran # 0.08 H (0.00-0.04) X 10*3/uL Neutrophils # 9.77 H (1.80-7.70) X 10*3/uL Monocytes # 1.23 H (0.20-1.00) X 10*3/uL Carbon Dioxide (20.0-27.5) mmol/L BUN (9.0-27.0) mg/dL Est GFR (CKD-EPI)NonAf (60.0-200.0) BUN/Creatinine Ratio (12.00-20.00) Ratio Glucose (70-110) mg/dL POC Glucose (mg/dL) 230 H 318 H (70-110) mg/dL Total Protein (6.2-8.2) g/dL Albumin (3.8-4.9) g/dL Albumin/Globulin Ratio (1.60-3.17) g/dL 02/19/22 02/19/22 02/19/22 Range/Units 06:02 06:53 09:20 WBC (4.50-10.00) X 10*3/uL RBC (4.40-5.60) X 10*6/uL Immature Gran # (0.00-0.04) X 10*3/uL Neutrophils # (1.80-7.70) X 10*3/uL Monocytes # (0.20-1.00) X 10*3/uL Carbon Dioxide 19.7 L (20.0-27.5) mmol/L BUN 36.3 H (9.0-27.0) mg/dL Est GFR (CKD-EPI)NonAf 59.7 L (60.0-200.0) BUN/Creatinine Ratio 27.92 H (12.00-20.00) Ratio Glucose 193 H (70-110) mg/dL POC Glucose (mg/dL) 197 H 170 H (70-110) mg/dL Total Protein 5.9 L (6.2-8.2) g/dL Albumin 3.6 L (3.8-4.9) g/dL Albumin/Globulin Ratio 1.57 L (1.60-3.17) g/dL 02/19/22 Range/Units 11:25 WBC (4.50-10.00) X 10*3/uL RBC (4.40-5.60) X 10*6/uL Immature Gran # (0.00-0.04) X 10*3/uL Neutrophils # (1.80-7.70) X 10*3/uL Monocytes # (0.20-1.00) X 10*3/uL Carbon Dioxide (20.0-27.5) mmol/L BUN (9.0-27.0) mg/dL Est GFR (CKD-EPI)NonAf (60.0-200.0) BUN/Creatinine Ratio (12.00-20.00) Ratio Glucose (70-110) mg/dL POC Glucose (mg/dL) 228 H (70-110) mg/dL Total Protein (6.2-8.2) g/dL Albumin (3.8-4.9) g/dL Albumin/Globulin Ratio (1.60-3.17) g/dL Microbiology - Last 24 Hours (Table) 02/17/22 20:52 Blood Culture - Preliminary Blood No Growth after 24 hours 02/17/22 20:52 Blood Culture - Preliminary Blood No Growth after 24 hours Assessment and Plan Assessment: Lumbar radiculopathy status post epidural steroid injection at L4-L5. Uncontrolled hypertension, now is currently better controlled. Worsened by steroid effect (home dose of prednisone stopped now) Diabetes mellitus with hyperglycemia,rate controlled. Most likely due to the effect of his steroids (home dose of prednisone stopped now) Acute kidney injury on chronic kidney disease Possible chronic kidney disease stage II possible mild urinary retention status post Villavicencio catheter, urine catheter discontinued and he'll keep monitoring Diabetes mellitus Hypertension, with urgency Hyperlipidemia Plan: This is a pleasant 61 years old male with no significant back pain. Possible diabetic neuropathy. Rule out lumbar causes Continue with pain management Discontinue IV fluids Prednisone already stopped. Deep monitor blood sugar and blood pressure Monitor bladder scan monitor creatinine . Keep lisinopril on hold Continue with his blood pressure medication lisinopril and metoprolol, add hydralazine with close monitoring of blood pressure Labs and medication were reviewed.. Continue same treatment. Continue with symptomatic treatment. Resume home medication. Monitor lytes and vitals. DVT and GI prophylaxis. Further recommendations as per clinical course of the patient DVT prophylaxis: sc heparin GI Prophylaxis: Pepcid
[2022-02-19 20:29] LABS: Glucose,Whole Blood 218 mg/dL (70-110)
[2022-02-19] MEDS: ATORVASTATIN 40 MG TAB PO SCH (20:43)
[2022-02-19] MEDS ORDERED: hydrALAZINE HCL 25 MG TAB PO SCH (21:00)
[2022-02-19] MEDS: ACETAMINOPHEN TAB 325 MG TAB PO PRN (21:13)
[2022-02-20] MEDS: hydrALAZINE HCL 25 MG TAB PO PRN (02:16)
[2022-02-20] MEDS ORDERED: hydrALAZINE HCL 20 MG/ML 1 ML VIAL IVP STA (03:47)
[2022-02-20] MEDS: amLODIPine 5 MG TAB PO SCH (05:27)
[2022-02-20] MEDS: METOPROLOL TARTRATE 50 MG TAB PO SCH ×2 (05:27→20:24)
[2022-02-20 06:48] LABS: Glucose,Whole Blood 315 mg/dL (70-110)
[2022-02-20] MEDS: DOCUSATE 100 MG CAP PO SCH ×2 (07:20→20:24)
[2022-02-20] MEDS: methocarbamoL 750 MG TAB PO SCH ×4 (07:20→21:55)
[2022-02-20] MEDS: TAMSULOSIN 0.4 MG CAP.ER.24H PO SCH (07:20)
[2022-02-20] MEDS: FAMOTIDINE 20 MG TAB PO SCH ×2 (07:20→20:25)
[2022-02-20] MEDS: INSULIN ASPART (NovoLOG) 100 UNIT/ML VIAL SQ SCH ×4 (07:20→20:44)
[2022-02-20] MEDS: HEPARIN SODIUM,PORCINE/PF 5,000 UNIT/0.5 ML SYRINGE SQ SCH ×3 (07:20→23:51)
[2022-02-20 11:40] LABS: Glucose,Whole Blood 213 mg/dL (70-110)
[2022-02-20] MEDS: INSULIN DETEMIR (LEVEMIR) 100 UNIT/ML SYR SQ SCH (12:43)
--- NOTE | 2022-02-20 14:15 | P.PN ---
Subjective This is a pleasant 51 years old male with past medical history of hypertension, hyperlipidemia and diabetes mellitus presents of back pain and left arm and leg numbness Patient states that over the last 3-4 days he was having left lower extremity numbness on walking about 25-30 feet. Also patient has been complaining of from some dysuria and low stream of urine, on admission he has acute kidney injury with creatinine 1.5, as the bladder scan of about 200-300 mL, Villavicencio catheter was placed Patient however declines back pain, no weakness in his lower extremity and no numbness while he is lying in bed. He denies chest pain or dyspnea or coughing. His been having constipation for about a year. No abdominal pain or vomiting. No headache or dizziness, no numbness or slurred speech, no weakness or blurred vision He denies smoking, alcohol or illicit drugs. His been placed on a prednisone 20 mg twice daily for the last 3-[address] Moreno, unknown reason suspected because of his back pain. Also on admission patient was hypertensive and hypoglycemic. On admission her blood pressure 231/98, currently 189/93. Afebrile, rest of v itals are stable. He has mild leukocytosis of 12.8 but is on steroids. Creatinine elevated 1.5, it was 1.3 earlier this year and before that 0.9-1.2. Rest of liver enzymes and troponin are unremarkable. Lipase is normal. Urine analysis is no suspicious of infection Occult blood stool is negative acetone is negative. EKG showi thoracic aorta angiogram ng normal sinus rhythm at 87 with no signifi cant ST-T changes Thoracic aorta angiogram: No significant angiographic abnormality. No evidence of pulmonary embolism. There is evidence of some mild small bowel ileus which is a change compared to computed tomography scan. Mild diverticulosis Acute abdominal series showed nonobstructive bowel pattern Pertinent ED team Jerome he contacted Dr. lam last night recommended steroids and MRI of the lumbar spine which is ordered stat and pending. As discussed with orthopedic team 02/19/2022 patient today underwent epidural steroid injection at L4-L5 area, after the procedure patient was sitting in bed eating his medial with good appetite. He looks comfortable and he was very satisfied with the progress he achieved after the procedure, his back pain is significantly less severe. No other complaint of weakness or numbness in the lower extremity Prednisone was used Patient received steroids injection in his back and he does not have any back pain anymore. We'll keep monitoring glucose. Blood pressure improved with systolic ranging 1:30-150, therefore we stopped his scheduled hydralazine and placed him on when necessary hydralazine. We stopped his IV fluid. He was on normal saline 75 mL/h. currently on Norvasc 5 mg metoprolol 50 mg twice a day. We'll keep close monitoring of blood pressure and sugar. Upon patient request also Villavicencio catheter was discontinued and were going to monitor bladder scan. It was checked this afternoon and it was not elevated. 02/20/2022 Patient back pain is improving and he rated as 3/10 in severity. He has no weakness in his legs 1 no numbness and is moving them freely. Patient looks like to respond to epidural steroid injection, Dr. Howard from pain management recommended outpatient follow-up in 2-4 weeks, see discharge instructions. Blood pressure is not controlled was 201/9930 this morning and he received IV hydralazine as well as oral dose, this morning blood pressure 176/92. Despite stopping IV fluids yesterday and stop the steroids. We going to resume his hydralazine 50 mg twice daily with a close monitoring Glucose is also in 300 therefore we started him on Levemir 10 units daily with close monitoring. Objective - Vital Signs Vital signs: Vital Signs Temp 98.0 F 02/20/22 07:55 Pulse 76 02/20/22 07:55 Resp 18 02/20/22 07:55 BP 176/92 02/20/22 07:55 Pulse Ox 96 02/20/22 07:55 FiO2 Intake & Output 02/19/22 02/20/22 02/20/22 18:59 06:59 18:59 Intake Total 200 Output Total 1200 800 Balance -1000 -800 Weight 82.554 kg Intake: IV 200 Output: Urine 1100 800 Post Void Residual 100 Other: Voiding Method Indwelling Catheter - Exam GENERAL: The patient is alert and oriented x3, not in any acute distress. Well developed, well nourished. HEENT: Pupils are round and equally reacting to light. EOMI. No scleral icterus. No conjunctival pallor. Normocephalic, atraumatic. No pharyngeal erythema. No thyromegaly. CARDIOVASCULAR: S1 and S2 present. No murmurs, rubs, or gallops. PULMONARY: Chest is clear to auscultation, no wheezing or crackles. ABDOMEN: Soft, nontender, nondistended, normoactive bowel sounds. No palpable organomegaly. MUSCULOSKELETAL: No joint swelling or deformity. EXTREMITIES: No cyanosis, clubbing, or pedal edema. NEUROLOGICAL: Gross neurological examination did not reveal any focal deficits. SKIN: No rashes. no petechiae. - Labs CBC & Chem 7: 02/19/22 06:02 02/19/22 06:02 Labs: Abnormal Lab Results - Last 24 Hours (Table) 02/19/22 02/19/22 02/19/22 Range/Units 06:02 06:02 11:25 WBC 14.92 H (4.50-10.00) X 10*3/uL RBC 5.76 H (4.40-5.60) X 10*6/uL Immature Gran # 0.08 H (0.00-0.04) X 10*3/uL Neutrophils # 9.77 H (1.80-7.70) X 10*3/uL Monocytes # 1.23 H (0.20-1.00) X 10*3/uL Carbon Dioxide 19.7 L (20.0-27.5) mmol/L BUN 36.3 H (9.0-27.0) mg/dL Est GFR (CKD-EPI)NonAf 59.7 L (60.0-200.0) BUN/Creatinine Ratio 27.92 H (12.00-20.00) Ratio Glucose 193 H (70-110) mg/dL POC Glucose (mg/dL) 228 H (70-110) mg/dL Total Protein 5.9 L (6.2-8.2) g/dL Albumin 3.6 L (3.8-4.9) g/dL Albumin/Globulin Ratio 1.57 L (1.60-3.17) g/dL 02/19/22 02/19/22 02/20/22 Range/Units 16:29 20:28 06:47 WBC (4.50-10.00) X 10*3/uL RBC (4.40-5.60) X 10*6/uL Immature Gran # (0.00-0.04) X 10*3/uL Neutrophils # (1.80-7.70) X 10*3/uL Monocytes # (0.20-1.00) X 10*3/uL Carbon Dioxide (20.0-27.5) mmol/L BUN (9.0-27.0) mg/dL Est GFR (CKD-EPI)NonAf (60.0-200.0) BUN/Creatinine Ratio (12.00-20.00) Ratio Glucose (70-110) mg/dL POC Glucose (mg/dL) 303 H 218 H 315 H (70-110) mg/dL Total Protein (6.2-8.2) g/dL Albumin (3.8-4.9) g/dL Albumin/Globulin Ratio (1.60-3.17) g/dL Microbiology - Last 24 Hours (Table) 02/17/22 20:52 Blood Culture - Preliminary Blood No Growth after 48 hours 02/17/22 20:52 Blood Culture - Preliminary Blood No Growth after 48 hours Assessment and Plan Assessment: Lumbar radiculopathy status post epidural steroid injection at L4-L5. Uncontrolled hypertension, now is currently better controlled. Worsened by steroid effect (home dose of prednisone stopped now) Diabetes mellitus with hyperglycemia,rate controlled. Most likely due to the effect of his steroids (home dose of prednisone stopped now) Acute kidney injury on chronic kidney disease Possible chronic kidney disease stage II possible mild urinary retention status post Villavicencio catheter, urine catheter discontinued and he'll keep monitoring Diabetes mellitus Hypertension, with urgency Hyperlipidemia Plan: This is a pleasant 61 years old male with no significant back pain. Possible diabetic neuropathy. Rule out lumbar causes Continue with pain management Prednisone already stopped. keep monitor blood sugar and blood pressure Monitor bladder scan Start Levemir 10 units with ISS Start hydralazine 50 twice a day on the top of Norvasc 5 mg and lisinopril and metoprolol. monitor creatinine . Keep lisinopril on hold Continue with his blood pressure medication lisinopril and metoprolol, add hydralazine with close monitoring of blood pressure Labs and medication were reviewed.. Continue same treatment. Continue with symptomatic treatment. Resume home medication. Monitor lytes and vitals. DVT and GI prophylaxis. Further recommendations as per clinical course of the patient DVT prophylaxis: sc heparin GI Prophylaxis: Pepcid
[2022-02-20 16:55] LABS: Glucose,Whole Blood 309 mg/dL (70-110)
[2022-02-20] MEDS: ATORVASTATIN 40 MG TAB PO SCH (20:24)
[2022-02-20] MEDS: hydrALAZINE HCL 50 MG TAB PO SCH (20:25)
[2022-02-20 20:31] LABS: Glucose,Whole Blood 164 mg/dL (70-110)
[2022-02-21 07:26] LABS: Glucose,Whole Blood 209 mg/dL (70-110)
[2022-02-21] MEDS: FAMOTIDINE 20 MG TAB PO SCH ×2 (08:00→20:19)
[2022-02-21] MEDS: methocarbamoL 750 MG TAB PO SCH ×4 (08:00→21:26)
[2022-02-21] MEDS: METOPROLOL TARTRATE 50 MG TAB PO SCH ×2 (08:00→20:19)
[2022-02-21] MEDS: HEPARIN SODIUM,PORCINE/PF 5,000 UNIT/0.5 ML SYRINGE SQ SCH ×2 (08:00→17:24)
[2022-02-21] MEDS: INSULIN ASPART (NovoLOG) 100 UNIT/ML VIAL SQ SCH ×4 (08:00→20:19)
[2022-02-21] MEDS: DOCUSATE 100 MG CAP PO SCH ×2 (08:00→20:19)
[2022-02-21] MEDS: amLODIPine 5 MG TAB PO SCH (08:00)
[2022-02-21] MEDS: INSULIN DETEMIR (LEVEMIR) 100 UNIT/ML SYR SQ SCH (08:00)
[2022-02-21] MEDS: hydrALAZINE HCL 50 MG TAB PO SCH ×3 (08:01→21:26)
[2022-02-21] MEDS: TAMSULOSIN 0.4 MG CAP.ER.24H PO SCH (08:01)
[2022-02-21 11:17] LABS: Glucose,Whole Blood 214 mg/dL (70-110)
[2022-02-21] MEDS ORDERED: amLODIPine 5 MG TAB PO STA (11:41)
[2022-02-21 16:42] LABS: Glucose,Whole Blood 241 mg/dL (70-110)
[2022-02-21 19:57] LABS: Glucose,Whole Blood 269 mg/dL (70-110)
[2022-02-21] MEDS: ATORVASTATIN 40 MG TAB PO SCH (20:19)
--- NOTE | 2022-02-21 21:11 | P.PN ---
Subjective This is a pleasant 51 years old male with past medical history of hypertension, hyperlipidemia and diabetes mellitus presents of back pain and left arm and leg numbness Patient states that over the last 3-4 days he was having left lower extremity numbness on walking about 25-30 feet. Also patient has been complaining of from some dysuria and low stream of urine, on admission he has acute kidney injury with creatinine 1.5, as the bladder scan of about 200-300 mL, Villavicencio catheter was placed Patient however declines back pain, no weakness in his lower extremity and no numbness while he is lying in bed. He denies chest pain or dyspnea or coughing. His been having constipation for about a year. No abdominal pain or vomiting. No headache or dizziness, no numbness or slurred speech, no weakness or blurred vision He denies smoking, alcohol or illicit drugs. His been placed on a prednisone 20 mg twice daily for the last 3-[address] Moreno, unknown reason suspected because of his back pain. Also on admission patient was hypertensive and hypoglycemic. On admission her blood pressure 231/98, currently 189/93. Afebrile, rest of v itals are stable. He has mild leukocytosis of 12.8 but is on steroids. Creatinine elevated 1.5, it was 1.3 earlier this year and before that 0.9-1.2. Rest of liver enzymes and troponin are unremarkable. Lipase is normal. Urine analysis is no suspicious of infection Occult blood stool is negative acetone is negative. EKG showi thoracic aorta angiogram ng normal sinus rhythm at 87 with no signifi cant ST-T changes Thoracic aorta angiogram: No significant angiographic abnormality. No evidence of pulmonary embolism. There is evidence of some mild small bowel ileus which is a change compared to computed tomography scan. Mild diverticulosis Acute abdominal series showed nonobstructive bowel pattern Pertinent ED team Jerome he contacted Dr. lam last night recommended steroids and MRI of the lumbar spine which is ordered stat and pending. As discussed with orthopedic team 02/19/2022 patient today underwent epidural steroid injection at L4-L5 area, after the procedure patient was sitting in bed eating his medial with good appetite. He looks comfortable and he was very satisfied with the progress he achieved after the procedure, his back pain is significantly less severe. No other complaint of weakness or numbness in the lower extremity Prednisone was used Patient received steroids injection in his back and he does not have any back pain anymore. We'll keep monitoring glucose. Blood pressure improved with systolic ranging 1:30-150, therefore we stopped his scheduled hydralazine and placed him on when necessary hydralazine. We stopped his IV fluid. He was on normal saline 75 mL/h. currently on Norvasc 5 mg metoprolol 50 mg twice a day. We'll keep close monitoring of blood pressure and sugar. Upon patient request also Villavicencio catheter was discontinued and were going to monitor bladder scan. It was checked this afternoon and it was not elevated. 02/20/2022 Patient back pain is improving and he rated as 3/10 in severity. He has no weakness in his legs 1 no numbness and is moving them freely. Patient looks like to respond to epidural steroid injection, Dr. Howard from pain management recommended outpatient follow-up in 2-4 weeks, see discharge instructions. Blood pressure is not controlled was 201/9930 this morning and he received IV hydralazine as well as oral dose, this morning blood pressure 176/92. Despite stopping IV fluids yesterday and stop the steroids. We going to resume his hydralazine 50 mg twice daily with a close monitoring Glucose is also in 300 therefore we started him on Levemir 10 units daily with close monitoring. 02/22/2012 Patient still improving and he has this pain in his lower back with better movement after steroid injection. Oral steroids has been stopped. However his blood pressure and sugar still uncontrolled, and is still pending needs emergency treatment. Therefore we increased his Norvasc to 10 mg as well as hydralazine and 50 mg 3 times a day. Also he is on lisinopril 20 mg and metoprolol 50 mg. Also increase his Levemir 10 units up to 15 units daily. We checked his bladder scan and it was about 100 mL. We'll keep monitoring his sugar, blood pressure and urine output. Also his clinical improvement. Check CBC in the morning Objective - Vital Signs Vital signs: Vital Signs Temp 98.5 F 02/21/22 08:00 Pulse 78 02/21/22 08:00 Resp 17 02/21/22 08:00 BP 186/99 02/21/22 08:00 Pulse Ox 99 02/21/22 08:00 FiO2 Intake & Output 02/20/22 02/21/22 02/21/22 18:59 06:59 18:59 Output Total 1 600 Balance -1 -600 Output: Urine 1 600 Other: # Voids 4 - Exam GENERAL: The patient is alert and oriented x3, not in any acute distress. Well developed, well nourished. HEENT: Pupils are round and equally reacting to light. EOMI. No scleral icterus. No conjunctival pallor. Normocephalic, atraumatic. No pharyngeal erythema. No thyromegaly. CARDIOVASCULAR: S1 and S2 present. No murmurs, rubs, or gallops. PULMONARY: Chest is clear to auscultation, no wheezing or crackles. ABDOMEN: Soft, nontender, nondistended, normoactive bowel sounds. No palpable organomegaly. MUSCULOSKELETAL: No joint swelling or deformity. EXTREMITIES: No cyanosis, clubbing, or pedal edema. NEUROLOGICAL: Gross neurological examination did not reveal any focal deficits. SKIN: No rashes. no petechiae. - Labs CBC & Chem 7: 02/19/22 06:02 02/19/22 06:02 Labs: Abnormal Lab Results - Last 24 Hours (Table) 02/20/22 02/20/22 02/20/22 Range/Units 11:39 16:53 20:29 POC Glucose (mg/dL) 213 H 309 H 164 H (70-110) mg/dL 02/21/22 Range/Units 07:25 POC Glucose (mg/dL) 209 H (70-110) mg/dL Microbiology - Last 24 Hours (Table) 02/17/22 20:52 Blood Culture - Preliminary Blood No Growth after 72 hours 02/17/22 20:52 Blood Culture - Preliminary Blood No Growth after 72 hours Assessment and Plan Assessment: Lumbar radiculopathy status post epidural steroid injection at L4-L5. Uncontrolled hypertension, now is currently better controlled. Worsened by ster oid effect (home dose of prednisone stopped now) Diabetes mellitus with hyperglycemia,rate controlled. Most likely due to the effect of his steroids (home dose of prednisone stopped now) Acute kidney injury on chronic kidney disease Possible chronic kidney disease stage II possible mild urinary retention status post Villavicencio catheter, urine catheter discontinued and he'll keep monitoring Diabetes mellitus Hypertension, with urgency Hyperlipidemia Plan: This is a pleasant 61 years old male with no significant back pain. Possible diabetic neuropathy. Rule out lumbar causes Continue with pain management Prednisone already stopped. keep monitor blood sugar and blood pressure Monitor bladder scan Start Levemir 10 units with ISS Start hydralazine 50 twice a day on the top of Norvasc 5 mg and lisinopril and metoprolol. monitor creatinine . Keep lisinopril on hold Continue with his blood pressure medication lisinopril and metoprolol, add hydralazine with close monitoring of blood pressure Labs and medication were reviewed.. Continue same treatment. Continue with symptomatic treatment. Resume home medication. Monitor lytes and vitals. DVT and GI prophylaxis. Further recommendations as per clinical course of the patient DVT prophylaxis: sc heparin GI Prophylaxis: Pepcid
[2022-02-22 06:44] LABS: Glucose,Whole Blood 243 mg/dL (70-110)
[2022-02-22] MEDS: hydrALAZINE HCL 50 MG TAB PO SCH ×3 (08:08→21:35)
[2022-02-22] MEDS: HEPARIN SODIUM,PORCINE/PF 5,000 UNIT/0.5 ML SYRINGE SQ SCH ×3 (08:08→15:17)
[2022-02-22] MEDS: METOPROLOL TARTRATE 50 MG TAB PO SCH ×2 (08:09→21:35)
[2022-02-22] MEDS: DOCUSATE 100 MG CAP PO SCH ×2 (08:09→21:35)
[2022-02-22] MEDS: INSULIN ASPART (NovoLOG) 100 UNIT/ML VIAL SQ SCH ×4 (08:09→21:35)
[2022-02-22] MEDS: INSULIN DETEMIR (LEVEMIR) 100 UNIT/ML SYR SQ SCH (08:09)
[2022-02-22] MEDS: amLODIPine 10 MG TAB PO SCH (08:09)
[2022-02-22] MEDS: TAMSULOSIN 0.4 MG CAP.ER.24H PO SCH (08:09)
[2022-02-22] MEDS: FAMOTIDINE 20 MG TAB PO SCH ×2 (08:09→21:35)
[2022-02-22] MEDS: methocarbamoL 750 MG TAB PO SCH ×4 (08:10→21:35)
[2022-02-22 10:41] LABS: Basophils # (A) 0.04 X 10*3/uL (0.00-0.10); Basophils % (A) 0.2 %; Eosinophils # (A) 0.43 X 10*3/uL (0.04-0.35); Eosinophils % (A) 2.6 %; HCT 50.1 % (39.6-50.0); HGB 17.1 g/dL (13.0-17.0); Immature Grans, Automated 0.5 %; Lymphocytes # (A) 2.48 X 10*3/uL (0.90-5.00); Lymphocytes % (A) 14.9 %; MCH 28.7 pg (27.0-32.0); MCHC 34.1 g/dL (32.0-37.0); MCV 84.1 fL (80.0-97.0); Mean Platelet Volume 12.3 fL (9.5-12.2); Monocytes # (A) 0.93 X 10*3/uL (0.20-1.00); Monocytes % (A) 5.6 %; NRBC Per 100 WBC 0 /100 WBCS (0.0-0.0); Neutrophils # (A) 12.62 X 10*3/uL (1.80-7.70); Neutrophils % (A) 76.2 %; Platelet Count 289 X 10*3/uL (140-440); RBC 5.96 X 10*6/uL (4.40-5.60); RDW 12.9 % (11.5-14.5); WBC 16.59 X 10*3/uL (4.50-10.00)
[2022-02-22 11:26] LABS: Glucose,Whole Blood 237 mg/dL (70-110)
[2022-02-22 16:13] LABS: Glucose,Whole Blood 291 mg/dL (70-110)
[2022-02-22 20:46] LABS: Glucose,Whole Blood 262 mg/dL (70-110)
[2022-02-22] MEDS: ATORVASTATIN 40 MG TAB PO SCH (21:35)
[2022-02-23] MEDS: HEPARIN SODIUM,PORCINE/PF 5,000 UNIT/0.5 ML SYRINGE SQ SCH ×4 (01:11→22:18)
[2022-02-23 07:11] LABS: Glucose,Whole Blood 311 mg/dL (70-110)
[2022-02-23] MEDS: INSULIN ASPART (NovoLOG) 100 UNIT/ML VIAL SQ SCH ×6 (08:53→22:17)
[2022-02-23] MEDS: TAMSULOSIN 0.4 MG CAP.ER.24H PO SCH (08:54)
[2022-02-23] MEDS: INSULIN DETEMIR (LEVEMIR) 100 UNIT/ML SYR SQ SCH (08:54)
[2022-02-23] MEDS: FAMOTIDINE 20 MG TAB PO SCH ×2 (08:54→20:38)
[2022-02-23] MEDS: METOPROLOL TARTRATE 50 MG TAB PO SCH ×2 (08:54→20:38)
[2022-02-23] MEDS: methocarbamoL 750 MG TAB PO SCH ×4 (08:54→20:38)
[2022-02-23] MEDS: DOCUSATE 100 MG CAP PO SCH ×2 (08:54→20:38)
[2022-02-23] MEDS: amLODIPine 10 MG TAB PO SCH (08:54)
[2022-02-23] MEDS: hydrALAZINE HCL 50 MG TAB PO SCH ×3 (08:54→20:38)
--- NOTE | 2022-02-23 09:33 | P.PN ---
Subjective Progress Note Date: 02/22/22 This is a pleasant 51 years old male with past medical history of hypertension, hyperlipidemia and diabetes mellitus presents of back pain and left arm and leg numbness Patient states that over the last 3-4 days he was having left lower extremity numbness on walking about 25-30 feet. Also patient has been complaining of from some dysuria and low stream of urine, on admission he has acute kidney injury with creatinine 1.5, as the bladder scan of about 200-300 mL, Villavicencio catheter was placed Patient however declines back pain, no weakness in his lower extremity and no numbness while he is lying in bed. He denies chest pain or dyspnea or coughing. His been having constipation for about a year. No abdominal pain or vomiting. No headache or dizziness, no numbness or slurred speech, no weakness or blurred vision He denies smoking, alcohol or illicit drugs. His been placed on a prednisone 20 mg twice daily for the last 3-[address] Moreno, unknown reason suspected because of his back pain. Also on admission patient was hypertensive and hypoglycemic. On admission her blood pressure 231/98, currently 189/93. Afebrile, rest of vitals are stable. He has mild leukocytosis of 12.8 but is on steroids. Creatinine elevated 1.5, it was 1.3 earlier this year and before that 0.9-1.2. Rest of liver enzymes and troponin are unremarkable. Lipase is normal. Urine analysis is no suspicious of infection Occult blood stool is negative acetone is negative. EKG showi thoracic aorta angiogram ng normal sinus rhythm at [address]-T changes Thoracic aorta angiogram: No significant angiographic abnormality. No evidence of pulmonary embolism. There is evidence of some mild small bowel ileus which is a change compared to computed tomography scan. Mild diverticulosis Acute abdominal series showed nonobstructive bowel pattern Pertinent ED team Jerome he contacted Dr. lam last night recommended steroids and MRI of the lumbar spine which is ordered stat and pending. As discussed with orthopedic team 02/19/2022 patient today underwent epidural steroid injection at L4-L5 area, after the procedure patient was sitting in bed eating his medial with good appetite. He looks comfortable and he was very satisfied with the progress he achieved after the procedure, his back pain is significantly less severe. No other complaint of weakness or numbness in the lower extremity Prednisone was used Patient received steroids injection in his back and he does not have any back pain anymore. We'll keep monitoring glucose. Blood pressure improved with systolic ranging 1:30-150, therefore we stopped his scheduled hydralazine and placed him on when necessary hydralazine. We stopped his IV fluid. He was on normal saline 75 mL/h. currently on Norvasc 5 mg metoprolol 50 mg twice a day. We'll keep close monitoring of blood pressure and sugar. Upon patient request also Villavicencio catheter was discontinued and were going to monitor bladder scan. It was checked this afternoon and it was not elevated. 02/20/2022 Patient back pain is improving and he rated as 3/10 in severity. He has no weakness in his legs 1 no numbness and is moving them freely. Patient looks like to respond to epidural steroid injection, Dr. oHward from pain management recommended outpatient follow-up in 2-4 weeks, see discharge instructions. Blood pressure is not controlled was 201/9930 this morning and he received IV hydralazine as well as oral dose, this morning blood pressure 176/92. Despite stopping IV fluids yesterday and stop the steroids. We going to resume his hydralazine 50 mg twice daily with a close monitoring Glucose is also in 300 therefore we started him on Levemir 10 units daily with close monitoring. 02/21/2022 Patient still improving and he has this pain in his lower back with better movement after steroid injection. Oral steroids has been stopped. However his blood pressure and sugar still uncontrolled, and is still pending needs emergency treatment. Therefore we increased his Norvasc to 10 mg as well as hydralazine and 50 mg 3 times a day. Also he is on lisinopril 20 mg and metoprolol 50 mg. Also increase his Levemir 10 units up to 15 units daily. We checked his bladder scan and it was about 100 mL. We'll keep monitoring his sugar, blood pressure and urine output. Also his clinical improvement. Check CBC in the morning 02/22/2022 Patient is lying in bed. Awake alert and still complains of back pain. Patient is status post lumbar epidural steroid injection. Off oral steroids. Fever or chills. No nausea vomiting or abdominal pain or diarrhea. Patient is being continued on pain management with Tylenol and Robaxin. Laboratory data showed WBC 16.4 hemoglobin 17.1 and platelets 289 and blood sugar is elevated around 237. Patient is being currently on Levemir and insulin sliding scale. Patient also on Flomax. Current medications reviewed. Objective - Vital Signs Vital signs: Vital Signs Temp 98.3 F 02/22/22 18:56 Pulse 98 02/22/22 18:56 Resp 19 02/22/22 18:56 BP 168/95 02/22/22 18:56 Pulse Ox 97 02/22/22 18:56 FiO2 Intake & Output 02/22/22 02/22/22 02/23/22 06:59 18:59 06:59 Intake Total 720 Balance 720 Intake: Oral 720 Other: # Voids 3 4 # Bowel Movements 1 - Exam - Exam GENERAL: The patient is alert and oriented x3, not in any acute distress. Well developed, well nourished. HEENT: Pupils are round and equally reacting to light. EOMI. No scleral icterus. No conjunctival pallor. Normocephalic, atraumatic. No pharyngeal erythema. No thyromegaly. CARDIOVASCULAR: S1 and S2 present. No murmurs, rubs, or gallops. PULMONARY: Chest is clear to auscultation, no wheezing or crackles. ABDOMEN: Soft, nontender, nondistended, normoactive bowel sounds. No palpable organomegaly. MUSCULOSKELETAL: No joint swelling or deformity. EXTREMITIES: No cyanosis, clubbing, or pedal edema. NEUROLOGICAL: Gross neurological examination did not reveal any focal deficits. SKIN: No rashes. no petechiae. - Labs CBC & Chem 7: 02/22/22 06:53 02/19/22 06:02 Labs: Abnormal Lab Results - Last 24 Hours (Table) 02/22/22 02/22/22 02/22/22 Range/Units 06:43 06:53 11:25 WBC 16.59 H (4.50-10.00) X 10*3/uL RBC 5.96 H (4.40-5.60) X 10*6/uL Hgb 17.1 H (13.0-17.0) g/dL Hct 50.1 H (39.6-50.0) % MPV 12.3 H (9.5-12.2) fL Immature Gran # 0.09 H (0.00-0.04) X 10*3/uL Neutrophils # 12.62 H (1.80-7.70) X 10*3/uL Eosinophils # 0.43 H (0.04-0.35) X 10*3/uL POC Glucose (mg/dL) 243 H 237 H (70-110) mg/dL 02/22/22 02/22/22 Range/Units 16:11 20:44 WBC (4.50-10.00) X 10*3/uL RBC (4.40-5.60) X 10*6/uL Hgb (13.0-17.0) g/dL Hct (39.6-50.0) % MPV (9.5-12.2) fL Immature Gran # (0.00-0.04) X 10*3/uL Neutrophils # (1.80-7.70) X 10*3/uL Eosinophils # (0.04-0.35) X 10*3/uL POC Glucose (mg/dL) 291 H 262 H (70-110) mg/dL Microbiology - Last 24 Hours (Table) 02/17/22 20:52 Blood Culture - Preliminary Blood No Growth after 96 hours 02/17/22 20:52 Blood Culture - Preliminary Blood No Growth after 96 hours Assessment and Plan Assessment: Lumbar radiculopathy status post epidural steroid injection at L4-L5. Uncontrolled hypertension, now is currently better controlled. Worsened by steroid effect (home dose of prednisone stopped now) Diabetes mellitus with hyperglycemia,rate controlled. Most likely due to the effect of his steroids (home dose of prednisone stopped now) Acute kidney injury on chronic kidney disease Possible chronic kidney disease stage II possible mild urinary retention status post Villavicencio catheter, urine catheter dis continued and he'll keep monitoring Diabetes mellitus Hypertension, with urgency Hyperlipidemia Plan: This is a pleasant 61 years old male with no significant back pain. Possible diabetic neuropathy. Rule out lumbar causes Continue with pain management Prednisone already stopped. keep monitor blood sugar and blood pressure Monitor bladder scan Start Levemir 10 units with ISS Start hydralazine 50 twice a day on the top of Norvasc 5 mg and lisinopril and metoprolol. monitor creatinine . Keep lisinopril on hold Continue with his blood pressure medication lisinopril and metoprolol, add hydralazine with close monitoring of blood pressure Labs and medication were reviewed. DVT prophylaxis: sc heparin GI Prophylaxis: Pepcid Time with Patient: Greater than 30
[2022-02-23 11:20] LABS: Basophils # (A) 0.1 k/uL (0-0.2); Basophils % (A) 0 %; Eosinophils # (A) 0.4 k/uL (0-0.7); Eosinophils % (A) 2 %; HCT 50.1 % (39.0-53.0); HGB 16.6 gm/dL (13.0-17.5); Lymphocytes # (A) 2.1 k/uL (1.0-4.8); Lymphocytes % (A) 14 %; MCH 28.5 pg (25.0-35.0); MCV 86.3 fL (80.0-100.0); Mean Platelet Volume 10.6; Monocytes # (A) 0.9 k/uL (0-1.0); Monocytes % (A) 6 %; Neutrophils # (A) 12.1 k/uL (1.3-7.7); Neutrophils % (A) 77 %; Platelet Count 280 k/uL (150-450); RBC 5.81 m/uL (4.30-5.90); WBC 15.9 k/uL (3.8-10.6)
[2022-02-23 11:22] LABS: Glucose,Whole Blood 144 mg/dL (70-110)
[2022-02-23 11:33] LABS: African American GFR (CKD) 71 (>60 ml/min/1.73 sqM); Anion Gap 7 mmol/L; Blood Urea Nitrogen 30 mg/dL (9-20); Calcium 9.1 mg/dL (8.4-10.2); Carbon Dioxide 23 mmol/L (22-30); Chloride 105 mmol/L (98-107); Glucose 160 mg/dL (74-99); Non-African American GFR(CKD) 61 (>60 ml/min/1.73 sqM); Potassium 4.6 mmol/L (3.5-5.1); Sodium 135 mmol/L (137-145)
[2022-02-23 16:33] LABS: Glucose,Whole Blood 300 mg/dL (70-110)
[2022-02-23 20:26] LABS: Glucose,Whole Blood 207 mg/dL (70-110)
[2022-02-23] MEDS: ATORVASTATIN 40 MG TAB PO SCH (20:38)
[2022-02-23] MEDS: HYDROcodone/APAP 5-325MG 1 EACH TAB PO PRN (20:38)
[2022-02-24] MEDS: hydrALAZINE HCL 25 MG TAB PO PRN (03:03)
[2022-02-24 07:06] LABS: Glucose,Whole Blood 226 mg/dL (70-110)
[2022-02-24] MEDS: INSULIN DETEMIR (LEVEMIR) 100 UNIT/ML SYR SQ SCH (07:42)
[2022-02-24] MEDS: INSULIN ASPART (NovoLOG) 100 UNIT/ML VIAL SQ SCH ×4 (07:43→11:59)
[2022-02-24] MEDS: HEPARIN SODIUM,PORCINE/PF 5,000 UNIT/0.5 ML SYRINGE SQ SCH ×2 (07:44→16:06)
[2022-02-24] MEDS: TAMSULOSIN 0.4 MG CAP.ER.24H PO SCH (07:44)
[2022-02-24] MEDS: methocarbamoL 750 MG TAB PO SCH ×2 (08:03→12:01)
[2022-02-24] MEDS: METOPROLOL TARTRATE 50 MG TAB PO SCH (08:04)
[2022-02-24] MEDS: FAMOTIDINE 20 MG TAB PO SCH (08:04)
[2022-02-24] MEDS: hydrALAZINE HCL 50 MG TAB PO SCH ×2 (08:04→16:08)
[2022-02-24] MEDS: DOCUSATE 100 MG CAP PO SCH (08:04)
[2022-02-24] MEDS: amLODIPine 10 MG TAB PO SCH (08:04)
[2022-02-24] MEDS: HYDROcodone/APAP 5-325MG 1 EACH TAB PO PRN (10:31)
[2022-02-24 11:04] LABS: Glucose,Whole Blood 295 mg/dL (70-110)
[2022-02-24] MEDS ORDERED: INSULIN DETEMIR (LEVEMIR) 100 UNIT/ML SYR SQ ONE (11:31)
[2022-02-24 11:35] LABS: African American GFR (CKD) 63.3 (60.0-200.0); Albumin 3.5 g/dL (3.8-4.9); Albumin/Globulin Ratio 1.67 (1.60-3.17); Anion Gap 8.7 mmol/L (10.00-18.00); BUN/Creat Ratio 24.29 Ratio (12.00-20.00); Calcium 9.5 mg/dL (8.7-10.3); Carbon Dioxide 21.3 mmol/L (20.0-27.5); Globulin 2.1 g/dL (1.6-3.3); Non-African American GFR(CKD) 54.6 (60.0-200.0); Potassium 4.8 mmol/L (3.5-5.5); Total Bilirubin 0.5 mg/dL (0.30-1.20); Total Protein 5.6 g/dL (6.2-8.2)
[2022-02-24] MEDS: ACETAMINOPHEN TAB 325 MG TAB PO PRN (12:00)
[2022-02-24 13:53] VITALS: BP 157/81; PULSE 87; RESP 15; TEMP 98.2
[2022-02-25] MEDS ORDERED: INSULIN DETEMIR (LEVEMIR) 100 UNIT/ML SYR SQ SCH (07:00)
== END 2022-02-24 16:39 | disposition home or self-care (01) | DRG 552 ==
LOC: EC 19:59 → 4SSUR 23:00 → OBSVTOIN 02-19 12:19 → 4SSUR 02-19 17:17
PROVIDERS: ADMIT Internal Medicine; ATTEND Internal Medicine
PROC: B01B1ZZ Fluoroscopy of Spinal Cord using Low Osmolar Contrast (ICD-10-PCS; 2022-02-19)
PROC: 3E0R33Z Introduction of Anti-inflammatory into Spinal Canal, Percutaneous Approach (ICD-10-PCS; principal; 2022-02-19 11:30)
DX: M47.26 Other spondylosis with radiculopathy, lumbar region (principal); N17.9 Acute kidney failure, unspecified; K56.7 Ileus, unspecified; K57.92 Diverticulitis of intestine, part unspecified, without perforation or abscess without bleeding; E11.649 Type 2 diabetes mellitus with hypoglycemia without coma; E11.22 Type 2 diabetes mellitus with diabetic chronic kidney disease; E11.40 Type 2 diabetes mellitus with diabetic neuropathy, unspecified; E11.65 Type 2 diabetes mellitus with hyperglycemia; I12.9 Hypertensive chronic kidney disease with stage 1 through stage 4 chronic kidney disease, or unspecified chronic kidney disease; D72.828 Other elevated white blood cell count; M51.16 Intervertebral disc disorders with radiculopathy, lumbar region; M51.17 Intervertebral disc disorders with radiculopathy, lumbosacral region; R32 Unspecified urinary incontinence; T38.3X6A Underdosing of insulin and oral hypoglycemic [antidiabetic] drugs, initial encounter; M79.602 Pain in left arm; I16.0 Hypertensive urgency; R33.9 Retention of urine, unspecified; F43.20 Adjustment disorder, unspecified; R26.2 Difficulty in walking, not elsewhere classified; E78.5 Hyperlipidemia, unspecified; R30.0 Dysuria; T38.0X5A Adverse effect of glucocorticoids and synthetic analogues, initial encounter; K57.30 Diverticulosis of large intestine without perforation or abscess without bleeding; G89.29 Other chronic pain; M48.061 Spinal stenosis, lumbar region without neurogenic claudication; N18.2 Chronic kidney disease, stage 2 (mild); W19.XXXA Unspecified fall, initial encounter; Z91.14 Patient's other noncompliance with medication regimen; Z79.4 Long term (current) use of insulin; Z79.82 Long term (current) use of aspirin; Z79.84 Long term (current) use of oral hypoglycemic drugs; Z79.899 Other long term (current) drug therapy; Z79.52 Long term (current) use of systemic steroids
CPT/HCPCS: 36415; 51702; 51798; 62323; 71275; 72148; 74022; 74174; 76770; 80048; 80053; 80076; 81001; 82009; 82272; 82803; 83036; 83605; 83690; 83735; 84484; 85025; 85610; 85652; 86140; 87040; 93005; 94760; 96361; 96374; 96375; 96376; 99285

== ENCOUNTER 2022-09-08 07:33 | Emergency (ER) | payer MEDICARE, OTHER ==
[2022-09-08 07:52] VITALS: TEMP 97.9
[2022-09-08] MEDS ORDERED: SODIUM CHLORIDE 0.9% 1,000 ML IV STA (08:03)
[2022-09-08] MEDS ORDERED: KETOROLAC 15 MG/ML 1 ML VIAL IVP STA (08:03)
--- NOTE | 2022-09-08 08:09 | ED ---
General Adult HPI - General Chief complaint: Back Pain/Injury Stated complaint: medication review Time Seen by Provider: 09/08/22 07:55 Source: patient, RN notes reviewed, old records reviewed Mode of arrival: ambulatory Limitations: no limitations - History of Present Illness Initial comments: This is a nontoxic-appearing 62-year-old male that presents ambulatory with complaints of left lower back pain. States consistent with previous bouts of diverticulitis. Pain has been ongoing for 1 week. Denies any fevers but is having diarrhea. Denies any hematuria. States he did see his primary care doctor 2 weeks ago and was prescribed a stronger cholesterol medication which is not covered by his insurance, currently taking atorvastatin. Patient has history of diabetes, hypertension, hyperlipidemia and diverticulitis. He is a nonsmoker. Does not drink alcohol daily basis. Lives alone. -: week(s) (1) Location: back, left Radiation: non-radiation Severity scale (1-10): 5 Quality: constant Consistency: constant Improves with: none Associated Symptoms: other (diarrhea) Treatments Prior to Arrival: none - Related Data Home Medications Medication Instructions Recorded Confirmed Aspirin 81 mg PO HS 02/14/22 02/18/22 Atorvastatin [Lipitor] 40 mg PO HS 02/14/22 02/18/22 Dapagliflozin Propanediol [Farxiga] 10 mg PO DAILY 02/14/22 02/18/22 lisinopriL [Zestril] 20 mg PO DAILY 02/14/22 02/18/22 Previous Rx's Medication Instructions Recorded Metoprolol Tartrate [Lopressor] 50 mg PO BID #60 tab 10/05/21 methocarbamoL [Robaxin-750] 750 mg PO QID #30 tab 02/14/22 INSULIN ASPART (NovoLOG) [NovoLOG 5 unit SQ AC-TID 30 Days #1 02/24/22 (formulary)] Insulin Detemir (Levemir) [Levemir] 21 unit SQ DAILY@0700 30 Days #1 02/24/22 each amLODIPine [Norvasc] 10 mg PO DAILY #30 tab 02/24/22 Allergies Allergy/AdvReac Type Severity Reaction Status Date / Time No Known Allergies Allergy Verified 09/08/22 07:52 Review of Systems ROS Statement: Those systems with pertinent positive or pertinent negative responses have been documented in the HPI. ROS Other: All systems not noted in ROS Statement are negative. Past Medical History Past Medical History: Diabetes Mellitus, Hypertension Additional Past Medical History / Comment(s): NIDDM type II, hemorrhoids, divert iculitis, chronic sinus problems, L knee "gives out" on occasion. History of Any Multi-Drug Resistant Organisms: None Reported Past Surgical History: Hernia Repair Additional Past Surgical History / Comment(s): R inguinal hernia repair, multiple myringotomies/tubes, circumcism Past Anesthesia/Blood Transfusion Reactions: No Reported Reaction Past Psychological History: Depression Smoking Status: Never smoker Past Alcohol Use History: None Reported Past Drug Use History: None Reported - Past Family History Mother Family Medical History: Cancer Additional Family Medical History / Comment(s): colon cancer. Father Family Medical History: Cancer Additional Family Medical History / Comment(s): colon cancer. General Exam Limitations: no limitations General appearance: alert, in no apparent distress Head exam: Present: atraumatic, normocephalic Eye exam: Present: normal appearance. Absent: scleral icterus, conjunctival injection, periorbital swelling ENT exam: Present: mucous membranes moist Respiratory exam: Absent: respiratory distress, accessory muscle use Cardiovascular Exam: Present: regular rate GI/Abdominal exam: Present: soft. Absent: distended, tenderness, guarding, rebound, rigid Extremities exam: Present: full ROM, normal capillary refill. Absent: tenderness, pedal edema Back exam: Present: normal inspection, tenderness, paraspinal tenderness (lumbar). Absent: CVA tenderness (R), CVA tenderness (L), vertebral tenderness, rash noted Neurological exam: Present: alert, oriented X3, CN II-XII intact, normal gait Psychiatric exam: Present: normal affect, normal mood Skin exam: Present: warm, dry, normal color. Absent: cyanosis, diaphoretic, petechiae, pallor Course Vital Signs 09/08/22 09/08/22 07:43 10:36 Temperature 97.9 F Pulse Rate 88 79 Respiratory 18 16 Rate Blood Pressure 169/104 183/93 O2 Sat by Pulse 98 96 Oximetry Medical Decision Making - Medical Decision Making Vital signs are stable patient is afebrile. Labs show mild leukocytosis of 14.4 consistent with patient's previous labs 02/23/2022 of 15.9. Electrolytes show BUN of 26 creatinine 1.38 consistent with previous labs 02/24/2022 with creatinine of 1.4. Blood glucose 244, urinalysis negative for evidence of infection no hematuria. CT abdomen and pelvis was performed due to patient's complaints and concern for diverticulitis. No evidence of acute process, colonic diverticulosis. Bilateral fat containing inguinal hernias. Patient was given IV fluids and Toradol with relief of his symptoms. He does have a history of chronic low back pain which may be the cause of his pain today. Patient has no focal neurological deficits, is ambulatory with a steady gait. No bowel or bladder incontinence. No saddle anesthesia. No red flag symptoms. Abdomen is soft and nontender. He was reassured that this is not diverticulitis and to follow-up with his primary care doctor. He is agreeable to this plan of care. Case discussed with Dr. Leal. Was pt. sent in by a medical professional or institution (, PA, CULINARY MANAGER, urgent care, hospital, or [facility]...) When possible be specific @ -No Did you speak to anyone other than the patient for history (EMS, parent, family, police, friend...)? What history was obtained from this source @ -No Did you review nursing and triage notes (agree or disagree)? Why? @ -I reviewed and agree with nursing and triage notes Were old charts reviewed (outside hosp., previous admission, EMS record, old EKG, old radiological studies, urgent care reports/EKG's, [facility] records)? Report findings @ -yes previous labs as above Differential Diagnosis (chest pain, altered mental status, abdominal pain women, abdominal pain men, vaginal bleeding, weakness, fever, dyspnea, syncope, headache, dizziness, GI bleed, back pain, seizure, CVA, palpatations, mental health, musculoskeletal)? @ -Differential Back Pain: Strain, zoster, cauda equina syndrome, epidural abscess, vertebral osteomyelitis, discitis, fracture, subluxation, disc herniation, DJD, spinal stenosis, dissection, AAA, pancreatitis, peptic ulcer disease, pyelonephritis, kidney stone, this is not meant to be an all-inclusive list. EKG interpreted by me (3pts min.). @ -n/a X-rays interpreted by me (1pt min.). @ -None done CT interpreted by me (1pt min.). @ -no U/S interpreted by me (1pt. min.). @ -None done What testing was considered but not performed or refused? (CT, X-rays, U/S, labs)? Why? @ -None What meds were considered but not given or refused? Why? @ -Antibiotics were considered however no evidence of diverticulitis, no evidence of urinary tract infection or other infectious process Did you discuss the management of the patient with other professionals (professionals i.e. Dr., PA, CULINARY MANAGER, lab, RT, psych nurse, social contact worker, plate furnace operator, teacher, earth science technical officer, community case manager)? Give summary @ -No Was smoking cessation discussed for >3mins.? @ -No Was critical care preformed (if so, how long)? @ -No Were there social determinants of health that impacted care today? How? (Homelessness, low income, unemployed, alcoholism, drug addiction, transportation, low edu. Level, literacy, decrease access to med. care, retirement, rehab)? @ -No Was there de-escalation of care discussed even if they declined (Discuss DNR or withdrawal of care, Hospice)? DNR status @ -No What co-morbidities impacted this encounter? (DM, HTN, Smoking, COPD, CAD, Cancer, CVA, ARF, Chemo, Hep., AIDS, mental health diagnosis, sleep apnea, morbid obesity)? @ -Diabetes, hypertension, diverticulitis, chronic back pain Was patient admitted / discharged? Hospital course, mention meds given and route, prescriptions, significant lab abnormalities, going to OR and other pertinent info. @ -Discharged Undiagnosed new problem with uncertain prognosis? @ -No Drug Therapy requiring intensive monitoring for toxicity (Heparin, Nitro, Insulin, Cardizem)? @ -No Were any procedures done? @ -No Diagnosis/symptom? @ -Low back pain Acute, or Chronic, or Acute on Chronic? @ -Acute on chronic Uncomplicated (without systemic symptoms) or Complicated (systemic symptoms)? @ -Uncomplicated Side effects of treatment? @ -No Exacerbation, Progression, or Severe Exacerbation? @ -No Poses a threat to life or bodily function? How? (Chest pain, USA, CA, pneumonia, PE, COPD, DKA, ARF, appy, cholecystitis, CVA, Diverticulitis, Homicidal, Suicidal, threat to staff... and all critical care pts) @ -No - Lab Data Result diagrams: 09/08/22 08:14 09/08/22 08:14 Lab Results 09/08/22 09/08/22 09/08/22 Range/Units 08:14 08:14 08:14 WBC 14.4 H (3.8-10.6) k/uL RBC 5.49 (4.30-5.90) m/uL Hgb 15.8 (13.0-17.5) gm/dL Hct 46.9 (39.0-53.0) % MCV 85.4 (80.0-100.0) fL MCH 28.9 (25.0-35.0) pg MCHC 33.8 (31.0-37.0) g/dL RDW 12.7 (11.5-15.5) % Plt Count 237 (150-450) k/uL MPV 9.1 Neutrophils % 83 % Lymphocytes % 10 % Monocytes % 4 % Eosinophils % 2 % Basophils % 0 % Neutrophils # 12.0 H (1.3-7.7) k/uL Lymphocytes # 1.4 (1.0-4.8) k/uL Monocytes # 0.6 (0-1.0) k/uL Eosinophils # 0.3 (0-0.7) k/uL Basophils # 0.0 (0-0.2) k/uL Sodium 133 L (137-145) mmol/L Potassium 4.9 (3.5-5.1) mmol/L Chloride 103 (98-107) mmol/L Carbon Dioxide 23 (22-30) mmol/L Anion Gap 7 mmol/L BUN 26 H (9-20) mg/dL Creatinine 1.38 H (0.66-1.25) mg/dL Est GFR (CKD-EPI)AfAm 64 (>60 ml/min/1.73 sqM) Est GFR (CKD-EPI)NonAf 55 (>60 ml/min/1.73 sqM) Glucose 244 H (74-99) mg/dL Plasma Lactic Acid Wes (0.7-2.0) mmol/L Calcium 9.4 (8.4-10.2) mg/dL Total Bilirubin 1.2 (0.2-1.3) mg/dL AST 22 (17-59) U/L ALT 32 (4-49) U/L Alkaline Phosphatase 119 (38-126) U/L Total Protein 6.4 (6.3-8.2) g/dL Albumin 3.6 (3.5-5.0) g/dL Amylase 43 (30-110) U/L Lipase 89 (23-300) U/L Urine Color Light Yellow Urine Appearance Clear (Clear) Urine pH 5.5 (5.0-8.0) Ur Specific [place] 1.024 (1.001-1.035) Urine Protein 2+ H (Negative) Urine Glucose (UA) 4+ H (Negative) Urine Ketones Negative (Negative) Urine Blood Trace H (Negative) Urine Nitrite Negative (Negative) Urine Bilirubin Negative (Negative) Urine Urobilinogen <2.0 (<2.0) mg/dL Ur Leukocyte Esterase Negative (Negative) Urine RBC <1 (0-5) /hpf Urine Mucus Rare H (None) /hpf 09/08/22 Range/Units 08:14 WBC (3.8-10.6) k/uL RBC (4.30-5.90) m/uL Hgb (13.0-17.5) gm/dL Hct (39.0-53.0) % MCV (80.0-100.0) fL MCH (25.0-35.0) pg MCHC (31.0-37.0) g/dL RDW (11.5-15.5) % Plt Count (150-450) k/uL MPV Neutrophils % % Lymphocytes % % Monocytes % % Eosinophils % % Basophils % % Neutrophils # (1.3-7.7) k/uL Lymphocytes # (1.0-4.8) k/uL Monocytes # (0-1.0) k/uL Eosinophils # (0-0.7) k/uL Basophils # (0-0.2) k/uL Sodium (137-145) mmol/L Potassium (3.5-5.1) mmol/L Chloride (98-107) mmol/L Carbon Dioxide (22-30) mmol/L Anion Gap mmol/L BUN (9-20) mg/dL Creatinine (0.66-1.25) mg/dL Est GFR (CKD-EPI)AfAm (>60 ml/min/1.73 sqM) Est GFR (CKD-EPI)NonAf (>60 ml/min/1.73 sqM) Glucose (74-99) mg/dL Plasma Lactic Acid Wes 1.4 (0.7-2.0) mmol/L Calcium (8.4-10.2) mg/dL Total Bilirubin (0.2-1.3) mg/dL AST (17-59) U/L ALT (4-49) U/L Alkaline Phosphatase (38-126) U/L Total Protein (6.3-8.2) g/dL Albumin (3.5-5.0) g/dL Amylase (30-110) U/L Lipase (23-300) U/L Urine Color Urine Appearance (Clear) Urine pH (5.0-8.0) Ur Specific [place] (1.001-1.035) Urine Protein (Negative) Urine Glucose (UA) (Negative) Urine Ketones (Negative) Urine Blood (Negative) Urine Nitrite (Negative) Urine Bilirubin (Negative) Urine Urobilinogen (<2.0) mg/dL Ur Leukocyte Esterase (Negative) Urine RBC (0-5) /hpf Urine Mucus (None) /hpf Disposition Clinical Impression: Back pain Disposition: HOME SELF-CARE Condition: Good Instructions (If sedation given, give patient instructions): Back Pain (ED), Lower Back Exercises (ED) Additional Instructions: Continue your previously prescribed medications and follow up with your primary care doctor this week. Return to the emergency room with any new or concerning symptoms including fever, persistent nausea vomiting. Is patient prescribed a controlled substance at d/c from ED?: No Referrals: None,Stated [Primary Care Provider] - 1-2 days Time of Disposition: 10:30
[2022-09-08 08:24] LABS: Basophils % (A) 0 %; Eosinophils # (A) 0.3 k/uL (0-0.7); Eosinophils % (A) 2 %; HCT 46.9 % (39.0-53.0); HGB 15.8 gm/dL (13.0-17.5); Lymphocytes # (A) 1.4 k/uL (1.0-4.8); Lymphocytes % (A) 10 %; MCH 28.9 pg (25.0-35.0); MCHC 33.8 g/dL (31.0-37.0); MCV 85.4 fL (80.0-100.0); Mean Platelet Volume 9.1; Monocytes # (A) 0.6 k/uL (0-1.0); Monocytes % (A) 4 %; Neutrophils % (A) 83 %; Platelet Count 237 k/uL (150-450); RBC 5.49 m/uL (4.30-5.90); RDW 12.7 % (11.5-15.5); WBC 14.4 k/uL (3.8-10.6)
[2022-09-08 08:34] LABS: Appearance,Urine Clear (Clear); Bilirubin,Urine Negative (Negative); Blood,Urine Trace (Negative); Color,Urine Light Yellow; Glucose,Urine (UA) 4+ (Negative); Ketones,Urine Negative (Negative); Leukocyte Esterase,Urine Negative (Negative); Mucus,Urine Rare /hpf; Nitrite,Urine Negative (Negative); PH, Urine 5.5 (5.0-8.0); Protein,Urine 2+ (Negative); RBC,Urine <1 /hpf (0-5); Specific Gravity,Urine 1.024 (1.001-1.035); Urobilinogen,Urine <2.0 mg/dL (<2.0)
--- NOTE | 2022-09-08 08:50 | CT ---
EXAMINATION TYPE: CT abdomen pelvis wo con CT DLP: 735.9 mGycm, Automated exposure control for dose reduction was used. DATE OF EXAM: 09/08/2022 8:41 AM COMPARISON: CT abdomen pelvis most recent from CLINICAL INDICATION:Male, 62 years old with history of abdominal pain; Generalized abd pain TECHNIQUE: Axial CT of the abdomen and pelvis. Sagittal and coronal reformats were created on a [employer] workstation. Contrast used: None Oral contrast used: without Oral Contrast FINDINGS: LOWER CHEST: Unremarkable ABDOMEN LIVER: Unremarkable GALLBLADDER AND BILE DUCTS: Unremarkable. PANCREAS: Unremarkable. SPLEEN: Unremarkable. ADRENAL GLANDS: Unremarkable. KIDNEYS AND URETERS: No evidence of hydronephrosis or renal calculus. The ureters are unremarkable. PELVIS BLADDER: Unremarkable REPRODUCTIVE: Unremarkable. ABDOMEN & PELVIS STOMACH AND BOWEL: No evidence of bowel obstruction. Scattered colonic diverticula are present. The a ppendix is normal. PERITONEUM/RETROPERITONEUM: No evidence of pneumoperitoneum or free fluid. VASCULATURE: Mild atherosclerotic calcifications are present throughout the abdominal aorta and its b ranches. No evidence of aortic aneurysm. MUSCULOSKELETAL: No acute osseous abnormalities. Mild disc degeneration changes are present throughou t the thoracolumbar spine. LYMPH NODES: No gross evidence for lymphadenopathy. SOFT TISSUE/ABDOMINAL WALL: Bilateral fat-containing inguinal hernias. IMPRESSION: 1. No acute abdominal process. 2. Colonic diverticulosis. 3. Bilateral fat-containing inguinal hernias.
[2022-09-08 08:59] LABS: Albumin 3.6 g/dL (3.5-5.0); Calcium 9.4 mg/dL (8.4-10.2); Potassium 4.9 mmol/L (3.5-5.1); Total Bilirubin 1.2 mg/dL (0.2-1.3); Total Protein 6.4 g/dL (6.3-8.2)
[2022-09-08 10:37] VITALS: BP 183/93; PULSE 79; RESP 16
== END 2022-09-08 10:37 | disposition home or self-care (01) ==
LOC: EC 07:33
DX: M54.50 Low back pain, unspecified (principal); E11.9 Type 2 diabetes mellitus without complications; I10 Essential (primary) hypertension; F32.A Depression, unspecified; Z79.82 Long term (current) use of aspirin; Z79.899 Other long term (current) drug therapy; Z79.84 Long term (current) use of oral hypoglycemic drugs
CPT/HCPCS: 99284 ×2; 96374 ×2; 96361 ×2; 36415; 80053; 82150; 83605; 83690; 85025; 81001; 74176; J1885

== ENCOUNTER 2023-06-23 19:54 | Emergency (ER) | payer MEDICARE ==
[2023-06-23 20:00] LABS: Glucose,Whole Blood 501 mg/dL (70-110)
--- NOTE | 2023-06-23 20:08 | ED ---
Recheck HPI - General Source: patient, EMS, RN notes reviewed Mode of arrival: EMS Limitations: no limitations <Muna Shah - Last Filed: 06/23/23 20:08> <Brittney Leal - Last Filed: 07/03/23 15:17> - General Chief Complaint: Recheck/Abnormal Lab/Rx Stated Complaint: HTN Time Seen by Provider: 06/23/23 20:00 - History of Present Illness Initial Comments: This is a 63-year-old male who presents to the emergency department for elevated blood sugar and elevated blood pressure. Patient is an insulin-dependent diabetic and states that he has not been able to get his insulin in a week due to problems getting it from his primary care provider. Also states that he has been unable to get his blood pressure medication. States that he has had shortness of breath over the last 2-3 days and also reports problems with constipation. Denies any chest pain. (Muna Shah) 63-year-old male presents emergency department for elevated blood sugar and elevated blood pressure. States that his primary care doctor had closed his office and left him without his prescriptions. States it has been a couple of weeks without his insulin. States he has very few of his high blood pressure medications left. Patient denies having any symptoms to me. Denies chest pain, shortness of breath, abdominal pain. No nausea or vomiting. No recent illnesses. No other alleviating, precipitating or modifying factors (Brittney Leal) - Related Data Home Medications Medication Instructions Recorded Confirmed Aspirin 81 mg PO HS 02/14/22 02/18/22 Atorvastatin [Lipitor] 40 mg PO HS 02/14/22 02/18/22 Dapagliflozin Propanediol [Farxiga] 10 mg PO DAILY 02/14/22 02/18/22 lisinopriL [Zestril] 20 mg PO DAILY 02/14/22 02/18/22 Aspirin EC [Ecotrin Low Dose] 81 mg PO DAILY 06/23/23 06/23/23 Atorvastatin [Lipitor] 40 mg PO HS 06/23/23 06/23/23 Dapagliflozin Propanediol [Farxiga] 10 mg PO DAILY 06/23/23 06/23/23 Metoprolol Tartrate [Lopressor] 50 mg PO BID 06/23/23 06/23/23 lisinopriL [Zestril] 20 mg PO BID 06/23/23 06/23/23 Previous Rx's Medication Instructions Recorded Metoprolol Tartrate [Lopressor] 50 mg PO BID #60 tab 10/05/21 methocarbamoL [Robaxin-750] 750 mg PO QID #30 tab 02/14/22 INSULIN ASPART (NovoLOG) [NovoLOG 5 unit SQ AC-TID 30 Days #1 02/24/22 (formulary)] Insulin Detemir (Levemir) [Levemir] 21 unit SQ DAILY@0700 30 Days #1 02/24/22 each amLODIPine [Norvasc] 10 mg PO DAILY #30 tab 02/24/22 Insulin Glargine [Lantus Vial] 20 unit SQ HS #10 ml 06/24/23 Insulin Lispro [Humalog] 10 unit SQ BID-W/MEALS #3 pen 06/24/23 Linaclotide [Linzess] 290 mcg PO DAILY #30 cap 06/24/23 Allergies Allergy/AdvReac Type Severity Reaction Status Date / Time No Known Allergies Allergy Verified 06/24/23 08:18 Review of Systems ROS Other: All systems not noted in ROS Statement are negative. <Muna Shah - Last Filed: 06/23/23 20:08> ROS Other: All systems not noted in ROS Statement are negative. <Brittney Leal - Last Filed: 07/03/23 15:17> ROS Statement: Those systems with pertinent positive or pertinent negative responses have been documented in the HPI. Past Medical History Past Medical History: Diabetes Mellitus, Hyperlipidemia, Hypertension History of Any Multi-Drug Resistant Organisms: None Reported Past Surgical History: Unable to Obtain Past Psychological History: No Psychological Hx Reported Smoking Status: Never smoker Past Alcohol Use History: Unable to Obtain Past Drug Use History: Unable to Obtain <Muna Shah - Last Filed: 06/23/23 20:08> General Exam Limitations: no limitations <Muna Shah - Last Filed: 06/23/23 20:08> General appearance: alert, in no apparent distress Head exam: Present: atraumatic, normocephalic, normal inspection Eye exam: Present: normal appearance, PERRL, EOMI. Absent: scleral icterus, conjunctival injection, periorbital swelling ENT exam: Present: normal exam, mucous membranes moist Neck exam: Present: normal inspection. Absent: tenderness, meningismus, lymphadenopathy Respiratory exam: Present: normal lung sounds bilaterally. Absent: respiratory distress, wheezes, rales, rhonchi, stridor Cardiovascular Exam: Present: regular rate, normal rhythm, normal heart sounds. Absent: systolic murmur, diastolic murmur, rubs, gallop, clicks GI/Abdominal exam: Present: soft, normal bowel sounds. Absent: distended, tenderness, guarding, rebound, rigid Extremities exam: Present: normal inspection, full ROM, normal capillary refill. Absent: tenderness, pedal edema, joint swelling, calf tenderness Back exam: Present: normal inspection Neurological exam: Present: alert, oriented X3, CN II-XII intact Psychiatric exam: Present: normal affect, normal mood Skin exam: Present: warm, dry, intact, normal color. Absent: rash <Brittney Leal - Last Filed: 07/03/23 15:17> - General Exam Comments Initial Comments: Visual Physical Exam Vital signs reviewed General: Well-appearing, nontoxic, no acute distress. Head: Normocephalic, atraumatic Eyes: PERRLA, EOMI ENT: Airway patent Chest: Nonlabored breathing Skin: No visual rash, normal skin tone Neuro: Alert and oriented 3 Musculoskeletal: No gross abnormalities (Muna Shah) Course Vital Signs 06/23/23 06/23/23 06/24/23 19:57 21:29 01:12 Temperature 98.2 F 98.8 F Pulse Rate 94 82 87 Respiratory 18 18 18 Rate Blood Pressure 202/101 197/92 179/96 O2 Sat by Pulse 98 97 98 Oximetry 06/24/23 03:01 Temperature 98.4 F Pulse Rate 92 Respiratory 18 Rate Blood Pressure 177/96 O2 Sat by Pulse 98 Oximetry Medical Decision Making <Muna Shah - Last Filed: 06/23/23 20:08> - Lab Data Result diagrams: 06/23/23 20:09 06/23/23 20:09 <Brittney Leal - Last Filed: 07/03/23 15:17> - Medical Decision Making I performed the QuickNote portion of this chart. Signed Muna Shah PA-C. (Muna Shah) Was pt. sent in by a medical professional or institution ([facility], AGILE COACH, urgent care, hospital, or [facility]...) When possible be specific @ -No Did you speak to anyone other than the patient for history (EMS, parent, family, police, friend...)? What history was obtained from this source @ -No Did you review nursing and triage notes (agree or disagree)? Why? @ -I reviewed and agree with nursing and triage notes Were old charts reviewed (outside hosp., previous admission, EMS record, old EKG, old radiological studies, urgent care reports/EKG's, [facility] records)? Report findings @ -No old charts were reviewed Differential Diagnosis (chest pain, altered mental status, abdominal pain women, abdominal pain men, vaginal bleeding, weakness, fever, dyspnea, syncope, headache, dizziness, GI bleed, back pain, seizure, CVA, palpatations, mental health, musculoskeletal)? @ -DKA, hyperglycemia, medical noncompliance, accelerated hypertension EKG interpreted by me (3pts min.). @ -Yes and demonstrates sinus rhythm with a rate of 90. SC interval 163. QRS 100. QTc of 400. No acute ST segment elevations or depressions X-rays interpreted by me (1pt min.). @ -Yes and demonstrates no acute process CT interpreted by me (1pt min.). @ -None done U/S interpreted by me (1pt. min.). @ -None done What testing was considered but not performed or refused? (CT, X-rays, U/S, labs)? Why? @ -None What meds were considered but not given or refused? Why? @ -None Did you discuss the management of the patient with other professionals (professionals i.e. , [facility], AGILE COACH, lab, RT, psych nurse, health care social worker, accounts payable professional, teacher, armed custom protection officer, ed case manager)? Give summary @ -No Was smoking cessation discussed for >3mins.? @ -No Was critical care preformed (if so, how long)? @ -No Were there social determinants of health that impacted care today? How? (Homelessness, low income, unemployed, alcoholism, drug addiction, transpo rtation, low edu. Level, literacy, decrease access to med. care, senior living, rehab)? @ -No Was there de-escalation of care discussed even if they declined (Discuss DNR or withdrawal of care, Hospice)? DNR status @ -No What co-morbidities impacted this encounter? (DM, HTN, Smoking, COPD, CAD, Cancer, CVA, ARF, Chemo, Hep., AIDS, mental health diagnosis, sleep apnea, morbid obesity)? @ -Hypertension, diabetes Was patient admitted / discharged? Hospital course, mention meds given and route, prescriptions, significant lab abnormalities, going to OR and other pertinent info. @ -Discharge. Upon arrival patient was placed into room 15. Thorough history and physical exam was performed. Patient received IV fluids and subcu insulin. Glucose was rechecked and is improved. I did refill the patient's prescriptions. He is given a list of primary care doctors. Instructed to call make an appointment. Return for any new or worsening symptoms. Patient agreeable plan was discharged in stable condition Undiagnosed new problem with uncertain prognosis? @ -No Drug Therapy requiring intensive monitoring for toxicity (Heparin, Nitro, Insulin, Cardizem)? @ -No Were any procedures done? @ -No Diagnosis/symptom? @ -Acute hyperglycemia, accelerated hypertension Acute, or Chronic, or Acute on Chronic? @ -Acute Uncomplicated (without systemic symptoms) or Complicated (systemic symptoms)? @ -Complicated Side effects of treatment? @ -No Exacerbation, Progression, or Severe Exacerbation? @ -No Poses a threat to life or bodily function? How? (Chest pain, [place], [place], pneumonia, PE, COPD, DKA, ARF, appy, cholecystitis, CVA, Diverticulitis, Homicidal, Suicidal, threat to staff... and all critical care pts) @ -No (Brittney Leal) - Lab Data Lab Results 06/23/23 06/23/23 06/23/23 Range/Units 19:59 20:09 20:09 WBC 11.5 H (3.8-10.6) k/uL RBC 5.07 (4.30-5.90) m/uL Hgb 15.3 (13.0-17.5) gm/dL Hct 45.4 (39.0-53.0) % MCV 89.5 (80.0-100.0) fL MCH 30.1 (25.0-35.0) pg MCHC 33.6 (31.0-37.0) g/dL RDW 12.7 (11.5-15.5) % Plt Count 280 (150-450) k/uL MPV 9.1 Neutrophils % 70 % Lymphocytes % 17 % Monocytes % 5 % Eosinophils % 5 % Basophils % 1 % Neutrophils # 8.1 H (1.3-7.7) k/uL Lymphocytes # 2.0 (1.0-4.8) k/uL Monocytes # 0.5 (0-1.0) k/uL Eosinophils # 0.6 (0-0.7) k/uL Basophils # 0.1 (0-0.2) k/uL VBG pH (7.31-7.41) VBG pCO2 (37-51) mmHg VBG HCO3 (24-28) mmol/L Sodium 130 L (137-145) mmol/L Potassium 4.9 (3.5-5.1) mmol/L Chloride 105 (98-107) mmol/L Carbon Dioxide 16 L (22-30) mmol/L Anion Gap 9 mmol/L BUN 39 H (9-20) mg/dL Creatinine 1.70 H (0.66-1.25) mg/dL Est GFR (CKD-EPI)AfAm 50 (>60 ml/min/1.73 sqM) Est GFR (CKD-EPI)NonAf 43 (>60 ml/min/1.73 sqM) Glucose 519 H* (74-99) mg/dL POC Glucose (mg/dL) 501 H (70-110) mg/dL POC Glu Network Project Manager ID Kvng Weston Calcium 8.9 (8.4-10.2) mg/dL Phosphorus 3.8 (2.5-4.5) mg/dL Magnesium 1.7 (1.6-2.3) mg/dL Total Bilirubin 0.5 (0.2-1.3) mg/dL AST 37 (17-59) U/L ALT 33 (4-49) U/L Alkaline Phosphatase 195 H (38-126) U/L Troponin I (0.000-0.034) ng/mL NT-Pro-B Natriuret Pep 534 pg/mL Total Protein 6.1 L (6.3-8.2) g/dL Albumin 3.3 L (3.5-5.0) g/dL Acetone, Qual Negative (Negative) Influenza Type A (PCR) (Not Detectd) Influenza Type B (PCR) (Not Detectd) RSV (PCR) (Not Detectd) SARS-CoV-2 (PCR) (Not Detectd) 06/23/23 06/23/23 06/23/23 Range/Units 20:09 21:29 21:31 WBC (3.8-10.6) k/uL RBC (4.30-5.90) m/uL Hgb (13.0-17.5) gm/dL Hct (39.0-53.0) % MCV (80.0-100.0) fL MCH (25.0-35.0) pg MCHC (31.0-37.0) g/dL RDW (11.5-15.5) % Plt Count (150-450) k/uL MPV Neutrophils % % Lymphocytes % % Monocytes % % Eosinophils % % Basophils % % Neutrophils # (1.3-7.7) k/uL Lymphocytes # (1.0-4.8) k/uL Monocytes # (0-1.0) k/uL Eosinophils # (0-0.7) k/uL Basophils # (0-0.2) k/uL VBG pH (7.31-7.41) VBG pCO2 (37-51) mmHg VBG HCO3 (24-28) mmol/L Sodium (137-145) mmol/L Potassium (3.5-5.1) mmol/L Chloride (98-107) mmol/L Carbon Dioxide (22-30) mmol/L Anion Gap mmol/L BUN (9-20) mg/dL Creatinine (0.66-1.25) mg/dL Est GFR (CKD-EPI)AfAm (>60 ml/min/1.73 sqM) Est GFR (CKD-EPI)NonAf (>60 ml/min/1.73 sqM) Glucose (74-99) mg/dL POC Glucose (mg/dL) 540 H (70-110) mg/dL POC Glu Network Project Manager Kvng Patricia Calcium (8.4-10.2) mg/dL Phosphorus (2.5-4.5) mg/dL Magnesium (1.6-2.3) mg/dL Total Bilirubin (0.2-1.3) mg/dL AST (17-59) U/L ALT (4-49) U/L Alkaline Phosphatase (38-126) U/L Troponin I <0.012 (0.000-0.034) ng/mL NT-Pro-B Natriuret Pep pg/mL Total Protein (6.3-8.2) g/dL Albumin (3.5-5.0) g/dL Acetone, Qual (Negative) Influenza Type A (PCR) Not Detected (Not Detectd) Influenza Type B (PCR) Not Detected (Not Detectd) RSV (PCR) Not Detected (Not Detectd) SARS-CoV-2 (PCR) Not Detected (Not Detectd) 06/23/23 06/23/23 06/24/23 Range/Units 22:15 23:05 00:01 WBC (3.8-10.6) k/uL RBC (4.30-5.90) m/uL Hgb (13.0-17.5) gm/dL Hct (39.0-53.0) % MCV (80.0-100.0) fL MCH (25.0-35.0) pg MCHC (31.0-37.0) g/dL RDW (11.5-15.5) % Plt Count (150-450) k/uL MPV Neutrophils % % Lymphocytes % % Monocytes % % Eosinophils % % Basophils % % Neutrophils # (1.3-7.7) k/uL Lymphocytes # (1.0-4.8) k/uL Monocytes # (0-1.0) k/uL Eosinophils # (0-0.7) k/uL Basophils # (0-0.2) k/uL VBG pH 7.35 (7.31-7.41) VBG pCO2 31 L (37-51) mmHg VBG HCO3 17 L (24-28) mmol/L Sodium (137-145) mmol/L Potassium (3.5-5.1) mmol/L Chloride (98-107) mmol/L Carbon Dioxide (22-30) mmol/L Anion Gap mmol/L BUN (9-20) mg/dL Creatinine (0.66-1.25) mg/dL Est GFR (CKD-EPI)AfAm (>60 ml/min/1.73 sqM) Est GFR (CKD-EPI)NonAf (>60 ml/min/1.73 sqM) Glucose (74-99) mg/dL POC Glucose (mg/dL) 415 H 307 H (70-110) mg/dL POC Glu Network Project Manager Kvng Patricia Kyle Calcium (8.4-10.2) mg/dL Phosphorus (2.5-4.5) mg/dL Magnesium (1.6-2.3) mg/dL Total Bilirubin (0.2-1.3) mg/dL AST (17-59) U/L ALT (4-49) U/L Alkaline Phosphatase (38-126) U/L Troponin I (0.000-0.034) ng/mL NT-Pro-B Natriuret Pep pg/mL Total Protein (6.3-8.2) g/dL Albumin (3.5-5.0) g/dL Acetone, Qual (Negative) Influenza Type A (PCR) (Not Detectd) Influenza Type B (PCR) (Not Detectd) RSV (PCR) (Not Detectd) SARS-CoV-2 (PCR) (Not Detectd) 06/24/23 Range/Units 01:11 WBC (3.8-10.6) k/uL RBC (4.30-5.90) m/uL Hgb (13.0-17.5) gm/dL Hct (39.0-53.0) % MCV (80.0-100.0) fL MCH (25.0-35.0) pg MCHC (31.0-37.0) g/dL RDW (11.5-15.5) % Plt Count (150-450) k/uL MPV Neutrophils % % Lymphocytes % % Monocytes % % Eosinophils % % Basophils % % Neutrophils # (1.3-7.7) k/uL Lymphocytes # (1.0-4.8) k/uL Monocytes # (0-1.0) k/uL Eosinophils # (0-0.7) k/uL Basophils # (0-0.2) k/uL VBG pH (7.31-7.41) VBG pCO2 (37-51) mmHg VBG HCO3 (24-28) mmol/L Sodium (137-145) mmol/L Potassium (3.5-5.1) mmol/L Chloride (98-107) mmol/L Carbon Dioxide (22-30) mmol/L Anion Gap mmol/L BUN (9-20) mg/dL Creatinine (0.66-1.25) mg/dL Est GFR (CKD-EPI)AfAm (>60 ml/min/1.73 sqM) Est GFR (CKD-EPI)NonAf (>60 ml/min/1.73 sqM) Glucose (74-99) mg/dL POC Glucose (mg/dL) 232 H (70-110) mg/dL POC Glu Network Project Manager ID Milan Ram Calcium (8.4-10.2) mg/dL Phosphorus (2.5-4.5) mg/dL Magnesium (1.6-2.3) mg/dL Total Bilirubin (0.2-1.3) mg/dL AST (17-59) U/L ALT (4-49) U/L Alkaline Phosphatase (38-126) U/L Troponin I (0.000-0.034) ng/mL NT-Pro-B Natriuret Pep pg/mL Total Protein (6.3-8.2) g/dL Albumin (3.5-5.0) g/dL Acetone, Qual (Negative) Influenza Type A (PCR) (Not Detectd) Influenza Type B (PCR) (Not Detectd) RSV (PCR) (Not Detectd) SARS-CoV-2 (PCR) (Not Detectd) Disposition <Muna Shah - Last Filed: 06/23/23 20:08> Is patient prescribed a controlled substance at d/c from ED?: No Time of Disposition: 02:09 <Brittney Leal - Last Filed: 07/03/23 15:17> Clinical Impression: Hypertension, Hyperglycemia Disposition: HOME SELF-CARE Condition: Stable Instructions (If sedation given, give patient instructions): Diabetic Hyperglycemia (ED) Additional Instructions: Please resume your medications as directed. Return for any new or worsening symptoms Prescriptions: Insulin Lispro [Humalog] 10 unit SQ BID-W/MEALS #3 pen Insulin Glargine [Lantus Vial] 20 unit SQ HS #10 ml Linaclotide [Linzess] 290 mcg PO DAILY #30 cap Referrals: Meng Hassan MD [STAFF PHYSICIAN] - 1-2 days Luis A Cota Jr, DO [Doctor of Osteopathic Medicine] - 1-2 days [facility] [NON-STAFF] - 1-2 days Kerwin Gaviria MD [STAFF PHYSICIAN] - 1-2 days
[2023-06-23 20:14] VITALS: RESP 18
[2023-06-23 20:17] LABS: Basophils # (A) 0.1 k/uL (0-0.2); Basophils % (A) 1 %; Eosinophils # (A) 0.6 k/uL (0-0.7); Eosinophils % (A) 5 %; HCT 45.4 % (39.0-53.0); HGB 15.3 gm/dL (13.0-17.5); Lymphocytes % (A) 17 %; MCH 30.1 pg (25.0-35.0); MCHC 33.6 g/dL (31.0-37.0); MCV 89.5 fL (80.0-100.0); Mean Platelet Volume 9.1; Monocytes # (A) 0.5 k/uL (0-1.0); Monocytes % (A) 5 %; Neutrophils # (A) 8.1 k/uL (1.3-7.7); Neutrophils % (A) 70 %; Platelet Count 280 k/uL (150-450); RBC 5.07 m/uL (4.30-5.90); RDW 12.7 % (11.5-15.5); WBC 11.5 k/uL (3.8-10.6)
[2023-06-23 20:31] LABS: ALT 33 U/L (4-49); AST 37 U/L (17-59); African American GFR (CKD) 50 (>60 ml/min/1.73 sqM); Albumin 3.3 g/dL (3.5-5.0); Alkaline Phosphatase 195 U/L (38-126); Anion Gap 9 mmol/L; Blood Urea Nitrogen 39 mg/dL (9-20); Calcium 8.9 mg/dL (8.4-10.2); Carbon Dioxide 16 mmol/L (22-30); Chloride 105 mmol/L (98-107); Magnesium 1.7 mg/dL (1.6-2.3); Non-African American GFR(CKD) 43 (>60 ml/min/1.73 sqM); Phosphorus 3.8 mg/dL (2.5-4.5); Potassium 4.9 mmol/L (3.5-5.1); Sodium 130 mmol/L (137-145); Total Bilirubin 0.5 mg/dL (0.2-1.3); Total Protein 6.1 g/dL (6.3-8.2)
[2023-06-23 20:36] LABS: NT-Pro-B-Type Natriuretic Pept 534 pg/mL
[2023-06-23 20:57] LABS: Glucose 519 mg/dL (74-99)
--- NOTE | 2023-06-23 21:03 | XR ---
EXAMINATION TYPE: XR chest 2V DATE OF EXAM: 06/23/2023 COMPARISON: 09/30/2021 INDICATION: TECHNIQUE: Frontal and lateral views of the chest are obtained. FINDINGS: The heart size is normal. The pulmonary vasculature is normal. The lungs are clear. IMPRESSION: 1. No acute pulmonary process.
[2023-06-23 21:33] LABS: Glucose,Whole Blood 540 mg/dL (70-110)
[2023-06-23] MEDS: SODIUM CHLORIDE 0.9% 1,000 ML IV ONE ×2 (21:42→23:20)
[2023-06-23] MEDS: INSULIN REGULAR 100 UNIT/ML VIAL (IM/SQ) SQ ONE (21:42)
[2023-06-23 22:25] LABS: VBG PH 7.35 (7.31-7.41)
[2023-06-23 23:06] LABS: Glucose,Whole Blood 415 mg/dL (70-110)
[2023-06-24 00:02] LABS: Glucose,Whole Blood 307 mg/dL (70-110)
[2023-06-24] MEDS: SODIUM CHLORIDE 0.9% 1,000 ML IV SCH (00:41)
[2023-06-24] MEDS: hydrALAZINE HCL 20 MG/ML 1 ML VIAL IVP STA (00:41)
[2023-06-24 01:13] LABS: Glucose,Whole Blood 232 mg/dL (70-110)
[2023-06-24 03:17] VITALS: BP 177/96; PULSE 92; TEMP 98.4
== END 2023-06-24 03:03 | disposition home or self-care (01) ==
LOC: MERGE 19:54 → EC 19:54
DX: I10 Essential (primary) hypertension (principal); E11.65 Type 2 diabetes mellitus with hyperglycemia; E78.5 Hyperlipidemia, unspecified; Z79.82 Long term (current) use of aspirin; Z79.84 Long term (current) use of oral hypoglycemic drugs; Z79.899 Other long term (current) drug therapy; Z20.822 Contact with and (suspected) exposure to COVID-19
CPT/HCPCS: 36415 ×2; 93005; 83880; 80053; 82803; 82009; 83735; 84100; 84484; 85025; 87636; 71046; 99284; 96374; J0360

== ENCOUNTER → 2023-10-05 | Outpatient (CLI) | payer MEDICARE ==
--- NOTE | 2023-10-05 15:03 | US ---
EXAMINATION TYPE: US kidneys/renal and bladder DATE OF EXAM: 10/05/2023 COMPARISON: NONE CLINICAL INDICATION: Male, 63 years old with history of N39.0 FREQUENT UTI R35.1 NOCTURIA; Nocturia EXAM MEASUREMENTS: Right Kidney: 13.0x5.8x5.0 cm Left Kidney: 12.5x5.7x5.1 cm Post Void Residual Volume: 127.22 mL Right Kidney: No hydronephrosis or masses seen Left Kidney: No hydronephrosis or masses seen Bladder: wnl Bilateral Jets seen: Yes Normal Post Void Residual: No There is no evidence for hydronephrosis at this point in time. No nephrolithiasis is seen. Corticome dullary differentiation is maintained. No masses are identified. The urinary bladder is anechoic. B ilateral ureteral jets are seen. IMPRESSION: Unremarkable renal/bladder ultrasound.
== END | disposition home or self-care (01) ==
LOC: RADUSWWP 14:22
PROVIDERS: ATTEND Family Medicine
DX: N39.0 Urinary tract infection, site not specified (principal); R35.1 Nocturia
CPT/HCPCS: 76770

== ENCOUNTER 2024-04-15 16:48 | Inpatient (IN) | payer MEDICARE ==
--- NOTE | 2024-04-15 17:47 | ED ---
Abdominal Pain HPI - General Chief Complaint: Abdominal Pain Stated Complaint: vomiting, cold Time Seen by Provider: 04/15/24 17:03 Source: patient Mode of arrival: ambulatory Limitations: no limitations - History of Present Illness Initial Comments: 64-year-old male presenting with chief complaint of vomiting and cold-like symptoms. Patient states he was vomiting today, he also had some vomiting a few days ago. He denies any abdominal pain. He admits to cough congestion and sore throat. This is a dry cough. He is having no chest pain or difficulty breathing. No fever. No diarrhea, hematochezia, melena, or hematemesis. Patient also states that he currently has bedbugs in his apartment and states "the landlord will not do anything about it". - Related Data Home Medications Medication Instructions Recorded Confirmed Aspirin 81 mg PO HS 02/14/22 02/18/22 Atorvastatin [Lipitor] 40 mg PO HS 02/14/22 02/18/22 Dapagliflozin Propanediol [Farxiga] 10 mg PO DAILY 02/14/22 02/18/22 lisinopriL [Zestril] 20 mg PO DAILY 02/14/22 02/18/22 Aspirin EC [Ecotrin Low Dose] 81 mg PO DAILY 06/23/23 06/23/23 Atorvastatin [Lipitor] 40 mg PO HS 06/23/23 06/23/23 Dapagliflozin Propanediol [Farxiga] 10 mg PO DAILY 06/23/23 06/23/23 Metoprolol Tartrate [Lopressor] 50 mg PO BID 06/23/23 06/23/23 lisinopriL [Zestril] 20 mg PO BID 06/23/23 06/23/23 Previous Rx's Medication Instructions Recorded Metoprolol Tartrate [Lopressor] 50 mg PO BID #60 tab 10/05/21 methocarbamoL [Robaxin-750] 750 mg PO QID #30 tab 02/14/22 INSULIN ASPART (NovoLOG) [NovoLOG 5 unit SQ AC-TID 30 Days #1 02/24/22 (formulary)] Insulin Detemir (Levemir) [Levemir] 21 unit SQ DAILY@0700 30 Days #1 02/24/22 each amLODIPine [Norvasc] 10 mg PO DAILY #30 tab 02/24/22 Insulin Glargine [Lantus Vial] 20 unit SQ HS #10 ml 06/24/23 Insulin Lispro [Humalog] 10 unit SQ BID-W/MEALS #3 pen 06/24/23 Linaclotide [Linzess] 290 mcg PO DAILY #30 cap 06/24/23 Allergies Allergy/AdvReac Type Severity Reaction Status Date / Time No Known Allergies Allergy Verified 04/15/24 17:02 Review of Systems ROS Statement: Those systems with pertinent positive or pertinent negative responses have been documented in the HPI. ROS Other: All systems not noted in ROS Statement are negative. Past Medical History Past Medical History: Diabetes Mellitus, Hyperlipidemia, Hypertension Additional Past Medical History / Comment(s): NIDDM type II, hemorrhoids, diverticulitis, chronic sinus problems, L knee "gives out" on occasion. History of Any Multi-Drug Resistant Organisms: None Reported Past Surgical History: Hernia Repair, Unable to Obtain Additional Past Surgical History / Comment(s): R inguinal hernia repair, multiple myringotomies/tubes, circumcism Past Anesthesia/Blood Transfusion Reactions: No Reported Reaction Past Psychological History: Depression, No Psychological Hx Reported Smoking Status: Never smoker Past Alcohol Use History: None Reported, Unable to Obtain Past Drug Use History: None Reported, Unable to Obtain - Past Family History Mother Family Medical History: Cancer Additional Family Medical History / Comment(s): colon cancer. Father Family Medical History: Cancer Additional Family Medical History / Comment(s): colon cancer. General Exam Limitations: no limitations General appearance: alert, in no apparent distress Head exam: Present: atraumatic, normocephalic, normal inspection Eye exam: Present: normal appearance, EOMI Neck exam: Present: normal inspection. Absent: meningismus Respiratory exam: Present: normal lung sounds bilaterally. Absent: respiratory distress, wheezes, rales, rhonchi, stridor Cardiovascular Exam: Present: regular rate, normal rhythm, normal heart sounds. Absent: systolic murmur, diastolic murmur, rubs, gallop, clicks GI/Abdominal exam: Present: soft. Absent: distended, tenderness, guarding, rebound, rigid Neurological exam: Present: alert, oriented X3 Psychiatric exam: Present: normal affect, normal mood Skin exam: Present: warm, dry, normal color Course Vital Signs 11/17/24 11/17/24 11/17/24 16:59 20:23 20:54 Temperature 98 F Pulse Rate 89 93 126 H Respiratory 20 Rate Blood Pressure 160/74 O2 Sat by Pulse 97 Oximetry 04/15/24 21:57 Temperature Pulse Rate 128 H Respiratory 18 Rate Blood Pressure 196/119 O2 Sat by Pulse 95 Oximetry Medical Decision Making - Medical Decision Making Was pt. sent in by a medical professional or institution (, [facility], SENIOR WEB DEVELOPER, urgent care, hospital, or care home...) When possible be specific @ -No Did you speak to anyone other than the patient for history (EMS, parent, family, police, friend...)? What history was obtained from this source @ -No Did you review nursing and triage notes (agree or disagree)? Why? @ -I reviewed and agree with nursing and triage notes Were old charts reviewed (outside hosp., previous admission, EMS record, old EKG, old radiological studies, urgent care reports/EKG's, care home records)? Report findings @ -No old charts were reviewed Differential Diagnosis (chest pain, altered mental status, abdominal pain women, abdominal pain men, vaginal bleeding, weakness, fever, dyspnea, syncope, headache, dizziness, GI bleed, back pain, seizure, CVA, palpatations, mental health, musculoskeletal)? @ -Differential includes gastroenteritis, obstruction, appendicitis, cholecystitis, UTI, kidney stone, this is not an all-inclusive list EKG interpreted by me (3pts min.). @ -As above X-rays interpreted by me (1pt min.). @ -None done CT interpreted by me (1pt min.). @ -None done U/S interpreted by me (1pt. min.). @ -None done What testing was considered but not performed or refused? (CT, X-rays, U/S, labs)? Why? @ -None What meds were considered but not given or refused? Why? @ -None Did you discuss the management of the patient with other professionals (professionals i.e. [facility] Taylor, SENIOR WEB DEVELOPER, lab, RT, psych nurse, administrator social welfare, experimental flight test mechanic, teacher, chief marketing officer, director of casework services)? Give summary @ -I spoke with Dr. Moreland who accepts admission Was smoking cessation discussed for >3mins.? @ -No Was critical care preformed (if so, how long)? @ -No Were there social determinants of health that impacted care today? How? (Homelessness, low income, unemployed, alcoholism, drug addiction, transportati on, low edu. Level, literacy, decrease access to med. care, fpc, rehab)? @ -No Was there de-escalation of care discussed even if they declined (Discuss DNR or withdrawal of care, Hospice)? DNR status @ -No What co-morbidities impacted this encounter? (DM, HTN, Smoking, COPD, CAD, Cancer, CVA, ARF, Chemo, Hep., AIDS, mental health diagnosis, sleep apnea, morbid obesity)? @ -None Was patient admitted / discharged? Hospital course, mention meds given and route, prescriptions, significant lab abnormalities, going to OR and other pertinent info. @ -64-year-old male presenting chief complaint of nausea and vomiting. He also admits to cold-like symptoms. History and physical examination are conducted. WBC elevated from previous value of 1.70 back in May. Potassium 5.8, patient received albuterol and insulin with dextrose. Negative for influenza, RSV, COVID, group A strep. Patient will be admitted for JUVE, hyperkalemia, dehydration. He is receiving IV fluids. Patient is educated on today's findings and treatment plan. He is agreeable. I discussed this case with my attending Dr. Sharma Undiagnosed new problem with uncertain prognosis? @ -No Drug Therapy requiring intensive monitoring for toxicity (Heparin, Nitro, Insulin, Cardizem)? @ -No Were any procedures done? @ -No Diagnosis/symptom? @ -JUVE, hyperkalemia, dehydration Acute, or Chronic, or Acute on Chronic? @ -Acute Uncomplicated (without systemic symptoms) or Complicated (systemic symptoms)? @ -Complicated Side effects of treatment? @ -No Exacerbation, Progression, or Severe Exacerbation? @ -No Poses a threat to life or bodily function? How? (Chest pain, [place], [place], pneumonia, PE, COPD, DKA, ARF, appy, cholecystitis, CVA, Diverticulitis, Homicidal, Suicidal, threat to staff... and all critical care pts) @ -Yes - Lab Data Result diagrams: 04/15/24 18:44 04/15/24 18:44 Lab Results 04/15/24 04/15/24 04/15/24 Range/Units 18:44 18:44 18:44 WBC 14.6 H (3.8-10.6) k/uL RBC 5.45 (4.30-5.90) m/uL Hgb 15.5 (13.0-17.5) gm/dL Hct 47.2 (39.0-53.0) % MCV 86.6 (80.0-100.0) fL MCH 28.5 (25.0-35.0) pg MCHC 32.9 (31.0-37.0) g/dL RDW 13.0 (11.5-15.5) % Plt Count 298 (150-450) k/uL MPV 8.5 Neutrophils % 83 % Lymphocytes % 11 % Monocytes % 3 % Eosinophils % 2 % Basophils % 0 % Neutrophils # 12.1 H (1.3-7.7) k/uL Lymphocytes # 1.5 (1.0-4.8) k/uL Monocytes # 0.5 (0-1.0) k/uL Eosinophils # 0.3 (0-0.7) k/uL Basophils # 0.1 (0-0.2) k/uL Sodium 137 (137-145) mmol/L Potassium 5.8 H (3.5-5.1) mmol/L Chloride 109 H (98-107) mmol/L Carbon Dioxide 23 (22-30) mmol/L Anion Gap 5 mmol/L BUN 41 H (9-20) mg/dL Creatinine 2.26 H (0.66-1.25) mg/dL Est GFR (CKD-EPI)AfAm 35 (>60 ml/min/1.73 sqM) Est GFR (CKD-EPI)NonAf 30 (>60 ml/min/1.73 sqM) Glucose 170 H (74-99) mg/dL Calcium 9.4 (8.4-10.2) mg/dL Total Bilirubin 0.8 (0.2-1.3) mg/dL AST 25 (17-59) U/L ALT 29 (4-49) U/L Alkaline Phosphatase 103 (38-126) U/L Total Protein 6.2 L (6.3-8.2) g/dL Albumin 3.3 L (3.5-5.0) g/dL Amylase 52 (30-110) U/L Lipase 99 (23-300) U/L Urine Color Urine Appearance (Clear) Urine pH (5.0-8.0) Ur Specific [place] (1.001-1.035) Urine Protein (Negative) Urine Glucose (UA) (Negative) Urine Ketones (Negative) Urine Blood (Negative) Urine Nitrite (Negative) Urine Bilirubin (Negative) Urine Urobilinogen (<2.0) mg/dL Ur Leukocyte Esterase (Negative) Urine RBC (0-5) /hpf Urine WBC (0-5) /hpf Ur Squamous Epith Cells (0-4) /hpf Hyaline Casts (0-2) /lpf Urine Mucus (None) /hpf Influenza Type A (PCR) (Not Detectd) Influenza Type B (PCR) (Not Detectd) RSV (PCR) (Not Detectd) SARS-CoV-2 (PCR) (Not Detectd) Group A Strep (PCR) NOT DETECTED (Not Detectd) 04/15/24 04/15/24 Range/Units 18:44 18:48 WBC (3.8-10.6) k/uL RBC (4.30-5.90) m/uL Hgb (13.0-17.5) gm/dL Hct (39.0-53.0) % MCV (80.0-100.0) fL MCH (25.0-35.0) pg MCHC (31.0-37.0) g/dL RDW (11.5-15.5) % Plt Count (150-450) k/uL MPV Neutrophils % % Lymphocytes % % Monocytes % % Eosinophils % % Basophils % % Neutrophils # (1.3-7.7) k/uL Lymphocytes # (1.0-4.8) k/uL Monocytes # (0-1.0) k/uL Eosinophils # (0-0.7) k/uL Basophils # (0-0.2) k/uL Sodium (137-145) mmol/L Potassium (3.5-5.1) mmol/L Chloride (98-107) mmol/L Carbon Dioxide (22-30) mmol/L Anion Gap mmol/L BUN (9-20) mg/dL Creatinine (0.66-1.25) mg/dL Est GFR (CKD-EPI)AfAm (>60 ml/min/1.73 sqM) Est GFR (CKD-EPI)NonAf (>60 ml/min/1.73 sqM) Glucose (74-99) mg/dL Calcium (8.4-10.2) mg/dL Total Bilirubin (0.2-1.3) mg/dL AST (17-59) U/L ALT (4-49) U/L Alkaline Phosphatase (38-126) U/L Total Protein (6.3-8.2) g/dL Albumin (3.5-5.0) g/dL Amylase (30-110) U/L Lipase (23-300) U/L Urine Color Colorless Urine Appearance Clear (Clear) Urine pH 6.5 (5.0-8.0) Ur Specific [place] 1.019 (1.001-1.035) Urine Protein 3+ H (Negative) Urine Glucose (UA) 4+ H (Negative) Urine Ketones Negative (Negative) Urine Blood Moderate H (Negative) Urine Nitrite Negative (Negative) Urine Bilirubin Negative (Negative) Urine Urobilinogen <2.0 (<2.0) mg/dL Ur Leukocyte Esterase Negative (Negative) Urine RBC 4 (0-5) /hpf Urine WBC 2 (0-5) /hpf Ur Squamous Epith Cells <1 (0-4) /hpf Hyaline Casts 3 H (0-2) /lpf Urine Mucus Rare H (None) /hpf Influenza Type A (PCR) Not Detected (Not Detectd) Influenza Type B (PCR) Not Detected (Not Detectd) RSV (PCR) Not Detected (Not Detectd) SARS-CoV-2 (PCR) Not Detected (Not Detectd) Group A Strep (PCR) (Not Detectd) Disposition Clinical Impression: JUVE (acute kidney injury), Hyperkalemia Disposition: ADMITTED IP TO THIS HOSP Condition: Fair Time of Disposition: 20:13
[2024-04-15] MEDS: ONDANSETRON 4 MG/2 ML VIAL IVP STA (18:52)
[2024-04-15] MEDS: SODIUM CHLORIDE 0.9% 1,000 ML IV STA (18:53)
[2024-04-15 18:59] LABS: Basophils # (A) 0.1 k/uL (0-0.2); Basophils % (A) 0 %; Eosinophils # (A) 0.3 k/uL (0-0.7); Eosinophils % (A) 2 %; HCT 47.2 % (39.0-53.0); HGB 15.5 gm/dL (13.0-17.5); Lymphocytes # (A) 1.5 k/uL (1.0-4.8); Lymphocytes % (A) 11 %; MCH 28.5 pg (25.0-35.0); MCHC 32.9 g/dL (31.0-37.0); MCV 86.6 fL (80.0-100.0); Mean Platelet Volume 8.5; Monocytes # (A) 0.5 k/uL (0-1.0); Monocytes % (A) 3 %; Neutrophils # (A) 12.1 k/uL (1.3-7.7); Neutrophils % (A) 83 %; Platelet Count 298 k/uL (150-450); RBC 5.45 m/uL (4.30-5.90); WBC 14.6 k/uL (3.8-10.6)
[2024-04-15 19:17] LABS: Appearance,Urine Clear (Clear); Bilirubin,Urine Negative (Negative); Blood,Urine Moderate (Negative); Color,Urine Colorless; Glucose,Urine (UA) 4+ (Negative); Hyaline Casts,Urine 3 /lpf (0-2); Ketones,Urine Negative (Negative); Leukocyte Esterase,Urine Negative (Negative); Mucus,Urine Rare /hpf; Nitrite,Urine Negative (Negative); PH, Urine 6.5 (5.0-8.0); Protein,Urine 3+ (Negative); RBC,Urine 4 /hpf (0-5); Specific Gravity,Urine 1.019 (1.001-1.035); Squamous Epithelial Cell,Urine <1 /hpf (0-4); Urobilinogen,Urine <2.0 mg/dL (<2.0); WBC,Urine 2 /hpf (0-5)
[2024-04-15 19:21] LABS: ALT 29 U/L (4-49); AST 25 U/L (17-59); African American GFR (CKD) 35 (>60 ml/min/1.73 sqM); Albumin 3.3 g/dL (3.5-5.0); Alkaline Phosphatase 103 U/L (38-126); Amylase 52 U/L (30-110); Anion Gap 5 mmol/L; Blood Urea Nitrogen 41 mg/dL (9-20); Calcium 9.4 mg/dL (8.4-10.2); Carbon Dioxide 23 mmol/L (22-30); Chloride 109 mmol/L (98-107); Glucose 170 mg/dL (74-99); Lipase 99 U/L (23-300); Non-African American GFR(CKD) 30 (>60 ml/min/1.73 sqM); Potassium 5.8 mmol/L (3.5-5.1); Sodium 137 mmol/L (137-145); Total Bilirubin 0.8 mg/dL (0.2-1.3); Total Protein 6.2 g/dL (6.3-8.2)
[2024-04-15] MEDS ORDERED: NALOXONE 0.4 MG/ML 1 ML VIAL IV PRN (20:11)
[2024-04-15] MEDS: SODIUM ZIRCONIUM CYCLOSILICATE 10 GM PACKET PO ONE (20:11)
[2024-04-15] MEDS: DEXTROSE 50% SYRINGE 50 ML IVP ONE (20:11)
[2024-04-15] MEDS: INSULIN REGULAR 100 UNIT/ML VIAL (IV) IV ONE (20:12)
[2024-04-15] MEDS: ALBUTEROL NEB (CONC) 2.5 MG/0.5 ML INHALATION ONE (20:23)
[2024-04-15] MEDS: SODIUM CHLORIDE 0.9% 1,000 ML IV SCH (21:52)
[2024-04-15] MEDS: LABETALOL 5 MG/ML VIAL MDV IVP STA (22:16)
[2024-04-16] MEDS: lisinopriL 20 MG TAB PO SCH ×2 (00:58→00:59)
[2024-04-16] MEDS: METOPROLOL TARTRATE 50 MG TAB PO SCH (08:07)
[2024-04-16] MEDS: amLODIPine 10 MG TAB PO SCH (08:07)
[2024-04-16 08:46] LABS: Basophils # (A) 0.05 X 10*3/uL (0.00-0.10); Basophils % (A) 0.4 %; Eosinophils # (A) 0.23 X 10*3/uL (0.04-0.35); HCT 42.2 % (39.6-50.0); HGB 14.1 g/dL (13.0-17.0); Lymphocytes # (A) 1.39 X 10*3/uL (0.90-5.00); MCH 29.2 pg (27.0-32.0); MCHC 33.4 g/dL (32.0-37.0); MCV 87.4 FL (80.0-97.0); Mean Platelet Volume 12.1 FL (9.5-12.2); Monocytes # (A) 0.67 X 10*3/uL (0.20-1.00); Monocytes % (A) 5.8 %; NRBC Per 100 WBC 0 X 10*3/uL (0.00-0.01); Neutrophils # (A) 9.18 X 10*3/uL (1.80-7.70); Neutrophils % (A) 79.4 %; Platelet Count 287 X 10*3/uL (140-440); RBC 4.83 X 10*6/uL (4.40-5.60); RDW 13.3 % (11.5-14.5); WBC 11.57 X 10*3/uL (4.50-10.00)
[2024-04-16] MEDS ORDERED: lisinopriL 20 MG TAB PO SCH (09:00)
[2024-04-16] MEDS: hydrALAZINE HCL 20 MG/ML 1 ML VIAL IVP PRN (09:24)
[2024-04-16 10:29] LABS: ALT 23 U/L (10-49); AST 19 U/L (14-35); Albumin/Globulin Ratio 1.43 Ratio (1.60-3.17); Alkaline Phosphatase 83 U/L (41-126); BUN/Creat Ratio 16.24 Ratio (12.00-20.00); Blood Urea Nitrogen 34.1 mg/dL (9.0-27.0); Calcium 8.7 mg/dL (8.7-10.3); Carbon Dioxide 21.7 mmol/L (21.6-31.8); Chloride 108 mmol/L (96-109); Globulin 2.1 g/dL (1.6-3.3); Glucose 139 mg/dL (70-110); Potassium 4.9 mmol/L (3.5-5.5); Sodium 140 mmol/L (135-145); Total Bilirubin 0.5 mg/dL (0.3-1.2); Total Protein 5.1 g/dL (6.2-8.2)
[2024-04-16] MEDS: hydrALAZINE HCL 25 MG TAB PO SCH (11:32)
[2024-04-16] MEDS ORDERED: DEXTROSE 50% SYRINGE 50 ML IVP PRN ×2 (12:13)
[2024-04-16 12:35] LABS: Glucose,Whole Blood 200 mg/dL (70-110)
[2024-04-16] MEDS: INSULIN ASPART (NovoLOG) 100 UNIT/ML VIAL SQ SCH (12:49)
--- NOTE | 2024-04-16 14:41 | US ---
EXAMINATION TYPE: US kidneys/renal and bladder DATE OF EXAM: 04/16/2024 COMPARISON: 10/05/2023. CLINICAL INDICATION: Male, 64 years old with history of Mayuri; abnormal labs. Portable inpatient exam. TECHNIQUE: Grayscale imaging of the bilateral kidneys and urinary bladder: FINDINGS: EXAM MEASUREMENTS: Right Kidney: 12.3 x 5.6 x 6.8 cm Left Kidney: 12.1 x 4.7 x 5.6 cm Right Kidney: No hydronephrosis or masses seen. Trace fluid seen adjacent to kidney. Left Kidney: No hydronephrosis or masses seen. Trace fluid seen adjacent to kidney. Bladder: Anechoic, distended Bilateral Jets seen There is no evidence for hydronephrosis at this point in time. No nephrolithiasis is seen. No abby s are identified. The urinary bladder is anechoic. IMPRESSION: No evidence for obstructive uropathy or renal calculus. [facility], , 04/16/2024 2:38 PM
--- NOTE | 2024-04-16 15:29 | P.HPIM ---
History of Present Illness H&P Date: 04/16/24 Chief Complaint: Vomiting Patient is a 64-year-old male with past medical history of IDDM, hyperlipidemia, hypertension, BPH who presented to the ED with vomiting. The patient mentions that his vomiting started on Tuesday and since then he has been throwing up 2-3 times every day. It is associated with abdominal pain. His last bowel movement was yesterday. His oral intake is also decreased in the past couple days. The patient denies hematemesis. Denies any recent travel history outside of the country.Denies taking any over the counter medications or supplements. Denies having any surgeries recently or being on antibiotics. He also complains of fever and sore throat. He also reports having chronic sinusitis. In addition he also complains of bedbugs in his apartment. Denies headache, chest pain, shortness of breath, palpitations, coughing, dysuria, hematuria, melena, hematochezia, numbness or tingling. ED documentation reviewed. In the ED he was treated with labetalol 10 mg, insulin regular 10 units, nebulizer [ milligrams, ondansetron 4 mg, Lokelma 5 g, dextrose 50 mL and 0.9 normal saline bolus. Vitals on admission T 98 F, LA 89 bpm, RR 20, BP 160/74, O2 sat 97% on room air EKG independently interpreted as sinus rhythm, rate 86 bpm, QTc 410 ms Ultrasound of abdomen/bladder shows no evidence for obstructive uropathy or renal calculus Labs on admission showed WBC 14.6, potassium 5.8, BUN 41, creatinine 2.26, glucose 117 UA shows 4+ glucose, 3+ protein, moderate blood, 3 hyaline casts and rare mucus Respiratory viral panel negative Review of systems: Pertinent positives and negatives as discussed in HPI, a complete review of systems was performed and all other systems are negative. PMH: IDDM, hyperlipidemia, hypertension PSH: Hernia repair Allergies: No known drug allergies Social history: Tobacco: Never smoker Alcohol: Denies use Recreational drugs: Denies use Travel: No recent travel history Sick contacts: None Physical examination: Vital signs reviewed General: nontoxic, no distress, appears at stated age Derm: warm, dry, intact Head: atraumatic, normocephalic, symmetric Eyes: EOMI, anicteric sclera Mouth: no lip lesion, mucus membranes moist Cardiovascular: S1 S2 reg, no murmur Lungs: CTA bilateral, no rhonchi, no rales, no accessory muscle use Abdominal: soft, non-tender to palpataion Extremities: No cyanosis, clubbing, or pedal edema. Neuro: Alert, Oriented, Gross neurological examination did not reveal any focal deficits. Psych: well appearing, appropriate affect Assessment/Plan: Patient is a 65-year-old male with past medical history of diabetes melitis, h yperlipidemia, hypertension who presented to the ED for vomiting. He has been admitted for further workup and management of vomiting, JUVE and hypertensive emergency. Active: #. Nausea and vomiting Viral panel negative Ondansetron 4 mg administered in the ED Continue 0.9 normal saline at 100 mL/h Continue ondansetron 4 mg IV every 8 hours as needed #. Hypertensive emergency BP 196/104 Labetalol 10 mg administered in the ED Continue hydralazine 25 mg p.o. 3 times daily and hydralazine 10 mg IV every 4 hours as needed Continue home med amlodipine 10 mg p.o. daily and metoprolol 50 mg p.o. twice daily Continue telemetry monitoring #. JUVE, prerenal vs intrarenal BUN 34.1, creatinine 2.1, baseline creatinine 1.3 UA shows 3+ protein, 4+ glucose, moderate blood, 3 hyaline cast and rare mucous Abdomen and bladder ultrasound ordered shows no evidence for obstructive uropathy renal calculus Hold home med lisinopril Continue 0.9 normal saline at 100 mL/h Obtain occult blood, serum osmolality, urine osmolality, urine eosinophils, urine creatinine, urine sodium Avoid nephrotoxic agents Nephrology consulted #. Hyperkalemia K 5.8 on admission, K now 4.9 Lokelma 5 gm , nebulised albuterol and Insulin 10 units administered in the ED Home med Lisinopril held Chronic: #. Insulin-dependent diabetes mellitus Continue insulin sliding scale and ACHS blood glucose monitoring #. Hyperlipidemia Continue home med atorvastatin 40 mg p.o. at bedtime #. BPH Continue tamsulosin 0.4 mg PO BID F: 0.9 normal saline at 100 mL/h E: Replete as required N: Heart healthy diet A: Ambulatory DVT prophylaxis: Lovenox 30 mg SQ daily GI prophylaxis: Pantoprazole 40 mg IVP daily The patient is admitted with an anticipated less than 2 midnight stay for evaluation of vomiting CODE STATUS: Full code Discussed with: Patient Anticipated discharge place: Home Attestation I have seen and examined this patient with my resident , discussed the same with the resident/EM, and agree with the dictator's assessment and plan as written Dr. Carlo heck Past Medical History Past Medical History: Diabetes Mellitus, Hyperlipidemia, Hypertension Additional Past Medical History / Comment(s): NIDDM type II, hemorrhoids, diverticulitis, chronic sinus problems, L knee "gives out" on occasion. History of Any Multi-Drug Resistant Organisms: None Reported Past Surgical History: Hernia Repair, Unable to Obtain Additional Past Surgical History / Comment(s): R inguinal hernia repair, multiple myringotomies/tubes, circumcism Past Anesthesia/Blood Transfusion Reactions: No Reported Reaction Past Psychological History: Depression, No Psychological Hx Reported Additional Psychological History / Comment(s): Pt resides alone. He does not drive. He gets places by bus or rides his bike. He does not have a glucometer but wants one. He is currently diet controlled diabetic. He has a payee, Dana Trujillo. Smoking Status: Never smoker Past Alcohol Use History: None Reported, Unable to Obtain Past Drug Use History: None Reported, Unable to Obtain - Past Family History Mother Family Medical History: Cancer Additional Family Medical History / Comment(s): colon cancer. Father Family Medical History: Cancer Additional Family Medical History / Comment(s): colon cancer. Medications and Allergies Home Medications Medication Instructions Recorded Confirmed Type Dapagliflozin Propanediol [Farxiga] 10 mg PO DAILY 02/14/22 04/16/24 History Aspirin EC [Ecotrin Low Dose] 81 mg PO DAILY 06/23/23 04/16/24 History Atorvastatin [Lipitor] 40 mg PO HS 06/23/23 04/16/24 History Metoprolol Tartrate [Lopressor] 50 mg PO BID 06/23/23 04/16/24 History Insulin Glargine [Lantus Vial] 30 unit SQ HS 04/16/24 04/16/24 History Tamsulosin HCl [Flomax] 0.4 mg PO BID 04/16/24 04/16/24 History lisinopriL 40 mg PO DAILY 04/16/24 04/16/24 History Allergies Allergy/AdvReac Type Severity Reaction Status Date / Time No Known Allergies Allergy Verified 04/16/24 09:09 Physical Exam Vitals: Vital Signs Temp Pulse Pulse Resp BP BP BP 04/16/24 12:19 98.7 F 88 18 196/104 04/16/24 10:40 209/105 04/16/24 10:12 200/100 04/16/24 10:10 201/102 04/16/24 09:51 97.9 F 89 16 217/105 04/16/24 09:37 98.1 F 78 18 166/89 04/16/24 09:17 86 18 199/107 04/16/24 09:01 203/100 04/16/24 07:30 89 18 213/105 04/16/24 03:30 90 17 163/85 04/16/24 01:38 93 18 177/89 04/15/24 23:00 104 H 168/91 04/15/24 22:15 112 H 182/93 04/15/24 21:57 128 H 18 196/119 04/15/24 20:54 126 H 04/15/24 20:23 93 04/15/24 16:59 98 F 89 20 160/74 Pulse Ox 04/16/24 12:19 96 04/16/24 10:40 04/16/24 10:12 04/16/24 10:10 04/16/24 09:51 98 04/16/24 09:37 98 04/16/24 09:17 96 04/16/24 09:01 78 L 04/16/24 07:30 96 04/16/24 03:30 04/16/24 01:38 04/15/24 23:00 94 L 04/15/24 22:15 04/15/24 21:57 95 04/15/24 20:54 04/15/24 20:23 04/15/24 16:59 97 Intake and Output 04/15/24 04/16/24 04/16/24 22:59 06:59 14:59 Other: Voiding Method Toilet Weight 99.79 kg 85.2 kg Results CBC & Chem 7: 04/16/24 05:47 04/17/24 04:45 Labs: Abnormal Lab Results - Last 24 Hours (Table) 04/15/24 04/15/24 04/15/24 Range/Units 18:44 18:44 18:48 WBC 14.6 H (3.8-10.6) k/uL Immature Gran # (0.00-0.04) X 10*3/uL Neutrophils # 12.1 H (1.3-7.7) k/uL Potassium 5.8 H (3.5-5.1) mmol/L Chloride 109 H (98-107) mmol/L BUN 41 H (9-20) mg/dL Creatinine 2.26 H (0.66-1.25) mg/dL Est GFR (CKD-EPI) (>=60) Glucose 170 H (74-99) mg/dL POC Glucose (mg/dL) (70-110) mg/dL Total Protein 6.2 L (6.3-8.2) g/dL Albumin 3.3 L (3.5-5.0) g/dL Albumin/Globulin Ratio (1.60-3.17) Ratio Urine Protein 3+ H (Negative) Urine Glucose (UA) 4+ H (Negative) Urine Blood Moderate H (Negative) Hyaline Casts 3 H (0-2) /lpf Urine Mucus Rare H (None) /hpf 04/16/24 04/16/24 04/16/24 Range/Units 05:47 05:47 12:32 WBC 11.57 H (3.8-10.6) k/uL Immature Gran # 0.05 H (0.00-0.04) X 10*3/uL Neutrophils # 9.18 H (1.3-7.7) k/uL Potassium (3.5-5.1) mmol/L Chloride (98-107) mmol/L BUN 34.1 H (9-20) mg/dL Creatinine 2.1 H (0.66-1.25) mg/dL Est GFR (CKD-EPI) 35 L (>=60) Glucose 139 H (74-99) mg/dL POC Glucose (mg/dL) 200 H (70-110) mg/dL Total Protein 5.1 L (6.3-8.2) g/dL Albumin 3.0 L (3.5-5.0) g/dL Albumin/Globulin Ratio 1.43 L (1.60-3.17) Ratio Urine Protein (Negative) Urine Glucose (UA) (Negative) Urine Blood (Negative) Hyaline Casts (0-2) /lpf Urine Mucus (None) /hpf Thrombosis Risk Factor Assmnt - Choose All That Apply Any of the Below Risk Factors Present?: Yes Each Factor Represents 1 point: Obesity (BMI >25) Other Risk Factors: Yes Each Risk Factor Represents 2 Points: Age 61-74 years Other congenital or acquired thrombophilia - If yes, enter type in comment: No Thrombosis Risk Factor Assessment Total Risk Factor Score: 3 Thrombosis Risk Factor Assessment Level: Moderate Risk
[2024-04-16 17:47] LABS: Glucose,Whole Blood 193 mg/dL (70-110)
[2024-04-16 20:17] LABS: Creatinine,Urine Random 46.1 mg/dL (39.0-259.0)
[2024-04-16 20:18] LABS: Glucose,Whole Blood 258 mg/dL (70-110)
[2024-04-16] MEDS: ATORVASTATIN 40 MG TAB PO SCH (20:35)
[2024-04-16] MEDS: TAMSULOSIN 0.4 MG CAP.ER.24H PO SCH (20:35)
[2024-04-17] MEDS: ONDANSETRON 4 MG/2 ML VIAL IVP PRN (05:31)
[2024-04-17 05:36] LABS: Glucose,Whole Blood 165 mg/dL (70-110)
[2024-04-17 07:03] LABS: Glucose,Whole Blood 173 mg/dL (70-110)
[2024-04-17] MEDS: ENOXAPARIN 40 MG/0.4 ML SYRINGE SQ SCH (08:44)
[2024-04-17] MEDS: ASPIRIN 81 MG PO SCH (08:44)
[2024-04-17] MEDS: PANTOPRAZOLE 40 MG/10 ML VIAL IVP SCH (08:44)
[2024-04-17 08:59] LABS: Blood Urea Nitrogen 30.6 mg/dL (9.0-27.0); Calcium 8.7 mg/dL (8.7-10.3); Chloride 108 mmol/L (96-109); Glucose 184 mg/dL (70-110); Sodium 138 mmol/L (135-145)
[2024-04-17 10:15] LABS: HCT 46.5 % (39.6-50.0); MCH 28.1 pg (27.0-32.0); MCHC 32.3 g/dL (32.0-37.0); MCV 87.2 FL (80.0-97.0); Mean Platelet Volume 11.7 FL (9.5-12.2); NRBC Per 100 WBC 0 X 10*3/uL (0.00-0.01); Platelet Count 302 X 10*3/uL (140-440); RBC 5.33 X 10*6/uL (4.40-5.60); RDW 13.3 % (11.5-14.5); WBC 11.76 X 10*3/uL (4.50-10.00)
--- NOTE | 2024-04-17 10:56 | P.NPCON ---
History of Present Illness - Reason for Consult acute renal failure, chronic renal failure - History of Present Illness Reason for consultation: Acute kidney injury on chronic kidney disease History of present illness: Patient is a 64-year-old male seen in renal consultation for acute kidney injury on chronic kidney disease. Patient has chronic kidney disease stage IIIa with baseline creatinine 1.3-1.4 from 2021 in 2022. Creatinine this admission was 2.26 and is 2.0 today. Patient came to the hospital due to vomiting and having cold-like symptoms for the last 2 to 3 days. He denies any diarrhea. Patient does have history of diabetes and was taking RADAMES inhibitor as well as SGLT2 number outpatient which are both currently held. He is currently receiving IV fluids. He denies seeing a electric deicer inspector outpatient. He denies history of coronary artery disease. Denies gross hematuria or dysuria. Patient states his brother and mother were both on hemodialysis and are now . Denies chest pain or shortness of breath. Denies use of nonsteroidals. Vital signs are stable. General: No acute distress. HEENT: Head exam is unremarkable. LUNGS: No audible rhonchi or wheezes. HEART: Rate and Rhythm are regular. ABDOMEN: Nontender. EXTREMITITES: No edema. Past Medical History Past Medical History: Diabetes Mellitus, Hyperlipidemia, Hypertension Additional Past Medical History / Comment(s): NIDDM type II, hemorrhoids, di verticulitis, chronic sinus problems, L knee "gives out" on occasion. History of Any Multi-Drug Resistant Organisms: None Reported Past Surgical History: Hernia Repair, Unable to Obtain Additional Past Surgical History / Comment(s): R inguinal hernia repair, multiple myringotomies/tubes, circumcism Past Anesthesia/Blood Transfusion Reactions: No Reported Reaction Past Psychological History: Depression, No Psychological Hx Reported Additional Psychological History / Comment(s): Pt resides alone. He does not drive. He gets places by bus or rides his bike. He does not have a glucometer but wants one. He is currently diet controlled diabetic. He has a payee, Dana Trujillo. Smoking Status: Never smoker Past Alcohol Use History: None Reported, Unable to Obtain Past Drug Use History: None Reported, Unable to Obtain - Past Family History Mother Family Medical History: Cancer Additional Family Medical History / Comment(s): colon cancer. Father Family Medical History: Cancer Additional Family Medical History / Comment(s): colon cancer. Medications and Allergies Home Medications Medication Instructions Recorded Confirmed Type Dapagliflozin Propanediol [Farxiga] 10 mg PO DAILY 02/14/22 04/16/24 History Aspirin EC [Ecotrin Low Dose] 81 mg PO DAILY 06/23/23 04/16/24 History Atorvastatin [Lipitor] 40 mg PO HS 06/23/23 04/16/24 History Metoprolol Tartrate [Lopressor] 50 mg PO BID 06/23/23 04/16/24 History Insulin Glargine [Lantus Vial] 30 unit SQ HS 04/16/24 04/16/24 History Tamsulosin HCl [Flomax] 0.4 mg PO BID 04/16/24 04/16/24 History lisinopriL 40 mg PO DAILY 04/16/24 04/16/24 History Allergies Allergy/AdvReac Type Severity Reaction Status Date / Time No Known Allergies Allergy Verified 04/16/24 09:09 Physical Exam Vitals: Vital Signs Temp Pulse Pulse Resp BP BP Pulse Ox 04/17/24 06:58 98.5 F 92 16 182/88 96 04/17/24 05:28 214/114 04/17/24 04:32 216/111 04/17/24 01:49 98.4 F 87 16 173/95 97 04/16/24 20:00 98.8 F 100 14 215/95 97 04/16/24 13:15 178/98 04/16/24 12:19 98.7 F 88 18 196/104 96 Intake and Output 04/16/24 04/17/24 04/17/24 22:59 06:59 14:59 Intake Total 540 Balance 540 Intake: Intake, IV Titration 0 Amount Sodium Chloride 0.9% 1, 0 000 ml @ 100 mls/hr IV . Q10H [facility] Rx#:[id number] Oral 540 Other: Voiding Method Toilet Results - Lab Results Most recent lab results Calcium 8.7 mg/dL (8.7-10.3) 04/17/24 04:45 04/17/24 04:45 04/17/24 04:45 Assessment and Plan Plan: Assessment: 1. Acute kidney injury secondary to ATN. Creatinine 2.26 on admission and is 2.0 today. No hydronephrosis noted on kidney ultrasound. Urine eosinophils negative. UA with 3+ protein, 4 RBCs. 2. Chronic kidney disease stage IIIa with baseline creatinine 1.2-1.4. Suspect diabetic kidney disease. 3. Hypertensive urgency. 4. Diabetes mellitus. 5. Nausea and vomiting possibly diabetic gastroparesis versus viral gastroenteritis. 6. Hyperkalemia secondary to acute kidney injury, RADAMES inhibitor use. Improved. Plan: Maintain IV fluids. Hydralazine dose increased by primary team. Amlodipine was added yesterday. Also on metoprolol. Check serologies. Check UPC. Nausea control. Has as needed Zofran ordered. Avoid nephrotoxins. May need kidney biopsy for definitive diagnosis pending above results. Thank you for the consultation. I will continue to follow the patient with you during his hospital stay.
[2024-04-17 11:58] LABS: Glucose,Whole Blood 207 mg/dL (70-110)
--- NOTE | 2024-04-17 14:27 | P.PN ---
Subjective Progress Note Date: 04/17/24 Principal diagnosis: Hospital course: Patient is a 64-year-old male with past medical history of IDDM, hyperlipidemia, hypertension, BPH who presented to the ED with vomiting. The patient mentions that his vomiting started on Tuesday and since then he has been throwing up 2-3 times every day. It is associated with abdominal pain. His last bowel movement was yesterday. His oral intake is also decreased in the past couple days. The patient denies hematemesis. Denies any recent travel history outside of the country.Denies taking any over the counter medications or supplements. Denies having any surgeries recently or being on antibiotics. He also complains of fever and sore throat. He also reports having chronic sinusitis. In addition he also complains of bedbugs in his apartment. Denies headache, chest pain, shortness of breath, palpitations, coughing, dysuria, hematuria, melena, hematochezia, numbness or tingling. ED documentation reviewed. In the ED he was treated with labetalol 10 mg, insulin regular 10 units, Albuterol nebulized 10 mg, ondansetron 4 mg, Lokelma 5 g, dextrose 50 mL and 0.9 normal saline bolus. Vitals on admission T 98 F, TX 89 bpm, RR 20, BP 160/74, O2 sat 97% on room air EKG independently interpreted as sinus rhythm, rate 86 bpm, QTc 410 ms Ultrasound of abdomen/bladder shows no evidence for obstructive uropathy or renal calculus Labs on admission showed WBC 14.6, potassium 5.8, BUN 41, creatinine 2.26, glucose 117 UA shows 4+ glucose, 3+ protein, moderate blood, 3 hyaline casts and rare mucus Respiratory viral panel negative 04/17/24: Patient seen and evaluated at bedside today. No acute events ov ernight. No new complaints today. BP today was 182/88. Labs show urine eosinophils 0, urine osmolality 426, urine creatinine 46.1, urine sodium 91, serum osmolality 306. Labs today show WBC 11.76, BUN 13.6, creatinine 2.0, A1c 8.9. Fena is 2.9%. Stool occult blood is negative. He also mentions of a family history of hemodialysis. Review of systems: Pertinent positives and negatives as discussed in HPI, a complete review of systems was performed and all other systems are negative. Vitals: Signs Reviewed Physical examination: General: nontoxic, no distress, appears at stated age Derm: warm, dry, intact Head: atraumatic, normocephalic, symmetric Eyes: EOMI, anicteric sclera Mouth: no lip lesion, mucus membranes moist Cardiovascular: S1 S2 reg, no murmur Lungs: CTA bilateral, no rhonchi, no rales, no accessory muscle use Abdominal: soft, non-tender to palpataion Extremities: No cyanosis, clubbing, or pedal edema. Neuro: Alert, Oriented, Gross neurological examination did not reveal any focal deficits. Psych: well appearing, appropriate affect Assessment/Plan: Patient is a 65-year-old male with past medical history of diabetes melitis, hyperlipidemia, hypertension who presented to the ED for vomiting. He has been admitted for further workup and management of vomiting, JUVE and hypertensive emergency. Active: #. Hypertensive emergency -On admission BP 196/104, BUN 34.1, creatinine 2.1 -Labetalol 10 mg administered in the ED -Hydralazine increased to 50 mg p.o. 3 times daily -Continue hydralazine 10 mg IV every 4 hours as needed -Continue home med metoprolol 50 mg p.o. twice daily -Continue amlodipine 10 mg p.o. daily -Continue telemetry monitoring #. JUVE, secondary to ATN #. Chronic kidney disease, stage IIIa -Baseline creatinine 1.2-1.4 -Diabetic kidney disease suspected -UA shows 3+ protein, 4+ glucose, moderate blood, 3 hyaline cast and rare mucous -Abdomen and bladder ultrasound ordered shows no evidence for obstructive uropathy renal calculus -Urine eosinophils 0, osmolality 426, creatinine 46.1, sodium 91, serum osmolality 306, Stool occult blood negative -FeNa 2.9% -Home med lisinopril held -Continue 0.9 normal saline at 100 mL/h -Obtain random urine protein/creatinine ratio, HARITHA, anti-dsDNA antibody, antineutrophil cytoplasmic antibody, complement C3, complement C4, complement total, hepatitis A IgM, hepatitis acute panel B core IgM, hep B surface antigen, hep C IgG antibody fixation, protein electrophoresis, magnesium. May need kidney biopsy for definitive diagnosis pending these results. -Avoid nephrotoxic agents -Nephrology is following #. Nausea and vomiting -Viral panel negative -Ondansetron 4 mg administered in the ED -Continue 0.9 normal saline at 100 mL/h -Continue ondansetron 4 mg IV every 8 hours as needed Chronic: #. Insulin-dependent diabetes mellitus -A1c 8.9 -Continue insulin sliding scale and ACHS blood glucose monitoring #. Hyperlipidemia -Continue home med atorvastatin 40 mg p.o. at bedtime #. BPH -Continue tamsulosin 0.4 mg PO BID Resolved: #. Hyperkalemia,secondary to JUVE F: 0.9 normal saline at 100 mL/h E: Replete as required N: Heart healthy diet A: Ambulatory DVT prophylaxis: Lovenox 40 mg SQ daily GI prophylaxis: Pantoprazole 40 mg IVP daily Objective - Vital Signs Vital signs: Vital Signs Temp 98.5 F 04/17/24 06:58 Pulse 92 04/17/24 06:58 Resp 16 04/17/24 06:58 BP 182/88 04/17/24 06:58 Pulse Ox 96 04/17/24 06:58 FiO2 Intake & Output 04/16/24 04/17/24 04/17/24 18:59 06:59 18:59 Intake Total 540 Balance 540 Weight 85.2 kg Intake: Intake, IV Titration 0 Amount Sodium Chloride 0.9% 1, 0 000 ml @ 100 mls/hr IV . Q10H [facility] Rx#:[id number] Oral 540 Other: Voiding Method Toilet Toilet - Labs CBC & Chem 7: 04/17/24 04:45 04/17/24 04:45 Labs: Abnormal Lab Results - Last 24 Hours (Table) 04/16/24 04/16/24 04/16/24 Range/Units 05:47 05:47 05:47 WBC 11.57 H (4.50-10.00) X 10*3/uL Immature Gran # 0.05 H (0.00-0.04) X 10*3/uL Neutrophils # 9.18 H (1.80-7.70) X 10*3/uL BUN 34.1 H (9.0-27.0) mg/dL Creatinine 2.1 H (0.6-1.5) mg/dL Est GFR (CKD-EPI) 35 L (>=60) Glucose 139 H (70-110) mg/dL POC Glucose (mg/dL) (70-110) mg/dL Osmolality 306 H (275-295) mOsm/kg Total Protein 5.1 L (6.2-8.2) g/dL Albumin 3.0 L (3.8-4.9) g/dL Albumin/Globulin Ratio 1.43 L (1.60-3.17) Ratio 04/16/24 04/16/24 04/16/24 Range/Units 12:32 17:43 20:16 WBC (4.50-10.00) X 10*3/uL Immature Gran # (0.00-0.04) X 10*3/uL Neutrophils # (1.80-7.70) X 10*3/uL BUN (9.0-27.0) mg/dL Creatinine (0.6-1.5) mg/dL Est GFR (CKD-EPI) (>=60) Glucose (70-110) mg/dL POC Glucose (mg/dL) 200 H 193 H 258 H (70-110) mg/dL Osmolality (275-295) mOsm/kg Total Protein (6.2-8.2) g/dL Albumin (3.8-4.9) g/dL Albumin/Globulin Ratio (1.60-3.17) Ratio 04/17/24 04/17/24 Range/Units 05:34 07:00 WBC (4.50-10.00) X 10*3/uL Immature Gran # (0.00-0.04) X 10*3/uL Neutrophils # (1.80-7.70) X 10*3/uL BUN (9.0-27.0) mg/dL Creatinine (0.6-1.5) mg/dL Est GFR (CKD-EPI) (>=60) Glucose (70-110) mg/dL POC Glucose (mg/dL) 165 H 173 H (70-110) mg/dL Osmolality (275-295) mOsm/kg Total Protein (6.2-8.2) g/dL Albumin (3.8-4.9) g/dL Albumin/Globulin Ratio (1.60-3.17) Ratio
[2024-04-17 15:15] LABS: Protein, Total 5.7 g/dL (6.2-8.2)
[2024-04-17 15:32] LABS: Glucose,Whole Blood 309 mg/dL (70-110)
[2024-04-17] MEDS: hydrALAZINE HCL 50 MG TAB PO SCH (15:51)
[2024-04-17 15:55] LABS: Hepatitis A Antibody IgM Nonreactive (Nonreactive); Hepatitis B Core IgM Nonreactive (Nonreactive); Hepatitis B Surface Antigen Nonreactive (Nonreactive); Hepatitis C IgG Antibody Nonreactive (Nonreactive)
[2024-04-17 16:01] LABS: Creatinine,Urine Random 143.9 mg/dL
[2024-04-17 20:20] LABS: Glucose,Whole Blood 118 mg/dL (70-110)
[2024-04-18 01:37] LABS: DNA Double-Stranded Indetermin (Negative)
[2024-04-18 07:29] LABS: Glucose,Whole Blood 145 mg/dL (70-110)
[2024-04-18] MEDS: ENOXAPARIN 40 MG/0.4 ML SYRINGE SQ SCH (08:30)
[2024-04-18 08:48] LABS: HCT 41.5 % (39.6-50.0); HGB 13.8 g/dL (13.0-17.0); MCH 28.5 pg (27.0-32.0); MCHC 33.3 g/dL (32.0-37.0); MCV 85.6 FL (80.0-97.0); Mean Platelet Volume 11.6 FL (9.5-12.2); NRBC Per 100 WBC 0 X 10*3/uL (0.00-0.01); Platelet Count 281 X 10*3/uL (140-440); RBC 4.85 X 10*6/uL (4.40-5.60); RDW 13.3 % (11.5-14.5); WBC 11.49 X 10*3/uL (4.50-10.00)
[2024-04-18 08:58] LABS: BUN/Creat Ratio 14.96 Ratio (12.00-20.00); Blood Urea Nitrogen 34.4 mg/dL (9.0-27.0); Calcium 8.4 mg/dL (8.7-10.3); Carbon Dioxide 20.6 mmol/L (21.6-31.8); Chloride 108 mmol/L (96-109); Glucose 159 mg/dL (70-110); Magnesium 1.7 mg/dL (1.5-2.4); Potassium 5.3 mmol/L (3.5-5.5); Sodium 138 mmol/L (135-145)
--- NOTE | 2024-04-18 10:52 | P.PN ---
Subjective Patient is seen in follow-up for acute kidney injury on chronic kidney disease. Renal function stable with creatinine 2.3. Has been eating. Admits to good urine output. No further vomiting. Vital signs are stable. General: No acute distress. HEENT: Head exam is unremarkable. LUNGS: No audible rhonchi or wheezes. HEART: Rate and Rhythm are regular. ABDOMEN: Nontender. EXTREMITITES: No edema. Objective - Vital Signs Vital signs: Vital Signs Temp 97.7 F 04/18/24 07:41 Pulse 80 04/18/24 07:41 Resp 18 04/18/24 07:41 BP 170/90 04/18/24 07:41 Pulse Ox 96 04/18/24 07:41 FiO2 Intake & Output 04/17/24 04/18/24 04/18/24 18:59 06:59 18:59 Intake Total 550 Output Total 600 Balance -50 Intake: Intake, IV Titration 550 Amount Sodium Chloride 0.9% 1, 550 000 ml @ 100 mls/hr IV . Q10H [facility] Rx#:[id number] Output: Urine 600 Other: Voiding Method Toilet - Labs CBC & Chem 7: 04/18/24 04:29 04/18/24 04:29 Labs: Abnormal Lab Results - Last 24 Hours (Table) 04/17/24 04/17/24 04/17/24 Range/Units 11:03 11:57 15:30 WBC (4.50-10.00) X 10*3/uL Carbon Dioxide (21.6-31.8) mmol/L BUN (9.0-27.0) mg/dL Creatinine (0.6-1.5) mg/dL Est GFR (CKD-EPI) (>=60) Glucose (70-110) mg/dL POC Glucose (mg/dL) 207 H 309 H (70-110) mg/dL Calcium (8.7-10.3) mg/dL Total Protein (PEP) 5.7 L (6.2-8.2) g/dL Double Strand DNA Ab Indetermin A (Negative) 04/17/24 04/18/24 04/18/24 Range/Units 20:17 04:29 04:29 WBC 11.49 H (4.50-10.00) X 10*3/uL Carbon Dioxide 20.6 L (21.6-31.8) mmol/L BUN 34.4 H (9.0-27.0) mg/dL Creatinine 2.3 H (0.6-1.5) mg/dL Est GFR (CKD-EPI) 31 L (>=60) Glucose 159 H (70-110) mg/dL POC Glucose (mg/dL) 118 H (70-110) mg/dL Calcium 8.4 L (8.7-10.3) mg/dL Total Protein (PEP) (6.2-8.2) g/dL Double Strand DNA Ab (Negative) 04/18/24 Range/Units 07:21 WBC (4.50-10.00) X 10*3/uL Carbon Dioxide (21.6-31.8) mmol/L BUN (9.0-27.0) mg/dL Creatinine (0.6-1.5) mg/dL Est GFR (CKD-EPI) (>=60) Glucose (70-110) mg/dL POC Glucose (mg/dL) 145 H (70-110) mg/dL Calcium (8.7-10.3) mg/dL Total Protein (PEP) (6.2-8.2) g/dL Double Strand DNA Ab (Negative) Assessment and Plan Plan: Assessment: 1. Acute kidney injury secondary to ATN. Creatinine 2.26 on admission and is stable at 2.3 today. No hydronephrosis noted on kidney ultrasound. Urine eosinophils negative. UA with 3+ protein, 4 RBCs. 2. Chronic kidney disease stage IIIa with baseline creatinine 1.2-1.4. Suspect diabetic kidney disease. 3. Hypertensive urgency. 4. Diabetes mellitus. 5. Nausea and vomiting possibly diabetic gastroparesis versus viral gastroenteritis. Improved. 6. Hyperkalemia secondary to acute kidney injury, RADAMES inhibitor use. Improved. Plan: Hep-Lock IV fluids. Increase dose of hydralazine. Follow-up serologies. Negative so far except for intermediate double-stranded DNA antibody. Repeat UA. Avoid nephrotoxins. Will discuss with patient and see if kidney biopsy can be scheduled this admission.
[2024-04-18 12:22] LABS: Glucose,Whole Blood 171 mg/dL (70-110)
[2024-04-18 13:16] LABS: Prothrombin Time 10.8 sec (10.0-12.5)
[2024-04-18 13:23] LABS: C-ANCA <1:20 Titer (<1:20)
--- NOTE | 2024-04-18 14:33 | P.PN ---
Subjective Progress Note Date: 04/18/24 Principal diagnosis: ital course: Patient is a 64-year-old male with past medical history of IDDM, hyperlipidemia, hypertension, BPH who presented to the ED with vomiting. The patient mentions that his vomiting started on Tuesday and since then he has been throwing up 2-3 times every day. It is associated with abdominal pain. His last bowel movement was yesterday. His oral intake is also decreased in the past couple days. The patient denies hematemesis. Denies any recent travel history outside of the country.Denies taking any over the counter medications or supplements. Denies having any surgeries recently or being on antibiotics. He also complains of fever and sore throat. He also reports having chronic sinusitis. In addition he also complains of bedbugs in his apartment. Denies headache, chest pain, shortness of breath, palpitations, coughing, dysuria, hematuria, melena, hematochezia, numbness or tingling. ED documentation reviewed. In the ED he was treated with labetalol 10 mg, insulin regular 10 units, Albuterol nebulized 10 mg, ondansetron 4 mg, Lokelma 5 g, dextrose 50 mL and 0.9 normal saline bolus. Vitals on admission T 98 F, IA 89 bpm, RR 20, BP 160/74, O2 sat 97% on room air EKG independently interpreted as sinus rhythm, rate 86 bpm, QTc 410 ms Ultrasound of abdomen/bladder shows no evidence for obstructive uropathy or renal calculus Labs on admission showed WBC 14.6, potassium 5.8, BUN 41, creatinine 2.26, glucose 117 UA shows 4+ glucose, 3+ protein, moderate blood, 3 hyaline casts and rare mucus Respiratory viral panel negative 04/17/24: Patient seen and evaluated at bedside today. No acute events overni ght. No new complaints today. BP today was 182/88. Labs show urine eosinophils 0, urine osmolality 426, urine creatinine 46.1, urine sodium 91, serum osmolality 306. Labs today show WBC 11.76, BUN 13.6, creatinine 2.0, A1c 8.9. Fena is 2.9%. Stool occult blood is negative. He also mentions of a family history of hemodialysis. 04/18/24: Patient seen and examined today. No acute events overnight. BP today is 170/90. Blood work shows urine creatinine 143.9 and urine total protein > 600. Immunology is negative for HARITHA, indeterminate double-stranded DNA antibody, anti-DNA antibody 6, C3 127, C4 25.7 and total complement 92. Serology negative for hepatitis A IgM, hepatitis B surface antigen, hepatitis B core IgM antibody, hepatitis C IgG antibody. Kidney biopsy ordered today. Review of systems: Pertinent positives and negatives as discussed in HPI, a complete review of systems was performed and all other systems are negative. Vitals: Signs Reviewed Physical examination: General: nontoxic, no distress, appears at stated age Derm: warm, dry, intact Head: atraumatic, normocephalic, symmetric Eyes: EOMI, anicteric sclera Mouth: no lip lesion, mucus membranes moist Cardiovascular: S1 S2 reg, no murmur Lungs: CTA bilateral, no rhonchi, no rales, no accessory muscle use Abdominal: soft, non-tender to palpataion Extremities: No cyanosis, clubbing, or pedal edema. Neuro: Alert, Oriented, Gross neurological examination did not reveal any focal deficits. Psych: well appearing, appropriate affect Assessment/Plan: Patient is a 65-year-old male with past medical history of diabetes melitis, hyperlipidemia, hypertension who presented to the ED for vomiting. He has been admitted for further workup and management of vomiting, JUVE and hypertensive emergency. His serology has been negative for all except intermediate Ds DNA antibody and kidney biopsy has been ordered. Active: #. Hypertensive emergency -On admission BP 196/104, BUN 34.1, creatinine 2.1 -Labetalol 10 mg administered in the ED -Hydralazine increased to 100 mg p.o. 3 times daily -Continue hydralazine 10 mg IV every 4 hours as needed -Continue home med metoprolol 50 mg p.o. twice daily -Continue amlodipine 10 mg p.o. daily -Continue telemetry monitoring #. JUVE, secondary to ATN #. Chronic kidney disease, stage IIIa -Baseline creatinine 1.2-1.4 -Diabetic kidney disease suspected -UA shows 3+ protein, 4+ glucose, moderate blood, 3 hyaline cast and rare mucous -Abdomen and bladder ultrasound ordered shows no evidence for obstructive uropathy renal calculus -Urine eosinophils 0, osmolality 426, creatinine 46.1, sodium 91, serum osmolality 306 -Stool occult blood negative -FeNa 2.9% -Blood work shows urine creatinine 143.9 and urine total protein > 600. Immunology is negative for HARITHA, indeterminate double-stranded DNA antibody, anti-DNA antibody 6, C3 127, C4 25.7 and total complement 92. Serology negative for hepatitis A IgM, hepatitis B surface antigen, hepatitis B core IgM antibody, hepatitis C IgG antibody. -Home med lisinopril held -0.9 normal saline discontinued -ANCA pending -Repeat UA -Consulted IR for kidney biopsy for hematuria and proteinuria today -Avoid nephrotoxic agents -Nephrology is following #. Nausea and vomiting -Viral panel negative -Ondansetron 4 mg administered in the ED -Continue 0.9 normal saline at 100 mL/h -Continue ondansetron 4 mg IV every 8 hours as needed Chronic: #. Insulin-dependent diabetes mellitus -A1c 8.9 -Continue insulin sliding scale and ACHS blood glucose monitoring #. Hyperlipidemia -Continue home med atorvastatin 40 mg p.o. at bedtime #. BPH -Continue tamsulosin 0.4 mg PO BID Resolved: #. Hyperkalemia,secondary to JUVE F: None E: Replete as required N: Heart healthy diet A: Ambulatory DVT prophylaxis: Heparin 5000 Unit SQ Q8HR GI prophylaxis: Pantoprazole [address] Agueda MD I have performed a history and physical examination and medical decision making of this patient, discussed the same with the the resident, and agree with the assessment and plan as written. I performed brief physical exam. Objective - Vital Signs Vital signs: Vital Signs Temp 97.7 F 04/18/24 07:41 Pulse 80 04/18/24 07:41 Resp 18 04/18/24 07:41 BP 170/90 04/18/24 07:41 Pulse Ox 96 04/18/24 07:41 FiO2 Intake & Output 04/17/24 04/18/24 04/18/24 18:59 06:59 18:59 Intake Total 550 Output Total 600 Balance -50 Intake: Intake, IV Titration 550 Amount Sodium Chloride 0.9% 1, 550 000 ml @ 100 mls/hr IV . Q10H [facility] Rx#:[id number] Output: Urine 600 Other: Voiding Method Toilet - Labs CBC & Chem 7: 04/19/24 05:02 04/19/24 05:02 Labs: Abnormal Lab Results - Last 24 Hours (Table) 04/17/24 04/17/24 04/17/24 Range/Units 04:45 04:45 04:45 WBC 11.76 H (4.50-10.00) X 10*3/uL Carbon Dioxide 21.0 L (21.6-31.8) mmol/L BUN 30.6 H (9.0-27.0) mg/dL Creatinine 2.0 H (0.6-1.5) mg/dL Est GFR (CKD-EPI) 37 L (>=60) Glucose 184 H (70-110) mg/dL POC Glucose (mg/dL) (70-110) mg/dL Hemoglobin A1c 8.9 H (<=6.0) % Total Protein (PEP) (6.2-8.2) g/dL Double Strand DNA Ab (Negative) 04/17/24 04/17/24 04/17/24 Range/Units 11:03 11:57 15:30 WBC (4.50-10.00) X 10*3/uL Carbon Dioxide (21.6-31.8) mmol/L BUN (9.0-27.0) mg/dL Creatinine (0.6-1.5) mg/dL Est GFR (CKD-EPI) (>=60) Glucose (70-110) mg/dL POC Glucose (mg/dL) 207 H 309 H (70-110) mg/dL Hemoglobin A1c (<=6.0) % Total Protein (PEP) 5.7 L (6.2-8.2) g/dL Double Strand DNA Ab Indetermin A (Negative) 04/17/24 04/18/24 Range/Units 20:17 07:21 WBC (4.50-10.00) X 10*3/uL Carbon Dioxide (21.6-31.8) mmol/L BUN (9.0-27.0) mg/dL Creatinine (0.6-1.5) mg/dL Est GFR (CKD-EPI) (>=60) Glucose (70-110) mg/dL POC Glucose (mg/dL) 118 H 145 H (70-110) mg/dL Hemoglobin A1c (<=6.0) % Total Protein (PEP) (6.2-8.2) g/dL Double Strand DNA Ab (Negative)
[2024-04-18] MEDS: hydrALAZINE HCL 50 MG TAB PO SCH (17:04)
[2024-04-18 17:12] LABS: Glucose,Whole Blood 128 mg/dL (70-110)
[2024-04-18 17:24] LABS: Appearance,Urine Clear (Clear); Bacteria,Urine Rare /hpf; Bilirubin,Urine Negative (Negative); Blood,Urine Negative (Negative); Color,Urine Light Yellow; Glucose,Urine (UA) 3+ (Negative); Ketones,Urine Negative (Negative); Leukocyte Esterase,Urine Negative (Negative); Mucus,Urine Rare /hpf; Nitrite,Urine Negative (Negative); Protein,Urine 3+ (Negative); RBC,Urine 1 /hpf (0-5); Specific Gravity,Urine 1.016 (1.001-1.035); Urobilinogen,Urine <2.0 mg/dL (<2.0); WBC,Urine <1 /hpf (0-5)
[2024-04-18 20:11] LABS: Glucose,Whole Blood 199 mg/dL (70-110)
[2024-04-18] MEDS: HEPARIN SODIUM,PORCINE 5,000 UNIT/ML 1 ML VIAL SQ SCH (23:53)
[2024-04-19 07:17] LABS: Glucose,Whole Blood 156 mg/dL (70-110)
[2024-04-19 08:44] LABS: HCT 44.3 % (39.6-50.0); HGB 14.8 g/dL (13.0-17.0); MCHC 33.4 g/dL (32.0-37.0); MCV 86.7 FL (80.0-97.0); Mean Platelet Volume 11.9 FL (9.5-12.2); NRBC Per 100 WBC 0 X 10*3/uL (0.00-0.01); Platelet Count 294 X 10*3/uL (140-440); RBC 5.11 X 10*6/uL (4.40-5.60); RDW 13.1 % (11.5-14.5); WBC 9.64 X 10*3/uL (4.50-10.00)
[2024-04-19 08:54] LABS: Blood Urea Nitrogen 33.6 mg/dL (9.0-27.0); Calcium 8.6 mg/dL (8.7-10.3); Carbon Dioxide 20.2 mmol/L (21.6-31.8); Chloride 107 mmol/L (96-109); Glucose 180 mg/dL (70-110); Magnesium 1.8 mg/dL (1.5-2.4); Potassium 4.9 mmol/L (3.5-5.5); Sodium 137 mmol/L (135-145)
--- NOTE | 2024-04-19 12:02 | P.PN ---
Subjective Patient is seen in follow-up for acute kidney injury on chronic kidney disease. Renal function stable. Has been eating. Admits to good urine output. No active complaints. Vital signs are stable. General: No acute distress. HEENT: Head exam is unremarkable. LUNGS: No audible rhonchi or wheezes. HEART: Rate and Rhythm are regular. ABDOMEN: Nontender. EXTREMITITES: No edema. Objective - Vital Signs Vital signs: Vital Signs Temp 98.0 F 04/19/24 07:16 Pulse 77 04/19/24 07:16 Resp 14 04/19/24 07:16 BP 178/97 04/19/24 07:16 Pulse Ox 97 04/19/24 07:16 FiO2 Intake & Output 04/18/24 04/19/24 04/19/24 18:59 06:59 18:59 Intake Total 2100 Output Total 700 Balance 2100 -700 Intake: Oral 2100 Output: Urine 700 Other: Voiding Method Toilet Toilet Toilet # Voids 2 - Labs CBC & Chem 7: 04/19/24 05:02 04/19/24 05:02 Labs: Abnormal Lab Results - Last 24 Hours (Table) 04/18/24 04/18/24 04/18/24 Range/Units 12:08 16:55 17:05 Carbon Dioxide (21.6-31.8) mmol/L BUN (9.0-27.0) mg/dL Creatinine (0.6-1.5) mg/dL Est GFR (CKD-EPI) (>=60) Glucose (70-110) mg/dL POC Glucose (mg/dL) 171 H 128 H (70-110) mg/dL Calcium (8.7-10.3) mg/dL Urine Protein 3+ H (Negative) Urine Glucose (UA) 3+ H (Negative) Urine Bacteria Rare H (None) /hpf Urine Mucus Rare H (None) /hpf 04/18/24 04/19/24 04/19/24 Range/Units 20:09 05:02 07:15 Carbon Dioxide 20.2 L (21.6-31.8) mmol/L BUN 33.6 H (9.0-27.0) mg/dL Creatinine 2.1 H (0.6-1.5) mg/dL Est GFR (CKD-EPI) 35 L (>=60) Glucose 180 H (70-110) mg/dL POC Glucose (mg/dL) 199 H 156 H (70-110) mg/dL Calcium 8.6 L (8.7-10.3) mg/dL Urine Protein (Negative) Urine Glucose (UA) (Negative) Urine Bacteria (None) /hpf Urine Mucus (None) /hpf Assessment and Plan Plan: Assessment: 1. Acute kidney injury secondary to ATN. Creatinine 2.26 on admission and is stable at 2.1 today. No hydronephrosis noted on kidney ultrasound. Urine eosinophils negative. UA with 3+ protein, 4 RBCs. Repeat UA with 3+ protein and 1 RBC. 2. Chronic kidney disease stage IIIa with baseline creatinine 1.2-1.4. Suspect diabetic kidney disease. 3. Hypertensive urgency. 4. Diabetes mellitus. 5. Nausea and vomiting possibly diabetic gastroparesis versus viral gastroenteritis. Improved. 6. Hyperkalemia secondary to acute kidney injury, RADAMES inhibitor use. Improved. Plan: Off IV fluids. Add Farxiga 5 mg once daily. Follow-up serologies. Negative so far except for intermediate double-stranded DNA antibody. Advised patient to see rheumatology outpatient. Follow-up electrophoresis and immunofixation studies. Avoid nephrotoxins. Kidney biopsy has been discussed with patient. Cannot be done at this time as he is on aspirin. Will be scheduled for outpatient. Follow-up outpatient 1 week postdischarge.
[2024-04-19 12:12] LABS: Glucose,Whole Blood 144 mg/dL (70-110)
--- NOTE | 2024-04-19 12:44 | P.DS ---
Providers Date of admission: 04/15/24 20:13 Expected date of discharge: 04/19/24 Attending physician: Rambo Moreland MD Consults: 04/16/24 11:25 Consult Physician Routine Consulting Provider: Ad Flores Consult Reason/Comments: juve Do you want consulting provider notified?: Yes Primary care physician: Stated None Hospital Course: Discharge diagnosis: Hypertensive emergency JUVE, secondary to ATN Chronic kidney disease, stage IIIa Suspect diabetic kidney disease Nausea and vomiting Insulin-dependent diabetes mellitus Hyperlipidemia BPH Hyperkalemia,secondary to JUVE Hospital Course: Patient is a 64-year-old male with past medical history of IDDM, hyperlipidemia, hypertension, BPH who presented to the ED with vomiting. The patient mentions that his vomiting started on Tuesday and since then he has been throwing up 2-3 times every day. It is associated with abdominal pain. His last bowel movement was yesterday. His oral intake is also decreased in the past couple days. The patient denies hematemesis. Denies any recent travel history outside of the country.Denies taking any over the counter medications or supplements. Denies having any surgeries recently or being on antibiotics. He also complains of fever and sore throat. He also reports having chronic sinusitis. In addition he also complains of bedbugs in his apartment. Denies headache, chest pain, shortness of breath, palpitations, coughing, dysuria, hematuria, melena, hematochezia, numbness or tingling. Vitals on admission T 98 F, SC 89 bpm, RR 20, BP 160/74, O2 sat 97% on room air. EKG independently interpreted as sinus rhythm, rate 86 bpm, QTc 410 ms. Ultrasound of abdomen/bladder shows no evidence for obstructive uropathy or renal calculus. Labs on admission showed WBC 14.6, potassium 5.8, BUN 41, creatinine 2.26, glucose 117. UA shows 4+ glucose, 3+ protein, moderate blood, 3 hyaline casts and rare mucus. Respiratory viral panel negative. In the ED he was treated with labetalol 10 mg, insulin regular 10 units, Albuterol nebulized 10 mg, ondansetron 4 mg, Lokelma 5 g, dextrose 50 mL and 0.9 normal saline bolus. 04/17/24: Patient seen and evaluated at bedside today. No acute events overnight. No new complaints today. BP today was 182/88. Labs show urine eosinophils 0, urine osmolality 426, urine creatinine 46.1, urine sodium 91, serum osmolality 306. Labs today show WBC 11.76, BUN 13.6, creatinine 2.0, A1c 8.9. Fena is 2.9%. Stool occult blood is negative. He also mentions of a family history of hemodialysis. 04/18/24: Patient seen and examined today. No acute events overnight. BP today is 170/90. Blood work shows urine creatinine 143.9 and urine total protein > 600. Immunology is negative for HARITHA, indeterminate double-stranded DNA antibody, anti-DNA antibody 6, C3 127, C4 25.7 and total complement 92. Serology negative for hepatitis A IgM, hepatitis B surface antigen, hepatitis B core IgM antibody, hepatitis C IgG antibody. Kidney biopsy ordered today. 04/19/24: Patient evaluated today. No acute events overnight. BP today is 178/97. Repeat UA shows 3+ protein, 3+ glucose and rare bacteria and mucus. c- ANCA <1:20, p-ANCA <1:20, ANCA screen negative. Patient seen at bedside today and is feeling good and excited about discharge. Patient will be discharged today and is given a script for Farxiga 5 mg daily and Hydralazine 100 mg PO TID. He will have kidney biopsy on 05/17/24. He is advised to stop taking aspirin 7 days before the biopsy. Instructions provided in the discharge. Patient is given a handout for kidney biopsy and is advised to be compliant with medications. Patient is advised to follow-up with PCP in 1-2 days, nephrology in 1 week and rheumatology in 1 week. Vital signs are reviewed and stable General: nontoxic, no distress, appears at stated age Derm: warm, dry, intact Head: atraumatic, normocephalic, symmetric Eyes: EOMI, anicteric sclera Mouth: no lip lesion, mucus membranes moist Cardiovascular: S1 S2 reg, no murmur Lungs: CTA bilateral, no rhonchi, no rales, no accessory muscle use Abdominal: soft, non-tender to palpataion Extremities: No cyanosis, clubbing, or pedal edema. Neuro: Alert, Oriented, Gross neurological examination did not reveal any focal deficits. Psych: well appearing, appropriate affect A total of 30 minutes of time were spent preparing this complex discharge summary. Patient was discharged on at []. Patient Condition at Discharge: Stable Plan - Discharge Summary Discharge Rx Participant: Yes New Discharge Prescriptions: New hydrALAZINE HCL [Apresoline] 100 mg PO TID 14 Days #42 tab Dapagliflozin Propanediol [Farxiga] 5 mg PO DAILY 14 Days #28 tab Continue Metoprolol Tartrate [Lopressor] 50 mg PO BID Atorvastatin [Lipitor] 40 mg PO HS Aspirin EC [Ecotrin Low Dose] 81 mg PO DAILY lisinopriL 40 mg PO DAILY Insulin Glargine [Lantus Vial] 30 unit SQ HS Tamsulosin HCl [Flomax] 0.4 mg PO BID Discontinued Dapagliflozin Propanediol [Farxiga] 10 mg PO DAILY Discharge Medication List Aspirin EC [Ecotrin Low Dose] 81 mg PO DAILY 06/23/23 [History] Atorvastatin [Lipitor] 40 mg PO HS 06/23/23 [History] Metoprolol Tartrate [Lopressor] 50 mg PO BID 06/23/23 [History] Insulin Glargine [Lantus Vial] 30 unit SQ HS 04/16/24 [History] Tamsulosin HCl [Flomax] 0.4 mg PO BID 04/16/24 [History] lisinopriL 40 mg PO DAILY 04/16/24 [History] Dapagliflozin Propanediol [Farxiga] 5 mg PO DAILY 14 Days #28 tab 04/19/24 [Rx] hydrALAZINE HCL [Apresoline] 100 mg PO TID 14 Days #42 tab 04/19/24 [Rx] Follow up Appointment(s)/Referral(s): Holly Murphy MD [STAFF PHYSICIAN] - 1 Week (Abnormal Blood work . Double Strand DNA Ab - Indetermin A) Ad Flores DO [STAFF PHYSICIAN] - 1 Week [facility] [NON-STAFF] - 1 Week Activity/Diet/Wound Care/Special Instructions: - Kidney Biopsy May 17 2024 At 8am . Interventional Radiology will call you prior Procedure with further instructions. - Stop aspirin one week prior to kidney biopsy May 10 Discharge Disposition: HOME SELF-CARE
[2024-04-19] MEDS: DAPAGLIFLOZIN PROPANEDIOL 5 MG TABLET PO SCH (12:52)
[2024-04-19 13:24] VITALS: BP 163/85; PULSE 74; RESP 18; TEMP 97.9
== END 2024-04-19 15:34 | disposition home or self-care (01) | DRG 683 ==
LOC: EC 16:48 → OBSVTOIN 20:13 → 6NMEDSUR 20:13 → 5NMEDONC 23:49
PROVIDERS: ADMIT Internal Medicine; ATTEND Internal Medicine
DX: N17.0 Acute kidney failure with tubular necrosis (principal); I16.1 Hypertensive emergency; I12.9 Hypertensive chronic kidney disease with stage 1 through stage 4 chronic kidney disease, or unspecified chronic kidney disease; E87.5 Hyperkalemia; E78.5 Hyperlipidemia, unspecified; E11.22 Type 2 diabetes mellitus with diabetic chronic kidney disease; J32.9 Chronic sinusitis, unspecified; N18.31 Chronic kidney disease, stage 3a; N40.0 Benign prostatic hyperplasia without lower urinary tract symptoms; E11.43 Type 2 diabetes mellitus with diabetic autonomic (poly)neuropathy; K31.84 Gastroparesis; Z79.84 Long term (current) use of oral hypoglycemic drugs; Z79.82 Long term (current) use of aspirin; Z79.4 Long term (current) use of insulin
CPT/HCPCS: 36415; 76770; 80048; 80053; 80074; 81001; 82150; 82272; 82570; 83036; 83690; 83735; 83930; 83935; 84132; 84156; 84165; 84300; 85025; 85027; 85610; 86038; 86160; 86162; 86225; 86255; 86334; 87205; 87636; 87651; 93005; 94640; 96361; 96374; 96375; 99285

== ENCOUNTER 2024-10-05 13:42 | Emergency (ER) | payer MEDICARE ==
--- NOTE | 2024-10-05 14:27 | ED ---
Weakness HPI - General Chief complaint: Weakness Stated complaint: Left knee pain Time Seen by Provider: 10/05/24 14:15 Source: patient, RN notes reviewed Mode of arrival: wheelchair Limitations: no limitations - History of Present Illness Initial comments: This is a 64-year-old male who presents to the emergency department for left leg pain. States that for the last couple of days he has had pain in his left buttocks going down to the left knee. As a result, he has been unable to ambulate easily or put much of any pressure on that leg. Denies any injuries or history of similar symptoms in the past. Denies any loss of bowel/bladder control or saddle anesthesia. MD Complaint: generalized weakness - Related Data Home Medications Medication Instructions Recorded Confirmed Aspirin EC [Ecotrin Low Dose] 81 mg PO DAILY 06/23/23 05/09/24 Atorvastatin [Lipitor] 40 mg PO HS 06/23/23 05/09/24 Metoprolol Tartrate [Lopressor] 50 mg PO BID 06/23/23 05/09/24 Insulin Glargine (Lantus) [Lantus 30 unit SQ HS 04/16/24 05/09/24 Vial] Tamsulosin HCl [Flomax] 0.4 mg PO BID 04/16/24 05/09/24 lisinopriL 40 mg PO DAILY 04/16/24 05/09/24 Previous Rx's Medication Instructions Recorded Dapagliflozin Propanediol [Farxiga] 5 mg PO DAILY 14 Days #28 tab 04/19/24 hydrALAZINE HCL [Apresoline] 100 mg PO TID 14 Days #42 tab 04/19/24 HYDROcodone/APAP 5-325MG [[place] 1 tab PO Q6HR PRN 3 Days #12 tab 10/05/24 5-325] methocarbamoL [Robaxin-750] 1,500 mg PO TID PRN #30 tab 10/05/24 predniSONE 50 mg PO DAILY 5 Days #5 tab 10/05/24 Allergies Allergy/AdvReac Type Severity Reaction Status Date / Time No Known Allergies Allergy Verified 10/05/24 14:17 Review of Systems ROS Statement: Those systems with pertinent positive or pertinent negative responses have been documented in the HPI. ROS Other: All systems not noted in ROS Statement are negative. Past Medical History Past Medical History: Diabetes Mellitus, Hyperlipidemia, Hypertension Additional Past Medical History / Comment(s): NIDDM type II, hemorrhoids, diverticulitis, chronic sinus problems, L knee "gives out" on occasion. History of Any Multi-Drug Resistant Organisms: None Reported Past Surgical History: Hernia Repair, Unable to Obtain Additional Past Surgical History / Comment(s): R inguinal hernia repair, multiple myringotomies/tubes, circumcism Past Anesthesia/Blood Transfusion Reactions: No Reported Reaction Past Psychological History: Depression, No Psychological Hx Reported Smoking Status: Never smoker Past Alcohol Use History: None Reported, Unable to Obtain Past Drug Use History: None Reported, Unable to Obtain - Past Family History Mother Family Medical History: Cancer Additional Family Medical History / Comment(s): colon cancer. Father Family Medical History: Cancer Additional Family Medical History / Comment(s): colon cancer. General Exam - General Exam Comments Initial Comments: Visual Physical Exam Vital signs reviewed General: Well-appearing, nontoxic, no acute distress. Head: Normocephalic, atraumatic Eyes: PERRLA, EOMI ENT: Airway patent Chest: Nonlabored breathing Skin: No visual rash, normal skin tone Neuro: Alert and oriented 3 Musculoskeletal: No gross abnormalities Limitations: no limitations General appearance: alert, in no apparent distress Head exam: Present: atraumatic, normocephalic, normal inspection Respiratory exam: Present: normal lung sounds bilaterally. Absent: respiratory distress, wheezes, rales, rhonchi, stridor Cardiovascular Exam: Present: regular rate, normal rhythm Neurological exam: Present: alert, oriented X3, CN II-XII intact Psychiatric exam: Present: normal affect, normal mood Skin exam: Present: warm, dry, intact, normal color. Absent: rash Course Vital Signs 10/05/24 10/05/24 10/05/24 14:12 15:58 17:30 Temperature 97.8 F 98.2 F Pulse Rate 101 H 91 90 Respiratory 18 20 20 Rate Blood Pressure 142/86 168/89 176/95 O2 Sat by Pulse 99 96 97 Oximetry Medical Decision Making - Medical Decision Making This is a 64 year old male who presents to the emergency department for left leg pain. Was pt. sent in by a medical professional or institution? @ -No Did you speak to anyone other than the patient for history? @ -No Did you review nursing and triage notes? @ -Yes, and I agree, it is accurate with regards to the patient's symptoms. Were old charts reviewed? @ -No Differential Diagnosis? @ -Differential Musculoskeletal Muscular strain, contusion, ligament sprain, fracture, arthritis, septic arthritis, bursitis, cellulitis, muscle spasm, nerve compression, DVT, arterial occlusion, herpes zoster, electrolyte abnormality, tumor.... This is not meant to be in all inclusive list EKG interpreted by me (3pts min.)? @ -Not obtained X-rays interpreted by me (1pt min.)? @ -X-ray of the lumbar spine obtained. My interpretation identifies no acute fractures. X-ray of the left hip/AP pelvis obtained. My interpretation identifies no acute fractures. CT interpreted by me (1pt min.)? @ -Not obtained U/S interpreted by me (1pt. min.)? @ -Not obtained What testing was considered but not performed? (CT, X-rays, U/S, labs)? Why? @ -None What meds were considered but not given? Why? @ -None Did you discuss the management of the patient with other professionals? @ -No Did you reconcile home meds? @ -No Was smoking cessation discussed for >3mins.? @ -No Was critical care preformed (if so, how long)? @ -No Were there social determinants of health that impacted care today? How? (Homelessness, low income, unemployed, alcoholism, drug addiction, transportation, low edu. Level, literacy, decrease access to med. care, custodial, rehab)? @ -No Was there de-escalation of care discussed even if they declined? (Discuss DNR or withdrawal of care, Hospice)? @ -No What co-morbidities impacted this encounter? (DM, HTN, Smoking, COPD, CAD, Cancer, CVA, Hep., AIDS, mental health diagnosis, sleep apnea, morbid obesity)? @ -DM Was patient admitted / discharged? @ -Discharged. X-ray of the lumbar spine and left hip/AP pelvis obtained revealing degenerative changes without acute process. The description of his symptoms is consistent with something like sciatica. Pain was managed in the emergency department. We got the patient up to ambulate and he was able to put pressure on that leg and was overall feeling much better. Prescription for prednisone and Robaxin provided with dosing instructions reviewed. [place] prescribed to be taken sparingly when his pain is the most severe. Advised follow-up with his PCP for reevaluation. Patient discharged home in stable condition. Case discussed with ED attending Dr. Hernandez. Return precautions reviewed in depth, the patient is instructed to return to the emergency department with any new, worsening, or concerning symptoms. Patient verbalized understanding. Undiagnosed new problem with uncertain prognosis? @ -None Drug Therapy requiring intensive monitoring for toxicity (Heparin, Nitro, Insulin, Cardizem)? @ -None Were any procedures done? @ -None Diagnosis/symptom? @ -Left-sided sciatica, left leg pain Acute, or Chronic, or Acute on Chronic? @ -Acute Uncomplicated (without systemic symptoms) or Complicated (systemic symptoms)? @ -Uncomplicated Side effects of treatment? @ -None Exacerbation, Progression, or Severe Exacerbation] @ -Not applicable Poses a threat to life or bodily function? @ -No - Radiology Data Radiology results: report reviewed, image reviewed Disposition Clinical Impression: Sciatica, left side, Left lumbar radiculopathy Disposition: HOME SELF-CARE Instructions (If sedation given, give patient instructions): Sciatica (ED), Lumbar Radiculopathy (ED) Additional Instructions: Return to the emergency department with any new, worsening, or concerning symptoms. Take the prednisone daily for 5 days. Take the Robaxin as 1 to 2 tablets up to 3-4 times daily. Take the [place]vine sparingly when your pain is the most severe. Follow up with your primary care provider in 1-2 days. Prescriptions: HYDROcodone/APAP 5-325MG [[place] 5-325] 1 tab PO Q6HR PRN 3 Days #12 tab PRN Reason: Pain predniSONE 50 mg PO DAILY 5 Days #5 tab methocarbamoL [Robaxin-750] 1,500 mg PO TID PRN #30 tab PRN Reason: Pain Is patient prescribed a controlled substance at d/c from ED?: Yes When asked, does pt state using other controlled substances?: Yes If prescribed controlled substance>3 days was MAPS reviewed?: Prescribed <3 Days Referrals: Meng Hassan MD [Primary Care Provider] - 1-2 days Time of Disposition: 16:55
[2024-10-05] MEDS: KETOROLAC 15 MG/ML 1 ML VIAL IVP STA (15:55)
[2024-10-05] MEDS: ORPHENADRINE 30 MG/ML 2 ML VIAL IVP STA (15:56)
[2024-10-05 15:58] VITALS: RESP 20
[2024-10-05] MEDS: DEXAMETHASONE SOD PHOSPHATE 10 MG/ML 1 ML VIAL IVP STA (15:59)
[2024-10-05] MEDS: MORPHINE SULFATE 4 MG/ML SYRINGE IVP STA (16:01)
--- NOTE | 2024-10-05 16:17 | XR ---
EXAMINATION TYPE: XR lumbar spine 2 or 3V DATE OF EXAM: 10/05/2024 CLINICAL HISTORY: pain TECHNIQUE: Three views of the lumbar spine are submitted. COMPARISON: MR lumbar spine 02/18/2022, lumbosacral spine radiograph 03/09/2022 FINDINGS: There are 5 lumbar type vertebral bodies identified. The lumbar spine shows satisfactory alignment w ithout evidence of acute fracture or dislocation. Vertebral body heights are within normal limits. Multilevel disc space narrowing with endplate sclerosis and anterior osteophytosis. Most pronounced a t L5-S1. Multilevel facet arthropathy of the lower lumbar spine. The overlying soft tissue appears u nremarkable. Atherosclerotic calcification of aorta. IMPRESSION: 1. No acute fracture or dislocation is seen in the lumbar spine. 2. Mild multilevel degenerative disc disease. [facility], , 10/05/2024 4:14 PM
--- NOTE | 2024-10-05 16:18 | XR ---
EXAMINATION TYPE: XR Hip LT and AP Pelvis DATE OF EXAM: 10/05/2024 4:14 PM INDICATION: Patient age:Male; 64 years old; Reason for study: Pain; PHH. pain COMPARISON: CT abdomen and pelvis 09/08/2022 TECHNIQUE: The left hip was examined in the frontal and lateral projections and a AP pelvis. FINDINGS: No evidence of any acute osseous pathology, joint dislocation, or soft tissue swelling. No significant osteoarthritic changes of the hips. IMPRESSION: No acute osseous pathology. [facility], , 10/05/2024 4:16 PM
[2024-10-05 17:35] VITALS: BP 176/95; PULSE 90; TEMP 98.2
== END 2024-10-05 17:35 | disposition home or self-care (01) ==
LOC: EC 13:42
DX: M54.42 Lumbago with sciatica, left side (principal); M54.16 Radiculopathy, lumbar region; E11.9 Type 2 diabetes mellitus without complications; I10 Essential (primary) hypertension; J44.1 Chronic obstructive pulmonary disease with (acute) exacerbation; I25.10 Atherosclerotic heart disease of native coronary artery without angina pectoris; I63.9 Cerebral infarction, unspecified
CPT/HCPCS: 72100; 73502; 99285; 96374; 96375; J2270; J1100; J2360; J1885

== ENCOUNTER 2024-11-02 20:00 | Emergency (ER) | payer MEDICARE ==
[2024-11-02 20:13] VITALS: BP 133/84; PULSE 90; RESP 16; TEMP 98.4
[2024-11-02] MEDS: DIPH,PERTUS(ACELL)TETVAC-LF 0.5 ML VIAL IM ONE (20:26)
--- NOTE | 2024-11-02 20:32 | ED ---
General Adult HPI - General Chief complaint: Fall Stated complaint: fall Time Seen by Provider: 11/02/24 20:05 Source: patient, EMS, RN notes reviewed, old records reviewed - History of Present Illness Initial comments: This is a 64-year-old male who states he was sitting in a wheelchair and he leaned forward and he fell to the wheelchair and he hit his knees and then his head he did not lose conscious he was not dazed he did not hurt his neck he denies numbness weakness. Patient denies a headache. Patient states he has a little abrasion on his forehead he is not up-to-date on his tetanus. Patient denies any extremity injury. Patient [place] any chest or abdominal injury. Patient has any back injury. - Related Data Home Medications Medication Instructions Recorded Confirmed Aspirin EC [Ecotrin Low Dose] 81 mg PO DAILY 06/23/23 10/08/24 Atorvastatin [Lipitor] 40 mg PO HS 06/23/23 10/08/24 Insulin Glargine (Lantus) [Lantus 50 unit SQ DAILY 04/16/24 10/08/24 Vial] Tamsulosin HCl [Flomax] 0.4 mg PO BID 04/16/24 10/08/24 Dapagliflozin Propanediol [Farxiga] 10 mg PO DAILY 10/08/24 10/08/24 Fluticasone Nasal [place] [Flonase 1 spray EA NOSTRIL DAILY 10/08/24 10/08/24 Nasal [place]] Insulin Glargine (Lantus) [Lantus 10 unit SQ DAILY@1600 10/08/24 10/08/24 Vial] Loratadine [Claritin] 10 mg PO DAILY 10/08/24 10/08/24 NIFEdipine [NIFEdipine ER 90 mg PO DAILY 10/08/24 10/08/24 (Osmotic)] Pregabalin [Lyrica] 50 mg PO BID 10/08/24 10/08/24 carvediloL [Coreg] 12.5 mg PO BID 10/08/24 10/08/24 Previous Rx's Medication Instructions Recorded HYDROcodone/APAP 5-325MG [[place] 1 tab PO Q6HR PRN 3 Days #12 tab 10/05/24 5-325] methocarbamoL [Robaxin-750] 1,500 mg PO TID PRN #30 tab 10/05/24 Sodium Bicarbonate Tab 650 mg PO BID #90 tab 10/15/24 cloNIDine HCL [Catapres] 0.2 mg PO TID tab 10/15/24 hydrALAZINE HCL [Apresoline] 50 mg PO BID #30 tab 10/15/24 Allergies Allergy/AdvReac Type Severity Reaction Status Date / Time No Known Allergies Allergy Verified 11/02/24 20:13 Review of Systems ROS Statement: Those systems with pertinent positive or pertinent negative responses have been documented in the HPI. ROS Other: All systems not noted in ROS Statement are negative. Past Medical History Past Medical History: Diabetes Mellitus, Hyperlipidemia, Hypertension Additional Past Medical History / Comment(s): NIDDM type II, hemorrhoids, diverticulitis, chronic sinus problems, L knee "gives out" on occasion. History of Any Multi-Drug Resistant Organisms: None Reported Past Surgical History: Hernia Repair, Unable to Obtain Additional Past Surgical History / Comment(s): R inguinal hernia repair, multiple myringotomies/tubes, circumcism Past Anesthesia/Blood Transfusion Reactions: No Reported Reaction Past Psychological History: Depression, No Psychological Hx Reported Smoking Status: Never smoker Past Alcohol Use History: None Reported Past Drug Use History: None Reported - Past Family History Mother Family Medical History: Cancer Additional Family Medical History / Comment(s): colon cancer. Father Family Medical History: Cancer Additional Family Medical History / Comment(s): colon cancer. General Exam - General Exam Comments Initial Comments: GENERAL: Patient is well-developed and well-nourished. Patient is nontoxic and well- hydrated and is in mild distress. ENT: Neck is soft and supple. No significant lymphadenopathy is noted. Oropharynx is clear. Moist mucous membranes. Neck has full range of motion without eliciting any pain. EYES: The sclera were anicteric and conjunctiva were pink and moist. Extraocular movements were intact and pupils were equal round and reactive to light. Eyelids were unremarkable. PULMONARY: Unlabored respirations. Good breath sounds bilaterally. No audible rales rhonchi or wheezing was noted. CARDIOVASCULAR: There is a regular rate and rhythm without any murmurs gallops or rubs. ABDOMEN: Soft and nontender with normal bowel sounds. SKIN: Superficial abrasion on the forehead NEUROLOGIC: Patient is alert and oriented x3. Cranial nerves II through XII are grossly intact. Motor and sensory are also intact. Normal speech, volume and content. Symmetrical smile. MUSCULOSKELETAL: Normal extremities with adequate strength and full range of motion. LYMPHATICS: No significant lymphadenopathy is noted PSYCHIATRIC: Normal psychiatric evaluation. Course Vital Signs 11/02/24 20:02 Temperature 98.4 F Pulse Rate 90 Respiratory 16 Rate Blood Pressure 133/84 O2 Sat by Pulse 97 Oximetry Medical Decision Making - Medical Decision Making Was pt. sent in by a medical professional or institution (LUIS Taylor, WET PRESS TENDER, urgent care, hospital, or fdc...) When possible be specific @ -No Did you speak to anyone other than the patient for history (EMS, parent, family, police, friend...)? What history was obtained from this source @ -No Did you review nursing and triage notes (agree or disagree)? Why? @ -I reviewed and agree with nursing and triage notes Were old charts reviewed (outside hosp., previous admission, EMS record, old EKG, old radiological studies, urgent care reports/EKG's, fdc records)? Report findings @ -No old charts were reviewed Differential Diagnosis? @ -Differential Musculoskeletal Muscular strain, contusion, ligament sprain, fracture, arthritis, septic arthritis, bursitis, cellulitis, muscle spasm, nerve compression, DVT, arterial occlusion, herpes zoster, electrolyte abnormality, tumor.... This is not meant to be in all inclusive list EKG interpreted by me (3pts min.). @ -As above X-rays interpreted by me (1pt min.). @ -None done CT interpreted by me (1pt min.). @ -None done U/S interpreted by me (1pt. min.). @ -None done What testing was considered but not performed or refused? (CT, X-rays, U/S, labs)? Why? @ -None What meds were considered but not given or refused? Why? @ -None Did you discuss the management of the patient with other professionals (professionals i.e. LUIS Taylor, WET PRESS TENDER, lab, RT, psych nurse, social secretary, orthotic technician, teacher, administrative services officer, hospice case manager)? Give summary @ -No Was smoking cessation discussed for >3mins.? @ -No Was critical care preformed (if so, how long)? @ -No Were there social determinants of health that impacted care today? How? (Homelessness, low income, unemployed, alcoholism, drug addiction, transportation, low edu. Level, literacy, decrease access to med. care, halfway, rehab)? @ -No Was there de-escalation of care discussed even if they declined (Discuss DNR or withdrawal of care, Hospice)? DNR status @ -No What co-morbidities impacted this encounter? (DM, HTN, Smoking, COPD, CAD, Cancer, CVA, ARF, Chemo, Hep., AIDS, mental health diagnosis, sleep apnea, morbid obesity)? @ -None Was patient admitted / discharged? Hospital course, mention meds given and route, prescriptions, significant lab abnormalities, going to OR and other pertinent info. @ -Patient has a superficial lesion on his forehead. Patient is given a tetanus shot to get him up-to-date. Patient had no headache no neck pain no numbness no weakness patient did not lose consciousness. Patient was not dazed. Patient had no other complaints his knees did not show any signs of injury. Patient will be discharged home Undiagnosed new problem with uncertain prognosis? @ -No Drug Therapy requiring intensive monitoring for toxicity (Heparin, Nitro, Insulin, Cardizem)? @ -No Were any procedures done? @ -No Diagnosis/symptom? @ -Forehead abrasion Acute, or Chronic, or Acute on Chronic? @ -Default Uncomplicated (without systemic symptoms) or Complicated (systemic symptoms)? @ -Uncomplicated Side effects of treatment? @ -No Exacerbation, Progression, or Severe Exacerbation? @ -No Poses a threat to life or bodily function? How? (Chest pain, [place], [place], pneumonia, PE, COPD, DKA, ARF, appy, cholecystitis, CVA, Diverticulitis, Homicidal, Suicidal, threat to staff... and all critical care pts) @ -No Disposition Clinical Impression: Forehead abrasion Disposition: HOME SELF-CARE Condition: Good Instructions (If sedation given, give patient instructions): Abrasion (ED) Is patient prescribed a controlled substance at d/c from ED?: No Referrals: Meng Hassan MD [Primary Care Provider] - 1-2 days Time of Disposition: 20:33
== END 2024-11-02 21:00 | disposition home or self-care (01) ==
LOC: EC 20:00
DX: S00.81XA Abrasion of other part of head, initial encounter (principal); Z23 Encounter for immunization; W01.198A Fall on same level from slipping, tripping and stumbling with subsequent striking against other object, initial encounter
CPT/HCPCS: 90471; 90715; 99283

== ENCOUNTER → 2024-11-02 | Emergency (ER) | payer MEDICARE ==
[2024-11-02 22:34] VITALS: TEMP 98.3
--- NOTE | 2024-11-02 23:09 | ED ---
General Adult HPI - General Chief complaint: Recheck/Abnormal Lab/Rx Stated complaint: Weakness Time Seen by Provider: 11/02/24 22:34 Source: patient, EMS, RN notes reviewed Mode of arrival: EMS Limitations: no limitations - History of Present Illness Initial comments: 64-year-old male presenting to emergency department via EMS for a reevaluation. Patient was discharged within the last 2 hours after a fall that occurred while he was at home. Patient overall is a poor historian. It is reported that after patient was dropped off at a taxicab at his house he immediately called EMS to report back to emergency room for further evaluation. Currently patient states that he is feeling well overall however states that he has been feeling "weak ". Patient was recently discharged from rehabilitation center on . He denies chest pain, difficulty breathing, headaches, neck pain, visual disturbances, abdominal pain, urinary or bowel habit changes. - Related Data Home Medications Medication Instructions Recorded Confirmed Aspirin EC [Ecotrin Low Dose] 81 mg PO DAILY 06/23/23 10/08/24 Atorvastatin [Lipitor] 40 mg PO HS 06/23/23 10/08/24 Insulin Glargine (Lantus) [Lantus 50 unit SQ DAILY 04/16/24 10/08/24 Vial] Tamsulosin HCl [Flomax] 0.4 mg PO BID 04/16/24 10/08/24 Dapagliflozin Propanediol [Farxiga] 10 mg PO DAILY 10/08/24 10/08/24 Fluticasone Nasal [place] [Flonase 1 spray EA NOSTRIL DAILY 10/08/24 10/08/24 Nasal [place]] Insulin Glargine (Lantus) [Lantus 10 unit SQ DAILY@1600 10/08/24 10/08/24 Vial] Loratadine [Claritin] 10 mg PO DAILY 10/08/24 10/08/24 NIFEdipine [NIFEdipine ER 90 mg PO DAILY 10/08/24 10/08/24 (Osmotic)] Pregabalin [Lyrica] 50 mg PO BID 10/08/24 10/08/24 carvediloL [Coreg] 12.5 mg PO BID 10/08/24 10/08/24 Previous Rx's Medication Instructions Recorded HYDROcodone/APAP 5-325MG [[place] 1 tab PO Q6HR PRN 3 Days #12 tab 10/05/24 5-325] methocarbamoL [Robaxin-750] 1,500 mg PO TID PRN #30 tab 10/05/24 Sodium Bicarbonate Tab 650 mg PO BID #90 tab 10/15/24 cloNIDine HCL [Catapres] 0.2 mg PO TID tab 10/15/24 hydrALAZINE HCL [Apresoline] 50 mg PO BID #30 tab 10/15/24 Allergies Allergy/AdvReac Type Severity Reaction Status Date / Time No Known Allergies Allergy Verified 11/02/24 20:13 Review of Systems ROS Statement: Those systems with pertinent positive or pertinent negative responses have been documented in the HPI. ROS Other: All systems not noted in ROS Statement are negative. Past Medical History Past Medical History: Diabetes Mellitus, Hyperlipidemia, Hypertension Additional Past Medical History / Comment(s): NIDDM type II, hemorrhoids, diverticulitis, chronic sinus problems, L knee "gives out" on occasion. History of Any Multi-Drug Resistant Organisms: None Reported Past Surgical History: Hernia Repair, Unable to Obtain Additional Past Surgical History / Comment(s): R inguinal hernia repair, multiple myringotomies/tubes, circumcism Past Anesthesia/Blood Transfusion Reactions: No Reported Reaction Past Psychological History: Depression, No Psychological Hx Reported Smoking Status: Never smoker Past Alcohol Use History: None Reported Past Drug Use History: None Reported - Past Family History Mother Family Medical History: Cancer Additional Family Medical History / Comment(s): colon cancer. Father Family Medical History: Cancer Additional Family Medical History / Comment(s): colon cancer. General Exam Limitations: no limitations General appearance: alert, in no apparent distress Head exam: Present: atraumatic, normocephalic, normal inspection, other (forehe ad abrasion, 1 cm, no active bleeding or surrounding hematoma) Eye exam: Present: normal appearance, PERRL, EOMI. Absent: scleral icterus, conjunctival injection, periorbital swelling Neck exam: Present: normal inspection. Absent: tenderness, meningismus, lymphadenopathy Respiratory exam: Present: normal lung sounds bilaterally. Absent: respiratory distress, wheezes, rales, rhonchi, stridor Cardiovascular Exam: Present: regular rate, normal rhythm, normal heart sounds. Absent: systolic murmur, diastolic murmur, rubs, gallop, clicks GI/Abdominal exam: Present: soft, normal bowel sounds. Absent: distended, tenderness, guarding, rebound, rigid Extremities exam: Present: normal inspection, full ROM, normal capillary refill. Absent: tenderness, pedal edema, joint swelling, calf tenderness Skin exam: Present: warm, dry, intact, normal color. Absent: rash Course Vital Signs 11/02/24 11/02/24 11/03/24 22:28 23:33 00:00 Temperature 98.3 F Pulse Rate 99 72 82 Respiratory 18 16 16 Rate Blood Pressure 142/83 142/83 137/76 O2 Sat by Pulse 97 96 95 Oximetry 11/03/24 01:09 Temperature Pulse Rate 80 Respiratory 18 Rate Blood Pressure 145/95 O2 Sat by Pulse 98 Oximetry Medical Decision Making - Medical Decision Making Was pt. sent in by a medical professional or institution (LUIS Taylor, UI UX DEVELOPER, urgent care, hospital, or jail...) When possible be specific @ -No Did you speak to anyone other than the patient for history (EMS, parent, family, police, friend...)? What history was obtained from this source @ -No Did you review nursing and triage notes (agree or disagree)? Why? @ -I reviewed and agree with nursing and triage notes Were old charts reviewed (outside hosp., previous admission, EMS record, old EKG, old radiological studies, urgent care reports/EKG's, jail records)? Report findings @ -No old charts were reviewed Differential Diagnosis (chest pain, altered mental status, abdominal pain women, abdominal pain men, vaginal bleeding, weakness, fever, dyspnea, syncope, headache, dizziness, GI bleed, back pain, seizure, CVA, palpatations, mental health, musculoskeletal)? @ -Differential Weakness: Hypoglycemia, shock, sepsis, hyponatremia, anemia, infection, [place], ETOH, adverse medicine reaction, overdose, stroke, this is not meant to be an all-inclusive list. EKG interpreted by me (3pts min.). @ -Completed at 2326 sinus rhythm with a ventricular rate of 91, TX interval 181, QRS 101, QT 384, QTc 433. X-rays interpreted by me (1pt min.). @ -Chest x-ray no acute cardiopulmonary process CT interpreted by me (1pt min.). @ -None done U/S interpreted by me (1pt. min.). @ -None done What testing was considered but not performed or refused? (CT, X-rays, U/S, labs)? Why? @ -None What meds were considered but not given or refused? Why? @ -None Did you discuss the management of the patient with other professionals (professionals i.e. , PA, UI UX DEVELOPER, lab, RT, psych nurse, sexual assault social worker, coal carrier, teacher, community cultural development officer, window caser)? Give summary @ -No Was smoking cessation discussed for >3mins.? @ -No Was critical care preformed (if so, how long)? @ -No Were there social determinants of health that impacted care today? How? (Homeles sness, low income, unemployed, alcoholism, drug addiction, transportation, low edu. Level, literacy, decrease access to med. care, penitentiary, rehab)? @ -No Was there de-escalation of care discussed even if they declined (Discuss DNR or withdrawal of care, Hospice)? DNR status @ -No What co-morbidities impacted this encounter? (DM, HTN, Smoking, COPD, CAD, Cancer, CVA, ARF, Chemo, Hep., AIDS, mental health diagnosis, sleep apnea, morbid obesity)? @ -None Was patient admitted / discharged? Hospital course, mention meds given and route, prescriptions, significant lab abnormalities, going to OR and other pertinent info. @ -Discharge. 64-year-old male presenting with generalized weakness. Overall patient is well-appearing. EKG is in sinus rhythm. Patient is noted to be clinically dehydrated therefore is provided with fluids. Weakness generalized workup has been benign including chest x-ray, laboratory testing and urinalysis. Patient stable for discharge with appropriate follow-up. Case discussed with Dr. Hernandez Undiagnosed new problem with uncertain prognosis? @ -No Drug Therapy requiring intensive monitoring for toxicity (Heparin, Nitro, Insulin, Cardizem)? @ -No Were any procedures done? @ -No Diagnosis/symptom? @ -Generalized weakness Acute, or Chronic, or Acute on Chronic? @ -Acute Uncomplicated (without systemic symptoms) or Complicated (systemic symptoms)? @ -Uncomplicated Side effects of treatment? @ -No Exacerbation, Progression, or Severe Exacerbation? @ -No Poses a threat to life or bodily function? How? (Chest pain, [place], [place], pneumonia, PE, COPD, DKA, ARF, appy, cholecystitis, CVA, Diverticulitis, Homicidal, Suicidal, threat to staff... and all critical care pts) @ -No - Lab Data Result diagrams: 11/02/24 23:19 11/02/24 23:19 Lab Results 11/02/24 11/02/24 11/02/24 Range/Units 23:19 23:19 23:19 WBC 11.86 H (4.50-10.00) 10*3/uL RBC 4.68 (4.40-5.60) 10*6/uL Hgb 13.8 (13.0-17.0) g/dL Hct 39.8 (39.6-50.0) % MCV 85.0 (80.0-97.0) fL MCH 29.5 (27.0-32.0) pg MCHC 34.7 (32.0-37.0) g/dL Plt Count 395 (140-440) 10*3/uL MPV 10.7 (9.5-12.2) fL Immature Gran % (Auto) 0.3 % Neutrophils % 76.8 % Lymphocytes % 13.2 % Monocytes % 7.8 % Eosinophils % 1.4 % Basophils % 0.5 % Immature Gran # 0.03 (0.00-0.04) 10*3/uL Neutrophils # 9.12 H (1.80-7.70) 10*3/uL Lymphocytes # 1.56 (0.90-5.00) 10*3/uL Monocytes # 0.92 (0.20-1.00) 10*3/uL Eosinophils # 0.17 (0.04-0.35) 10*3/uL Basophils # 0.06 (0.00-0.10) 10*3/uL PT 10.7 (10.0-12.5) sec INR 1.0 (<1.2) APTT 23.4 (22.0-30.0) sec Sodium 138 (137-145) mmol/L Potassium 4.2 (3.5-5.1) mmol/L Chloride 105 (98-107) mmol/L Carbon Dioxide 21 L (22-30) mmol/L Anion Gap 12 mmol/L BUN 41 H (9-20) mg/dL Creatinine 2.75 H (0.66-1.25) mg/dL Est GFR (CKD-EPI)AfAm 27 (>60 ml/min/1.73 sqM) Est GFR (CKD-EPI)NonAf 24 (>60 ml/min/1.73 sqM) Glucose 79 (74-99) mg/dL Calcium 9.7 (8.4-10.2) mg/dL Magnesium 1.9 (1.6-2.3) mg/dL Total Bilirubin 0.7 (0.2-1.3) mg/dL AST 31 (17-59) U/L ALT 36 (4-49) U/L Alkaline Phosphatase 139 H (38-126) U/L Troponin I (0.000-0.034) ng/mL Total Protein 6.3 (6.3-8.2) g/dL Albumin 3.4 L (3.5-5.0) g/dL Urine Color Urine Appearance (Clear) Urine pH (5.0-8.0) Ur Specific [place] (1.001-1.035) Urine Protein (Negative) Urine Glucose (UA) (Negative) Urine Ketones (Negative) Urine Blood (Negative) Urine Nitrite (Negative) Urine Bilirubin (Negative) Urine Urobilinogen (<2.0) mg/dL Ur Leukocyte Esterase (Negative) Urine RBC (0-5) /hpf Urine WBC (0-5) /hpf Urine Bacteria (None) /hpf Hyaline Casts (0-2) /lpf Urine Mucus (None) /hpf 11/02/24 11/02/24 Range/Units 23:19 23:27 WBC (4.50-10.00) 10*3/uL RBC (4.40-5.60) 10*6/uL Hgb (13.0-17.0) g/dL Hct (39.6-50.0) % MCV (80.0-97.0) fL MCH (27.0-32.0) pg MCHC (32.0-37.0) g/dL Plt Count (140-440) 10*3/uL MPV (9.5-12.2) fL Immature Gran % (Auto) % Neutrophils % % Lymphocytes % % Monocytes % % Eosinophils % % Basophils % % Immature Gran # (0.00-0.04) 10*3/uL Neutrophils # (1.80-7.70) 10*3/uL Lymphocytes # (0.90-5.00) 10*3/uL Monocytes # (0.20-1.00) 10*3/uL Eosinophils # (0.04-0.35) 10*3/uL Basophils # (0.00-0.10) 10*3/uL PT (10.0-12.5) sec INR (<1.2) APTT (22.0-30.0) sec Sodium (137-145) mmol/L Potassium (3.5-5.1) mmol/L Chloride (98-107) mmol/L Carbon Dioxide (22-30) mmol/L Anion Gap mmol/L BUN (9-20) mg/dL Creatinine (0.66-1.25) mg/dL Est GFR (CKD-EPI)AfAm (>60 ml/min/1.73 sqM) Est GFR (CKD-EPI)NonAf (>60 ml/min/1.73 sqM) Glucose (74-99) mg/dL Calcium (8.4-10.2) mg/dL Magnesium (1.6-2.3) mg/dL Total Bilirubin (0.2-1.3) mg/dL AST (17-59) U/L ALT (4-49) U/L Alkaline Phosphatase (38-126) U/L Troponin I <0.012 (0.000-0.034) ng/mL Total Protein (6.3-8.2) g/dL Albumin (3.5-5.0) g/dL Urine Color Light Yellow Urine Appearance Clear (Clear) Urine pH 6.0 (5.0-8.0) Ur Specific [place] 1.019 (1.001-1.035) Urine Protein 3+ H (Negative) Urine Glucose (UA) 4+ H (Negative) Urine Ketones Negative (Negative) Urine Blood Trace H (Negative) Urine Nitrite Negative (Negative) Urine Bilirubin Negative (Negative) Urine Urobilinogen <2.0 (<2.0) mg/dL Ur Leukocyte Esterase Negative (Negative) Urine RBC 1 (0-5) /hpf Urine WBC 1 (0-5) /hpf Urine Bacteria Rare H (None) /hpf Hyaline Casts 1 (0-2) /lpf Urine Mucus Rare H (None) /hpf Disposition Clinical Impression: Skin abrasion Disposition: HOME SELF-CARE Condition: Stable Additional Instructions: Please return to the emergency department for any new or worsening symptoms. Is patient prescribed a controlled substance at d/c from ED?: No Referrals: Meng Hassan MD [Primary Care Provider] - 1-2 days Time of Disposition: 00:45
[2024-11-02] MEDS: SODIUM CHLORIDE 0.9% 1,000 ML IV ONE (23:26)
[2024-11-02 23:39] LABS: Basophils # (A) 0.06 10*3/uL (0.00-0.10); Basophils % (A) 0.5 %; Eosinophils # (A) 0.17 10*3/uL (0.04-0.35); Eosinophils % (A) 1.4 %; HCT 39.8 % (39.6-50.0); HGB 13.8 g/dL (13.0-17.0); Lymphocytes # (A) 1.56 10*3/uL (0.90-5.00); Lymphocytes % (A) 13.2 %; MCH 29.5 pg (27.0-32.0); MCHC 34.7 g/dL (32.0-37.0); Mean Platelet Volume 10.7 fL (9.5-12.2); Monocytes # (A) 0.92 10*3/uL (0.20-1.00); Monocytes % (A) 7.8 %; Neutrophils # (A) 9.12 10*3/uL (1.80-7.70); Neutrophils % (A) 76.8 %; Platelet Count 395 10*3/uL (140-440); RBC 4.68 10*6/uL (4.40-5.60); RDW 12.8 % (11.5-14.5); WBC 11.86 10*3/uL (4.50-10.00)
--- NOTE | 2024-11-02 23:43 | XR ---
EXAMINATION TYPE: XR chest 2V DATE OF EXAM: 11/02/2024 11:39 PM COMPARISON: 10/08/2024 CLINICAL INDICATION: Male, 64 years old with history of Weakness, TECHNIQUE: XR chest 2V view(s) obtained. FINDINGS: The heart size is normal. The pulmonary vasculature is normal. The lungs are clear. IMPRESSION: 1. No acute pulmonary process. [facility], , 11/02/2024 11:41 PM
[2024-11-02 23:58] LABS: Partial Thromboplastin Time 23.4 sec (22.0-30.0); Prothrombin Time 10.7 sec (10.0-12.5)
[2024-11-03 00:01] LABS: Appearance,Urine Clear (Clear); Bacteria,Urine Rare /hpf; Bilirubin,Urine Negative (Negative); Blood,Urine Trace (Negative); Color,Urine Light Yellow; Glucose,Urine (UA) 4+ (Negative); Hyaline Casts,Urine 1 /lpf (0-2); Ketones,Urine Negative (Negative); Leukocyte Esterase,Urine Negative (Negative); Mucus,Urine Rare /hpf; Nitrite,Urine Negative (Negative); Protein,Urine 3+ (Negative); RBC,Urine 1 /hpf (0-5); Specific Gravity,Urine 1.019 (1.001-1.035); Urobilinogen,Urine <2.0 mg/dL (<2.0); WBC,Urine 1 /hpf (0-5)
[2024-11-03 00:27] LABS: ALT 36 U/L (4-49); AST 31 U/L (17-59); African American GFR (CKD) 27 (>60 ml/min/1.73 sqM); Albumin 3.4 g/dL (3.5-5.0); Alkaline Phosphatase 139 U/L (38-126); Anion Gap 12 mmol/L; Blood Urea Nitrogen 41 mg/dL (9-20); Calcium 9.7 mg/dL (8.4-10.2); Carbon Dioxide 21 mmol/L (22-30); Chloride 105 mmol/L (98-107); Glucose 79 mg/dL (74-99); Magnesium 1.9 mg/dL (1.6-2.3); Non-African American GFR(CKD) 24 (>60 ml/min/1.73 sqM); Potassium 4.2 mmol/L (3.5-5.1); Sodium 138 mmol/L (137-145); Total Bilirubin 0.7 mg/dL (0.2-1.3); Total Protein 6.3 g/dL (6.3-8.2)
[2024-11-03 01:33] VITALS: BP 145/95; PULSE 80; RESP 18
== END | disposition home or self-care (01) ==
LOC: EC 22:25
DX: S00.81XA Abrasion of other part of head, initial encounter (principal); R53.1 Weakness; W19.XXXA Unspecified fall, initial encounter; Y92.009 Unspecified place in unspecified non-institutional (private) residence as the place of occurrence of the external cause
CPT/HCPCS: 36415; 71046; 80053; 81001; 83735; 84484; 85025; 85610; 85730; 93005; 96360; 99285